=== PATIENT | female | born 1960 | race Two or more races ===

== ENCOUNTER 2020-06-27 11:54 | Outpatient (REF) | payer OTHER, SELFPAY | END 2020-06-27 11:55 | disposition home or self-care (01) | LOC: HO.MDS 11:54 | PROVIDERS: Visit Provider Internal Medicine Pulmonary Disease | DX: J45.909 Unspecified asthma, uncomplicated (principal) | CPT/HCPCS: 96372; J0517 ==

== ENCOUNTER 2020-07-11 06:42 | Outpatient (REF) | payer OTHER, SELFPAY | END 2020-07-11 06:43 | disposition home or self-care (01) | LOC: HO.LAB 06:42 | PROVIDERS: Visit Provider Internal Medicine | DX: Z20.828 Contact with and (suspected) exposure to other viral communicable diseases (principal) | CPT/HCPCS: C9803; U0003 ==

== ENCOUNTER → 2020-09-24 12:30 | Outpatient (BNVA) | payer OTHER, SELFPAY | PROVIDERS: Visit Provider Internal Medicine Pulmonary Disease | DX: J45.50 Severe persistent asthma, uncomplicated (principal); G47.33 Obstructive sleep apnea (adult) (pediatric); Z91.09 Other allergy status, other than to drugs and biological substances | CPT/HCPCS: 99212 ==

== ENCOUNTER 2020-10-03 12:32 | Outpatient (REF) | payer OTHER, SELFPAY | END 2020-10-03 12:33 | disposition home or self-care (01) | LOC: HO.MDS 12:32 | PROVIDERS: PCP Internal Medicine; Visit Provider Internal Medicine Pulmonary Disease | DX: J45.40 Moderate persistent asthma, uncomplicated (principal) | CPT/HCPCS: 96372; J0517 ==

== ENCOUNTER 2020-10-31 09:46 | Outpatient (REF) | payer OTHER, SELFPAY ==
--- NOTE | ~2020-10-31 | XR_ITS ---
EXAMINATION: XR LUMBOSACRAL SPINE CLINICAL INFORMATION: Low back pain COMPARISON: Previous lumbar spine x-ray July 2017 TECHNIQUE: Three views of the lumbosacral spine. FINDINGS: Bone alignment is normal. No fracture or dislocation is seen. There is evidence of degenerative disc disease at L1-L2, L2-L3 and L5-S1. There is lower lumbar spine facet arthritis. XR/XR lumbar spine 2-3V IMPRESSION: Degenerative changes.
== END 2020-10-31 09:47 | disposition home or self-care (01) ==
LOC: HO.XRAY 09:46
PROVIDERS: PCP Internal Medicine; Visit Provider Internal Medicine
DX: M54.5 Low back pain (principal)
CPT/HCPCS: 72100

== ENCOUNTER 2020-11-13 22:54 | Emergency (ER) | payer OTHER, SELFPAY ==
[2020-11-13 23:00] VITALS: BP 151/57; PULSE 73; RESP 16; TEMP 36.9; O2SAT 99; BMI 48.0
--- NOTE | 2020-11-13 23:10 | ED_ITS ---
HPI - Dizziness General Chief Complaint: Dizziness Stated Complaint: weakness dizzy Time Seen by Provider: 11/13/20 23:10 Source: patient Limitations: language barrier History of Present Illness HPI Narrative: Patient history of anxiety received her COVID vaccine on 11/07 on Klonopin 2 mg daily for last few years which she has not taking for last 3 days since then patient has been feeling anxious complaining of palpitation and epigastric pain unable to sleep. Patient denies any nausea/vomiting no fever no shortness of breath no cough no diaphoresis feel dizzy which is nonspecific does denies any spinning movements denies any difficulty in ambulation unable to sleep for last 3 days MD elicited complaint: dizziness Timing: gradual onset Severity: mild Related Data Home Medications Medication Instructions Recorded Confirmed acetaminophen 500 mg tablet 0 mg PO 09/24/20 albuterol sulfate 90 mcg/actuation 2 puff PO Q4-6H PRN 09/24/20 aerosol inhaler aspirin 81 mg tablet,delayed 81 mg PO QAM 09/24/20 release atorvastatin 20 mg tablet 20 mg PO DAILY 09/24/20 clonazepam 2 mg tablet 0 mg PO 09/24/20 diltiazem HCl 240 mg 240 mg PO DAILY 09/24/20 capsule,extended release 24 hr fluticasone propionate 50 2 spray INTRANASAL DAILY 09/24/20 mcg/actuation nasal spray,suspension gabapentin 300 mg capsule 0 mg PO 09/24/20 lamotrigine 150 mg tablet 150 mg PO DAILY 09/24/20 levothyroxine 75 mcg tablet 75 mcg PO DAILY 09/24/20 lisinopril 20 mg tablet 20 mg PO DAILY 09/24/20 loratadine 10 mg tablet 10 mg PO QAM PRN 09/24/20 melatonin 5 mg tablet 0 mg PO 09/24/20 montelukast 10 mg tablet 10 mg PO DAILY 09/24/20 omeprazole 40 mg capsule,delayed 40 mg PO QAM 09/24/20 release Previous Rx's Medication Instructions Recorded benralizumab 30 mg/mL subcutaneous See Rx Instructions SUBCUT Q8W 28 09/26/20 syringe Days #2 ml Allergies Allergy/AdvReac Type Severity Reaction Status Date / Time morphine [Morphine] Allergy Mild NAUSEA & Verified 09/24/20 12:52 VOMITING aspirin Allergy Unknown Unknown Verified 11/13/20 23:05 zolmitriptan Allergy Unknown Unknown Verified 09/24/20 12:52 Review of Systems Review of Systems: Constitutional : No Weight loss, No Fever, No Chills ENT/Mouth : No sore throat, No Rhinorrhea Eyes: No Eye Pain, No Swelling Cardiovascular : No Chest Pain, ++ palpitations Respiratory : No Cough, No Sputum, no shortness of breath Gastrointestinal : no Nausea, No Vomiting, No Diarrhea, No abdominal Pain, no black stools Genitourinary : No Dysuria, No Urinary Frequency Musculoskeletal : No joint pain, No Myalgias, No Joint Swelling Skin : No Skin Lesions, No rash Neuro : No Weakness, No Numbness, No Dizziness, No Headache Psych :++Anxiety/Panic, No Depression Heme/Lymph: No Bruising, No Lymphadenopathy Endocrine : No Polyuria, No Polydipsia All other systems reviewed and are negative FOR[facility]LY [facility], [facility] Past Medical History Medical History Asthma Bipolar 1 disorder Cholecystectomy planned Depressed GERD (gastroesophageal reflux disease) Hypothyroid Surgical History H/O tubal ligation Social History Social History Smoking Status: Former smoker Advance Directives: No Physical Exam Vital Signs: Vital Signs: Last Vital Signs Temp 98.5 F 11/13/20 23:00 Pulse 77 11/13/20 23:49 Resp 22 H 11/13/20 23:45 BP 142/63 H 11/13/20 23:49 Pulse Ox 98 11/13/20 23:45 Body Mass Index 48.0 Appearance: Alert. Oriented X3. No acute distress. Anxious Eyes: Pupils equal, round and reactive to light. ENT: Pharynx normal. Neck: Normal inspection. Neck supple. CVS: Normal heart rate and rhythm. Pulses normal. Respiratory: No respiratory distress. Breath sounds normal. Abdomen: Soft and nontender. Bowel sounds are present, no mass palpable, no CVA tenderness Skin: Skin warm and dry. Normal skin color. Normal skin turgor. Extremities: No lower extremity edema. Neuro: Oriented X 3. No motor deficit. No sensory deficit. MDM - Dizziness MDM Narrative Medical decision making narrative: Patient has history of anxiety on Klonopin for long-time not taking it for last 3 days since then patient been feeling very anxious dizzy multiple complaints symptoms likely from anxiety will do basic workup orthostatic Patient orthostatic is normal labs are stable discharge patient home advised to continue her Klonopin and follow with PCP Lab Data Result diagrams: 11/14/20 00:04 11/14/20 00:04 Labs: Lab Results 11/14/20 11/14/20 11/14/20 Range/Units 00:04 00:04 00:04 WBC 8.9 (4.8-10.8) X10*3/uL RBC 4.67 (4.20-5.50) X10*6/uL Hgb 13.3 (12.0-16.0) g/dl Hct 41.2 (37-47) % MCV 88.2 (80-98) fL MCH 28.5 (27.0-33.0) pg MCHC 32.3 (31.0-35.0) g/dl RDW 14.6 (11.0-16.0) % Plt Count 240 (160-400) X10*3/uL MPV 10.1 (9.4-12.3) fL Immature Gran % (Auto) 0.3 (0.0-0.4) % Neut % (Auto) 66.8 (45-73) % Lymph % (Auto) 23.8 (20-40) % Frederick % (Auto) 9.0 (2-11) % Eos % (Auto) 0.0 (0-4) % Baso % (Auto) 0.1 (0-2) % Lymph # (Auto) 2.1 (1.2-4.9) X10*3/uL Frederick # (Auto) 0.8 (0.1-1.2) X10*3/uL Eos # (Auto) 0.0 (0.0-0.4) X10*3/uL Baso # (Auto) 0.0 (0.0-0.2) X10*3/uL Abs Immat Gran (auto) 0.03 (0.00-0.03) X10*3/uL Absolute Neuts (auto) 5.9 (2.0-8.3) X10*3/uL Absolute Nucleated RBC 0.000 (0.0-0.012) X10*3/uL Nucleated RBC % (auto) 0.0 (0.0-0.2) /100WBC Sodium 139 (135-145) mmol/L Potassium 4.0 (3.3-5.1) mmol/L Chloride 106 (96-108) mmol/L Carbon Dioxide 24 (22-29) mmol/L Anion Gap 13 (12-20) BUN 18 H (9-16) mg/dL Creatinine 0.95 (0.5-1.4) mg/dL Estim Creat Clear Calc 62.2 Estimated GFR 60 Random Glucose 164 H (60-115) mg/dL Calcium 9.2 (8.4-10.2) mg/dL Total Bilirubin 0.3 (0.0-1.0) mg/dL Direct Bilirubin < 0.2 (0.0-0.5) mg/dL AST 26 (5-31) U/L ALT 25 (0-31) U/L Alkaline Phosphatase 138 H (39-117) U/L Troponin I High Sens < 3.5 (<3.5-17.0) ng/L Total Protein 7.1 (6.5-8.0) g/dL Albumin 4.1 (3.5-5.0) g/dL Lipase 54 (8-78) U/L Discharge Plan Discharge Prescriptions: No Action Fasenra 30 mg/mL syringe See Rx Instructions subcut Q8W 28 Days Qty: 2 RF: 12
--- NOTE | 2020-11-13 23:33 | ECG_ITS ---
Test Reason : DIZZINESS Blood Pressure : / mmHG Vent. Rate : 069 BPM Atrial Rate : 069 BPM P-R Int : 206 ms QRS Dur : 070 ms QT Int : 406 ms P-R-T Axes : 061 063 051 degrees QTc Int : 435 ms Normal sinus rhythm Normal ECG When compared with ECG of 28-FEB-2020 15:50, No significant change was found Referred By: Fei Ramirez Electronically Signed By:LIA MARIE MD
[2020-11-13 23:45] VITALS: BP 117/45; PULSE 72; RESP 22; O2SAT 98
[2020-11-13 23:46] VITALS: BP 117/45; PULSE 72
[2020-11-13 23:47] VITALS: BP 134/55; PULSE 76
[2020-11-13 23:49] VITALS: BP 142/63; PULSE 77
[2020-11-14 00:13] LABS: MANUAL DIFF FLAG NO
[2020-11-14 00:15] LABS: Basophils Percent Auto 0.1 % (0-2); Hematocrit 41.2 % (37-47); Hemoglobin 13.3 g/dl (12.0-16.0); Imm Gran Abs Auto 0.03 X10*3/uL (0.00-0.03); Imm Gran Pct Auto 0.3 % (0.0-0.4); Lymphocytes Absolute Auto 2.1 X10*3/uL (1.2-4.9); Lymphocytes Percent Auto 23.8 % (20-40); Mean Corpuscular HGB Conc 32.3 g/dl (31.0-35.0); Mean Corpuscular Hemoglobin 28.5 pg (27.0-33.0); Mean Corpuscular Volume 88.2 fL (80-98); Mean Platelet Volume 10.1 fL (9.4-12.3); Monocytes Absolute Auto 0.8 X10*3/uL (0.1-1.2); Neutrophils Absolute Auto 5.9 X10*3/uL (2.0-8.3); Neutrophils Percent Auto 66.8 % (45-73); Platelet Count 240 X10*3/uL (160-400); Red Blood Count 4.67 X10*6/uL (4.20-5.50); Red Cell Distribution Width 14.6 % (11.0-16.0); White Blood Count 8.9 X10*3/uL (4.8-10.8)
[2020-11-14 00:38] LABS: Alanine Aminotransferase 25 U/L (0-31); Albumin Level 4.1 g/dL (3.5-5.0); Alkaline Phosphatase 138 U/L (39-117); Anion Gap 13 (12-20); Aspartate Amino Transferase 26 U/L (5-31); Bilirubin Direct < 0.2 mg/dL (0.0-0.5); Bilirubin Total 0.3 mg/dL (0.0-1.0); Blood Urea Nitrogen 18 mg/dL (9-16); Calcium 9.2 mg/dL (8.4-10.2); Carbon Dioxide 24 mmol/L (22-29); Chloride 106 mmol/L (96-108); Creatinine Clr Calc Pharmacy 62.2; Estimated Glomerular Filt Rate 60; Glucose Random 164 mg/dL (60-115); Lipase 54 U/L (8-78); Sodium 139 mmol/L (135-145); Total Protein 7.1 g/dL (6.5-8.0)
[2020-11-14 00:41] LABS: Troponin-I High Sensitivity < 3.5 ng/L (<3.5-17.0)
[2020-11-14] MEDS: clonazePAM 1 MG TABLET 2 MG PO (00:59)
[2020-11-14 01:04] LABS: Glucose Urine UA NEG (NEG); Leukocyte Esterase Urine NEG (NEG); Nitrite Urine NEG (NEG); Urine Blood TRACE (NEG); Urine Ketones NEG (NEG); Urine Protein NEG (NEG-TRACE)
[2020-11-14 01:13] LABS: Appearance Urine CLEAR; Color Urine STRAW
[2020-11-14 01:23] LABS: RBC Urine 0-2 /HPF (0); Squamous Epithelial Cell Urine TRACE /LPF; WBC Urine 0 /HPF (0-4)
== END 2020-11-14 01:45 | disposition home or self-care (01) ==
PROVIDERS: Emergency Provider Internal Medicine; PCP Internal Medicine
DX: F41.9 Anxiety disorder, unspecified (principal); R00.2 Palpitations; T42.4X6A Underdosing of benzodiazepines, initial encounter; Z91.128 Patient's intentional underdosing of medication regimen for other reason; Y92.019 Unspecified place in single-family (private) house as the place of occurrence of the external cause
CPT/HCPCS: 36415; 80048; 80076; 81001; 81003; 83690; 84484; 85025; 93005; 99283; 99284

== ENCOUNTER 2020-11-19 15:20 | Emergency (ER) | payer OTHER, SELFPAY ==
[2020-11-19 15:27] VITALS: BP 121/64; PULSE 75; RESP 24; TEMP 37.1; O2SAT 99; BMI 48.1
[2020-11-19] MEDS: Milk of Magnesia 30 ML ORAL.SUSP PO (15:49)
[2020-11-19] MEDS: bisacodyL 5 MG TABLET.DR 10 MG PO (15:49)
--- NOTE | 2020-11-19 16:18 | PC.NURSE ---
patient on commode. had large bm. reports that pain has subsided.
--- NOTE | 2020-11-19 16:23 | ED_ITS ---
HPI - General Adult General Chief complaint: Abdominal Pain Stated complaint: SEVERE ABD PAIN,CONSTIPATION Time Seen by Provider: 11/19/20 15:36 Source: patient Mode of arrival: ambulatory Limitations: language barrier History of Present Illness HPI narrative: Patient been constipated for last 1 week having pain in the rectum feel stool stuck in the rectum. Patient did not take any medication at home feel lower abdominal pain no nausea no vomiting no fever no chills no cough Related Data Home Medications Medication Instructions Recorded Confirmed acetaminophen 500 mg tablet 0 mg PO 09/24/20 albuterol sulfate 90 mcg/actuation 2 puff PO Q4-6H PRN 09/24/20 aerosol inhaler aspirin 81 mg tablet,delayed 81 mg PO QAM 09/24/20 release atorvastatin 20 mg tablet 20 mg PO DAILY 09/24/20 clonazepam 2 mg tablet 0 mg PO 09/24/20 diltiazem HCl 240 mg 240 mg PO DAILY 09/24/20 capsule,extended release 24 hr fluticasone propionate 50 2 spray INTRANASAL DAILY 09/24/20 mcg/actuation nasal spray,suspension gabapentin 300 mg capsule 0 mg PO 09/24/20 lamotrigine 150 mg tablet 150 mg PO DAILY 09/24/20 levothyroxine 75 mcg tablet 75 mcg PO DAILY 09/24/20 lisinopril 20 mg tablet 20 mg PO DAILY 09/24/20 loratadine 10 mg tablet 10 mg PO QAM PRN 09/24/20 melatonin 5 mg tablet 0 mg PO 09/24/20 montelukast 10 mg tablet 10 mg PO DAILY 09/24/20 omeprazole 40 mg capsule,delayed 40 mg PO QAM 09/24/20 release Previous Rx's Medication Instructions Recorded benralizumab 30 mg/mL subcutaneous See Rx Instructions SUBCUT Q8W 28 09/26/20 syringe Days #2 ml polyethylene glycol 3350 [Miralax] 17 g PO DAILY #510 g 11/19/20 Allergies Allergy/AdvReac Type Severity Reaction Status Date / Time morphine [Morphine] Allergy Mild NAUSEA & Verified 09/24/20 12:52 VOMITING aspirin Allergy Unknown Unknown Verified 11/13/20 23:05 zolmitriptan Allergy Unknown Unknown Verified 09/24/20 12:52 Review of Systems Review of Systems: Constitutional : No Weight loss, No Fever, No Chills ENT/Mouth : No sore throat, No Rhinorrhea Eyes: No Eye Pain, No Swelling Cardiovascular : No Chest Pain, no palpitations Respiratory : No Cough, No Sputum, no shortness of breath Gastrointestinal : no Nausea, No Vomiting, No Diarrhea, + abdominal Pain, no black stools Genitourinary : No Dysuria, No Urinary Frequency Musculoskeletal : No joint pain, No Myalgias, No Joint Swelling Skin : No Skin Lesions, No rash Neuro : No Weakness, No Numbness, No Dizziness, No Headache Psych : No Anxiety/Panic, No Depression Heme/Lymph: No Bruising, No Lymphadenopathy Endocrine : No Polyuria, No Polydipsia All other systems reviewed and are negative COUNT INCLUDES THE [facility] Past Medical History Medical History Asthma Bipolar 1 disorder Cholecystectomy planned Depressed GERD (gastroesophageal reflux disease) Hypothyroid Surgical History H/O tubal ligation Social History Social History Smoking Status: Former smoker Advance Directives: No Advance Directives Information Provided: Yes Physical Exam Vital Signs: Vital Signs: Last Vital Signs Temp 98.8 F 11/19/20 15:27 Pulse 75 11/19/20 15:27 Resp 24 H 11/19/20 15:27 BP 121/64 11/19/20 15:27 Pulse Ox 99 11/19/20 15:27 Body Mass Index 48.1 Appearance: Alert. Oriented X3. No acute distress. Eyes: Pupils equal, round and reactive to light. ENT: Pharynx normal. Neck: Normal inspection. Neck supple. CVS: Normal heart rate and rhythm. Pulses normal. Respiratory: No respiratory distress. Breath sounds normal. Abdomen: Soft and nontender. Bowel sounds are present, no mass palpable, no CVA tenderness Recta: Semi solid stool in the rectum brown-colored Skin: Skin warm and dry. Normal skin color. Normal skin turgor. Extremities: No lower extremity edema. Neuro: Oriented X 3. No motor deficit. No sensory deficit. Medical Decision Making MDM Narrative Medical decision making narrative: Patient's constipation manual disimpaction was done in the ER and patient had a big bowel movement since feeling much better after that no significant abdominal pain patient will be discharged home on MiraLax Discharge Plan Discharge Clinical Impression: Constipation Patient Disposition: Home, Self-Care Instructions: Constipation (ED) Additional Instructions: Take medication as advised for chronic constipation. Follow with PCP Prescriptions: New polyethylene glycol 3350 [Miralax] 17 gram/dose powder 17 g PO DAILY Qty: 510 RF: 0 No Action Fasenra 30 mg/mL syringe See Rx Instructions subcut Q8W 28 Days Qty: 2 RF: 12
== END 2020-11-19 17:08 | disposition home or self-care (01) ==
PROVIDERS: Emergency Provider Internal Medicine
DX: K59.00 Constipation, unspecified (principal); Z79.899 Other long term (current) drug therapy
CPT/HCPCS: 99283

== ENCOUNTER → 2020-12-12 14:06 | Outpatient (BNVA) | payer OTHER, SELFPAY | PROVIDERS: PCP Internal Medicine; Visit Provider Internal Medicine Pulmonary Disease | DX: J45.50 Severe persistent asthma, uncomplicated (principal); Z91.09 Other allergy status, other than to drugs and biological substances | CPT/HCPCS: 99212 ==

== ENCOUNTER 2021-01-01 11:36 | Outpatient (REF) | payer OTHER, SELFPAY | END 2021-01-01 11:37 | disposition home or self-care (01) | LOC: HO.MDS 11:36 | PROVIDERS: PCP Internal Medicine; Visit Provider Internal Medicine Pulmonary Disease | DX: J45.909 Unspecified asthma, uncomplicated (principal) | CPT/HCPCS: 96372; J0517 ==

== ENCOUNTER 2021-01-14 15:04 | Outpatient (REF) | payer OTHER, SELFPAY ==
--- NOTE | ~2021-01-14 | MM_ITS ---
EXAMINATION: MM SCREENING DIGITAL BREAST TOMOSYNTHESIS, BILATERAL CLINICAL INFORMATION: Screening. Asymptomatic. The lifetime risk of breast cancer based on the Tyrer-Cuzick Model is 5%. COMPARISON: Mammography: 12/20/2018, 04/15/2017 TECHNIQUE: Digital breast tomosynthesis is performed in both the craniocaudal and mediolateral oblique views along with computer-aided detection (CAD). Synthesized 2D images are generated from the tomosynthesis. Additional left CC, left cleavage, and right MLO views are provided. FINDINGS: The breasts are almost entirely fatty (ACR BI-RADS breast composition Category a). There are no significant masses, abnormal calcifications, or other abnormalities. Background stromal densities are stable. The axilla and skin contours are unremarkable. There are no significant changes. MM/MM tomosynthesis screening BI IMPRESSION: No mammographic evidence of malignancy. ASSESSMENT: BI-RADS 1: Negative RECOMMENDATION: Routine annual mammography screening. This patient's information was entered into a reminder system with a target due date for their next mammogram.
== END 2021-01-14 15:05 | disposition home or self-care (01) ==
LOC: HO.MAMMO 15:04
PROVIDERS: PCP Internal Medicine; Visit Provider Advanced Practice Midwife
DX: Z12.31 Encounter for screening mammogram for malignant neoplasm of breast (principal)
CPT/HCPCS: 77063; 77067

== ENCOUNTER 2021-03-24 11:57 | Outpatient (REF) | payer OTHER, SELFPAY | END 2021-03-24 11:58 | disposition home or self-care (01) | LOC: HO.MDS 11:57 | PROVIDERS: PCP Internal Medicine; Visit Provider Internal Medicine Pulmonary Disease | DX: J45.909 Unspecified asthma, uncomplicated (principal) | CPT/HCPCS: 96372; J0517 ==

== ENCOUNTER → 2021-05-14 10:29 | Outpatient (BNVA) | payer OTHER, SELFPAY | PROVIDERS: PCP Internal Medicine; Visit Provider Internal Medicine Pulmonary Disease | DX: J45.50 Severe persistent asthma, uncomplicated (principal); G47.33 Obstructive sleep apnea (adult) (pediatric); Z91.09 Other allergy status, other than to drugs and biological substances | CPT/HCPCS: 99212 ==

== ENCOUNTER 2021-05-19 11:17 | Outpatient (REF) | payer OTHER, SELFPAY | END 2021-05-19 11:18 | disposition home or self-care (01) | LOC: HO.MDS 11:17 | PROVIDERS: PCP Internal Medicine; Visit Provider Internal Medicine Pulmonary Disease | DX: J45.40 Moderate persistent asthma, uncomplicated (principal) | CPT/HCPCS: 96372; J0517 ==

== ENCOUNTER → 2021-06-22 11:31 | Outpatient (BNVA) | payer OTHER, SELFPAY | PROVIDERS: PCP Internal Medicine; Visit Provider Internal Medicine Pulmonary Disease | DX: J45.50 Severe persistent asthma, uncomplicated (principal); G47.33 Obstructive sleep apnea (adult) (pediatric); R06.01 Orthopnea; Z91.09 Other allergy status, other than to drugs and biological substances | CPT/HCPCS: 99212 ==

== ENCOUNTER → 2021-07-14 15:07 | Outpatient (BNVA) | payer OTHER, SELFPAY | PROVIDERS: PCP Internal Medicine; Visit Provider Internal Medicine Pulmonary Disease | DX: J45.50 Severe persistent asthma, uncomplicated (principal); R06.01 Orthopnea; Z91.09 Other allergy status, other than to drugs and biological substances | CPT/HCPCS: 99212 ==

== ENCOUNTER 2021-07-23 10:10 | Outpatient (REF) | payer OTHER, SELFPAY | END 2021-07-23 10:11 | disposition home or self-care (01) | LOC: HO.MDS 10:10 | PROVIDERS: PCP Internal Medicine; Visit Provider Internal Medicine Pulmonary Disease | DX: J45.40 Moderate persistent asthma, uncomplicated (principal) | CPT/HCPCS: 96372; J0517 ==

== ENCOUNTER → 2021-08-19 15:23 | Outpatient (BNVA) | payer OTHER, SELFPAY | PROVIDERS: PCP Internal Medicine; Visit Provider Internal Medicine Pulmonary Disease | DX: J45.50 Severe persistent asthma, uncomplicated (principal); G47.33 Obstructive sleep apnea (adult) (pediatric); R06.01 Orthopnea; Z91.09 Other allergy status, other than to drugs and biological substances | CPT/HCPCS: 99212 ==

== ENCOUNTER 2021-09-29 13:02 | Outpatient (REF) | payer OTHER, SELFPAY | END 2021-09-29 13:03 | disposition home or self-care (01) | LOC: HO.MDS 13:02 | PROVIDERS: PCP Internal Medicine; Visit Provider Internal Medicine Pulmonary Disease | DX: J45.50 Severe persistent asthma, uncomplicated (principal); R06.01 Orthopnea; R04.2 Hemoptysis; E03.9 Hypothyroidism, unspecified; E66.9 Obesity, unspecified; G47.33 Obstructive sleep apnea (adult) (pediatric); F31.9 Bipolar disorder, unspecified; Z68.42 Body mass index [BMI] 45.0-49.9, adult; Z87.891 Personal history of nicotine dependence; Z91.09 Other allergy status, other than to drugs and biological substances; Z88.6 Allergy status to analgesic agent; Z79.899 Other long term (current) drug therapy | CPT/HCPCS: 96372; 99212; J0517 ==

== ENCOUNTER 2021-11-24 12:33 | Outpatient (REF) | payer OTHER, SELFPAY | END 2021-11-24 12:34 | disposition home or self-care (01) | LOC: HO.MDS 12:33 | PROVIDERS: PCP Internal Medicine; Visit Provider Internal Medicine Pulmonary Disease | DX: J45.50 Severe persistent asthma, uncomplicated (principal) | CPT/HCPCS: 96372; J0517 ==

== ENCOUNTER 2022-02-02 10:44 | Outpatient (REF) | payer OTHER, SELFPAY | END 2022-02-02 10:45 | disposition home or self-care (01) | LOC: HO.MDS 10:44 | PROVIDERS: PCP Internal Medicine; Visit Provider Internal Medicine Pulmonary Disease | DX: J45.50 Severe persistent asthma, uncomplicated (principal) | CPT/HCPCS: 96372; J0517 ==

== ENCOUNTER 2022-02-08 07:45 | Outpatient (REF) | payer OTHER, SELFPAY ==
--- NOTE | 2022-02-08 | PFT_ITS ---
INDICATION: Dyspnea. SPIROMETRY: FEV1 to FVC of 87% with an FEV1 of 1.7 L, which is 94% predicted, an FVC of 1.97 L, which is 82% predicted. No significant response to bronchodilators noted. Maximum voluntary ventilation is 67% predicted. LUNG VOLUMES: Total lung capacity 82% predicted with an expiratory reserve volume of 38% predicted. DIFFUSION CAPACITY: DLCO 102% predicted. COMPARISONS: None. INTERPRETATION: No obstructive nor restrictive ventilatory defects identified. No significant response to bronchodilators noted. The patient does have a mild to moderate decrease in maximum voluntary ventilation secondary to likely deconditioning, although cannot rule out neuromuscular conditions. The patient has a low normal total lung capacity, although a decrease in the expiratory reserve volume secondary to an elevated BMI. Cannot rule out occult interstitial lung conditions. Diffusion capacity is reassuring within normal limits. Clinical correlation warranted. MD FRANK Marcelino/MODMichael / [id number]
== END 2022-02-08 07:46 | disposition home or self-care (01) ==
LOC: HO.RESP 07:45
PROVIDERS: PCP Internal Medicine; Visit Provider Internal Medicine Pulmonary Disease
DX: R06.00 Dyspnea, unspecified (principal)
CPT/HCPCS: 94060; 94727; 94729

== ENCOUNTER → 2022-02-10 10:00 | Outpatient (BNVA) | payer OTHER, SELFPAY | PROVIDERS: PCP Internal Medicine; Visit Provider Internal Medicine Pulmonary Disease | DX: J45.50 Severe persistent asthma, uncomplicated (principal); R06.00 Dyspnea, unspecified; G47.33 Obstructive sleep apnea (adult) (pediatric); Z91.09 Other allergy status, other than to drugs and biological substances | CPT/HCPCS: 99212 ==

== ENCOUNTER 2022-04-15 13:37 | Outpatient (REF) | payer OTHER, SELFPAY | END 2022-04-15 13:38 | disposition home or self-care (01) | LOC: HO.MDS 13:37 | PROVIDERS: PCP Internal Medicine; Visit Provider Internal Medicine Pulmonary Disease | DX: J45.50 Severe persistent asthma, uncomplicated (principal) | CPT/HCPCS: 96372; J0517 ==

== ENCOUNTER → 2022-05-21 13:35 | Outpatient (REF) | payer OTHER, SELFPAY ==
--- NOTE | 2022-05-21 13:39 | CA_ITS ---
Transthoracic Echocardiogram Patient (Last, First, Middle): Sue Flannery, Gender: Female Date of : 1960 Age: 61 Procedure Date: 05/21/2022 Procedure Type: Transthoracic Echocardiogram Location: OP Height: 121.92 cm Weight: 100.7 kg BSA: 1.66 m2 Heart Rate: 70 bpm BP: 132 / 72 mmHg Field Service Analyst: SB Referring MD: Rayshawn Lloyd MD Server Engineer: Trevon Dahl MD Symptoms: R06.00 - Dyspnea, unspecified Study Quality: Adequate w contrast ECG Rhythm: Sinus Conclusions: - 1. Normal LV systolic function with grade I diastolic function. 2. Normal cardiac valvular dopplers 3. No pericardial effusion Findings Procedure Information Contrast agent, definity, is being given per protocol without apparent complications. Left Ventricle Normal left ventricular size, thickness, and systolic function. The visually estimated ejection fraction is between 65-70%. Spectral Doppler is indicative of an impaired relaxation filling pattern. E/E prime ratio is <8, consistent with normal filling pressures. Right Ventricle Normal right ventricular cavity size and systolic function. Atria The left atrium is normal in size. There is lipomatous hypertrophy of the interatrial septum. Interatrial shunt cannot be excluded. The right atrium is normal in size. Aortic Valve The aortic valve structure and function is likely normal. There is no aortic valve stenosis. There is no aortic valve regurgitation. Mitral Valve Normal mitral valve structure and function. There is trace mitral valve regurgitation. There is no mitral valve stenosis. Pulmonic Valve The pulmonic valve was not well visualized. Tricuspid Valve The tricuspid valve was not well visualized. Normal right atrial pressure. Great Vessels All visible segments of the aorta are normal in size. The pulmonary artery was not well visualized. Venous The inferior vena cava is normal in size and collapses greater than 50% with inspiration. Pericardium/Pleural There is no evidence of pericardial effusion. Prior Study Comparison No previous studies in last 5 years for comparision. Measurements 2D Linear Measurements IVSd: 1.29 0.6-0.9/0.6-1.0 cm LVIDd: 4.12 3.9-5.3/4.2-5.9 cm LVIDd Index: 2.48 2.4-3.2/2.2-3.1 cm/m2 LVIDs: 2.61 2.0-3.6 cm LVPWd: 0.99 0.7-1.1 cm LA Diam: 3.80 2.7-3.8/3.0-4.0 cm LAIDs Index: 2.29 1.5-2.3 cm/m2 LV Mass: 199.64 67-162/88-224 g LV Mass Index: 120.27 43-95/49-115 g/m2 LVOT Diam: 2.10 3.0+(-)1.3 cm 2D Systolic Function EF 4C: 58.70 >55% EF 2C: 71.40 >55% EF BiP: 65.90 >55% Mitral Valve MV Pk E: 0.64 MV PK A: 0.80 MV Decel Time: 260.00 E/A: 0.80 E'Lateral: 8.81 E'Medial: 5.11 E/E' Med: 12.60 E/E' Lat: 7.30 PHT: 76.00 MVA PHT: 2.89 Decel Coffey: 2.48 Aortic Valve AoV Pk Ben: 1.05 AoV Mn Ben: 0.73 AoV VTI: 0.23 AoV Pk Grad: 4.00 Aov Mn Grad: 2.00 WES Cont.VTI: 3.08 LVOT LVOT Pk Ben: 1.00 LVOT Mn Ben: 0.66 LVOT VTI: 0.21 LVOT Pk Grad: 4.00 LVOT Mn Grad: 2.00 LVOT Diam: 2.10 LVOT Area: 3.46 Diastolic Function MV Pk E: 0.64 MV Pk A: 0.80 E/A: 0.80 E'Medial: 5.11 E/E' Med: 12.60 E' Laterial: 8.81 E/E' Lat: 7.30 Right Ventricle TAPSE (mm): 19.40 TVS' Ben: 12.10 Tricuspid Valve RA Press: 3.00 Great Vessels Aorta Sinus of Valsalva: 3.40 2.0-3.5 cm Ao Asc: 3.60 2.1-3.4 cm Pulmonary Veins Pulm Vein S/D 1.20 Pulmonary Valve PV Pk Ben: 0.83 Peak PV Grad: 3.00 Updated in Other Vendor System with Status of Final Trevon Dahl MD electronically signed on 05/23/2022 1:47:57 PM with status of Final
== END ==
LOC: HO.CARD 13:35
PROVIDERS: Visit Provider Internal Medicine Pulmonary Disease
DX: R06.00 Dyspnea, unspecified (principal)
CPT/HCPCS: 93306; Q9957

== ENCOUNTER → 2022-05-24 13:37 | Outpatient (BNVA) | payer OTHER, SELFPAY | PROVIDERS: PCP Internal Medicine; Visit Provider Internal Medicine Pulmonary Disease | DX: J45.50 Severe persistent asthma, uncomplicated (principal); Z91.09 Other allergy status, other than to drugs and biological substances; Z79.899 Other long term (current) drug therapy | CPT/HCPCS: 99212 ==

== ENCOUNTER 2022-08-25 07:36 | Outpatient (REF) | payer OTHER, SELFPAY | END 2022-08-25 07:37 | disposition home or self-care (01) | LOC: HO.MDS 07:36 | PROVIDERS: Visit Provider Internal Medicine Pulmonary Disease | DX: J45.50 Severe persistent asthma, uncomplicated (principal) | CPT/HCPCS: 96372 ==

== ENCOUNTER → 2022-08-31 12:52 | Outpatient (BNVA) | payer OTHER, SELFPAY | PROVIDERS: PCP Internal Medicine; Visit Provider Internal Medicine | DX: R07.2 Precordial pain (principal) | CPT/HCPCS: 93005; 99212 ==

== ENCOUNTER → 2022-09-16 08:23 | Outpatient (REF) | payer OTHER, SELFPAY ==
--- NOTE | ~2022-09-16 | NM_ITS ---
Lexiscan Myocardial perfusion study Indication: Chest pain, assess for coronary disease and ischemia Technique: The patient was brought in for a Lexiscan perfusion study on 09/16/2022 and was injected 0.4 mg of Lexiscan intravenously. Within a minute of this injection 30 mCi of sestamibi was given intravenously. Images were obtained using the SPECT gamma camera interlaced with the gating device. Images were obtained in supine position. Resting perfusion study was performed on 09/22/2022. Patient was administered 30 mCi of sestamibi intravenously at rest. Images were then obtained in supine position. Images were processed with the software and compared side to side in short axis, horizontal long axis and vertical long axis views. Total DLP 173mGy-cm. Findings: Raw acquisition reviewed. Arms by the patient's side. The stress perfusion study showed no significant perfusion abnormality. Both uncorrected as well as CT attenuation corrected images were reviewed. The gated study shows normal LV systolic function with calculated LVEF of 36%, but visually normal. LV cavity is normal in size. The gated study shows normal wall thickening and contraction of segments. Resting study shows no significant perfusion abnormality. Gating at rest reveals normal wall motion with ejection fraction at 71%. The findings are consistent with no clear reversible or fixed perfusion defects. NM/NM cardiolite stress test Impression: 1. Myocardial perfusion imaging study shows normal myocardial perfusion. 2. Gated LVEF is normal. 3. Transient ischemic dilatation not present. EKG component of the test reported separately.
--- NOTE | 2022-09-16 08:26 | CA_ITS ---
Acquisition Time: 2022-09-16 08:43:09 Total Exercise Time: 00:02:00 Test Indications: PRECORDIAL CHEST PAIN Medications: ALBUTEROL ASA ATORVASTATIN Protocol: LEXISCAN Max HR: 108 BPM 68% of Pred: 157 BPM Max BP: 130/070 mmHG Max Work Load: 1.0 METS Pharmacological stress test with Lexiscan injection, while sitting and kicking her legs, with report of pressure in her chest post injection, without arrythmia, with normotensive response to injection, with nondiagnostic EKG for ischemia. In recovery her chest pressure resolved. Nuclear images pending. Test reviewed with Dr Johnson. Referred By: Luis Suh Overread By: RICARDO ABEL
== END ==
LOC: HO.CARD 08:23
PROVIDERS: Visit Provider Internal Medicine
DX: R07.2 Precordial pain (principal)
CPT/HCPCS: 78452; 93017; A9500; J2785

== ENCOUNTER 2022-09-23 08:55 | Outpatient (REF) | payer OTHER, SELFPAY | END 2022-09-23 08:56 | disposition home or self-care (01) | LOC: HO.MDS 08:55 | PROVIDERS: Visit Provider Internal Medicine Pulmonary Disease | DX: J45.50 Severe persistent asthma, uncomplicated (principal) | CPT/HCPCS: 96372 ==

== ENCOUNTER 2022-11-18 12:04 | Outpatient (REF) | payer OTHER, SELFPAY | END 2022-11-18 12:05 | disposition home or self-care (01) | LOC: HO.MDS 12:04 | PROVIDERS: Visit Provider Internal Medicine Pulmonary Disease | DX: J45.50 Severe persistent asthma, uncomplicated (principal) | CPT/HCPCS: 96372 ==

== ENCOUNTER 2022-12-16 11:10 | Outpatient (REF) | payer OTHER, SELFPAY | END 2022-12-16 11:11 | disposition home or self-care (01) | LOC: HO.MDS 11:10 | PROVIDERS: Visit Provider Internal Medicine Pulmonary Disease | DX: J45.50 Severe persistent asthma, uncomplicated (principal) | CPT/HCPCS: 96372; J2182 ==

== ENCOUNTER → 2023-01-11 09:38 | Outpatient (BNVA) | payer OTHER, SELFPAY | PROVIDERS: PCP Internal Medicine; Visit Provider Internal Medicine Pulmonary Disease | DX: J45.50 Severe persistent asthma, uncomplicated (principal); Z91.09 Other allergy status, other than to drugs and biological substances; Z87.891 Personal history of nicotine dependence; Z79.899 Other long term (current) drug therapy | CPT/HCPCS: 99212 ==

== ENCOUNTER 2023-01-25 12:36 | Outpatient (REF) | payer OTHER, SELFPAY | END 2023-01-25 12:37 | disposition home or self-care (01) | LOC: HO.MDS 12:36 | PROVIDERS: Visit Provider Internal Medicine Pulmonary Disease | DX: J45.50 Severe persistent asthma, uncomplicated (principal) | CPT/HCPCS: 96372 ==

== ENCOUNTER → 2023-02-24 12:33 | Outpatient (BNVA) | payer OTHER, SELFPAY | PROVIDERS: PCP Internal Medicine; Visit Provider Internal Medicine Pulmonary Disease | DX: J45.50 Severe persistent asthma, uncomplicated (principal); Z79.899 Other long term (current) drug therapy; Z87.891 Personal history of nicotine dependence; Z91.09 Other allergy status, other than to drugs and biological substances | CPT/HCPCS: 99212 ==

== ENCOUNTER 2023-02-28 10:30 | Outpatient (REF) | payer OTHER, SELFPAY | END 2023-02-28 10:31 | disposition home or self-care (01) | LOC: HO.MDS 10:30 | PROVIDERS: Visit Provider Internal Medicine Pulmonary Disease | DX: J45.50 Severe persistent asthma, uncomplicated (principal) | CPT/HCPCS: 96372 ==

== ENCOUNTER 2023-04-04 11:38 | Outpatient (REF) | payer OTHER, SELFPAY | END 2023-04-04 11:39 | disposition home or self-care (01) | LOC: HO.MDS 11:38 | PROVIDERS: Visit Provider Internal Medicine Pulmonary Disease | DX: J45.50 Severe persistent asthma, uncomplicated (principal) | CPT/HCPCS: 96372; J2182 ==

== ENCOUNTER 2023-04-25 09:09 | Outpatient (REF) | payer OTHER, SELFPAY ==
--- NOTE | ~2023-04-25 | MM_ITS ---
EXAMINATION: MM SCREENING DIGITAL BREAST TOMOSYNTHESIS, BILATERAL CLINICAL INFORMATION: Screening. Asymptomatic. COMPARISON: Mammography: This study is compared with prior exams dating back to 2017. TECHNIQUE: Digital breast tomosynthesis is performed in both the craniocaudal and mediolateral oblique views along with computer-aided detection (CAD). Synthesized 2D images are generated from the tomosynthesis. FINDINGS: The breasts are almost entirely fatty (ACR BI-RADS breast composition Category a). There are no significant masses, abnormal calcifications, or other abnormalities. MM/MM tomosynthesis screening BI IMPRESSION: No mammographic evidence of malignancy. ASSESSMENT: BI-RADS BI-RADS 1 - Negative RECOMMENDATION: Routine annual mammography screening. 1 year F/U This examination should not preclude the clinical evaluation of a suspicious palpable abnormality. This patient's information was entered into a reminder system with a target due date for their next mammogram.
== END 2023-04-25 09:10 | disposition home or self-care (01) ==
LOC: HO.MAMMO 09:09
PROVIDERS: PCP Internal Medicine; Visit Provider Internal Medicine
DX: Z12.31 Encounter for screening mammogram for malignant neoplasm of breast (principal)
CPT/HCPCS: 77063; 77067

== ENCOUNTER → 2023-04-25 09:30 | Outpatient (BNV) | payer OTHER, SELFPAY | PROVIDERS: PCP Internal Medicine; Visit Provider Radiology Diagnostic Radiology | DX: Z12.31 Encounter for screening mammogram for malignant neoplasm of breast (principal) | CPT/HCPCS: 77063; 77067 ==

== ENCOUNTER 2023-06-01 11:50 | Outpatient (AMB) | payer OTHER, SELFPAY ==
--- NOTE | 2023-06-01 11:51 | MHC.OFFVIS ---
Intake Vital Signs 06/01/23 11:55 Height 4 ft 9 in Weight 203 lb BMI 43.9 BP 112/62 Blood Pressure Location Rt brachial Position Sitting Pulse 68 Pulse Source Doppler Pulse Oximetry (%) 97 Oxygen Delivery Method Room Air Intake Visit Reasons: asthma Allergies zolmitriptan Allergy (Severe, Verified 06/01/23 11:56) Headache morphine [Morphine] Allergy (Mild, Verified 06/01/23 11:56) NAUSEA & VOMITING aspirin Allergy (Unknown, Verified 06/01/23 11:56) Unknown HPI asthma HPI Details 62-year-old lady, former under 10 pack-year smoker, quit 40 years prior with underlying history of obesity followed for severe persistent asthma, mild NOELLE, and environmental allergies.? She has been using Nucala, DuoNebs, Advair, and albuterol MDI with good control of her underlying symptoms. She denies any recent exacerbations. She does complain of a local injection side pain several days after Nucala injections. 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 Social History Household Members: None Housing: Apartment Alcohol intake: former Patient Tobacco Use Status: Former Tobacco user Quit Date: 1989 Tobacco use type: Cigarette Years Smoked: 20 +/- Current occupational status: disabled Review of Systems Const Denies daytime sleepiness, Denies excessive sweating, Denies fatigue, Denies fever(s), Denies lethargy, Denies malaise, Denies night sweats, Denies snoring and Denies weight loss Eyes Denies blurry vision and Denies itchy eyes ENT Denies nasal congestion, Denies post nasal drip, Denies sinus pain, Denies sinus pressure and Denies other ( Thrush) Card Denies chest pain, Denies pedal edema, Denies dyspnea, Denies orthopnea and Denies paroxysmal nocturnal dyspnea Resp Denies cough, Denies hemoptysis, Denies excessive phlegm production, Denies dyspnea, Denies snoring and Denies wheezing GI Denies abdominal pain and Denies heartburn Musc Denies myalgias, Denies arthralgias and Denies joint swelling Skin/Breast Denies rash Neuro Denies memory loss and Denies seizure-like activity Psych Denies abnormal sleep pattern, Denies anxiety and Denies memory loss Endo Denies excessive sweating, Denies fatigue and Denies heat intolerance Manan/Lymph Denies easy bruising Aller/Immun Denies itchy eyes, Denies seasonal rhinorrhea and Denies wheezing Physical Exam Vital Signs: Last Vital Signs Pulse 68 06/01/23 11:55 BP 112/62 06/01/23 11:55 Pulse Ox 97 06/01/23 11:55 Oxygen Delivery Method Room Air 06/01/23 11:55 BMI result Body Mass Index 43.9 Const General: no acute distress and alert Nutritional Appearance: obese Orientation/consciousness: Other orientation findings ( oriented) HEENT Head: Yes atraumatic Eyes General: appearance normal, both eyes and all related structures Sclerae: sclerae normal EOM: EOMs intact bilaterally Neck Neck: Yes supple Lymphatic: no lymphadenopathy noted Resp Effort & Inspection: normal respiratory effort and no use of accessory muscles Auscultation: clear to auscultation bilaterally Cardio Rate: regular rate Rhythm: regular rhythm Heart sounds: no gallops, no murmurs and no rubs Skin General skin exam: other ( warm) Extrem General: No clubbing, No cyanosis and No edema Assessment & Plan Assessment & Plan (1) Severe persistent allergic asthma: Code(s): J45.50 - Severe persistent asthma, uncomplicated Plan: Well controlled on Nucala, Advair, albuterol MDI, and duo nebs. Continue current regimen. At lidocaine patches for injection site pain. (2) Environmental allergies: Code(s): Z91.09 - Other allergy status, other than to drugs and biological substances Plan: Well controlled on Nucala. Continue current regimen. Coding Level of Care Code Est Pt Level 4 (53853) Diagnoses Severe persistent allergic asthma J45.50 Environmental allergies Z91.09
[2023-06-01 11:55] VITALS: BP 112/62; PULSE 68; O2SAT 97; BMI 43.9
== END 2023-06-01 12:05 | disposition home or self-care (01) ==
PROVIDERS: PCP Internal Medicine; Visit Provider Internal Medicine Pulmonary Disease
DX: J45.50 Severe persistent asthma, uncomplicated (principal); Z91.09 Other allergy status, other than to drugs and biological substances
CPT/HCPCS: 99214

== ENCOUNTER → 2023-06-01 11:50 | Outpatient (BNVA) | payer OTHER, SELFPAY | PROVIDERS: PCP Internal Medicine; Visit Provider Internal Medicine Pulmonary Disease | DX: J45.50 Severe persistent asthma, uncomplicated (principal); Z91.09 Other allergy status, other than to drugs and biological substances | CPT/HCPCS: 99212 ==

== ENCOUNTER 2023-06-21 09:29 | Outpatient (REF) | payer OTHER, SELFPAY ==
[2023-06-21 14:30] LABS: MANUAL DIFF FLAG NO
[2023-06-21 14:32] LABS: Basophils Percent Auto 0.4 % (0-2); Eosinophils Absolute Auto 0.1 X10*3/uL (0.0-0.4); Eosinophils Percent Auto 1.7 % (0-4); Hematocrit 48.4 % (37.0-47.0); Hemoglobin 16.1 g/dl (12.0-16.0); Imm Gran Abs Auto 0.02 X10*3/uL (0.00-0.03); Imm Gran Pct Auto 0.3 % (0.0-0.4); Lymphocytes Absolute Auto 2.6 X10*3/uL (1.2-4.9); Lymphocytes Percent Auto 33.8 % (20-40); Mean Corpuscular HGB Conc 33.3 g/dl (31.0-35.0); Mean Corpuscular Hemoglobin 31.3 pg (27.0-33.0); Mean Platelet Volume 10.9 fL (9.4-12.3); Monocytes Absolute Auto 0.7 X10*3/uL (0.1-1.2); Monocytes Percent Auto 9.1 % (2-11); Neutrophils Absolute Auto 4.2 x10*3/uL (2.0-8.3); Neutrophils Percent Auto 54.7 % (45-73); Platelet Count 243 X10*3/uL (160-400); Red Blood Count 5.15 X10*6/uL (4.20-5.50); Red Cell Distribution Width 13.1 % (11.0-16.0); White Blood Count 7.6 X10*3/uL (4.8-10.8)
[2023-06-21 14:45] LABS: Estimated Average Glucose 134 mg/dL; Hemoglobin A1c % 6.3 % (<6.0)
[2023-06-21 15:00] LABS: Alanine Aminotransferase 20 U/L (0-31); Albumin Level 4.3 g/dL (3.5-5.0); Alkaline Phosphatase 94 U/L (39-117); Anion Gap 16 (12-20); Aspartate Amino Transferase 26 U/L (5-31); Bilirubin Total 0.2 mg/dL (0.0-1.0); Blood Urea Nitrogen 13 mg/dL (9-16); Carbon Dioxide 30 mmol/L (22-29); Chloride 99 mmol/L (96-108); Cholesterol 142 mg/dL (<200); Estimated Glomerular Filt Rate > 60; Glucose Fasting 99 mg/dL (60-99); HDL Cholesterol 60 mg/dL (>40); Iron 91 mcg/dL (30-160); LDL Cholesterol Calculated 61 mg/dL (<100); Percent Iron Saturation 31 % (15-50); Potassium 3.2 mmol/L (3.3-5.1); Sodium 142 mmol/L (135-145); Total Iron Binding Capacity 298 mcg/dL (228-428); Total Protein 7.8 g/dL (6.5-8.0); Triglycerides 107 mg/dL (<150); Unsaturated Iron Binding 207 ug/dL
[2023-06-21 15:16] LABS: TSH reflex Free T4 1.57 uIU/mL (0.32-4.0)
[2023-06-22 08:23] LABS: ~HepC Num1 0.05 S/CO (0.00-0.79); ~Hepatitis C Antibody Nonreactive (Nonreactive)
[2023-06-24 16:47] LABS: HIV RNA PCR Qn Copies Not Detected Copies/mL; HIV RNA PCR Qn Log Copies Not Detected Log cps/mL
== END 2023-06-21 09:30 | disposition home or self-care (01) ==
LOC: HO.CHCLDS 09:29
PROVIDERS: Visit Provider Internal Medicine
DX: E11.65 Type 2 diabetes mellitus with hyperglycemia (principal)
CPT/HCPCS: 36415; 80053; 80061; 83036; 83540; 84443; 85025; 86803; 87536; 87900

== ENCOUNTER 2023-07-20 11:04 | Outpatient (REF) | payer OTHER, SELFPAY | END 2023-07-20 11:05 | disposition home or self-care (01) | LOC: HO.MDS 11:04 | PROVIDERS: Visit Provider Internal Medicine Pulmonary Disease | DX: J45.50 Severe persistent asthma, uncomplicated (principal) | CPT/HCPCS: 96372 ==

== ENCOUNTER 2023-08-09 10:16 | Outpatient (REF) | payer OTHER, SELFPAY ==
[2023-08-09 15:17] LABS: Creatinine Urine 45.36 mg/dL
[2023-08-16 12:58] LABS: Anti Nuclear Antibody Screen POSITIVE (NEGATIVE)
== END 2023-08-09 10:17 | disposition home or self-care (01) ==
LOC: HO.CHCLDS 10:16
PROVIDERS: Internal Medicine; Visit Provider Internal Medicine
DX: L81.1 Chloasma (principal); L21.9 Seborrheic dermatitis, unspecified; L71.9 Rosacea, unspecified
CPT/HCPCS: 36415; 82043; 82570; 86038; 86039

== ENCOUNTER 2023-08-25 10:29 | Outpatient (REF) | payer OTHER, SELFPAY | END 2023-08-25 10:30 | disposition home or self-care (01) | LOC: HO.MDS 10:29 | PROVIDERS: Visit Provider Internal Medicine Pulmonary Disease | DX: J45.50 Severe persistent asthma, uncomplicated (principal) | CPT/HCPCS: 96372 ==

== ENCOUNTER 2023-09-29 12:04 | Outpatient (REF) | payer OTHER, SELFPAY | END 2023-09-29 12:05 | disposition home or self-care (01) | LOC: HO.MDS 12:04 | PROVIDERS: Visit Provider Internal Medicine Pulmonary Disease | DX: J45.50 Severe persistent asthma, uncomplicated (principal) | CPT/HCPCS: 96372 ==

== ENCOUNTER 2023-10-06 08:43 | Outpatient (REF) | payer OTHER, SELFPAY | END 2023-10-06 08:44 | disposition home or self-care (01) | LOC: HO.LAB 08:43 | PROVIDERS: PCP Internal Medicine; Visit Provider Nurse Practitioner Family | DX: R21 Rash and other nonspecific skin eruption (principal); R76.8 Other specified abnormal immunological findings in serum | CPT/HCPCS: 99202 ==

== ENCOUNTER 2023-10-06 08:43 | Outpatient (AMB) | payer OTHER, SELFPAY ==
--- NOTE | 2023-10-06 08:47 | A.OFFVIS_ITS ---
Intake Vital Signs 10/06/23 08:48 Height 4 ft 9 in Weight 210 lb 1.608 oz BMI 45.5 BP 118/72 Blood Pressure Location Lt brachial Position Sitting Pulse 69 Pulse Source Pulse Oximeter Temp 97 F Temp Source Skin Pulse Oximetry (%) 95 Oxygen Delivery Method Room Air Intake Visit Reasons: Positive VICENTE Intake Note: New patient, referred by [facility], presents today for + VICENTE. 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 She has a PMH of T2DM, Hypothyroidism, Hypertension, Asthma, The patient reports she has had the rash for about two years but it has worsened. It shah when she goes out in the sun. She uses topical creams prescribed by derm. She has seen DERM for the Rash and hair shedding and light scaling to the scalp. She was prescribed Nizoral for Sobbheric Dermatitis, Cerave with Hydroscortisone for the face rash for which DERM has differential Dx of Melasma, Rosacea. For the Hairshedding, DERM had a positive pull test and so has placed the patient on Minoxidil. Patient denies Raynaud's phenomenon, other body rashes; denies photosensitivity - getting sick or developing a rash from being out in the sun; denies blood or froth in urine; patient denies hx of SOB, chest pain. Patient denies hx of Carditis or Pleuritis. 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 Sister Thyroid cancer Social History Household Members: None Housing: Apartment Alcohol intake: former Patient Tobacco Use Status: Former Tobacco user Quit Date: 1989 Tobacco use type: Cigarette Years Smoked: 20 +/- Current occupational status: disabled Review of Systems Const All systems reviewed & are unremarkable except as noted in HPI and below Physical Exam Vital Signs: Last Vital Signs Temp 97 F 10/06/23 08:48 Pulse 69 10/06/23 08:48 BP 118/72 10/06/23 08:48 Pulse Ox 95 10/06/23 08:48 Oxygen Delivery Method Room Air 10/06/23 08:48 BMI result Body Mass Index 45.5 APPEARANCE: Patient in no acute distress, obese, groomed, noursihed. EYES no redness, pupils equal and reactive to light, eyelids normal EARS:? External ear normal, canal clear and tympanic membrane normal. NOSE/SINUS:? Airflow through both nares, no nasal discharge, no bleeding THROAT:? Oral mucosa moist, no ulcerations NECK:? No thyromegaly or masses, no adenopathy, trachea midline. HEART:? Regular rhythm, S1-S2 heard, no murmurs, rubs or gallops. LUNG:? Clear to percussion and auscultation ABD:? Normal bowel sounds, no organomegaly, masses or tenderness. EXTREMITIES:? No edema, no calf tenderness, normal peripheral pulses. NEURO:? Oriented and alert x3.? No focal weakness.? Reflexes symmetric.? Gait normal. SKIN:? Scaling over eyebrows, reddened, flat areas to bilateral cheek and nose. No objective signs of Raynaud's phenomenon. JOINT EXAM: Chest Wall:.? No tenderness, swelling, increased warmth or erythema. Hands:.? Normal pain-free range of motion without tenderness, swelling, increased warmth or erythema. 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 Wrists:.? Normal pain-free range of motion without tenderness, swelling, increased warmth or erythema. Elbows:. Normal pain-free range of motion without tenderness, swelling, increased warmth or erythema. Shoulders:.?? Full range of motion without pain. No tenderness, weakness, swelling, increased warmth or erythema. Hips:.? Full range of motion without pain. Hip bursa:.? No tenderness. Knees:.?? Normal pain-free range of motion without tenderness, swelling, incr eased warmth or erythema.? There is no effusion or crepitation Ankles:.? Normal pain-free range of motion without tenderness, swelling, increased warmth or erythema. Feet:.? Normal pain-free range of motion without tenderness, swelling, increased warmth or erythema.? Results Reviewed Results Reviewed: Patient: Sue Flannery : 1960 Acct:[id number] Age/Sex: 59 / F ADM Date: 10/31/20 Loc: HO.XRAY Attending Dr: Vern Warner MD Ordering Physician: VERN BARRON MD Date of Service: 10/31/20 Procedure(s): XR lumbar spine 2-3V Accession Number(s): [id number] cc: VERN BARRON MD~ EXAMINATION: XR LUMBOSACRAL SPINE CLINICAL INFORMATION: Low back pain COMPARISON: Previous lumbar spine x-ray July 2017 TECHNIQUE: Three views of the lumbosacral spine. FINDINGS: Bone alignment is normal. No fracture or dislocation is seen. There is evidence of degenerative disc disease at L1-L2, L2-L3 and L5-S1. There is lower lumbar spine facet arthritis. XR/XR lumbar spine 2-3V IMPRESSION: Degenerative changes. Laboratory Tests 08/09/23 10:20 VICENTE Screen POSITIVE A VICENTE Titer 1:320 H VICENTE Pattern A Assessment & Plan Assessment & Plan (1) Rash of face: Code(s): R21 - Rash and other nonspecific skin eruption (2) VICENTE positive: Code(s): R76.8 - Other specified abnormal immunological findings in serum Plan #+VICENTE/Facial Rash: Ms. Rogers presented for evaluation of facial rash and +VICENTE 1:360, homogenous pattern. After thoroughly reviewing her history and conducting a PE, I do not think the patient has SLE. She has denied symptoms and signs of SLE and none observed on PE (see HPI). It is remotely possible that the rash to her cheek is Cutaneuos Lupus but I do not think it is. A biopsy would help to reaffirm. I think the rash is a part of the seborrheic dermatitis. Patient reports that it shah in the sun, but does not get worse. I also think the patient scrubs her face to clear the flakes and as a result it maintains the flat erythematous appearance. Additionally,There is flaking rash to her eyebrows that I think also relate more to the seborrheic dermatitis. Nonetheless, I will obtain labs to further evaluate for antibodies that may differentiate any underlying CTD process. I have also ordered antibodies for Thyroid as this also can cause a +VICENTE and the patient is hypothyroid. I spent 45 minutes, reviewing chart, evaluating patient and documenting. I will see patient is 4 weeks. I will also suggest that DERM obtain a biopsy if further evaluation is needed. Orders: Orders Anti DNA DS Antibody Today R21 - Rash and other nonspecific skin eruption, R76.8 - Other specified abnormal immunological findings in serum Anti Extractable Nuclear Ag Today R21 - Rash and other nonspecific skin eruption, R76.8 - Other specified abnormal immunological findings in serum Erythrocyte Sedimentation Rate Today R21 - Rash and other nonspecific skin eruption, R76.8 - Other specified abnormal immunological findings in serum C Reactive Protein Today R21 - Rash and other nonspecific skin eruption, R76.8 - Other specified abnormal immunological findings in serum Immunoglobulins,IgG IgA IgM Today R21 - Rash and other nonspecific skin eruption, R76.8 - Other specified abnormal immunological findings in serum Immunofixation Pnl, Serum Today R21 - Rash and other nonspecific skin eruption, R76.8 - Other specified abnormal immunological findings in serum Mitochondrial Antibody Today R21 - Rash and other nonspecific skin eruption, R76.8 - Other specified abnormal immunological findings in serum Thyroglobulin Antibodies Today R21 - Rash and other nonspecific skin eruption, R76.8 - Other specified abnormal immunological findings in serum Anti-Centromere B Antibodies Today R21 - Rash and other nonspecific skin eruption, R76.8 - Other specified abnormal immunological findings in serum Sjogren's Antibodies Today R21 - Rash and other nonspecific skin eruption, R76.8 - Other specified abnormal immunological findings in serum Scleroderma 70 Antibody Today R21 - Rash and other nonspecific skin eruption, R76.8 - Other specified abnormal immunological findings in serum Complement C3 Today R21 - Rash and other nonspecific skin eruption, R76.8 - Other specified abnormal immunological findings in serum Complement C4 Today R21 - Rash and other nonspecific skin eruption, R76.8 - Other specified abnormal immunological findings in serum Creatine Kinase Total Today R21 - Rash and other nonspecific skin eruption, R76.8 - Other specified abnormal immunological findings in serum Protein Electrophoresis, Serum Today R21 - Rash and other nonspecific skin eruption, R76.8 - Other specified abnormal immunological findings in serum Smooth Muscle Antibody Today R21 - Rash and other nonspecific skin eruption, R76.8 - Other specified abnormal immunological findings in serum Thyroid Peroxidase Antibodies Today R21 - Rash and other nonspecific skin eruption, R76.8 - Other specified abnormal immunological findings in serum Coding Level of Care Code New Pt Level 4 (17718) Diagnoses Rash of face R21 VICENTE positive R76.8
[2023-10-06 08:48] VITALS: BP 118/72; PULSE 69; TEMP 36.1; O2SAT 95; BMI 45.5
== END 2023-10-06 09:34 | disposition home or self-care (01) ==
PROVIDERS: PCP Internal Medicine; Visit Provider Nurse Practitioner Family
DX: R21 Rash and other nonspecific skin eruption (principal); R76.8 Other specified abnormal immunological findings in serum
CPT/HCPCS: 99204

== ENCOUNTER 2023-10-10 15:41 | Outpatient (REF) | payer OTHER, SELFPAY ==
[2023-10-10 18:15] LABS: Influenza A PCR NEGATIVE (Negative); Influenza B PCR NEGATIVE (Negative); Resp Syncy Virus RNA Qual PCR NEGATIVE (Negative); SARS COV2 PCR INHOUSE NEGATIVE (Negative)
== END 2023-10-10 15:42 | disposition home or self-care (01) ==
LOC: HO.CHCLNP 15:41
PROVIDERS: Visit Provider Internal Medicine
DX: J06.9 Acute upper respiratory infection, unspecified (principal)
CPT/HCPCS: 0241U

== ENCOUNTER 2023-10-17 11:17 | Outpatient (REF) | payer OTHER, SELFPAY ==
[2023-10-17 15:04] LABS: C Reactive Protein 0.43 mg/dL (< or = 0.50)
[2023-10-17 15:19] LABS: Erythrocyte Sedimentation Rate 29 MM/HR (0-20)
[2023-10-18 09:33] LABS: Thyroglobulin Antibodies <1 IU/mL (< or = 1); Thyroid Peroxidase Antibodies <1 IU/mL (<9)
[2023-10-18 10:58] LABS: Prot Elec - Albumin 4.2 g/dL (3.8-4.8); Prot Elec - Alpha1 0.3 g/dL (0.2-0.3); Prot Elec - Alpha2 0.8 g/dL (0.5-0.9); Prot Elec - Beta 1 0.5 g/dL (0.4-0.6); Prot Elec - Beta 2 0.5 g/dL (0.2-0.5); Prot Elec - Total Protein 7.4 g/dL (6.1-8.1)
[2023-10-18 12:48] LABS: Anti DNA DS Antibody <1 IU/mL; Antibody to SS-A Antigen <1.0 NEG AI (<1.0 NEG); Antibody to SS-B Antigen <1.0 NEG AI (<1.0 NEG); SM/Ribonucleoprotein Ab <1.0 NEG AI (<1.0 NEG); Scleroderma 70 Antibody <1.0 NEG AI (<1.0 NEG); Smith Protein <1.0 NEG AI (<1.0 NEG)
[2023-10-18 12:52] LABS: Anti-Centromere B Antibodies <1.0 NEG AI (<1.0 NEG)
[2023-10-19 11:49] LABS: Complement C3 213 mg/dL (83-193)
[2023-10-19 12:19] LABS: IgA 417 mg/dL (70-320); IgG 1151 mg/dL (600-1540); IgM 75 mg/dL (50-300)
[2023-10-21 12:34] LABS: Smooth Muscle Antibody <20 U (<20)
== END 2023-10-17 11:18 | disposition home or self-care (01) ==
LOC: HO.CHCLDS 11:17
PROVIDERS: Visit Provider Nurse Practitioner Family
DX: R76.8 Other specified abnormal immunological findings in serum (principal); R21 Rash and other nonspecific skin eruption
CPT/HCPCS: 36415; 82550; 82784; 84165; 85652; 86015; 86140; 86160; 86225; 86235; 86334; 86376; 86381; 86800

== ENCOUNTER 2023-11-17 13:17 | Outpatient (REF) | payer OTHER, SELFPAY ==
[2023-11-17 13:25] VITALS: BP 142/67; PULSE 76; RESP 18; TEMP 36.6; O2SAT 98
[2023-11-17] MEDS: Mepolizumab 100 MG/ML AUTO.INJCT SUBCUT (13:28)
== END 2023-11-17 13:18 | disposition home or self-care (01) ==
LOC: HO.MDS 13:17
PROVIDERS: Visit Provider Internal Medicine Pulmonary Disease
DX: J45.50 Severe persistent asthma, uncomplicated (principal)
CPT/HCPCS: 96372

== ENCOUNTER 2023-11-25 11:44 | Outpatient (REF) | payer OTHER, SELFPAY ==
[2023-11-25 15:48] LABS: Influenza A PCR NEGATIVE (Negative); Influenza B PCR POSITIVE (Negative); Resp Syncy Virus RNA Qual PCR NEGATIVE (Negative); SARS COV2 PCR INHOUSE NEGATIVE (Negative)
== END 2023-11-25 11:45 | disposition home or self-care (01) ==
LOC: HO.CHCLNP 11:44
PROVIDERS: Visit Provider Family Medicine
DX: J06.9 Acute upper respiratory infection, unspecified (principal)
CPT/HCPCS: 0241U

== ENCOUNTER 2024-02-28 11:37 | Outpatient (AMB) | payer OTHER, SELFPAY ==
--- NOTE | 2024-02-28 11:38 | A.OFFVIS_ITS ---
Vital Signs 02/28/24 11:39 Height 4 ft 9 in Weight 210 lb 8.663 oz BMI 45.6 BP 138/78 Blood Pressure Location Rt brachial Position Sitting Pulse 83 Pulse Source Doppler Pulse Oximetry (%) 95 Oxygen Delivery Method Room Air Intake Visit Reasons: asthma Epic [employer] Required: Yes [employer] Name: Izabella Do C.L.M Allergies zolmitriptan Allergy (Severe, Verified 02/28/24 11:44) Headache morphine [Morphine] Allergy (Mild, Verified 02/28/24 11:44) NAUSEA & VOMITING aspirin Allergy (Unknown, Verified 02/28/24 11:44) Unknown HPI HPI asthma: Details: 63-year-old lady, former under 10 pack-year smoker, quit 40 years prior with underlying history of obesity followed for severe persistent asthma, mild NOELLE, and environmental allergies.? She has been using Nucala, DuoNebs, Advair, and albuterol MDI with good control of her underlying symptoms. She denies any recent exacerbations. At this time patient wants to stop her Nucala injections. 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 Sister Thyroid cancer Social History Household Members: None Housing: Apartment Alcohol intake: former Patient Tobacco Use Status: Former Tobacco user Tobacco use type: Cigarette Years Smoked: 20 +/- Current occupational status: disabled Review of Systems Const Denies daytime sleepiness, Denies excessive sweating, Denies fatigue, Denies fever(s), Denies lethargy, Denies malaise, Denies night sweats, Denies snoring and Denies weight loss Eyes Denies blurry vision and Denies itchy eyes ENT Denies nasal congestion, Denies post nasal drip, Denies sinus pain, Denies sinus pressure and Denies other ( Thrush) Card Denies chest pain, Denies pedal edema, Denies dyspnea, Denies orthopnea and Denies paroxysmal nocturnal dyspnea Resp Denies cough, Denies hemoptysis, Denies excessive phlegm production, Denies dyspnea, Denies snoring and Denies wheezing GI Denies abdominal pain and Denies heartburn Musc Denies myalgias, Denies arthralgias and Denies joint swelling Skin/Breast Denies rash Neuro Denies memory loss and Denies seizure-like activity Psych Denies abnormal sleep pattern, Denies anxiety and Denies memory loss Endo Denies excessive sweating, Denies fatigue and Denies heat intolerance Manan/Lymph Denies easy bruising Aller/Immun Denies itchy eyes, Denies seasonal rhinorrhea and Denies wheezing Physical Exam Vital Signs: Last Vital Signs Pulse 83 02/28/24 11:39 BP 138/78 02/28/24 11:39 Pulse Ox 95 02/28/24 11:39 Oxygen Delivery Method Room Air 02/28/24 11:39 BMI result Body Mass Index 45.6 Const General: no acute distress and alert Nutritional Appearance: obese Orientation/consciousness: Other orientation findings ( oriented) HEENT Head: Yes atraumatic Eyes General: appearance normal, both eyes and all related structures Sclerae: sclerae normal EOM: EOMs intact bilaterally Neck Neck: Yes supple Lymphatic: no lymphadenopathy noted Resp Effort & Inspection: normal respiratory effort and no use of accessory muscles Auscultation: clear to auscultation bilaterally Cardio Rate: regular rate Rhythm: regular rhythm Heart sounds: no gallops, no murmurs and no rubs Skin General skin exam: other ( warm) Extrem General: No clubbing, No cyanosis and No edema Assessment & Plan Assessment & Plan (1) Severe persistent allergic asthma: Code(s): Adilson45.50 - Severe persistent asthma, uncomplicated Category: Medical Plan: Previously well controlled on Advair, duo nebs, Nucala, and albuterol MDI. At this time patient wants to stop her Nucala. Will monitor off immunologic therapy and restart if symptoms worsened. (2) Environmental allergies: Code(s): Z91.09 - Other allergy status, other than to drugs and biological substances Category: Medical Plan: Previously well controlled on Nucala. Patient wants to discontinue. Will monitor of immunologic therapy. Continue Flonase. Coding Level of Care Code Est Pt Level 4 (20904) Diagnoses Severe persistent allergic asthma J45.50 Environmental allergies Z91.09
[2024-02-28 11:39] VITALS: BP 138/78; PULSE 83; O2SAT 95; BMI 45.6
== END 2024-02-28 11:51 | disposition home or self-care (01) ==
PROVIDERS: PCP Internal Medicine; Visit Provider Internal Medicine Pulmonary Disease
DX: J45.50 Severe persistent asthma, uncomplicated (principal); Z91.09 Other allergy status, other than to drugs and biological substances
CPT/HCPCS: 99214

== ENCOUNTER → 2024-02-28 11:37 | Outpatient (BNVA) | payer OTHER, SELFPAY | PROVIDERS: PCP Internal Medicine; Visit Provider Internal Medicine Pulmonary Disease | DX: J45.50 Severe persistent asthma, uncomplicated (principal); E66.9 Obesity, unspecified; Z68.42 Body mass index [BMI] 45.0-49.9, adult; Z91.09 Other allergy status, other than to drugs and biological substances | CPT/HCPCS: 99212 ==

== ENCOUNTER 2024-03-06 08:50 | Outpatient (REF) | payer OTHER, SELFPAY ==
[2024-03-06 14:25] LABS: MANUAL DIFF FLAG NO
[2024-03-06 14:35] LABS: Basophils Absolute Auto 0.1 X10*3/uL (0.0-0.2); Basophils Percent Auto 0.7 % (0-2); Eosinophils Absolute Auto 0.2 X10*3/uL (0.0-0.4); Eosinophils Percent Auto 2.5 % (0-4); Hematocrit 48.4 % (37.0-47.0); Hemoglobin 16.2 g/dl (12.0-16.0); Imm Gran Abs Auto 0.03 X10*3/uL (0.00-0.03); Imm Gran Pct Auto 0.4 % (0.0-0.4); Lymphocytes Absolute Auto 2.3 X10*3/uL (1.2-4.9); Lymphocytes Percent Auto 29.8 % (20-40); Mean Corpuscular HGB Conc 33.5 g/dl (31.0-35.0); Mean Corpuscular Hemoglobin 31.8 pg (27.0-33.0); Mean Corpuscular Volume 95.1 fL (80.0-98.0); Mean Platelet Volume 10.8 fL (9.4-12.3); Monocytes Absolute Auto 0.6 X10*3/uL (0.1-1.2); Neutrophils Absolute Auto 4.4 x10*3/uL (2.0-8.3); Neutrophils Percent Auto 58.6 % (45-73); Platelet Count 231 X10*3/uL (160-400); Red Blood Count 5.09 X10*6/uL (4.20-5.50); Red Cell Distribution Width 13.2 % (11.0-16.0); White Blood Count 7.6 X10*3/uL (4.8-10.8)
[2024-03-06 15:02] LABS: Alanine Aminotransferase 25 U/L (0-31); Albumin Level 4.2 g/dL (3.5-5.0); Alkaline Phosphatase 91 U/L (39-117); Anion Gap 12 (12-20); Aspartate Amino Transferase 25 U/L (5-31); Bilirubin Total 0.3 mg/dL (0.0-1.0); Blood Urea Nitrogen 18 mg/dL (9-16); Calcium 9.9 mg/dL (8.4-10.2); Carbon Dioxide 33 mmol/L (22-29); Chloride 100 mmol/L (96-108); Estimated Glomerular Filt Rate > 60; Glucose Random 128 mg/dL (60-115); Iron 112 mcg/dL (30-160); Percent Iron Saturation 37 % (15-50); Potassium 3.3 mmol/L (3.3-5.1); Sodium 142 mmol/L (135-145); Total Iron Binding Capacity 306 mcg/dL (228-428); Total Protein 7.7 g/dL (6.5-8.0); Unsaturated Iron Binding 194 ug/dL
== END 2024-03-06 08:51 | disposition home or self-care (01) ==
LOC: HO.CHCLDS 08:50
PROVIDERS: Visit Provider Internal Medicine
DX: E11.65 Type 2 diabetes mellitus with hyperglycemia (principal)
CPT/HCPCS: 36415; 80053; 83540; 85025

== ENCOUNTER 2024-04-03 08:37 | Outpatient (REF) | payer OTHER, SELFPAY ==
--- NOTE | ~2024-04-03 | XR_ITS ---
EXAMINATION: XR LUMBOSACRAL SPINE CLINICAL INFORMATION: Lower back pain. COMPARISON: CT abdomen and pelvis dated 04/27/2024. TECHNIQUE: AP and lateral views of the lumbar spine were obtained. Lateral views were obtained in flexion, extension, and neutral positions. FINDINGS: There is bony demineralization. At L4-5 and L5-S1, there is moderately severe degenerative disc disease, with disc space narrowing and vacuum disc phenomenon. The remaining disc spaces are relatively well-maintained. No acute fracture or spondylolisthesis is seen. There is multi-level thoracolumbar endplate arthropathy. The posterior elements are intact. The paravertebral soft tissues are unremarkable. There are ovoid calcific densities in the left upper quadrant, which upon correlation with the CT examination dated 04/27/2024 may represent ingested tablets. XR/XR lumbar spine 2-3V IMPRESSION: 1. There is marked degenerative disc disease L4-5 and L5-S1, with vacuum disc phenomenon. 2. No acute fracture or spondylolisthesis is seen. 3. There is multi-level thoracolumbar endplate arthropathy. Electronically signed by: Papi Swenson MD 04/30/2024 07:14 PM EDT Workstation: [id number]
== END 2024-04-03 08:38 | disposition home or self-care (01) ==
LOC: HO.XRAY 08:37
PROVIDERS: PCP Internal Medicine; Visit Provider Internal Medicine
DX: M54.9 Dorsalgia, unspecified (principal)
CPT/HCPCS: 72100

== ENCOUNTER 2024-04-27 17:18 | Emergency (ER) | payer OTHER, SELFPAY ==
--- NOTE | ~2024-04-27 | CT_ITS ---
EXAMINATION: CT ABDOMEN AND PELVIS WITH CONTRAST CLINICAL INFORMATION: Abdominal pain; constipation; question bowel obstruction. COMPARISON: None available. TECHNIQUE: Multidetector volumetric images were obtained from the superior aspect of the liver through the pubic symphysis following administration 85 mL of Omnipaque 350 intravenous contrast. Sagittal and coronal reformatted images were obtained on the technologist's workstation. Oral contrast: No This CT examination was performed using dose optimization techniques as appropriate, variously including the following: *Automated exposure control *Adjustment of mA and/or kV according to patient size (this includes techniques or standardized protocols for targeted exams where dose is matched to indication/reason for exam; i.e. extremities or head) *Use of iterative reconstruction technique DLP: 881 mGy-cm FINDINGS: LUNG BASES: There is bibasilar dependent hypoaeration, right greater than left. LIVER, GALLBLADDER, AND BILIARY TREE: The liver is normal in size, shape and generally diminished in attenuation. No focal hepatic lesion or biliary ductal dilatation is present. The gallbladder is contracted or surgically absent. PANCREAS: Unremarkable. SPLEEN: Unremarkable. ADRENAL GLANDS: Unremarkable. KIDNEYS AND URETERS: The kidneys are normal in size, shape, and attenuation. There are benign, simple bilateral renal cysts, for which no imaging follow-up is recommended. No hydronephrosis, hydroureter, or calculi seen. No perinephric stranding. BLADDER: Unremarkable. GASTROINTESTINAL TRACT: There is a moderate to large stool burden, most pronounced within the rectum. No silvio bowel obstruction is seen. There is no ileus. No free intraperitoneal air or abscess is seen. No focal bowel wall thickening. No diverticulosis or diverticulitis is seen. The vermiform appendix is normal. ABDOMINAL WALL: There is a moderate fat-containing umbilical hernia, with neck measuring 2.9 x 1.7 cm (3:55 and 8:88). LYMPH NODES: Normal. VASCULAR: There is mild iliac atherosclerotic calcification. No abdominal aortic aneurysm or dissection is seen. PELVIC VISCERA: The uterus and adnexa are unremarkable. OSSEOUS STRUCTURES: There is multi-level marked thoracolumbar degenerative disc disease, with vacuum disc phenomenon. No acute or aggressive osseous finding is noted. CT/CT abdomen pelvis w IV con IMPRESSION: 1. A moderately large stool burden is seen. No silvio obstruction, ileus or free intraperitoneal air is seen. There is no diverticulitis or appendicitis. 2. A moderate fat-containing umbilical hernia is seen. 3. There is hepatic steatosis. 4. There is multi-level thoracolumbar degenerative disc disease. Fleischner guidelines were followed. Electronically signed by: Papi Swenson MD 04/27/2024 11:32 PM EDT
--- NOTE | ~2024-04-27 | XR_ITS ---
EXAMINATION: XR ABDOMEN KUB CLINICAL INDICATION: Constipation, question obstruction COMPARISON: None available. TECHNIQUE: AP view of the abdomen. FINDINGS: Nonobstructive bowel gas pattern. Moderate amount of stool in the colon. No endobronchial lesions visualized. Mild degenerative changes in the spine. XR/XR KUB IMPRESSION: Nonobstructive bowel gas pattern. Moderate stool burden. Electronically signed by: Milton Pond MD 04/27/2024 08:57 PM EDT
[2024-04-27 17:45] VITALS: BP 181/101; PULSE 108; RESP 20; TEMP 36.4; O2SAT 96; BMI 37.1
--- NOTE | 2024-04-27 17:46 | ED_ITS ---
HPI - Abdominal Pain General Chief Complaint: Abdominal Pain Stated Complaint: constipation and abd pain Time Seen by Provider: 04/27/24 20:09 Source: patient and family Mode of arrival: ambulatory Limitations: language barrier (Nigerian-speaking technical staff engineer utilized) History of Present Illness HPI narrative: Patient is a 63-year-old female who presents emergency department for evaluation. She reports that she had a normal bowel movement yesterday morning. She has felt constipated throughout today. However, she had sudden onset of severe abdominal pain at 15:00 today, felt diffusely throughout the abdomen but primarily worse in the lower abdomen radiating to the bilateral lower back. Pain is exacerbated when straining to have a bowel movement. Denies associated hematochezia, melena, chronic constipation, recent diarrhea or antibiotic usage, dysuria, hematuria, urinary frequency/urgency/hesitancy. Denies associated nausea, vomiting. Related Data Home Medications ?Medication ?Instructions ?Recorded ?Confirmed aspirin 81 mg tablet,delayed 81 mg PO QAM 09/24/20 09/02/22 release atorvastatin 20 mg tablet 20 mg PO DAILY 09/24/20 09/02/22 diltiazem HCl 240 mg 240 mg PO DAILY 09/24/20 09/02/22 capsule,extended release 24 hr fluticasone propionate 50 2 spray intranasal DAILY 09/24/20 09/02/22 mcg/actuation nasal spray,suspension levothyroxine 75 mcg tablet 75 mcg PO DAILY 09/24/20 09/02/22 lisinopril 20 mg tablet 20 mg PO DAILY 09/24/20 09/02/22 loratadine 10 mg tablet 10 mg PO QAM PRN Allergy Symptoms 09/24/20 09/02/22 melatonin 5 mg tablet 5 mg PO USEASDIRECTD 09/24/20 09/02/22 omeprazole 40 mg capsule,delayed 40 mg PO QAM 09/24/20 09/02/22 release clonazepam 2 mg tablet 2 mg PO BEDTIME 08/31/22 09/02/22 lamotrigine 200 mg tablet 1 tab PO DAILY 09/01/22 09/02/22 Previous Rx's ?Medication ?Instructions ?Recorded albuterol sulfate 90 mcg/actuation 2 puff PO Q4-6H PRN Wheezing 30 01/11/23 aerosol inhaler days #1 ea hydrochlorothiazide 25 mg tablet 25 mg PO QAM 90 days #30 tabs 02/01/23 montelukast 10 mg tablet 10 mg PO BEDTIME 30 days #30 tabs 12/16/23 ipratropium 0.5 mg-albuterol 3 mg 3 ml inhalation Q4-6H PRN wheezing 03/06/24 (2.5 mg base)/3 mL nebulization 30 days #270 mL soln fluticasone propionate 230 2 puff PO BID #12 grams 04/16/24 mcg-salmeterol 21 mcg/actuation HFA inhaler (Advair HFA) polyethylene glycol 3350 17 17 g PO DAILY #119 grams 04/28/24 gram/dose oral powder (Miralax) Allergies Allergy/AdvReac Type Severity Reaction Status Date / Time zolmitriptan Allergy Severe Headache Verified 04/27/24 17:46 morphine [Morphine] Allergy Mild NAUSEA & Verified 04/27/24 17:46 VOMITING aspirin Allergy Unknown Unknown Verified 04/27/24 17:46 Review of Systems Review of Systems Yes all other systems are reviewed and are negative PMFSH Past Medical History Attestation statement: The following information was validated with the patient. Source: old records reviewed Medical History Rash of face VICENTE positive Seasonal allergies (~05/05/18) Benzodiazepine dependence, continuous (~05/05/18) WILKINS (nonalcoholic steatohepatitis) (~05/05/18) Persistent asthma without complication (~05/05/18) Mood disorder (~05/05/18) Hypertension associated with type 2 diabetes mellitus (~05/05/18) Hyperlipidemia due to type 2 diabetes mellitus (~05/05/18) 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, with watcher [employer] current use of insulin pump (~05/05/18) Cholecystectomy planned Bipolar 1 disorder Depressed GERD (gastroesophageal reflux disease) (~05/05/18) Hypothyroid (~05/05/18) Asthma Surgical History History of cholecystectomy H/O tubal ligation Family History Family History (Updated 10/06/23 @ 08:53 by MARQUIS Scott) Mother Heart disease HTN (hypertension) Diabetes Father No problems noted. Sister Thyroid cancer Social History Social History Household Members: None Housing: Apartment Alcohol intake: former Patient Tobacco Use Status: Former Tobacco user Tobacco use type: Cigarette Years Smoked: 20 +/- Smoked in Last 30 Days: No Advance Directives: No Advance Directives Information Provided: No Do you have a plan to hurt others: No Plan Current occupational status: disabled Physical Exam ED Vital Signs: Vital Signs - 24 hr 04/27/24 17:45 04/27/24 23:28 Temperature 97.6 F 98.8 F Pulse Rate 108 H 85 Respiratory Rate 20 16 Blood Pressure 181/101 H 104/54 L Pulse Oximetry 96 95 Oxygen Delivery Method Room Air Room Air BMI result Body Mass Index 37.1 Appearance: Alert.?Oriented to person, place and time. No acute distress.?Normal affect. Eyes: Pupils equal, round and reactive to light.? ENT: Pharynx normal.?? Neck: Normal inspection.? Neck supple.?? CVS: Heart sounds normal. Normal heart rate and rhythm.? Pulses normal.?? Respiratory: No respiratory distress.? Lung sounds clear to auscultation bilaterally?? Abdomen: Abdomen rounded, with guarding, significant tenderness upon palpation diffusely though worse in the lower quadrants, notably hypoactive bowel sounds. No pulsatile mass.?? Skin: Skin warm and dry.? Normal skin color.? Extremities: No lower extremity edema.? Neuro: Moves all extremities spontaneously. Sensation intact bilaterally. CN II- XII intact. No focal neuro deficits. Ambulates with normal steady gait. Course Course Course Narrative: This is a Rapid Medical Examination (RME) performed by Bruce Black PA-C in triage. Full HPI, ROS, assessment and treatment plan per primary provider in the Main ED. 63 yo female hx of DM, asthma, NOELLE, hypothyroid, HTN, mood disorder here for eval of constipation x24 hours. reports normal BM yesterday morning. for the past 2 hours she has been attempting to pass BM at home without success. reports diffuse abd discomfort. has not trialed bowel regimen at home. hx of cholecystectomy and tubal ligation, denies other abd surgeries. +tearful in triage, pacing around the room unable to sit d/t the pain. hypoactive bs. Plan: labs, KUB 191 -- patient tearful, yelling out in pain. Asking for Tylenol. Patient's pain is out of proportion to exam findings. I did discuss this with charge preparation technician who will attempt to open a room for patient. Will add on lactic acid to r/o ischemic bowel. Reevaluation(s) Reevaluation #1: Patient appears much more comfortable after receiving morphine IV X . Bladder is notably distended on CT imaging, attempted to void but was unable to do so successfully, bladder scan of 776, straight catheterization for acute urinary retention, urinalysis reveals glucosuria ketonuria but no evidence of urinary tract infection, suspect retention secondary to fecal impaction of the rectum. Patient reports that she was able to successfully urinate large volumes earlier today without difficulty, however this was prior to the onset of her severe abdominal pain. CT of the abdomen and pelvis is without obstructive pathology, however notable constipation with significant burden to the rectum. Patient received mineral oil enema was able to have a large formed bowel movement. Will discharge patient home lung MiraLax, high-fiber diet, and outpatient follow-up with the PCP. Discussed strict return precautions. All questions answered. Medical Decision Making Medical Decision Making MDM Narrative: Patient is a 63-year-old female with past medical history of asthma, Wilkins, mood disorder, hypertension, type 2 diabetes with long-term insulin usage, disturbed cholecystectomy, GERD, hypothyroidism presents to the emergency department for evaluation of severe abdominal pain and constipation as per HPI. At the time of my evaluation she appears significantly uncomfortable, tearful, is guarding her abdomen, has hypoactive bowel sounds notable tenderness upon palpation. Reviewed KUB from waiting room that was obtained, though no clearly obstructive pattern, there is presence of at least 2 air-fluid levels, plan to obtain CT of the abdomen and pelvis for further evaluation at this time. Reports that she has had a reaction to morphine in the past with resultant nausea and vomiting, she is amenable to trialing for pain management as it was helpful for pain, will premedicate with Zofran. CBC is revealing a mild leukocytosis of 10,900, no anemia thrombocytopenia, no electrolyte derangement, no BRANDO, LFTs overall unremarkable. No lactic acidosis Differential Diagnosis Differential Diagnoses: The differential diagnosis associated with the presentation includes (Constipation, bowel obstruction, obstructive calculi, hydronephrosis, UTI, pyelonephritis) Admission/Observation Consideration of admission/observation: Escalation of care including admission/observation considered Lab Data MDM Lab Attestation statement: I reviewed the patient's lab results. (See narrative above) 04/27/24 18:03 04/27/24 18:03 Labs: Lab Results 04/27/24 04/27/24 04/28/24 Range/Units 18:03 19:37 00:52 WBC 10.9 H (4.8-10.8) X10*3/uL RBC 5.22 (4.20-5.50) X10*6/uL Hgb 16.9 H (12.0-16.0) g/dl Hct 48.2 H (37.0-47.0) % MCV 92.3 (80.0-98.0) fL MCH 32.4 (27.0-33.0) pg MCHC 35.1 H (31.0-35.0) g/dl RDW 13.2 (11.0-16.0) % Plt Count 260 (160-400) X10*3/uL MPV 10.3 (9.4-12.3) fL Immature Gran % (Auto) 0.3 (0.0-0.4) % Neut % (Auto) 63.1 (45-73) % Lymph % (Auto) 24.7 (20-40) % Hardin % (Auto) 9.2 (2-11) % Eos % (Auto) 2.1 (0-4) % Baso % (Auto) 0.6 (0-2) % Lymph # (Auto) 2.7 (1.2-4.9) X10*3/uL Hardin # (Auto) 1.0 (0.1-1.2) X10*3/uL Eos # (Auto) 0.2 (0.0-0.4) X10*3/uL Baso # (Auto) 0.1 (0.0-0.2) X10*3/uL Abs Immat Gran (auto) 0.03 (0.00-0.03) X10*3/uL Absolute Neuts (auto) 6.9 (2.0-8.3) x10*3/uL Absolute Nucleated RBC 0.000 (0.0-0.012) X10*3/uL Nucleated RBC % (auto) 0.0 (0.0-0.2) /100WBC Sodium 141 (135-145) mmol/L Potassium 3.4 (3.3-5.1) mmol/L Chloride 104 (96-108) mmol/L Carbon Dioxide 26 (22-29) mmol/L Anion Gap 14 (12-20) BUN 14 (9-16) mg/dL Creatinine 0.88 (0.5-1.4) mg/dL Estim Creat Clear Calc 62.1 Estimated GFR > 60 Random Glucose 153 H (60-115) mg/dL Lactic Acid 2.0 (0.5-2.0) mmol/L Calcium 10.3 H (8.4-10.2) mg/dL Magnesium 2.5 (1.6-2.6) mg/dL Total Bilirubin 0.3 (0.0-1.0) mg/dL AST 32 H (5-31) U/L ALT 30 (0-31) U/L Alkaline Phosphatase 113 (39-117) U/L Total Protein 8.4 H (6.5-8.0) g/dL Albumin 4.6 (3.5-5.0) g/dL Lipase 49 (8-78) U/L Urine Color Yellow Urine Appearance Clear Urine pH 7.5 (5.0-9.0) Ur Specific Horton >= 1.030 H (1.005-1.025) Urine Protein Trace (Neg-Trace) mg/dL Urine Glucose (UA) >=1000 H (Negative) mg/dL Urine Ketones 15 (Negative) mg/dL Urine Blood Negative (Negative) Urine Nitrite Negative (Negative) Ur Leukocyte Esterase Negative (Negative) Urine RBC 6-10 H (0-2) /HPF Urine WBC 0-5 (0-5) /HPF Ur Squamous Epith Cells 0-2 (0-2) /HPF Urine Bacteria None Seen (None Seen) Hyaline Casts 0-2 (0-2) /LPF Radiology Impression Discussion of test interpretation with radiology: I have reviewed the radiologist's reading. Radiologist Impression: CT/CT abdomen pelvis w IV con IMPRESSION: 1. A moderately large stool burden is seen. No silvio obstruction, ileus or free intraperitoneal air is seen. There is no diverticulitis or appendicitis. 2. A moderate fat-containing umbilical hernia is seen. 3. There is hepatic steatosis. 4. There is multi-level thoracolumbar degenerative disc disease. Fleischner guidelines were followed. Independent Historian Clinical information obtained from an independent historian. History obtained from or confirmed by: Other (Daughter) External Record Review External record reviewed: Outpatient record Medications Administered Discontinued Medications Generic Name Dose Route Start Last Admin Trade Name Krishnaq PRN Reason Stop Dose Admin Acetaminophen 975 mg 04/27/24 19:14 04/27/24 19:17 Acetaminophen 325 Mg Tablet PO 04/27/24 19:15 975 mg ONCE ONE Administration Iohexol 85 ml 04/27/24 23:02 04/27/24 23:02 Iohexol 350 Mg/Ml 100 Ml Infus..Btl IV 04/27/24 23:03 85 ml ONCE ONE Administration Mineral Oil 133 ml 04/28/24 00:17 04/28/24 01:44 Mineral Oil Enema 133 Ml Enema FL 04/28/24 00:18 133 ml ONCE ONE Administration Morphine Sulfate 4 mg 04/27/24 20:28 04/27/24 20:55 Morphine Sulfate 4 Mg/Ml Cartridge IVPUSH 04/27/24 20:29 4 mg ONCE ONE Administration Protocol Morphine Sulfate 4 mg 04/27/24 22:35 04/27/24 22:46 Morphine Sulfate 4 Mg/Ml Cartridge IVPUSH 04/27/24 22:36 4 mg ONCE ONE Administration Protocol Ondansetron HCl 4 mg 04/27/24 20:28 04/27/24 20:55 Ondansetron Hcl 4 Mg/2 Ml Vial IVPUSH 04/27/24 20:29 4 mg ONCE ONE Administration Critical Care Time Critical Care Time Critical Care Time: Yes Total Critical Care Time: 40 Attestation: I personally attest to this critical care time spent taking care of the patient exclusive of all other billable procedures was approximately 40 minutes including initial evaluation of patient, ordering tests, x-ray interpretation, IV morphine and re-evaluation, medical consultation, documentation, re- evaluation. Discharge Plan Discharge Clinical Impression: Constipation Patient Disposition: Home, Self-Care Instructions: Constipation (ED), High Fiber Diet (ED), Fleet Enema (ED) Prescriptions: New polyethylene glycol 3350 [Miralax] 17 gram/dose powder 17 g PO DAILY Qty: 119 0RF No Action hydrochlorothiazide 25 mg tablet 25 mg PO QAM 90 Days Qty: 30 0RF Rx Instructions: Must call and schedule cardiology appt for refills or have PCP prescribe going forward montelukast 10 mg tablet 10 mg PO BEDTIME 30 Days Qty: 30 10RF ipratropium-albuterol 0.5 mg-3 mg(2.5 mg base)/3 mL solution for nebulization 3 ml inhalation Q4-6H PRN (Reason: wheezing) 30 Days Qty: 270 6RF Advair HFA 230-21 mcg/actuation HFA aerosol inhaler 2 puff PO BID Qty: 12 6RF lamotrigine 200 mg tablet 1 tab PO DAILY fluticasone propionate 50 mcg/actuation spray,suspension 2 spray intranasal DAILY melatonin 5 mg tablet 5 mg PO USEASDIRECTD aspirin 81 mg tablet,delayed release (DR/EC) 81 mg PO QAM atorvastatin 20 mg tablet 20 mg PO DAILY omeprazole 40 mg capsule,delayed release(DR/EC) 40 mg PO QAM loratadine 10 mg tablet 10 mg PO QAM PRN (Reason: Allergy Symptoms) lisinopril 20 mg tablet 20 mg PO DAILY levothyroxine 75 mcg tablet 75 mcg PO DAILY diltiazem HCl 240 mg capsule,extended release 24hr 240 mg PO DAILY clonazepam 2 mg tablet 2 mg PO BEDTIME albuterol sulfate 90 mcg/actuation HFA aerosol inhaler 2 puff PO Q4-6H PRN (Reason: Wheezing) 30 Days Qty: 1 6RF Print Language: Nigerian
--- NOTE | 2024-04-27 17:55 | MHC.EDTECH ---
Patient refused blood drawn ,rn liaison and Provider aware .
[2024-04-27 18:09] LABS: MANUAL DIFF FLAG NO
[2024-04-27 18:27] LABS: Alanine Aminotransferase 30 U/L (0-31); Albumin Level 4.6 g/dL (3.5-5.0); Alkaline Phosphatase 113 U/L (39-117); Anion Gap 14 (12-20); Aspartate Amino Transferase 32 U/L (5-31); Bilirubin Total 0.3 mg/dL (0.0-1.0); Blood Urea Nitrogen 14 mg/dL (9-16); Calcium 10.3 mg/dL (8.4-10.2); Carbon Dioxide 26 mmol/L (22-29); Chloride 104 mmol/L (96-108); Creatinine Clr Calc Pharmacy 62.1; Estimated Glomerular Filt Rate > 60; Glucose Random 153 mg/dL (60-115); Lipase 49 U/L (8-78); Magnesium 2.5 mg/dL (1.6-2.6); Potassium 3.4 mmol/L (3.3-5.1); Sodium 141 mmol/L (135-145); Total Protein 8.4 g/dL (6.5-8.0)
[2024-04-27 18:40] LABS: Basophils Absolute Auto 0.1 X10*3/uL (0.0-0.2); Basophils Percent Auto 0.6 % (0-2); Eosinophils Absolute Auto 0.2 X10*3/uL (0.0-0.4); Eosinophils Percent Auto 2.1 % (0-4); Hematocrit 48.2 % (37.0-47.0); Hemoglobin 16.9 g/dl (12.0-16.0); Imm Gran Abs Auto 0.03 X10*3/uL (0.00-0.03); Imm Gran Pct Auto 0.3 % (0.0-0.4); Lymphocytes Absolute Auto 2.7 X10*3/uL (1.2-4.9); Lymphocytes Percent Auto 24.7 % (20-40); Mean Corpuscular HGB Conc 35.1 g/dl (31.0-35.0); Mean Corpuscular Hemoglobin 32.4 pg (27.0-33.0); Mean Corpuscular Volume 92.3 fL (80.0-98.0); Mean Platelet Volume 10.3 fL (9.4-12.3); Monocytes Percent Auto 9.2 % (2-11); Neutrophils Absolute Auto 6.9 x10*3/uL (2.0-8.3); Neutrophils Percent Auto 63.1 % (45-73); Platelet Count 260 X10*3/uL (160-400); Red Blood Count 5.22 X10*6/uL (4.20-5.50); Red Cell Distribution Width 13.2 % (11.0-16.0); White Blood Count 10.9 X10*3/uL (4.8-10.8)
[2024-04-27] MEDS: Acetaminophen 325 MG TABLET 975 MG PO (19:17)
--- NOTE | 2024-04-27 20:35 | ECG_ITS ---
Test Reason : ABD PAIN Blood Pressure : / mmHG Vent. Rate : 075 BPM Atrial Rate : 075 BPM P-R Int : 192 ms QRS Dur : 076 ms QT Int : 408 ms P-R-T Axes : 052 067 049 degrees QTc Int : 455 ms Normal sinus rhythm Normal ECG When compared with ECG of 13-NOV-2020 23:55, No significant change was found Referred By: Gabriel Patino Electronically Signed By:NEDA COLLINS
[2024-04-27] MEDS: Morphine Sulfate 4 MG/ML CARTRIDGE IVPUSH ×2 (20:55→22:46)
[2024-04-27] MEDS: ondansetron HCL 4 MG/2 ML VIAL IVPUSH (20:55)
[2024-04-27] MEDS: iohexoL 350 MG/ML 100 ML INFUS..BTL 85 ML IV (23:02)
[2024-04-27 23:28] VITALS: BP 104/54; PULSE 85; RESP 16; TEMP 37.1; O2SAT 95
--- NOTE | 2024-04-27 23:33 | MHC.EDTECH ---
This pct just assumed care of pt ,vitals taken ,pt went to bathroom to give urine sample ,pt family at bedside .
[2024-04-28 00:58] LABS: Appearance Urine Clear; Color Urine Yellow; Glucose Urine UA >=1000 mg/dL (Negative); Leukocyte Esterase Urine Negative (Negative); Nitrite Urine Negative (Negative); PH 7.5 (5.0-9.0); Specific Gravity - Urine >= 1.030 (1.005-1.025); UMIC TRIGGER UACC YES; Urine Blood Negative (Negative); Urine Ketones 15 mg/dL (Negative); Urine Protein Trace mg/dL (Neg-Trace)
[2024-04-28 01:12] LABS: Bacteria Urine None Seen (None Seen); Hyaline Casts Urine 0-2 /LPF (0-2); Squamous Epithelial Cell Urine 0-2 /HPF (0-2); WBC Urine 0-5 /HPF (0-5)
[2024-04-28] MEDS: Mineral OiL enema 133 ML ENEMA PR (01:44)
[2024-04-28 02:17] VITALS: BP 150/71; PULSE 72; RESP 16; TEMP 36.8; O2SAT 96
[2024-04-28 04:09] VITALS: BP 150/71; PULSE 72; RESP 16; TEMP 36.8; O2SAT 96
--- OUTSIDE RECORDS SUMMARY | 2024-04-29 00:28 | XMS_ITS | Continuity of Care Document ---
Author Organization [facility] Address [address] [place] [address]- Care Team Providers Care Intelligence Group Supervisor Name Role Phone Francisca Jacome MD Primary Care Physician [phone] Encounter [facility] R [id number] Date(s): 11/20/22 - 03/20/23 [facility] [address] [place] [address]- Attending Physician: Chloe Daniels MD Admitting Physician: Chloe Daniels MD Referring Physician: Francisca Jacome MD Allergies, Adverse Reactions, Alerts Substance Reaction Severity Status morphine Active ZOLMitriptan Active Medications acetaminophen 325 mg oral tablet 325 mg, 1, tablet, By Mouth, Every 4 hours, PRN, # 12 tablet, Refills 0, Maintenance, as needed forfever, 08/06/22 17:56:00 EST, Partial fill upon patient request if the prescription is for a schedule II opioid drug. Start Date: 08/06/22 Status: Ordered Advair HFA 230 mcg / 21 mcg INHALE TWO PUFFS TWICE DAILY, RINSE MOUTH AFTER USE Start Date: 08/06/22 Status: Ordered albuterol-ipratropium 3 mg-0.5 mg/3 ml inhalation solution INHALE ONE AMPULE USING A NEBULIZER EVERY 4 TO 6 HOURS NEEDED FOR WHEEZING Start Date: 08/06/22 Status: Ordered Allergy Relief (loratadine) 10 mg tablet TAKE ONE TABLET BY MOUTH EVERY MORNING NEEDED FOR ALLERGY Start Date: 08/06/22 Status: Ordered Aspirin Low Dose 81 mg oral delayed release tablet TAKE ONE TABLET EVERY MORNING Start Date: 08/06/22 Status: Ordered Clonazepam = 2 mg, By Mouth, 2 times a day, 0 Refills, Maintenance, 11/29/12 10:12:40 EDT Start Date: 11/29/12 Status: Ordered clonazePAM 2 mg oral tablet TAKE ONE TABLET BY MOUTH AT BEDTIME NEEDED Start Date: 08/06/22 Status: Ordered DilTIAZem (Eqv-Cardizem CD) 240 mg/24 hours oral capsule, extended release TAKE ONE CAPSULE EVERY MORNING Start Date: 08/06/22 Status: Ordered DilTIAZem Hydrochloride ER 240 mg/24 hours oral capsule, extended release 1 capsule = 240 mg, By Mouth, Daily, # 30 capsule, 0 Refills, Maintenance, 10/12/19 11:16:00 EST, ER Capsule Start Date: 10/12/19 Status: Ordered escitalopram 5 mg oral tablet 1 tablet = 5 mg, By Mouth, Daily, # 30 tablet, 0 Refills, Maintenance, 08/06/22 17:58:00 EST, Tablet, Partial fill upon patient request if the prescription is for a schedule II opioid drug. Start Date: 08/06/22 Status: Ordered FeroSul 325 mg oral tablet TAKE ONE TABLET EVERY MORNING Start Date: 08/06/22 Status: Ordered Flovent HFA 220 mcg/inh inhalation aerosol 2 puffs, Inhalation, 2 times a day, # 12 Gm, 0 Refills, Maintenance, 10/12/19 11:23:00 EST, Aerosol Start Date: 10/12/19 Status: Ordered fluticasone 50 mcg/inh nasal spray 2 sprays, Nares, Both, Daily in AM, 0 Refills, Maintenance, 08/06/22 17:56:00 EST, [place], Partial fill upon patient request if the prescription is for a schedule II opioid drug. Start Date: 08/06/22 Status: Ordered fluticasone propionate = 50 mcg, Inhalation, Daily, PRN Nasal Congestion, 0 Refills, Maintenance, 10/12/19 11:22:00 EST Start Date: 10/12/19 Status: Ordered Freestyle Lite Monitor See Instructions, # 1 each, Refills 0, Tot. Refills 0, Maintenance, e11.65, use to test blood glucose, 09/30/22 11:48:00 EST, Supply, 154, cm, 09/13/22 8:36:00 EST, Height, 98, kg, 08/07/22 21:37:00 EST, Dry Weight Start Date: 09/30/22 Status: Ordered furosemide 40 mg oral tablet 40 mg, 1, tablet, By Mouth, Daily, # 30 tablet, Refills 0, Maintenance, 08/06/22 17:57:00 EST, Partial fill upon patient request if the prescription is for a schedule II opioid drug. Start Date: 08/06/22 Status: Ordered gabapentin 300 mg oral capsule 300 mg, 1, capsule, By Mouth, Daily at bedtime, Refills 0, Maintenance, 10/12/19 11:19:00 EST Start Date: 10/12/19 Status: Ordered hydrochlorothiazide 25 mg oral tablet TAKE ONE TABLET BY MOUTH EVERY MORNING Start Date: 08/06/22 Status: Ordered Jardiance 25 mg oral tablet See Instructions, 1 tablet By Mouth Daily in AM. E11.9, # 30 tablet, 5 Refills, Maintenance, 09/13/22 11:31:00 EST, Tablet, [facility]/pharmacy #[id number], Partial fill upon patient request if the prescription is for a schedule II opioid drug., 154, cm, 09/13/22... Start Date: 09/13/22 Status: Ordered Jardiance 25 mg oral tablet TAKE ONE TABLET EVERY MORNING Start Date: 08/06/22 Status: Ordered lamotrigine 150 mg oral tablet 1 tablet = 150 mg, By Mouth, 2 times a day, # 60 tablet, 0 Refills, Maintenance, 10/12/19 11:28:00 EST, Tablet Start Date: 10/12/19 Status: Ordered lamotrigine 200 mg oral tablet TAKE ONE TABLET BY MOUTH AT BEDTIME Start Date: 08/06/22 Status: Ordered levothyroxine 75 mcg (0.075 mg) oral tablet TAKE ONE TABLET EVERY MORNING Start Date: 08/06/22 Status: Ordered Lipitor 40 mg oral tablet 1 tablet = 40 mg, By Mouth, Daily at bedtime, # 30 tablet, 0 Refills, Maintenance, 10/12/19 14:15:00 EST, Tablet Start Date: 10/12/19 Status: Ordered lisinopril 20 mg oral tablet 20 mg, 1, tablet, By Mouth, Daily, # 30 tablet, Refills 0, Maintenance, 10/12/19 11:17:00 EST Start Date: 10/12/19 Status: Ordered loratadine 10 mg oral tablet 10 mg, 1, tablet, By Mouth, Daily, # 30 tablet, Refills 0, Maintenance, 10/12/19 11:20:00 EST Start Date: 10/12/19 Status: Ordered losartan 25 mg oral tablet TAKE ONE TABLET EVERY MORNING Start Date: 08/06/22 Status: Ordered melatonin 10 mg oral capsule 1 capsule = 10 mg, By Mouth, Daily at bedtime, 0 Refills, Maintenance, 10/12/19 11:14:00 EST Start Date: 10/12/19 Status: Ordered Melatonin 5 mg oral tablet TAKE TWO TABLETS EVERY DAY AT BEDTIME Start Date: 08/06/22 Status: Ordered metFORMIN 1000 mg oral tablet 1 tablet = 1,000 mg, By Mouth, 2 times a day, # 60 tablet, 0 Refills, Maintenance, 10/12/19 14:16:00 EST, Tablet Start Date: 10/12/19 Status: Ordered montelukast 10 mg oral tablet TAKE ONE TABLET AT BEDTIME Start Date: 08/06/22 Status: Ordered Nucala Prefilled Syringe 100 mg/mL subcutaneous solution 0 Refills, Maintenance, 08/06/22 17:54:00 EST, Partial fill upon patient request if the prescription is for a schedule II opioid drug. Start Date: 08/06/22 Status: Ordered omeprazole 40 mg oral enteric coated capsule 1 capsule = 40 mg, By Mouth, Daily, # 30 capsule, 0 Refills, Maintenance, 10/12/19 11:21:00 EST, ECCapsule Start Date: 10/12/19 Status: Ordered omeprazole 40 mg oral enteric coated capsule TAKE ONE CAPSULE EVERY MORNING BEFORE BREAKFAST Start Date: 08/06/22 Status: Ordered rOPINIRole 0.25 mg oral tablet TAKE ONE TABLET BY MOUTH AT BEDTIME FOR RLS Start Date: 08/06/22 Status: Ordered rosuvastatin 20 mg oral tablet TAKE ONE TABLET BY MOUTH AT BEDTIME Start Date: 08/06/22 Status: Ordered sertraline 50 mg oral tablet TAKE ONE TABLET EVERY MORNING Start Date: 08/06/22 Status: Ordered Ventolin 90 mcg Inhaler 2, puffs, Inhalation, Every 4 hours, PRN, Refills 0, Maintenance, 10/12/19 11:24:00 EST, Inhaler Start Date: 10/12/19 Status: Ordered Problem List Condition Confirmation Course Effective Dates Status H ealth Status Informant Persistent asthma without complication Confirmed Active Benzodiazepine dependence, continuous Confirmed Active Hyperlipidemia Confirmed Active Hypertension Confirmed Active Hypothyroidism Confirmed Active Mood disorder Confirmed Active CHAVES (nonalcoholic steatohepatitis) Confirmed Active Severe obesity Confirmed Active 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, with custodial current use of insulin pump Confirmed Active Social History Social History Type Response Smoking Status Never (less than 100 in lifetime) entered on: 10/10/19 Sex Female Patient Care team information Care Team Personnel Name: Stanislav Aiken Position: [facility] Outreach Member Role: Lifetime Consulting Physician Name: Francisca Jacome MD Position: [facility] Physician - Primary Care Member Role: PCP Address: Address: [address] [place] [address]- Care Team Related Persons Name: GINA ARMSTRONG Address: [place] [address] Name: IJEOMA SPEAR Address: home [address] [place] [address] Name: DORIAN SPEAR Name: SUSANNA YODER Address: [address] [address]
--- OUTSIDE RECORDS SUMMARY | 2024-04-29 00:28 | XMS_ITS | Continuity of Care Document ---
Author Organization [facility] Address [address] [place] [address]- Care Team Providers Care Research Assistant Professor Name Role Phone Francisca Jacome MD Primary Care Physician [phone] Encounter [facility] Date(s): 04/05/23 - 05/08/23 [facility] [address] [place] [address]- Attending Physician: Chloe Ledezma MD Admitting Physician: Chloe Ledezma MD Referring Physician: Francisca Jacome MD Allergies, [...] AM, 0 Refills, Maintenance, 08/06/22 17:56:00 EST, [place], Partial fill upon patient request if the [...] 5 Refills, Maintenance, 09/13/22 11:31:00 EST, Tablet, [facility]/pharmacy #[id number], Partial fill upon patient request [...] 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, 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 Confirmed Active Social History Social History Type Response Smoking Status Never (less than 100 in lifetime) entered on: 10/10/19 Sex Female Patient Care team information Care Team Personnel Name: Stanislav Aiken Position: [facility] Outreach Member Role: Lifetime Consulting Physician Name: Francisca Jacome MD Position: [facility] Physician - Primary Care Member Role: PCP Address: Address: [address] [place] [address]- Care Team Related Persons Name: GINA ARMSTRONG Address: [place] [address] Name: IJEOMA SPEAR Address: home [address] [place] [address] Name: DORIAN SPEAR Name: SUSANNA YODER Address: [address] [address]
--- OUTSIDE RECORDS SUMMARY | 2024-04-29 00:28 | XMS_ITS | Continuity of Care Document ---
Author Organization [facility] Address [address] [place] [address]- Care Team Providers Care Silver Brazer Name Role Phone Francisca Jacome MD Primary Care Physician En[place] [facility] Date(s): 02/18/23 - 03/20/23 [facility] [address] [place] [address] Attending Physician: Mango Hernandez Admitting Physician: AdmtrMango Referring Physician: AdmtrMango Allergies, Adverse Reactions, Alerts Substance Reaction Severity [...] AM, 0 Refills, Maintenance, 08/06/22 17:56:00 EST, [place], Partial fill upon patient request if the [...] 5 Refills, Maintenance, 09/13/22 11:31:00 EST, Tablet, [facility]/pharmacy #[id number], Partial fill upon patient request if [...] 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, 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 Confirmed Active Social History Social History Type Response Smoking Status Never (less than 100 in lifetime) entered on: 10/10/19 Sex Female Patient Care team information Care Team Personnel Name: Stanislav Aiken Position: [facility] Outreach Member Role: Lifetime Consulting Physician Name: Francisca Jacome MD Position: [facility] Physician - Primary Care Member Role: PCP Address: Address: [address] [place] [address]- Care Team Related Persons Name: GINA ARMSTRONG Address: [place] [address] Name: IJEOMA SPEAR Address: home [address] [place] [address] Name: DORIAN SPEAR Name: SUSANNA YODER Address: [address] [address]
--- OUTSIDE RECORDS SUMMARY | 2024-04-29 00:28 | XMS_ITS | Continuity of Care Document ---
Author Organization [facility] Address [address] [place] [address]- Care Team Providers Care Television Schedule Coordinator Name Role Phone Francisca Jacome MD Primary Care Physician [place] [facility] [place]s): 04/08[place]23 - 05/08/23 [facility] [address] [place] [address] Attending Physician: Mango Hernandez Admitting Physician: AdmtrManog Referring Physician: AdmtrMango Allergies, Adverse Reactions, Alerts [...] AM, 0 Refills, Maintenance, 08/06/22 17:56:00 EST, [place], Partial fill upon patient request if the [...] 5 Refills, Maintenance, 09/13/22 11:31:00 EST, Tablet, [facility]/pharmacy #[id number], Partial fill upon patient request if [...] diabetes mellitus without complication, with termite control technician current use of insulin pump Confirmed Active Social History Social History Type Response Smoking Status Never (less than 100 in lifetime) entered on: 10/10/19 Sex Female Patient Care team information Care Team Personnel Name: Stanislav Aiken Position: [facility] Outreach Member Role: Lifetime Consulting Physician Name: Francisca Jacome MD Position: [facility] Physician - Primary Care Member Role: PCP Address: Address: [address] [place] [address]- Care Team Related Persons Name: GINA ARMSTRONG Address: [place] [address] Name: IJEOMA SPEAR Address: home [address] [place] [address] Name: DORIAN SPEAR Name: SUSANNA YODER Address: [address], [place] [address]
--- OUTSIDE RECORDS SUMMARY | 2024-04-29 00:28 | XMS_ITS | Continuity of Care Document ---
Author Organization [facility] Address [address] [place] [address]- Care Team Providers Care Channel Opener Name Role Phone Francisca Jacome MD Primary Care Physician [phone] Encounter [facility] Date(s): 02/18/23 - 03/20/23 [facility] [address] [place] [address]- Allergies, Adverse Reactions, Alerts Substance Reaction Severity [...] AM, 0 Refills, Maintenance, 08/06/22 17:56:00 EST, [place], Partial fill upon patient request if the [...] 5 Refills, Maintenance, 09/13/22 11:31:00 EST, Tablet, [facility]/pharmacy #[id number], Partial fill upon patient request [...] Condition Confirmation Course Effective Dates Status H ealt Status Informant Persistent asthma without complication Confirmed Active Benzodiazepine dependence, continuous Confirmed Active Hyperlipidemia Confirmed Active Hypertension Confirmed Active Hypothyroidism Confirmed Active Mood disorder Confirmed Active CHAVES (nonalcoholic steatohepatitis) Confirmed Active Severe obesity Confirmed Active 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, with prison current use of insulin pump Confirmed Active Social History Social History Type Response Smoking Status Never (less than 100 in lifetime) entered on: 10/10/19 Sex Female Patient Care team information Care Team Personnel Name: Stanislav Aiken Position: [facility] Outreach Member Role: Lifetime Consulting Physician Name: Francisca Jacome MD Position: [facility] Physician - Primary Care Member Role: PCP Address: Address: [address] [place] [address]- Care Team Related Persons Name: GINA ARMSTRONG Address: [place] [address] Name: IJEOMA SPEAR Address: [address] [place] [address] Name: DORIAN SPEAR Name: SUSANNA YODER Address: [address], [place] [address]
== END 2024-04-28 03:05 | disposition home or self-care (01) ==
PROVIDERS: Physician Assistant Medical; Emergency Provider Emergency Medicine Emergency Medical Services; PCP Internal Medicine
DX: K59.00 Constipation, unspecified (principal); R33.9 Retention of urine, unspecified; E11.9 Type 2 diabetes mellitus without complications; I10 Essential (primary) hypertension; E78.5 Hyperlipidemia, unspecified; Z79.82 Long term (current) use of aspirin; Z79.02 Long term (current) use of antithrombotics/antiplatelets; Z79.899 Other long term (current) drug therapy; J45.909 Unspecified asthma, uncomplicated; Z79.4 Long term (current) use of insulin
CPT/HCPCS: 36415; 51701; 74018; 74177; 80053; 81001; 81003; 83605; 83690; 83735; 85025; 93005; 96374; 96375; 96376; 99284; 99285; J2270; J2405; Q9967

== ENCOUNTER 2024-10-15 20:57 | Emergency (ER) | payer OTHER, SELFPAY ==
--- NOTE | 2024-10-15 | ECG_ITS ---
Test Reason : CHEST PAIN Blood Pressure : */* mmHG Vent. Rate : 60 BPM Atrial Rate : 60 BPM P-R Int : 218 ms QRS Dur : 82 ms QT Int : 460 ms P-R-T Axes : 55 64 56 degrees QTcB Int : 460 ms Sinus rhythm with 1st degree A-V block Otherwise normal ECG When compared with ECG of 27-Apr-2024 20:35, No significant change was found Referred By: Generic ED Physician Electronically Signed By: LIA MARIE MD
--- NOTE | ~2024-10-15 | XR_ITS ---
CLINICAL HISTORY: pain 1 view chest x-ray Comparison: CR/WV/SR - CHEST 1 VIEW - 02/28/20 16:21 EDT Findings: The lungs are clear. Normal size heart. No acute fracture. IMPRESSION: 1. No acute findings. This document has been electronically signed by: Mingo Baker MD on 10/15/2024 23:45:20
[2024-10-15 21:23] VITALS: BP 170/79; PULSE 67; O2SAT 99
[2024-10-15 21:28] VITALS: BP 146/67; PULSE 63; RESP 16; TEMP 36.6; O2SAT 98; BMI 36.7
[2024-10-15 21:36] VITALS: BP 146/67; PULSE 63; RESP 16; TEMP 36.6; O2SAT 98
--- NOTE | 2024-10-15 21:43 | ECG_ITS ---
Test Reason : REPEAT Blood Pressure : */* mmHG Vent. Rate : 59 BPM Atrial Rate : 59 BPM P-R Int : 208 ms QRS Dur : 76 ms QT Int : 460 ms P-R-T Axes : 59 73 66 degrees QTcB Int : 455 ms Sinus bradycardia Otherwise normal ECG When compared with ECG of 15-Oct-2024 21:25, No significant change was found Referred By: Generic ED Physician Electronically Signed By: LIA MARIE MD
[2024-10-15 22:02] LABS: MANUAL DIFF FLAG NO
[2024-10-15 22:07] LABS: Basophils Percent Auto 0.4 % (0-2); Eosinophils Absolute Auto 0.2 X10*3/uL (0.0-0.4); Eosinophils Percent Auto 1.6 % (0-4); Hematocrit 46.5 % (37.0-47.0); Hemoglobin 16.2 g/dl (12.0-16.0); Imm Gran Abs Auto 0.04 X10*3/uL (0.00-0.03); Imm Gran Pct Auto 0.4 % (0.0-0.4); Mean Corpuscular HGB Conc 34.8 g/dl (31.0-35.0); Mean Corpuscular Hemoglobin 32.2 pg (27.0-33.0); Mean Corpuscular Volume 92.4 fL (80.0-98.0); Mean Platelet Volume 9.9 fL (9.4-12.3); Monocytes Percent Auto 9.4 % (2-11); Neutrophils Absolute Auto 6.1 x10*3/uL (2.0-8.3); Neutrophils Percent Auto 59.2 % (45-73); Platelet Count 218 X10*3/uL (160-400); Red Blood Count 5.03 X10*6/uL (4.20-5.50); White Blood Count 10.2 X10*3/uL (4.8-10.8)
--- OUTSIDE RECORDS SUMMARY | 2024-10-15 22:23 | XMS_ITS | Encounter Summary ---
Author Organization [facility] Address [address] [facility] [address] [place] [address] Care Team Providers Care Supervisor Laboratory Name Role Phone Vern Juarez MD Primary Care Prov ider Reason for Visit * Reason Onset Date Comments Appointment Request 11/08/2023 Encounter Details Date Type Department Care Team ([facility] st Contact Info) Description 11/08/2023 Telephone [facility] [address] [place] [address] Vern Juarez MD [address] [place] [address] Appointment Request Social History Tobacco Use Types Packs/Day Years Used Date Smoking Tobacco: Never Passive Smoke Exposure: Never Smokeless Tobacco: Never Alcohol Use Standard Drinks/Week Comments Never 0 (1 standard drink = 0.6 oz pur e alcohol) Depression Answer Date Recorded Patient Health Questionnaire-9 Score 19 10/17/2023 Patient Health Questionnaire-9 Score 19 10/17/2023 Last PHQ-9: Questionnaire Data Not on file 0 10/17/2023 Housing Stability Answer Date Recorded What is your housing situation today? I have adrián langley 06/21/[address] you li ve. Do you have problems with any of the following? None of the above 06/21/2023 Food Insecurity Answer Date Recorded Within the past 12 months, y ou worried that your food would run out before you got money to buy more: Never True 06/21/2023 Within the past 12 months,th e food you bought just didn't last and you didn't have enough money to get more: Never True Transportation Answer Date Recorded In the past 12 months, has l ack of transportation kept you from medical appts, meetings, work or from getting things needed for daily living? No 06/21/2023 Utilities Answer Date Recorded In the past 12 months, has t he electric, gas, oil or water company threatened to shut off services in your home? No 06/21/2023 Depression Answer Date Recorded Patient Health Questionnaire-2 Score 5 10/17/2023 Comments Unknown Sex and Gender Information Value Date Recorded Sex Assigned at Female 07/05/2022 10:14 AM EDT Legal Sex Female 10:14 AM EDT Gender Identity Female 07/05/2022 10:14 AM EDT Sexual Orientation Straight 07/05/2022 10 :14 AM EDT documented as of this encounter Miscellaneous Notes * Telephone Encounter - Marlo Macias - 11/08/2023 10:13 AM EST Tc from patient calling to request a derm appt states still haves the alopecia and would like to berevaluated documented in this encounter Plan of Treatment Not on file documented as of this encounter Visit Diagnoses Not on filedocumented in this encounter Additional Health Concerns Assessment Noted Time PHQ-9 Depression Total Score: 19 024 10:43 AM EST documented as of this encounter Care Teams Supervisor Laboratory Relationship Specialty Start Date End Date Vern Juarez MD [address] [place] [address] PCP - General Internal Medicine 08/09/22 documented as of this encounter
--- OUTSIDE RECORDS SUMMARY | 2024-10-15 22:23 | XMS_ITS | Encounter Summary ---
Author Organization [employer] [facility] Address [address] [facility] 7 [place] [address] Care Team Providers Care Steep Tender Name Role Phone Vern Juarez MD Primary Care Prov ider Encounter Details Date Type Department Care Team ([facility] Contact Info) Description 10/19/2023 Orders Only [facility] MED [facility] PEDS [address] [place], [place] [phone] Vern Juarez MD [address] [place] [address] Social History Tobacco Use Types Packs/Day Years [...] AM EDT documented as of this encounter Plan of Treatment Not on file documented as of this encounter Visit Diagnoses Not on filedocumented in this encounter Additional Health Concerns Assessment Noted Time PHQ-9 Depression Total Score: 19 024 10:43 AM EST documented as of this encounter Care Teams Steep Tender Relationship Specialty Start Date End Date Vern Juarez MD [address] [place] [address] PCP - General Internal Medicine 08/09/22 documented as of this encounter
--- OUTSIDE RECORDS SUMMARY | 2024-10-15 22:23 | XMS_ITS | Encounter Summary ---
Author Organization [facility] [facility] Address [address] [facility] [address] 7[address] [place] [address] Care Team Providers Care Flap Maker Name Role Phone Vern Juarez MD Primary Care Prov ider Encounter Details Date Type Department Care Team ([facility] st Contact Info) Description 12/23/2023 Orders Only [facility] MED[facility] [address] [place] [address] ProviderRegis MD Social History Tobacco Use Types Packs/Day Years [...] on file documented as of this encounter Procedures Procedure Name Priority Date/Time Associated Diagnosis Comments HM COLONOSCOPY Routine 06/05/2015 1:00 PM EDT documented in this encounter Results * Hm Colonoscopy (06/05/2015 1:00 PM EDT) Historical Provider HEALTH MAINTENANCE Final Result documented in this encounter Visit Diagnoses Not on filedocumented in this encounter Additional Health Concerns Assessment Noted Time PHQ-9 Depression Total Score: 19 024 10:43 AM EST documented as of this encounter Care Teams Flap Maker Relationship Specialty Start Date End Date Vern Juarez MD [address] [place] [address] PCP - General Internal Medicine 08/09/22 documented as of this encounter
--- OUTSIDE RECORDS SUMMARY | 2024-10-15 22:23 | XMS_ITS | Encounter Summary ---
Author Organization [employer] Address [address] [facility] 7t [place] [address] Care Team Providers Care Linotype Worker Name Role Phone Vern Juarez MD Primary Care Prov ider Encounter Details Date Type Department Care Team ([facility] Contact Info) Description 06/22/2023 Orders Only [facility] MED & PEDS [address] [place], [place] [phone] Vern Juarez MD [address] [place] [address] Social History Tobacco Use Types Packs/Day Years Used Date Smoking Tobacco: Never Passive Smoke Exposure: Never Smokeless Tobacco: Never Alcohol Use Standard Drinks/Week Comments Never 0 (1 standard drink = 0.6 oz pur e alcohol) Depression Answer Date Recorded Patient Health Questionnaire-9 Score 0 08/19/2022 Housing Stability Answer Date Recorded What is [...] Answer Date Recorded Patient Health Questionnaire-2 Score 0 08/19/2022 Comments Unknown Sex and Gender Information Value [...] Assessment Noted Time PHQ-9 Depression Total Score: 0 08/19/20 22 3:22 PM EST documented as of this encounter Care Teams Linotype Worker Relationship Specialty Start Date End Date Vern Juarez MD [address] [place] [address] PCP - General Internal Medicine 08/09/22 documented as of this encounter
--- OUTSIDE RECORDS SUMMARY | 2024-10-15 22:23 | XMS_ITS | Encounter Summary ---
Author Organization [employer] Address 75 [facility] 7 [place] [address] Care Team Providers Care Leasing Property Manager Name Role Phone Vern Juarez MD Primary Care Prov ider Reason for Visit * Reason Onset Date Comments Nurse Triage 12/22/2023 Encounter Details Date Type Department Care Team ([facility] st Contact Info) Description 12/22/2023 Telephone [facility] CHC MED & PEDS [address] [place] [address] Vern Juarez MD [address] [place] [address] Nurse Triage Social History Tobacco Use Types Packs/Day Years [...] is your housing situation today? I have adriángrace langley 06/21/[address] you [...] encounter Miscellaneous Notes * Telephone Encounter - Malika Hartman RN - 12/22/2023 9:56 AM EDT Call to Sue Flannery, reports having back pain and MCNULTY x 4 days. Per pt having lower back pain that does cause abdominal pain. Pt having darker colored urine No pain with passing urine or odor. Pt denies any fever, nausea or vomiting. Per pt has used OTC Tylenol with mild relief. Pt offered [facility] WIC or to submit instED. Pt states will set up instED herself once her daughter arrives to serve as 3rd grade teacher. Pt advised to call back after instED visit for follow up. Sent to team for instED status check PRN. Protocol Used: Urinary Symptoms (Adult) Protocol-Based Disposition: See in Office or Video Visit Today Video visit offer not recorded Positive Triage Question: * Side (flank) or lower back pain present * All higher-acuity triage questions were negative Care Advice Discussed: * Reasons To Call Back - Fever occurs - Pain or burning with urination - You become worse * Telephone Encounter - Maria Eugenia Jason - 12/22/2023 9:37 AM EDT Symptoms: Headache, Back Pain - Not From Injury Outcome: Talk to a nurse or provider within 15 minutes Reason: Trouble walking The caller accepted this outcome Please contact pt at [phone] (Thai) documented in this encounter Plan of Treatment Not on file documented as of this encounter Visit Diagnoses Not on filedocumented in this encounter Additional Health Concerns Assessment Noted Time PHQ-9 Depression Total Score: 19 024 10:43 AM EST documented as of this encounter Care Teams Leasing Property Manager Relationship Specialty Start Date End Date Vern Juarez MD [address] [place] [id number] PCP - General Internal Medicine 08/09/22 documented as of this encounter
--- OUTSIDE RECORDS SUMMARY | 2024-10-15 22:23 | XMS_ITS | Encounter Summary ---
Author Organization [employer] Address [address] [facility] [address] [address] Care Team Providers Care Data Security Administrator Name Role Phone Vern Juarez MD Primary Care Prov ider Reason for Visit * Reason Onset Date Comments Med Refill 03/01/2023 Encounter Details Date Type Department Care Team ([facility] Contact Info) Description 03/01/2023 Telephone [facility] CHC MED & PEDS [address] [place] [address] Vern Juarez MD [address] [place] [address] Med Refill Social History Tobacco Use Types Packs/Day Years Used Date Smoking Tobacco: Never Passive Smoke Exposure: Never Smokeless Tobacco: Never Alcohol Use Standard Drinks/Week Comments Never 0 (1 standard drink = 0.6 oz pur e alcohol) Depression Answer Date Recorded Patient Health Questionnaire-9 Score 0 08/19/2022 Depression Answer Date Recorded Patient Health Questionnaire-2 Score 0 08/19/2022 Comments Unknown Sex and Gender Information Value Date Recorded Sex Assigned at Female 07/05/2022 10:14 AM EDT Legal Sex Female 10:14 AM EDT Gender Identity Female 07/05/2022 10:14 AM EDT Sexual Orientation Straight 07/05/2022 10 :14 AM EDT documented as of this encounter Miscellaneous Notes * Telephone Encounter - Claribel Becerra RN - 03/04/2023 11:07 AM EDT T?C to [phone] for below message, pt. Had question for medication delivery. Pt. Advised to call to pharmacy for delivery status. Pt. Verbally agreed and understood. * Telephone Encounter - Vandana Vick - 03/01/2023 3:11 PM EDT Tc from pt requesting to speak with someone regarding her medications . [facility] pharmacy has all hermeds on hold . Informs she needs her diabetes medication . Please call to clarify . documented in this encounter Plan of Treatment Not on file documented as of this encounter Visit Diagnoses Not on filedocumented in this encounter Additional Health Concerns Assessment Noted Time PHQ-9 Depression Total Score: 0 08/19/20 22 3:22 PM EST documented as of this encounter Care Teams Data Security Administrator Relationship Specialty Start Date End Date Vern Juarez MD [address] [place] [id number] PCP - General Internal Medicine 08/09/22 documented as of this encounter
--- OUTSIDE RECORDS SUMMARY | 2024-10-15 22:23 | XMS_ITS | Clinical Summary ---
Author Organization [facility] it Address [address] [place] [address] Care Team Providers Care Bioprocessing Manufacturing Technician Name Role Phone Sangeetha Cruz MD Primary Care Provider [phone] Surgical History Surgery Date Site/Laterality Comments TUBAL LIGATION PROCEDURE: HISTORICAL TUBAL LIGATION CHOLECYSTECTOMY PROCEDURE: HISTORICAL CHOLECYSTECTOMY WISDOM TOOTH EXTRACTION PROCEDURE: HISTORICAL WISDOM TEETH EXTRACTION Medical History Medical History Date Comments Hypothyroid DX:Hypothyroid GERD (gastroesophageal reflux disease) DX:GERD (gastroesophageal reflux disease) Essential hypertension, benign D X:Essential hypertension, benign Asthma DX:Asthma Depression DX:Depression Hemorrhoid 12/27/2013 DX:Hemorrhoid Family History Medical History Relation Name Comments Diabetes Mother Diabetes Sister 1 Breast cancer Neg Hx Colon cancer Neg Hx Ovarian cancer Neg Hx Relation Name Status Comments Mother Sister 1 Sister 2 Social History Tobacco Use Types Packs/Day Years Used Date Smoking Tobacco: Never Alcohol Use Standard Drinks/Week Comments No 0 (1 standard drink = 0.6 oz pur e alcohol) Comments Unknown Sex and Gender Information Value Date Recorded Sex Assigned at Not on file Legal Sex Female 5:02 AM EST Gender Identity Not on file Sexual Orientation Not on file Obstetrics History Plan of Treatment Health Maintenance Due Date Last Done Comments Breast Cancer Screening 1960 Pneumococcal Vaccine: 50+ Ye ars (1 of 2 - PCV) 1964 Pneumococcal Vaccine: Pediat rics (0 to 5 Years) and At-Risk Patients (6 to 64 Years) (1 of 2 - PCV) 1964 Cervical Cancer Screening: P ap Smear 11/29/1979 Zoster Vaccines (1 of 2) 2008 RSV Immunization Patients 60 + Years Old (1 - Risk 60-74 years 1-dose series) 2018 Cholesterol Screening (Lipid Panel) 08/08/2022 Colorectal Cancer Screening: Colonoscopy 08/08/2022 Depression Screening 08/08/2022 Hepatitis C Screening 08/08/2022 Osteoporosis Screening (Bone Density Screening) 08/08/2022 Social Influencers of Health Screening 08/08/2022 Hypertension/CHF/CAD Annual BMP Blood Test 08/19/2022 DTaP,Tdap,and Td Vaccines (2 - Td or Tdap) 06/12/2023 06/12/2013 Falls Risk Assessment 11/29/2023 COVID-19 Vaccine (1 - 2023-2 5 season) 2024 Influenza Vaccine (#1) 2024 HIB Vaccines Aged Out No longer eligi ble based on patient's age to complete this topic HPV Vaccines Aged Out No longer eligi ble based on patient's age to complete this topic Hepatitis A Vaccines Aged Out No long er eligible based on patient's age to complete this topic Hepatitis B Vaccines Aged Out No long er eligible based on patient's age to complete this topic IPV Vaccines Aged Out No longer eligi ble based on patient's age to complete this topic MMR Vaccines Aged Out No longer eligi ble based on patient's age to complete this topic Meningococcal ACWY Vaccine Aged Out N o longer eligible based on patient's age to complete this topic RSV Immunization Patients Un víctor 20 months Aged Out No longer eligible b ased on patient's age to complete this topic Varicella Vaccines Aged Out No longer eligible based on patient's age to complete this topic Advance Directives Documents on File Type Date Recorded Patient Associate Professor Of Chemistry Expl anation Health Care Decision (hx) 02/05/2022 AD BLOCK DIRECTIVE Health Care Decision (hx) 02/05/2022 AD BLOCK DIRECTIVE Health Care Decision (hx) 02/05/2022 AD BLOCK DIRECTIVE Health Care Decision (hx) 02/05/2022 AD BLOCK DIRECTIVE Care Teams Bioprocessing Manufacturing Technician Relationship Specialty Start Date End Date Sangeetha Cruz MD [address] [place] [address] PCP - General Internal Medicine 12/23/14
--- OUTSIDE RECORDS SUMMARY | 2024-10-15 22:24 | XMS_ITS | Encounter Summary ---
Author Organization [employer] Address 75 [facility] 7 [place] [address] Care Team Providers Care Wholesale Account Manager Name Role Phone Vern Juarez MD Primary Care Prov ider Reason for Visit * Reason Onset Date Comments Durable Medical Equipment 08/06/2024 Encounter Details Date Type Department Care Team (Late st Contact Info) Description 08/06/2024 Telephone [facility] MEDICINE [address] [place] [address] Vern Juarez MD [address] [place] [address] Durable Medical Equipment Social History Tobacco Use Types Packs/Day Years Used Date Smoking Tobacco: Never Passive Smoke Exposure: Never Smokeless Tobacco: Never Alcohol Use Standard Drinks/Week Comments Never 0 (1 standard drink = 0.6 oz pur e alcohol) Depression Answer Date Recorded Patient Health Questionnaire-9 Score 8 06/29/2024 Patient Health Questionnaire-9 Score 8 06/29/2024 Last PHQ-9: Questionnaire Data Not on file 1 Housing Stability Answer Date Recorded What is your housing situation today? I have adriángrace langley 02/01/[address] you li ve. Do you have problems with any of the following? None of the above 02/01/2024 Food Insecurity Answer Date Recorded Within the past 12 months, y ou worried that your food would run out before you got money to buy more: Never True 02/01/2024 Within the past 12 months,th e food you bought just didn't last and you didn't have enough money to get more: Never True Transportation Answer Date Recorded In the past 12 months, has l ack of transportation kept you from medical appts, meetings, work or from getting things needed for daily living? No 02/01/2024 Utilities Answer Date Recorded In the past 12 months, has t he electric, gas, oil or water company threatened to shut off services in your home? No 02/01/2024 Depression Answer Date Recorded Patient Health Questionnaire-2 Score 6 06/29/2024 Comments Unknown Sex and Gender Information Value Date Recorded Sex Assigned at Female 07/05/2022 10:14 AM EDT Legal Sex Female 10:14 AM EDT Gender Identity Female 07/05/2022 10:14 AM EDT Sexual Orientation Straight 07/05/2022 10 :14 AM EDT documented as of this encounter Miscellaneous Notes * Telephone Encounter - Jacqui Cagle LPN - 08/07/2024 10:24 AM EST Please review pt request below , Rx was not generated for the DME please add addendum to support this DME thank you TC from pt [facility] in June pcp was to prescribe a nebulizer machine . Pt verified with [facility] and they have not received it . * Telephone Encounter - Arvind Ulrich - 08/06/2024 11:16 AM EST TC from pt [facility] in June pcp was to prescribe a nebulizer machine . Pt verified with [facility] and they have not received it . documented in this encounter Plan of Treatment Not on file documented as of this encounter Visit Diagnoses Not on filedocumented in this encounter Additional Health Concerns Assessment Noted Time PHQ-9 Depression Total Score: 8 06/29/20 24 10:23 AM EDT documented as of this encounter Care Teams Wholesale Account Manager Relationship Specialty Start Date End Date Vern Juarez MD [address] [place] [id number] PCP - General Internal Medicine 12/5/22 documented as of this encounter
--- OUTSIDE RECORDS SUMMARY | 2024-10-15 22:24 | XMS_ITS | Encounter Summary ---
Author Organization [employer] Address 75 [facility] 7 [place] [address] Care Team Providers Care Party Plan Sales Unit Advisor Name Role Phone Vern Juarez MD Primary Care Prov ider Reason for Visit * Reason Onset Date Comments Durable Medical Equipment 09/24/2022 Encounter Details Date Type Department Care Team ([facility] st Contact Info) Description 09/24/2022 Telephone [facility] CHC MED & PEDS [address] [place] [address] Vern Juarez MD [address] [place] [address] Durable Medical Equipment Social History Tobacco Use [...] Orientation Straight 07/05/2022 10 :14 AM EDT COVID-19 Exposure Response Date Recorded In the last 10 days, have yo u been in contact with someone who was confirmed or suspected to have Coronavirus/COVID-19? No / Unsure 09/15/2022 12:34 PM EST documented as of this encounter Miscellaneous Notes * Telephone Encounter - Jacqui Cagle LPN - 09/24/2022 1:24 PM EST Please read message below and advise , may need documentation on it benefits pt needs and please provide DX * Telephone Encounter - Vandana Vick - 09/24/2022 1:08 PM EST Tc from pt requesting a bed railing . documented in this encounter Plan of Treatment Not on file documented as of this encounter Visit Diagnoses Not on filedocumented in this encounter Additional Health Concerns Assessment Noted Time PHQ-9 Depression Total Score: 0 08/19/20 3:22 PM EST documented as of this encounter Care Teams Party Plan Sales Unit Advisor Relationship Specialty Start Date End Date Vern Juarez MD [address] [place] [phone] PCP - General Internal Medicine 08/09/22 documented as of this encounter
--- OUTSIDE RECORDS SUMMARY | 2024-10-15 22:24 | XMS_ITS | Encounter Summary ---
Author Organization [employer] Address [address] [facility] [address] [address] Care Team Providers Care Market Garden Worker Name Role Phone Vern Juarez MD Primary Care Prov ider Reason for Visit * Reason Onset Date Comments Appointment Request 03/12/2024 Encounter Details Date Type Department Care Team ([facility] st Contact Info) Description 03/12/2024 Telephone [facility] MEDICINE [address] [place] [address] Vern Juarez MD [address] [facility] [address] Appointment Request Social History Tobacco Use Types [...] housing situation today? I have adrián langley 02/01/[address] you [...] * Telephone Encounter - Marlo Macias - 03/12/2024 1:43 PM EDT Tc from patient calling to cancel Derm appt for 03/13 and would like a call back to reschedule documented in this encounter Plan of Treatment Not on file documented as of this encounter Visit Diagnoses Not on filedocumented in this encounter Additional Health Concerns Assessment Noted Time PHQ-9 Depression Total Score: 19 024 10:43 AM EST documented as of this encounter Care Teams Market Garden Worker Relationship Specialty Start Date End Date Vern Juarez MD [address] [place] [id number] PCP - General Internal Medicine 08/09/22 documented as of this encounter
--- OUTSIDE RECORDS SUMMARY | 2024-10-15 22:24 | XMS_ITS | Encounter Summary ---
Author Organization [employer] Address 75 [facility] 7 [place] [address] Care Team Providers Care Corporate Associate Attorney Name Role Phone Vern Juarez MD Primary Care Prov ider Reason for Visit * Reason Onset Date Comments Durable Medical Equipment 03/30/2024 Encounter Details Date Type Department Care Team (Late st Contact Info) Description 03/30/2024 Telephone [facility] MEDICINE [address] [place] [address] Vern Juarez MD [address] [place] [address] Durable Medical Equipment Social History Tobacco Use [...] your housing situation today? I have adrián korin 02/01/[address] you li [...] Telephone Encounter - Jacqui Cagle LPN - 04/02/2024 2:22 PM EDT Please review pt request below. Will need Documentation , sending to PCP to respond upon return * Telephone Encounter - Ruthie Cisneros - 03/30/2024 9:39 AM EDT Tc from pt requesting DME, pt is requesting a nebulizer machine, she was using daughter machine however daughter move from home. documented in this encounter Plan of Treatment Not on file documented as of this encounter Visit Diagnoses Not on filedocumented in this encounter Additional Health Concerns Assessment Noted Time PHQ-9 Depression Total Score: 19 024 10:43 AM EST documented as of this encounter Care Teams Corporate Associate Attorney Relationship Specialty Start Date End Date Vern Juarez MD [address] [place] [phone] PCP - General Internal Medicine 08/09/22 documented as of this encounter
--- OUTSIDE RECORDS SUMMARY | 2024-10-15 22:24 | XMS_ITS | Encounter Summary ---
Author Organization [employer] Address 75 [facility] 7t [place] [address] Care Team Providers Care Playground Equipment Erector Name Role Phone Vern Juarez MD Primary Care Prov ider Reason for Visit * Reason Comments Med Refill Encounter Details Date Type Department Care Team ([facility] st Contact Info) Description 07/02/2024 Refill [facility] MEDICINE [address] [place] [address] Grisel Powell MD [address] [place] [address] Seasonal allergies Social History Tobacco Use Types Packs/Day Years [...] documented as of this encounter Visit Diagnoses Diagnosis Seasonal allergies Allergic rhinitis, cause unspecified documented in this encounter Additional Health Concerns Assessment Noted Time PHQ-9 Depression Total Score: 8 06/29/20 24 10:23 AM EDT documented as of this encounter Care Teams Playground Equipment Erector Relationship Specialty Start Date End Date Vern Juarez MD [address] [place] [id number] PCP - General Internal Medicine 08/09/22 documented as of this encounter
--- OUTSIDE RECORDS SUMMARY | 2024-10-15 22:24 | XMS_ITS | Encounter Summary ---
Author Organization [employer] Address [address] [facility] [address] [address] Care Team Providers Care Sludge Mill Operator Name Role Phone Vern Juarez MD Primary Care Prov ider Reason for Visit * Reason Comments Med Refill Encounter Details Date Type Department Care Team ([facility] st Contact Info) Description 02/28/2023 Refill [facility] MED & PEDS [address] [facility] [place] [address] Vern Juarez MD [address] [place] [address] Social History Tobacco Use Types Packs/Day Years [...] documented as of this encounter Care Teams Sludge Mill Operator Relationship Specialty Start Date End Date Vern Juarez MD [address] [place] [phone] PCP - General Internal Medicine 08/09/22 documented as of this encounter
--- OUTSIDE RECORDS SUMMARY | 2024-10-15 22:24 | XMS_ITS | Clinical Summary ---
Author Organization [employer] Address [address] [facility] [address] [place] [address] Care Team Providers Care Rescue Instructor Name Role Phone Vern Juarez MD Primary Care Prov ider Allergies Active Allergy Reactions Criticality Noted Date Comments Aspirin Unknown 08/26/2023 Oxycodone Itching 11/25/2023 Zolmitriptan Itching,Unknown Low 08/19/2010 Other reaction(s): made headache worse Medications clonazePAM (KlonoPIN) 2 MG tablet Take 1 tablet by mouth at bed time. Active dilTIAZem ER (Tiazac) 240 MG 24 hr capsule Take 1 capsule by mouth 1 (one) time each day. 12/29/19 22 Active levalbuterol (Xopenex HFA) 45 MCG/ACT inhaler Inhale 2 puffs every 6 (six) hours. 06/23/20 21 Active lamoTRIgine (LaMICtal) 200 MG tablet Take 1 tablet by mouth 1 (one) time each day. Active ipratropium-alb uterol (Duo-Neb) 0.5-2.5 mg/3 mL nebulizer solution Take 3 mL by nebulization. Every 4 to 6 hours as needed for wheezing Active escitalopram (Lexapro) 5 MG tablet Take 1 tablet by mouth in the morning. Active pramipexole (Mirapex) 0.125 MG tablet Take 1 tablet by mouth every 8 (eight) hours. Active Fasenra 30 MG/ML injection 03/22/20 22 Active Advair HFA 230-21 MCG/ACT inhaler INHALE TWO PUFFS TWICE DAILY, RINSE MOUTH AFTER USE 08/26/20 Active Nucala 100 MG/ML solution prefilled syringe 06/04/20 Active montelukast (Singulair) 10 MG tablet Take 10 mg by mouth at bedtime. 08/26/20 Active rOPINIRole (Requip) 0.25 MG tablet TAKE ONE TABLET AT BEDTIME FOR rls 08/26/20 Active azelastine (Astelin) 0.1 % nasal spray Administer 1 spray into each nostril 2 times daily. Use in each nostril as directed 30 mL 12 05/19/20 23 Active hydrocortisone 2.5 % cream Apply topically every 12 (twelve) hours. 60 g 08/09/20 23 Active Minoxidil (Rogaine Womens) 5 % foamIndications :Telogen effluvium To use daily 60 g 11 08/09/20 23 Active ketoconazole (Nizoral) 2 % shampooIndicati ons:Seborrheic dermatitis Apply topically 2 (two) times a week. 120 mL 2 08/11/20 23 Active omeprazole (PriLOSEC) [address] capsule TAKE ONE CAPSULE EVERY MORNING BEFORE BREAKFAST 90 capsule 09/23/19 24 Active loratadine (Claritin) 10 MG tablet TAKE ONE TABLET EVERY MORNING NEEDED FOR ALLERGY 90 tablet 09/23/19 24 Active dilTIAZem CD (Cardizem CD) 240 MG 24 hr capsule TAKE ONE CAPSULE EVERY MORNING 90 capsule 09/23/19 24 Active Diclofenac Sodium 1 % gelIndications: Acute bilateral back pain, unspecified back location Apply thin layer to affected area 3 times daily as needed for pain. 100 g 3 10/17/19 24 Active FREESTYLE LITE test stripIndication s:Type 2 diabetes mellitus with hyperglycemia, without long-term current use of insulin ([facility]) TEST BLOOD SUGAR THREE TIMES DAILY 100 strip 10/25/19 24 Active Easy Touch Lancets 33G/Twist miscIndications :Type 2 diabetes mellitus with hyperglycemia, without long-term current use of insulin ([facility]) TEST BLOOD SUGAR THREE TIMES DAILY 100 each 10/25/19 24 Active Simethicone Ultra Strength 180 MG capsuleIndicati ons:Type 2 diabetes mellitus with hyperglycemia, without long-term current use of insulin ([facility]) TAKE ONE CAPSULE THREE TIMES DAILY WITH MEALS NEEDED 90 capsule 11 10/25/19 24 Active econazole nitrate 1 % creamIndication s:Seborrheic dermatitis Apply topically Once per day. 30 g 12/27/19 24 Active hydrocortisone 0.5 % creamIndication s:Seborrheic dermatitis Apply topically 2 times daily. 15 g 12/27/19 24 Active Jardiance 25 MGIndications:T ype 2 diabetes mellitus with hyperglycemia, without long-term current use of insulin ([facility]) TAKE ONE TABLET EVERY MORNING 90 tablet 1 04/17/20 24 Active potassium chloride CR (Klor-Con) 8 MEQ ER tablet TAKE ONE TABLET EVERY MORNING 30 tablet 11 06/14/20 Active hydroquinone 4 % creamIndication s:Melasma Apply topically 2 times daily. 28 g 3 06/12/20 24 Active Sunscreens (Shade Sunblock SPF45) lotionIndicatio ns:Rosacea To use daily when going in the sun. 120 mL 06/12/20 24 Active semaglutide (Ozempic) 2 MG/1.5ML solution pen-injector Inject 1 mg under the skin 1 (one) time per week. 2 each 12 06/29/20 Active gabapentin (Neurontin) 800 MG tablet Take 1 tablet (800 mg) by mouth 2 times daily. 60 tablet 11 06/29/20 24 Active Blood Glucose Monitoring Suppl (FreeStyle Lite) w/Device kitIndications: Type 2 diabetes mellitus with hyperglycemia, without long-term current use of insulin ([facility]) 1 Device 3 times daily. 1 kit 06/29/20 Active rosuvastatin (Crestor) 20 MG tabletIndicatio ns:Hyperlipidem ia due to type 2 diabetes mellitus ([facility]) ([facility]) TAKE ONE TABLET EVERY NIGHT AT BEDTIME 90 tablet 3 08/13/20 24 Active hydroCHLOROthia zide (HYDRODiuril) 25 MG tablet TAKE ONE TABLET EVERY MORNING 90 tablet 08/15/20 24 Active baclofen (Lioresal) 10 MG tablet TAKE ONE TABLET THREE TIMES DAILY 90 tablet 1 08/17/20 24 Active levothyroxine (Synthroid, Levoxyl) 75 MCG tablet TAKE ONE TABLET EVERY MORNING 90 tablet 08/21/20 24 Active melatonin 5 MG tabletIndicatio ns:Primary insomnia TAKE TWO TABLETS EVERY DAY AT BEDTIME 60 tablet 5 09/18/19 25 Active Aspirin Adult Low Strength 81 MG EC tabletIndicatio ns:Primary hypertension,Ty pe 2 diabetes mellitus with hyperglycemia, without long-term current use of insulin (CMS/HCC) TAKE ONE TABLET EVERY MORNING 30 tablet 09/18/19 25 Active Aspirin Adult Low Strength 81 MG EC tabletIndicatio ns:Primary hypertension,Ty pe 2 diabetes mellitus with hyperglycemia, without long-term current use of insulin (CMS/HCC) TAKE ONE TABLET EVERY MORNING 30 tablet 09/21/19 24 025 Discontinued melatonin 5 MG tabletIndicatio ns:Primary insomnia TAKE TWO TABLETS EVERY DAY AT BEDTIME 60 tablet 5 03/14/20 24 025 Discontinued Active Problems Problem Noted Date Diagnosed Date Acute bilateral back pain 02/08/2024 Intractable chronic migraine without aura and without status migrainosus 02/08/2024 Bronchitis 11/25/2023 Bilateral carpal tunnel syndrome 10/18/2023 Assessment & Plan (10/18/2023 12:34 PM EST): Will order EMG, she has a emg from 2016 with mild/mod disease, refers wrist splint not helping Tension type headache 07/11/2023 Assessment & Plan (07/11/2023 12:50 PM EST): Patient under a lot of stress, her headache is band like, told she would benefit from NSAIDS, but she refused prefers to continue tylenol, followed by psych and therapist, encouraged ways to decrease anxiety/stress Screening for colon cancer 05/19/2023 Assessment & Plan (05/19/2023 5:55 PM EDT): Will send cologuard, risk vs benefits discussed Vaginal prolapse 05/19/2023 Assessment & Plan (05/19/2023 5:59 PM EDT): Hx of corrected cystocele, patient refer feeling a pressure, will refer to ob- tree faller for evaluation Non compliance w medication regimen 12/14/2022 Assessment & Plan (12/14/2022 1:10 PM EDT): Not taking losartan, she is taking it out of med boxes discussed with pt about checking with provider about potential medication side effects counseled against taking medications out of med boxes FU with PCP next week. Iron deficiency anemia 10/20/2022 Assessment & Plan (05/19/2023 5:53 PM EDT): Will order new cbc with iron levels for evaluation Assessment & Plan (12/22/2022 1:10 PM EDT): Will discontinue ferrous sulfate, continue diet rich in iron Assessment & Plan (10/20/2022 2:23 PM EST): Will order new cbc with iron levels to determine of patient needs to continue oral iron supplement At risk for falls 10/20/2022 Assessment & Plan (06/29/2024 12:33 PM EDT): Patient will benefit from a shower chair to decrease risk of fall, will taks Assessment & Plan (10/20/2022 2:27 PM EST): Will place order for bed rails, she take medication at night that can make her feel drowsy and therefore increase the risk of falling Hair loss 10/20/2022 Assessment & Plan (07/11/2023 12:45 PM EST): Will place derm clinic referal Assessment & Plan (10/20/2022 2:30 PM EST): Will refer to dermatology for evaluation, this has been chronic and patient refer has been worsening Chronic idiopathic constipation 08/19/2022 Assessment & Plan (08/19/2022 5:26 PM EST): Will provide docusate to be taken daily, increase fiber and water intake in diet Costochondral chest pain 08/19/2022 Assessment & Plan (08/19/2022 5:30 PM EST): Pain started after coughing spells, on examination is reproducible to touch, continue with tylenol, may apply ice/heat pads Morbid obesity 08/11/2022 Assessment & Plan (08/11/2022 5:00 PM EST): Morbidly obese female, likely contributing to her multiple co-morbid conditions, at this point open to nutrition referral. Given her BMI she will benefit of multiple modality approach, unfortunately insurance will not cover a GLP-1 for wt loss but may approve for DM. She will benefit of semaglutide. Given her anxiety, HTN poor candidate for phen/topamax &/or naltrexone/wellbutrin. She may also benefit of bariatric surgery. Will schedule f/u with PCP. Hyperlipidemia 08/05/2022 Assessment & Plan (05/19/2023 5:53 PM EDT): On statin therapy, new labs ordered for guidance Cough in adult patient 08/05/2022 Overview (08/05/2022): Supportive care; Fluids, rest tylenol as directed. Assessment & Plan (12/06/2022 11:22 AM EDT): Supportive care, normal lung exam. Will send anti-tussive medication. Testing negative. Reports she was exposed to someone who was RSV POS. Of note, normal lung exam, but feeling an asthma exacerbation is starting will send short trial. If worsening symptoms then return to care. Upper respiratory infection 08/05/2022 Overview (08/05/2022): as noted above Assessment & Plan (11/26/2023 3:28 AM EDT): I will prescribe patient wth Prednisone 20 mg to alleviate inflammation and two antibiotics to manage any bacterial infection. The patient was advised to monitor symptoms and return if they worsen or do not improve with treatment. Acquired hypothyroidism 05/05/2018 Assessment & Plan (06/29/2024 12:31 PM EDT): On levothyroxine last tsh was stable, she Is clinically euthyroid Asthma 05/05/2018 Assessment & Plan (08/11/2022 4:57 PM EST): Patient still w/ symptoms. At this point will send short taper and refilled her albuterol. Encouraged compliance with controller inhaler and f/up with PCP Assessment & Plan (08/05/2022 9:37 PM EST): Supportive care: fluids, Rest, Tylenol OTC Benzodiazepine dependence, continuous 05/05/2018 Gastroesophageal reflux disease without esophagi tis 05/05/2018 Hyperlipidemia due to type 2 diabetes mellitus ( [facility]) 05/05/2018 Hypertension 05/05/2018 Assessment & Plan (06/29/2024 12:30 PM EDT): Controlled, continue low sodium diet and exercise as tolerated, keep bp log, follow up in 3 months Assessment & Plan (02/08/2024 3:19 PM EDT): Controlled, continue current medical therapy, reinforced low sodium diet, exercise as tolerated Assessment & Plan (10/18/2023 12:31 PM EST): Controlled, no changes will be made, continue current therapy, reinforced diet and exercise as tolerated Assessment & Plan (07/11/2023 12:45 PM EST): Controlled at home, reinforced low sodium diet, continue same treatment Assessment & Plan (05/19/2023 5:52 PM EDT): Controlled, on hydrochlorothiazide and diltiazem, reinforced weight loss, low sodium diet Assessment & Plan (01/11/2023 2:52 PM EDT): Controlled, reviewed home bp log, continue diltiazem and hydrochlorothiazide, reinforced low sodium diet and exercise as tolerated Assessment & Plan (12/22/2022 1:07 PM EDT): Will discontinue losartan, she has not been taking it, she has been only on diltiazem and hydrochlorothiazide, she refers also taking furosemide as needed, will also discontinue, her bp log at home was stable with bp <130/80, will follow up in 1 month to decide if further meds adjustment needed. Assessment & Plan (12/14/2022 1:11 PM EDT): Counseled to check BP at home daily and FU with PCP next week. She will continue diltiazem ER 240 per day + dieretics, unclear as to why she needs two different dieretics. Pt will fu with PCP and will continue off losartan Counseled re low salt diet/increase moderate physical activity. Check home BP BIW and prn CP/MCNULTY/CISNEROS Non smoking patient. Last GFR 2 years ago wnl. encouraged to have good communication with PCP regarding medication and side effects and to bring all of her meds to provider appointments Assessment & Plan (10/20/2022 2:24 PM EST): Controlled, continue current treatment, reinforced low sodium diet and exercise as tolerated, follow up in 3 months Assessment & Plan (08/19/2022 5:25 PM EST): Controlled, no changes will be made, reinforced low sodium diet and exercise as tolerated Assessment & Plan (08/11/2022 4:56 PM EST): Uncontrolled in the setting of non compliance. - If SBP < 130/DBP <80 mmHg in more than 75% of home self-monitoring, continue current medication regimen and make f/u with PCP in 3 month - If SBP >130-165/DBP >80-115 mmHg , incr losartan to 50 mg and f/u with PCP in 1 month - If SBP > 165/ DBP> 115 mmHg, consult with covering provider - If SBP <90/DBP <50 mmHg, consult with covering provider. Mood disorder 05/05/2018 Seasonal allergies 05/05/2018 Assessment & Plan (05/19/2023 5:54 PM EDT): Will stop flonase and will send azelastine Nonalcoholic steatohepatitis (CHAVES) 05/05/2018 Type 2 diabetes mellitus wit h hyperglycemia, without long-term current use of insulin 05/05/2018 Assessment & Plan (06/29/2024 12:32 PM EDT): Will increase ozempic to 1mg, no reported episode of hypoglycemia Assessment & Plan (02/08/2024 3:20 PM EDT): Stable A1c today was 7.0, continue same treatment Pending eye exam New labs ordered Assessment & Plan (10/18/2023 12:33 PM EST): Slightly increased from last results, today was 7.0%, she is not following diet reccomendations, will follow up in 3 months, discussed importance of lowering her A1c Pending eye exam, she will call for a appointment Assessment & Plan (05/19/2023 5:52 PM EDT): Last a1c <7.0%, on ozempic and jardiance, will leave current therapy and follow up in 3 months with new labs ordered Assessment & Plan (01/11/2023 2:57 PM EDT): Controlled, continue ozempic and SGLT2, no side effects reported Assessment & Plan (10/20/2022 2:25 PM EST): Improving, encouraged to continue diet, follow up with endocrinology Assessment & Plan (10/08/2022 6:39 PM EST): Patient tolerating ozempic, no side effects reported, reinforced low carb/no sugar diet and exercise as tolerated, follow up with endocrinology, will follow up in 1 month Assessment & Plan (09/08/2022 11:25 AM EST): Patient did not tolerated trulicity, caused upset stomach/diarrhea, will switch to ozempic, told to follow up with endocrinology Assessment & Plan (08/19/2022 5:23 PM EST): Not controlled, provided with information for follow up with patient access registrar, her a1c today was 9.0% she is taking jardiance, agree to start trulicity Encounters Date Type Department Care Team Description 10/14/2024 Refill [facility] MED & PEDS [address] [place] [address] Vern Juarez MD 09/21/2024 9:45 AM EST Office Visit [facility] OPTOMETRY [address] [place] [address] Latia Iman, OD Type 2 diabetes mellitus without ophthalmic manifestations ([facility]) (Primary Dx); Combined forms of age-related cataract of both eyes; Presbyopia 09/21/2024 Travel 09/14/2024 Refill [facility] PEDS [address] [place] [address] Vern Juarez MD Primary insomnia; Primary hypertension; Type 2 diabetes mellitus with hyperglycemia, without long-term current use of insulin ([facility]) 08/23/2024 Telephone [facility] MED & PEDS [address] [place] [address] Vern Juarez MD 08/20/2024 Refill [facility] MED & PEDS [address] [place] [address] Vern Juarez MD 08/17/2024 Refill [facility] MED & PEDS [address] [place] [address] Vern Juarez MD 08/14/2024 Refill [facility] MED & PEDS [address] [place] [address] Vern Juarez MD 08/11/2024 Refill [facility] MED & PEDS [address] [place] [address] Vern Juarez MD Hyperlipidemia due to type 2 diabetes mellitus ([facility]/HCC) ([facility]) 08/06/2024 Telephone [facility] MEDICINE [address] [place] [address] Vern Juarez MD Durable Medical Equipment from Last 3 Months Immunizations Name Administration Dates Next Due Influenza injectable quadriv alent IIV4 with preservative 05/31/2017,06/23/2016 Influenza injectable quadriv alent preservative free 09/15/2013 Influenza, IIV3, injectable 08/03/2010, 6 Influenza, Split (incl. coby fied surface antigen) 06/22/2012 MMR 10/02/1993 Moderna Covid-19 Vaccine 12+ 12/05/2020,11/08/19 21 Pneumococcal Conjugate PCV 20 10/17/2023 TD (adult), 2 Lf tetanus tox oid, preservative free, adsorbed 01/20/2004 Tdap 10/17/2023,06/12/2013,11/13/2012 Social History Tobacco Use Types Packs/Day Years Used Date Smoking Tobacco: Never Passive Smoke Exposure: Never Smokeless Tobacco: Never Tobacco Cessation:Counseling Given: Not Answered Alcohol Use Standard Drinks/Week Comments Never 0 [...] Orientation Straight 07/05/2022 10 :14 AM EDT Last Filed Vital Signs Vital Sign Reading Time Taken Comments Blood Pressure 137/72 06/29/2024 10:21 AM EDT Pulse 78 06/29/2024 10:21 AM EDT Temperature 36.8 ??C (98.2 ??F) 06/29/2024 10:21 AM E DT Respiratory Rate 18 06/29/2024 10:21 AM EDT Oxygen Saturation 97% 06/12/2024 11:09 AM EDT Inhaled Oxygen Concentration - - Weight 95.7 kg (211 lb) 06/29/2024 10:21 AM EDT Height 148 cm (4' 10.27 ) 06/29/2024 10:21 AM ED T Body Mass Index 43.69 06/29/2024 10:21 AM EDT Plan of Treatment Health Maintenance Due Date Last Done Comments CT Colonography 1958 Dental Prophylaxis 1958 Dental X-Ray: Bitewings 1958 FIT DNA/Cologuard 1958 FIT 1958 FOBT 1960 Sigmoidoscopy 1958 Hepatitis A Vaccines (1 of 2 - Risk 2-dose series) 1977 Zoster Vaccines (1 of 2) 2008 Hepatitis B Vaccines (1 of 3 - Risk 3-dose series) 2018 RSV Patients and Patients Aged 60 years or older (1 - Risk 60-74 years 1-dose series) 2018 Dental X-Ray: Full Mouth 11/30/2020 11/29/2017 COVID-19 Vaccine ( season) 2024 12/05/2020, 11/07/2020 Influenza Vaccine (#1) 2024 7, 06/23/2016, 09/15/2013, Additional history exists Lipid Panel 06/21/2024 06/21/2023, 0409/2022, 07/26/2022, Additional history exists Dental Oral Exam 08/09/2024 02/07/2024, 11/29/2017 Diabetes: Urine Protein Screening 08/09/2024 08/09/2023, 11/19/2021, 08/15/2020 Diabetes: Hemoglobin A1C 09/29/2024 024, 02/08/2024, 10/17/2023, Additional history exists SDOH Screening 01/31/2025 02/01/2024 Mammogram 04/25/2025 04/25/2023, 12/21/2018 Colonoscopy 06/05/2025 06/05/2015 Colorectal Cancer Screening 06/05/2025 Alcohol/Substance Use Screening 06/29/2025 06/29/2024 Depression Screening 06/29/2025 06/29/2024, 06/29/20 Diabetes: Foot Exam 06/29/2025 06/29/2024, 06/29/2024, 06/29/2024, Additional history exists Tobacco Screening 09/21/2025 09/21/2024 Cervical Cancer Screening 12/02/2025 HPV/Cotest 12/02/2025 12/02/2020, 08/23/2017 Pap Smear 12/02/2025 12/02/2020 Eye Exam 09/21/2026 09/21/2024, 09/05, 09/21/2024, Additional history exists DTaP/Tdap/Td Vaccines (4 - Td or Tdap) 10/17/2033 10/17/2023, 06/12/2013, 11/13/2012, Additional history exists Hepatitis C Screening Completed 06/21/2023 Pneumococcal Vaccine: 50+ Years Completed 10/17/2023 HIB Vaccines Aged Out No longer eligi ble based on patient's age to complete this topic HPV Vaccines Aged Out No longer eligi ble based on patient's age to complete this topic IPV Vaccines Aged Out No longer eligi ble based on patient's age to complete this topic Meningococcal Vaccine Aged Out No roeg abi eligible based on patient's age to complete this topic RSV under 20 months Aged Out No longe r eligible based on patient's age to complete this topic Rotavirus Vaccines Aged Out No longer eligible based on patient's age to complete this topic Procedures Procedure Name Priority Date/Time Associated Diagnosis Comments POCT GLYCATED HEMOGLOBIN, TOTAL Routine 06/29/2024 10:28 AM EDT Type 2 diabetes mellitus with hyperglycemia, without long-term current use of insulin ([facility]) PERIODIC ORAL EVALUATION - ESTABLISHED PATIENT Routine 02/07/2024 10:00 AM EDT ALBUMIN, RANDOM URINE W/CREATININE Routine 08/09/2023 10:25 AM EST HEPATITIS C AB W/REFL TO HCV RNA, QN, PCR Routine 06/21/2023 9:36 AM EDT Type 2 diabetes mellitus with hyperglycemia, without long-term current use of insulin (CMS/HCC) LIPID PANEL, STANDARD Routine 06/21/2023 9:36 AM EDT Type 2 diabetes mellitus with hyperglycemia, without long-term current use of insulin (CMS/HCC) BI MAMMOGRAM SCREENING TOMOSYNTHESIS BILATERAL Routine 04/25/2023 9:31 AM EDT HPV MRNA E6/E7 Routine 12/02/2020 10:54 AM EDT THINPREP PAP Routine 12/02/2020 10:54 AM EDT PANORAMIC RADIOGRAPHIC IMAGE Routine 11/29/2017 12:00 AM EDT HM COLONOSCOPY Routine 06/05/2015 1:00 PM EDT from Last 3 Months or Most Recently Relevant to Health Maintenance Results * (ABNORMAL) POCT HGB A1C (06/29/2024 10:28 AM EDT) Pathologist [facility] Hemoglobin A1C 7.2(A) 4.0 - 6.0 % QC Media Lot # [id number] Lot# Expiration Date Blood 06/29/2024 10:2 8 AM EDT us Vern Warner MD POINT OF CARE TEST ENTER/EDIT ORDERABLES Final Result * Albumin, Random Urine W/Creatinine (08/09/2023 10:25 AM EST) Creatinine, Urine 45.36 mg/dL [facility] Microalbumin Urine 10.0 mg/L [facility] Microalbum Creatinine Ratio Ur 22.0 <30 ug/mg cr [facility] Comment:Albumin/Creatinine R atio Reference Ranges: Normal: < 30 ug/mg creatinine Microalbuminuria: 30 - 300 ug/mg creatinineClinical Albuminuria: > 300 ug/mg creatinine 08/09/2023 10:2 5 AM EST 08/09/2023 2:29 PM EST Vern Warner MD LAB URINE ORDERABL ES Final Result Performing Organization Address City/[facility]/ZIP Co de Phone Number [facility] [address] [place] [phone] * Hepatitis C Antibody with Reflex to HCV, RNA, Quantitative, Real-Time PCR (06/21/2023 9:36 AM EDT) Hepatitis C Antibody Nonreactive Nonreactive [facility] Comment:Antibodies to HCV no t detected; does not exclude early acuteHCV infection. Blood Venous blood specimen / Unknown 06/21/2023 9:36 AM EDT 06/21/2023 2:25 PM EDT us Vern Warner MD LAB BLOOD ORDERABL ES Final Result Performing Organization Address City/[facility] Co de Phone Number [facility] [address] [place] [phone] * Lipid Panel, Standard (06/21/2023 9:36 AM EDT) Triglycerides 107 <150 mg/dL [facility] Comment:Desirable Triglyceri de: less than 150 mg/dLBorderline High Triglyceride 150-199 mg/dLHigh Triglyceride: 200-499 mg/dLVery High Triglyceride: greater than or equal to 5OO mg/dL Cholesterol 142 <200 mg/dL [facility] Comment:Desirable Cholestero l: less than 200 mg/dLBorderline High Cholesterol: 200-239 mg/dLHigh Cholesterol: greater than 239 mg/dL LDL Cholesterol Calculated 61 <100 mg/dL [facility] Comment:Desirable LDL: less than 100 mg/dLNear Optimal/Above Optimal LDL: 110- 129 mg/dLBorderline High LDL: 130-159 mg/dLHigh LDL: 160-189 mg/dLVery High LDL: greater than or equal to 190 mg/dL HDL Cholesterol 60 >40 mg/dL [facility] Comment:Desirable HDL: great er than 40 mg/dL Note: This HDL assay may give artificially low results in patients with liver disease. Blood Venous blood specimen / Unknown 06/21/2023 9:36 AM EDT 06/21/2023 2:25 PM EDT us Vern Warner MD LAB BLOOD ORDERABL ES Final Result [facility] [address] [place] [address] [phone] * BI Mammogram Screening Tomosynthesis Bilateral (04/25/2023 9:31 AM EDT) Anatomical Region Laterality Modality Breast Bilateral Mammography 04/25/2023 9:31 AM EDT Narrative 05/13/2023 6:28 AM EDT ? [facility] [place] ? [address] ?[place] [address] ? Mammography Report ? Signed ? Patient: Sue Flannery ?MR#: [id number] ? : 1960 ?Acct:[id number] ? Age/Sex: 62 / F ?ADM Date: //23 ? Loc: HO.MAMMO ? Attending Dr: Vern Warner MD ? Ordering Physician: Vern Juarez MD ?Res ?? ults: 1Negative ? Date of Service: 04/25/23 ?Follow Up: 1 Year From Orig ?? inal Mammogram ? Procedure(s): MM tomosynthesis screening BI ?? Accession Number(s): [id number] ? cc: Vern Juarez MD ? EXAMINATION: ?? MM SCREENING DIGITAL BREAST TOMOSYNTHESIS, BILATERAL ? CLINICAL INFORMATION: ? Screening. Asymptomatic. ? COMPARISON: ?? Mammography: This study is compared with prior exams dating back to ?? 2017. ? TECHNIQUE: ?? Digital breast tomosynthesis is performed in both the craniocaudal and ?? mediolateral oblique views along with computer-aided detection (CAD). ?? Synthesized 2D images are generated from the tomosynthesis. ? FINDINGS: ?? The breasts are almost entirely fatty (ACR BI-RADS breast composition ?? Category a). ? There are no significant masses, abnormal calcifications, or other ?? abnormalities. ? MM/MM tomosynthesis screening BI ?? IMPRESSION: ?? No mammographic evidence of malignancy. ? ASSESSMENT: ? BI-RADS BI-RADS 1 - Negative ? RECOMMENDATION: ?? Routine annual mammography screening. ? 1 year F/U ? This examination should not preclude the clinical evaluation of a ?? suspicious palpable abnormality. ? This patient's information was entered into a reminder system with a ?? target due date for their next mammogram. ? Dictated By: ?Era Weiss MD ? Signed By: ?<Electronically signed by Era Weiss MD in OV> ? 05/13/23 0624 ? DD/ 0931 ? TD/TT: ? Hog Confinement System Manager: ? Procedure Note Alberto Menjivar - 05/13/2023 [facility] [address] [place], [place] [address] Mammography Report Signed Patient: Sue Flannery#: [id number] : 9Acct:[id number] Age/Sex: 62 / FADM Date: 04/25/23 Loc: HO.MAMMO Attending Dr: Vern Warner MD Ordering Physician: Vern Juarez ults: 1Negative Date of Service: 04/25/23Follow Up: 1 Year From Orig inal Mammogram Procedure(s): MM tomosynthesis screening BI Accession Number(s): [id number] cc: Vern Juarez MD EXAMINATION: MM SCREENING DIGITAL BREAST TOMOSYNTHESIS, BILATERAL CLINICAL INFORMATION: Screening. Asymptomatic. COMPARISON: Mammography: This study is compared with prior exams dating back to 2017. TECHNIQUE: Digital breast tomosynthesis is performed in both the craniocaudal and mediolateral oblique views along with computer-aided detection (CAD). Synthesized 2D images are generated from the tomosynthesis. FINDINGS: The breasts are almost entirely fatty (ACR BI-RADS breast composition Category a). There are no significant masses, abnormal calcifications, or other abnormalities. MM/MM tomosynthesis screening BI IMPRESSION: No mammographic evidence of malignancy. ASSESSMENT: BI-RADS BI-RADS 1 - Negative RECOMMENDATION: Routine annual mammography screening. 1 year F/U This examination should not preclude the clinical evaluation of a suspicious palpable abnormality. This patient's information was entered into a reminder system with a target due date for their next mammogram. Dictated By: Era Weiss MD Signed By: <Electronically signed by Era Weiss MD in OV> 05/13/23623 DD/ 0 TD/TT: Hog Confinement System Manager: Vern Warner MD IMG BI PROCEDURES Edited Result - Final * THINPREP PAP (12/02/2020 10:54 AM EDT) Clinical Information: None given [facility] COMMENT [facility] Comment: EXPLANATORY NOTE: ? The Pap is a screening test for cervical cancer. It is ?? not a diagnostic test and is subject to false negative ?? and false positive results. It is most reliable when a ?? satisfactory sample, regularly obtained, is submitted ?? with relevant clinical findings and history, and when ?? the Pap result is evaluated along with historic and ?? current clinical information. ?? Black Off Worker : [facility] Comment: BIANCHI, CT(ASCP) CT screening location: [address] ??[address] Interpretation/R esult: Negative for intraepithelial lesion or malignancy. [facility] LMP: NONE [facility]IV[facility] Prev. BX: NONE [facility]IV[facility] Prev. PAP: NONE [facility]IVEN [facility] SOURCE: None given [facility] Statement Of Adequacy: [facility] Comment: Satisfactory for evaluation. Endocervical/transformation zone component absent. 12/02/2020 10:5 4 AM EDT Roz HERNANDEZ LAB PATHOLOGY ORDERABLES Final Result Performing Organization Address [facility] de Phone Number [facility] [address] * HPV mRNA E6/E7 (12/02/2020 10:54 AM EDT) HPV nRNA E6/E7 Not Detected Not Detected [facility] Comment: Methodology: Gluing Machine Offbearer-Mediated Amplification This assay detects E6/E7 viral messenger RNA (mRNA) from 14 high-risk HPV types (16,18,31,33,35,39,45,51,52,56,58,59,66,68). ? The analytical performance characteristics of this assay have been determined by [employer]. The modifications have not been cleared or approved by the FDA. This assay has been validated pursuant to the CLIA regulations and is used for clinical purposes. ?? For additional information, please refer to http://education.[employer] Planet/faq/HAD463p1 (This link if provided for information/ educational purposes only.) 12/02/2020 10:5 4 AM EDT Roz HERNANDEZ LAB BLOOD ORDERABLES Sena l Result Performing Organization Address [facility] Co de Phone Number [facility] [address] [place] [phone], * Hm Colonoscopy (06/05/2015 1:00 PM EDT) us Historical Provider MD HEALTH MAINTENANCE Final Result from Last 3 Months or Most Recently Relevant to Health Maintenance Insurance [facility] - [facility] Care Teams Rescue Instructor Relationship Specialty Start Date End Date CruzVern Sandhu MD [address] [place] [address] [place] [address] PCP - General Internal Medicine 08/09/22
--- OUTSIDE RECORDS SUMMARY | 2024-10-15 22:24 | XMS_ITS | Encounter Summary ---
Author Organization [employer] Address [address] [place] [address] Care Team Providers Care Jig Hand Name Role Phone Vern Juarez MD Primary Care Prov ider Encounter Details Date Type Department Care Team (Latest Contact Info) Description 09/21/2024 Travel Social History Tobacco Use Types Packs/Day Years [...] documented as of this encounter Care Teams Jig Hand Relationship Specialty Start Date End Date Vern Juarez MD [address] [place] [address] PCP - General Internal Medicine 08/09/22 documented as of this encounter
--- OUTSIDE RECORDS SUMMARY | 2024-10-15 22:24 | XMS_ITS | Encounter Summary ---
Author Organization [employer] Address [address] [facility] 7 [place] [address] Care Team Providers Care Account Classification Clerk Name Role Phone Vern Juarez MD Primary Care Prov ider Reason for Visit * Reason Comments Med Refill Encounter Details Date Type Department Care Team ([facility] st Contact Info) Description 10/14/2024 Refill [facility] [address] [place] [address] Vern Juarez MD [address] [place] [address] Social History Tobacco Use Types Packs/Day Years [...] documented as of this encounter Care Teams Account Classification Clerk Relationship Specialty Start Date End Date Vern Juarez MD [address] [place] [id number] PCP - General Internal Medicine 08/09/22 documented as of this encounter
--- OUTSIDE RECORDS SUMMARY | 2024-10-15 22:24 | XMS_ITS | Encounter Summary ---
Author Organization [employer] Address [address] [facility] 7 [place] [address] Care Team Providers Care Interpreter And Translator Name Role Phone Vern Juarez MD Primary Care Prov ider Reason for Visit * Reason Comments Med Refill Encounter Details Date Type Department Care Team ([facility] st Contact Info) Description 09/14/2024 Refill [facility]S [address] [facility] [place] [place] [address] Vern Juarez MD [address] [place] [address] Primary insomnia; Primary hypertension; Type 2 diabetes mellitus with hyperglycemia, without long-term current use of insulin ([facility]) Social History Tobacco Use Types Packs/Day Years [...] as of this encounter Visit Diagnoses Diagnosis Primary insomnia Persistent disorder of initiating or maintaining sleep Primary hypertension Unspecified essential hypertension Type 2 diabetes mellitus with hyperglycemia, without long-term current use of insulin ([facility]) documented in this encounter Additional Health Concerns Assessment Noted Time PHQ-9 Depression Total Score: 8 06/29/20 24 10:23 AM EDT documented as of this encounter Care Teams Interpreter And Translator Relationship Specialty Start Date End Date Vern Juarez MD [address] [place] [address] PCP - General Internal Medicine 08/09/22 documented as of this encounter
--- OUTSIDE RECORDS SUMMARY | 2024-10-15 22:24 | XMS_ITS | Encounter Summary ---
Author Organization [employer] Address [address] [facility] 7t [place] [address] Care Team Providers Care Upper Doubler Name Role Phone Vern Juarez MD Primary Care Prov ider Encounter Details Date Type Department Care Team (Latest Contact Info) Description 09/21/2024 9:45 AM EST Office Visit [facility] [address] [place] [address] Iman Jeffery, OD [address] [place] [address] Type 2 diabetes mellitus without ophthalmic manifestations (CMS/HCC) (Primary Dx); Combined forms of age-related cataract of both eyes; Presbyopia Social History Tobacco Use Types Packs/Day Years [...] AM EDT documented as of this encounter Progress Notes * Iman Jeffery, OD - 09/21/2024 9:45 AM EST Eye Care Progress Note Patient ID: Sue Flannery is a 63 y.o. female. HPI T2DM exam. Last A1c 7.2% on 06/29/24. Last BSL 91 mg/dl this AM. Patient wears OTC readers. SILVESTRE: 1 years ago Last edited by Iman Jeffery, OD on 09/25/2024 9:39 AM. Current Outpatient Medications Medication Sig Dispense Refill Advair HFA 230-21 MCG/ACT inhaler INHALE TWO PUFFS TWICE DAILY, RINSE MOUTH AFTER USE Aspirin Adult Low Strength 81 MG EC tablet TAKE ONE TABLET EVERY MORNING 30 tablet 11 azelastine (Astelin) 0.1 % nasal spray Administer 1 spray into each nostril 2 times daily. Use in each nostril as directed 30 mL 12 baclofen (Lioresal) 10 MG tablet TAKE ONE TABLET THREE TIMES DAILY 90 tablet 1 Blood Glucose Monitoring Suppl (FreeStyle Lite) w/Device kit 1 Device 3 times daily. 1 kit 0 clonazePAM (KlonoPIN) 2 MG tablet Take 1 tablet by mouth at bed time. Diclofenac Sodium 1 % gel Apply thin layer to affected area 3 times daily as needed for pain. 100 g3 dilTIAZem CD (Cardizem CD) 240 MG 24 hr capsule TAKE ONE CAPSULE EVERY MORNING 90 capsule 5 dilTIAZem ER (Tiazac) 240 MG 24 hr capsule Take 1 capsule by mouth 1 (one) time each day. Easy Touch Lancets 33G/Twist misc TEST BLOOD SUGAR THREE TIMES DAILY 100 each 11 econazole nitrate 1 % cream Apply topically Once per day. 30 g 0 escitalopram (Lexapro) 5 MG tablet Take 1 tablet by mouth in the morning. Fasenra 30 MG/ML injection FREESTYLE LITE test strip TEST BLOOD SUGAR THREE TIMES DAILY 100 strip 11 gabapentin (Neurontin) 800 MG tablet Take 1 tablet (800 mg) by mouth 2 times daily. 60 tablet 11 hydroCHLOROthiazide (HYDRODiuril) 25 MG tablet TAKE ONE TABLET EVERY MORNING 90 tablet 0 hydrocortisone 0.5 % cream Apply topically 2 times daily. 15 g 0 hydrocortisone 2.5 % cream Apply topically every 12 (twelve) hours. 60 g 0 hydroquinone 4 % cream Apply topically 2 times daily. 28 g 3 ipratropium-albuterol (Duo-Neb) 0.5-2.5 mg/3 mL nebulizer solution Take 3 mL by nebulization. Every4 to 6 hours as needed for wheezing Jardiance 25 MG TAKE ONE TABLET EVERY MORNING 90 tablet 1 ketoconazole (Nizoral) 2 % shampoo Apply topically 2 (two) times a week. 120 mL 2 lamoTRIgine (LaMICtal) 200 MG tablet Take 1 tablet by mouth 1 (one) time each day. levalbuterol (Xopenex HFA) 45 MCG/ACT inhaler Inhale 2 puffs every 6 (six) hours. levothyroxine (Synthroid, Levoxyl) 75 MCG tablet TAKE ONE TABLET EVERY MORNING 90 tablet 0 loratadine (Claritin) 10 MG tablet TAKE ONE TABLET EVERY MORNING NEEDED FOR ALLERGY 90 tablet 5 melatonin 5 MG tablet TAKE TWO TABLETS EVERY DAY AT BEDTIME 60 tablet 5 Minoxidil (Rogaine Womens) 5 % foam To use daily 60 g 11 montelukast (Singulair) 10 MG tablet Take 10 mg by mouth at bedtime. Nucala 100 MG/ML solution prefilled syringe omeprazole (PriLOSEC) [address] capsule TAKE ONE CAPSULE EVERY MORNING BEFORE BREAKFAST 90 capsule 5 potassium chloride CR (Klor-Con) 8 MEQ ER tablet TAKE ONE TABLET EVERY MORNING 30 tablet 11 pramipexole (Mirapex) 0.125 MG tablet Take 1 tablet by mouth every 8 (eight) hours. rOPINIRole (Requip) 0.25 MG tablet TAKE ONE TABLET AT BEDTIME FOR rls rosuvastatin (Crestor) 20 MG tablet TAKE ONE TABLET EVERY NIGHT AT BEDTIME 90 tablet 3 semaglutide (Ozempic) 2 MG/1.5ML solution pen-injector Inject 1 mg under the skin 1 (one) time per week. 2 each 12 Simethicone Ultra Strength 180 MG capsule TAKE ONE CAPSULE THREE TIMES DAILY WITH MEALS NEEDED 90 capsule 11 Sunscreens (Shade Sunblock SPF45) lotion To use daily when going in the sun. 120 mL 0 No current facility-administered medications for this visit. Past Medical History: Diagnosis Date Asthma Diabetes (CMS/[facility]) Disease of thyroid gland Hypertension History reviewed. No pertinent surgical history. No family history on file. Tobacco Use: Low Risk (09/21/2024) Tobacco Smoking Tobacco Use: Never Smokeless Tobacco Use: Never Passive Exposure: Never Allergies Allergen Reactions Aspirin Unknown Oxycodone Itching Zolmitriptan Itching and Unknown Other reaction(s): made headache worse ROS Positive for: Endocrine, Eyes Negative for: Constitutional, Gastrointestinal, Neurological, Skin, Genitourinary, Musculoskeletal,HENT, Cardiovascular, Respiratory, Psychiatric, Allergic/Imm, Heme/Lymph Last edited by Iman Jeffery, DANNY on 09/25/2024 9:39 AM. Base Eye Exam Visual Acuity (Snellen - Linear) Right Left Dist sc 20/25 +1 20/30 +2 Tonometry (Applanation, 10:10 AM) Right Left Pressure 15 15 Pupils Pupils APD Right PERRL None Left PERRL None Visual Quinn (Counting fingers) Left Right Full Full Extraocular Movement Right Left Full Full Neuro/Psych Oriented x3: Yes Mood/Affect: Normal Dilation Both eyes: 1.0% Mydriacyl @ 10:16 AM Slit Lamp and Fundus Exam External Exam Right Left External Normal Normal Slit Lamp Exam Right Left Lids/Lashes 2+ blepharitis UL 2+ blepharitis UL Conjunctiva/Sclera White and quiet White and quiet Cornea Clear Clear Anterior Chamber Deep and quiet, angles open gr 3 Deep and quiet, angles open gr 3 Iris Round and reactive, (-) NVI Round and reactive, (-) NVI Lens 2+ NS, tr ACC 2+ NS, 2+ ACC Fundus Exam Right Left Vitreous Clear Clear Disc [place] and healthy, follows ISNT. (-) NVD [place] and healthy, follows ISNT, (-) NVD C/D Ratio Vertical 0.60 0.60 C/D Ratio Horizontal 0.60 0.60 Macula Flat with even pigmentation, (-) CME Flat with even pigmentation, (-) CME Vessels Normal course and caliber, (-) NVE Normal course and caliber, (-) NVE Periphery No holes/tears/detachments 360 No holes/tears/detachments 360 Refraction Manifest Refraction Sphere Cylinder [place] Dist VA Right +1.50 -0.50 040 20/20 Left +1.00 -0.50 100 20/20-3 Final Rx Sphere Cylinder [place] Add Right +1.00 -0.50 035 +2.25 Left +0.50 -0.50 162 +2.25 Expiration Date: 09/21/2025 Assessment and Plan Diagnoses and all orders for this visit: Type 2 diabetes mellitus without ophthalmic manifestations (CMS/HCC) - No diabetic retinopathy or diabetic macular edema both eyes (OU) - Discussed importance of tight blood glucose control, medication compliance and regular follow up with PCP Combined forms of age-related cataract of both eyes - Visually insignificant both eyes (OU) - Monitor annually Presbyopia - Dispensed updated spec Rx RTC in 1 year for comprehensive eye exam or soon as needed Iman Jeffery, OD 09/25/2024, 9:39 AM Interventional Pain Physician Source: __ None _x_ Bilingual Staff __ Qualified Staff Agency Trainer __ Telephone Interventional Pain Physician; ID# __ Interventional Pain Physician brought by patient (family member, friend, RUG CLEANER HELPER, etc) __ In person marketing development representative __ Ipad Interventional Pain Physician; ID#: Language Spoken During Exam: Belizean documented in this encounter Plan of Treatment Not on file documented as of this encounter Visit Diagnoses Diagnosis Type 2 diabetes mellitus without ophthalmic manifestations (CMS/HCC)- Primary Combined forms of age-related cataract of both eyes Presbyopia documented in this encounter Additional Health Concerns Assessment Noted Time PHQ-9 Depression Total Score: 8 06/29/20 10:23 AM EDT documented as of this encounter Care Teams Upper Doubler Relationship Specialty Start Date End Date Vern Juarez MD [address] [place] [id number] PCP - General Internal Medicine 08/09/22 documented as of this encounter
--- OUTSIDE RECORDS SUMMARY | 2024-10-15 22:24 | XMS_ITS | Encounter Summary ---
Author Organization [employer] Address [address] [facility] 7t [place] [address] Care Team Providers Care Rn Lpn Cna Name Role Phone Vern Juarez MD Primary Care Prov ider Encounter Details Date Type Department Care Team ([facility] Contact Info) Description 09/24/2022 Telephone C [facility] [address] [place], [place] [phone] Vern Juarez MD [address] [place] [address] Social History Tobacco Use Types Packs/Day Years [...] encounter Miscellaneous Notes * Telephone Encounter - Vandana Vick - 09/24/2022 1:14 PM EST Tc from pt requesting a new glucose meter . documented in this encounter Plan of Treatment Not on file documented as of this encounter Visit Diagnoses Not on filedocumented in this encounter Additional Health Concerns Assessment Noted Time PHQ-9 Depression Total Score: 0 08/19/20 3:22 PM EST documented as of this encounter Care Teams Rn Lpn Cna Relationship Specialty Start Date End Date Vern Juarez MD [address] [place] [id number] PCP - General Internal Medicine 08/09/22 documented as of this encounter
[2024-10-15 22:26] LABS: Troponin-I High Sensitivity < 2.7 ng/L (<3.5-17.0)
[2024-10-15 22:52] LABS: Anion Gap 14 (12-20); Blood Urea Nitrogen 14 mg/dL (9-16); Calcium 9.3 mg/dL (8.4-10.2); Carbon Dioxide 24 mmol/L (22-29); Chloride 105 mmol/L (96-108); Creatinine Clr Calc Pharmacy 88.8; Estimated Glomerular Filt Rate > 60; Glucose Random 115 mg/dL (60-115); Potassium 3.1 mmol/L (3.3-5.1); Sodium 140 mmol/L (135-145)
[2024-10-15] MEDS: Potassium Chloride Packet 20 MEQ PACKET 40 MEQ PO (23:39)
--- NOTE | 2024-10-15 23:41 | ED_ITS ---
HPI - Chest Pain General Chief Complaint: Chest Pain Stated Complaint: chest pain x 4 hours Time Seen by Provider: 10/15/24 22:01 Source: patient and family Limitations: language barrier History of Present Illness ED Provider: Brit Gibson PA-C HPI narrative: The patient is a 63-year-old female with a history of morbid obesity, GERD, asthma, hyperlipidemia, hypertension, hypothyroidism, who presents with chest pain that began this afternoon. While patient was eating a pastrami sandwich, she developed central chest discomfort described as a burning sensation. Her symptoms have since resolved. Denies shortness of breath, diaphoresis, nausea. Denies abdominal discomfort, active vomiting or fever. Related Data Home Medications ?Medication ?Instructions ?Recorded ?Confirmed aspirin 81 mg tablet,delayed 81 mg PO QAM 09/24/20 09/02/22 release atorvastatin 20 mg tablet 20 mg PO DAILY 09/24/20 09/02/22 diltiazem HCl 240 mg 240 mg PO DAILY 09/24/20 09/02/22 capsule,extended release 24 hr fluticasone propionate 50 2 spray intranasal DAILY 09/24/20 09/02/22 mcg/actuation nasal spray,suspension levothyroxine 75 mcg tablet 75 mcg PO DAILY 09/24/20 09/02/22 lisinopril 20 mg tablet 20 mg PO DAILY 09/24/20 09/02/22 loratadine 10 mg tablet 10 mg PO QAM PRN Allergy Symptoms 09/24/20 09/02/22 melatonin 5 mg tablet 5 mg PO USEASDIRECTD 09/24/20 09/02/22 omeprazole 40 mg capsule,delayed 40 mg PO QAM 09/24/20 09/02/22 release clonazepam 2 mg tablet 2 mg PO BEDTIME 08/31/22 09/02/22 lamotrigine 200 mg tablet 1 tab PO DAILY 09/01/22 09/02/22 Previous Rx's ?Medication ?Instructions ?Recorded hydrochlorothiazide 25 mg tablet 25 mg PO QAM 90 days #30 tabs 02/01/23 montelukast 10 mg tablet 10 mg PO BEDTIME 30 days #30 tabs 12/16/23 ipratropium 0.5 mg-albuterol 3 mg 3 ml inhalation Q4-6H PRN wheezing 03/06/24 (2.5 mg base)/3 mL nebulization 30 days #270 mL soln fluticasone propionate 230 2 puff PO BID #12 grams 04/16/24 mcg-salmeterol 21 mcg/actuation HFA inhaler (Advair HFA) polyethylene glycol 3350 17 17 g PO DAILY #119 grams 04/28/24 gram/dose oral powder (Miralax) albuterol sulfate 90 mcg/actuation 2 puff PO Q4-6H PRN Wheezing 30 07/02/24 aerosol inhaler days #1 ea sucralfate 100 mg/mL oral 10 ml PO QID PRN reflux #400 mL 10/15/24 suspension (Carafate) Allergies Allergy/AdvReac Type Severity Reaction Status Date / Time zolmitriptan Allergy Severe Headache Verified 10/15/24 21:31 morphine [Morphine] Allergy Mild NAUSEA & Verified 10/15/24 21:31 VOMITING aspirin Allergy Unknown Unknown Verified 10/15/24 21:31 Review of Systems 2 Review of Systems: Yes all other systems are reviewed and are negative Constitutional: Constitutional: Denies fatigue and Denies fever(s) Cardiovascular: Cardiovascular: Reports chest pain and Denies dyspnea Respiratory: Respiratory: Denies cough and Denies dyspnea Gastrointestinal: Gastrointestinal: Denies abdominal pain, Reports dyspepsia, Reports heartburn, Denies nausea and Denies vomiting Endocrine: Endocrine: Denies fatigue PMFSH Past Medical History Attestation statement: The following information was validated with the patient. 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 Sister Thyroid cancer Social History Social History Household Members: None Housing: Apartment Alcohol intake: former Patient Tobacco Use Status: Former Tobacco user Tobacco use type: Cigarette Years Smoked: 20 +/- Smoked in Last 30 Days: No Use of substances other than those prescribed or required for medical reasons: No Advance Directives: No Advance Directives Information Provided: No Current occupational status: disabled Physical Exam 2 Vital Signs: Vital Signs: Last Vital Signs Temp 97.9 F 10/15/24 21:36 Pulse 63 10/15/24 21:36 Resp 16 10/15/24 21:36 BP 146/67 H 10/15/24 21:36 Pulse Ox 98 10/15/24 21:36 O2 Del Method Room Air 10/15/24 21:36 BMI result Body Mass Index 36.7 Const: Other: Alert well-appearing Orientation/consciousness: patient oriented x3 Resp: Effort & Inspection: normal respiratory effort Cardio: Other: Normal peripheral perfusion Skin: Other: Warm dry no rash Neuro: General: patient oriented x3, gait normal and no focal motor deficits Psych: Other: Cooperative Medications Administered Discontinued Medications Generic Name Dose Route Start Last Admin Trade Name Freq PRN Reason Stop Dose Admin Potassium Chloride 40 meq 10/15/24 23:34 10/15/24 23:39 Potassium Chloride Packet 20 Meq Packet PO 10/15/24 23:35 40 meq ONCE ONE Administration Medical Decision Making Medical Decision Making [facility] Narrative: The patient is a 63-year-old female with a history of morbid obesity, GERD, asthma, hyperlipidemia, hypertension, hypothyroidism, who presents with chest pain that began this afternoon. While patient was eating a pastrami sandwich, she developed central chest discomfort described as a burning sensation. Her symptoms have since resolved. Denies shortness of breath, diaphoresis, nausea. Denies abdominal discomfort, active vomiting or fever. Problem: Morbid obesity, GERD, hyperlipidemia, hypertension History: Per patient I have considered the following differential diagnoses: Biliary colic, cholecystitis, gastritis, poorly controlled GERD, ACS Plan: Patient's symptoms are consistent with a indigestion, she has a diagnosis of GERD. We will send with home care instructions and give Carafate. Thought about biliary colic, however there was no abdominal pain associated with her symptoms. ACS was considered, the patient does have numerous risk factors for coronary artery disease, screening labs including a cardiac enzymes EKG and chest x-ray were obtained. I have independently reviewed the following tests: Labs: No leukocytosis, not anemic, potassium subtly low at 3.1, we will give oral potassium, no additional electrolyte abnormality, troponin negative EKG: Sinus rhythm rate of 60, no ischemic changes no ectopy QTC 460 Chest x-ray: No pleural effusion no pulmonary edema no pneumonia Lab Data 10/15/24 21:53 10/15/24 22:35 Labs: Lab Results 10/15/24 10/15/24 Range/Units 21:53 22:35 WBC 10.2 (4.8-10.8) X10*3/uL RBC 5.03 (4.20-5.50) X10*6/uL Hgb 16.2 H (12.0-16.0) g/dl Hct 46.5 (37.0-47.0) % MCV 92.4 (80.0-98.0) fL MCH 32.2 (27.0-33.0) pg MCHC 34.8 (31.0-35.0) g/dl RDW 13.0 (11.0-16.0) % Plt Count 218 (160-400) X10*3/uL MPV 9.9 (9.4-12.3) fL Immature Gran % (Auto) 0.4 (0.0-0.4) % Neut % (Auto) 59.2 (45-73) % Lymph % (Auto) 29.0 (20-40) % [place] % (Auto) 9.4 (2-11) % Eos % (Auto) 1.6 (0-4) % Baso % (Auto) 0.4 (0-2) % Lymph # (Auto) 3.0 (1.2-4.9) X10*3/uL [place] # (Auto) 1.0 (0.1-1.2) X10*3/uL Eos # (Auto) 0.2 (0.0-0.4) X10*3/uL Baso # (Auto) 0.0 (0.0-0.2) X10*3/uL Abs Immat Gran (auto) 0.04 H (0.00-0.03) X10*3/uL Absolute Neuts (auto) 6.1 (2.0-8.3) x10*3/uL Absolute Nucleated RBC 0.000 (0.0-0.012) X10*3/uL Nucleated RBC % (auto) 0.0 (0.0-0.2) /100WBC Sodium 140 (135-145) mmol/L Potassium 3.1 L (3.3-5.1) mmol/L Chloride 105 (96-108) mmol/L Carbon Dioxide 24 (22-29) mmol/L Anion Gap 14 (12-20) BUN 14 (9-16) mg/dL Creatinine 0.74 (0.5-1.4) mg/dL Estim Creat Clear Calc 88.8 Estimated GFR > 60 Random Glucose 115 (60-115) mg/dL Calcium 9.3 D (8.4-10.2) mg/dL Troponin I High Sens < 2.7 (<3.5-17.0) ng/L Discharge Plan Discharge Clinical Impression: GERD (gastroesophageal reflux disease), Indigestion, Chest pain due to GERD Patient Disposition: Home, Self-Care Instructions: Potassium Content of Foods List (ED), Hypokalemia (ED), Gastroesophageal Reflux Disease (ED), Indigestion (ED), Noncardiac Chest Pain (ED) Additional Instructions: Your discomfort today is most consistent with indigestion or GERD. See home care instructions. There are many dietary triggers such as anything carbonated, alcohol, caffeine, mint, greasy, spicy or acidic food. Eating smaller meals throughout the day can help prevent symptoms. Also do not eat 3 hours before bed. Use the Carafate as needed for the burning sensation you experienced today. Your potassium was subtly low, this is likely secondary to 1 your blood pressure medications. I have provided you with a list of dietary sources of potassium. Today all of your screening labs including a cardiac enzymes were normal. There were no concerning changes on your EKG in the chest x-ray was clear. Follow up with your primary care provider as needed. Prescriptions: New sucralfate [Carafate] 100 mg/mL suspension 10 ml PO QID PRN (Reason: reflux) Qty: 400 0RF Rx Instructions: swish in mouth and swallow; use after food/drink No Action hydrochlorothiazide 25 mg tablet 25 mg PO QAM 90 Days Qty: 30 0RF Rx Instructions: Must call and schedule cardiology appt for refills or have PCP prescribe going forward montelukast 10 mg tablet 10 mg PO BEDTIME 30 Days Qty: 30 10RF ipratropium-albuterol 0.5 mg-3 mg(2.5 mg base)/3 mL solution for nebulization 3 ml inhalation Q4-6H PRN (Reason: wheezing) 30 Days Qty: 270 6RF Advair HFA 230-21 mcg/actuation HFA aerosol inhaler 2 puff PO BID Qty: 12 6RF albuterol sulfate 90 mcg/actuation HFA aerosol inhaler 2 puff PO Q4-6H PRN (Reason: Wheezing) 30 Days Qty: 1 6RF lamotrigine 200 mg tablet 1 tab PO DAILY polyethylene glycol 3350 [Miralax] 17 gram/dose powder 17 g PO DAILY Qty: 119 0RF fluticasone propionate 50 mcg/actuation spray,suspension 2 spray intranasal DAILY melatonin 5 mg tablet 5 mg PO USEASDIRECTD aspirin 81 mg tablet,delayed release (DR/EC) 81 mg PO QAM atorvastatin 20 mg tablet 20 mg PO DAILY omeprazole 40 mg capsule,delayed release(DR/EC) 40 mg PO QAM loratadine 10 mg tablet 10 mg PO QAM PRN (Reason: Allergy Symptoms) lisinopril 20 mg tablet 20 mg PO DAILY levothyroxine 75 mcg tablet 75 mcg PO DAILY diltiazem HCl 240 mg capsule,extended release 24hr 240 mg PO DAILY clonazepam 2 mg tablet 2 mg PO BEDTIME Print Language: Ecuadorean
[2024-10-15 23:52] VITALS: BP 139/60; PULSE 70; RESP 17; TEMP 36.7; O2SAT 96
[2024-10-15] MEDS: Sucralfate Oral Suspension 1 GM/10 ML ORAL.SUSP PO (23:52)
[2024-10-16] VITALS: BP 139/60; PULSE 70; RESP 17; TEMP 36.7; O2SAT 96
== END 2024-10-16 00:02 | disposition home or self-care (01) ==
PROVIDERS: Emergency Provider Emergency Medicine
DX: R07.9 Chest pain, unspecified (principal); K21.9 Gastro-esophageal reflux disease without esophagitis; K30 Functional dyspepsia
CPT/HCPCS: 36415; 71045; 80048; 84484; 85025; 93005; 99283; 99284

== ENCOUNTER → 2024-10-15 21:25 | Outpatient (BNV) | payer OTHER, SELFPAY | PROVIDERS: Emergency Provider Emergency Medicine; Visit Provider Internal Medicine Cardiovascular Disease | DX: R07.9 Chest pain, unspecified (principal); R00.1 Bradycardia, unspecified | CPT/HCPCS: 93010 ==

== ENCOUNTER → 2024-10-15 22:49 | Outpatient (BNV) | payer OTHER, SELFPAY | PROVIDERS: Emergency Provider Emergency Medicine; Visit Provider Radiology Diagnostic Radiology | DX: R07.9 Chest pain, unspecified (principal) | CPT/HCPCS: 71045 ==

== ENCOUNTER 2024-11-07 14:12 | Outpatient (AMB) | payer OTHER, SELFPAY ==
[2024-11-07 14:13] VITALS: BP 118/66; PULSE 79; O2SAT 96; BMI 34.4
--- NOTE | 2024-11-07 14:13 | MHC.OFFVIS ---
Vital Signs 11/07/24 14:13 Height 5 ft 5 in Weight 207 lb BMI 34.4 BP 118/66 Blood Pressure Location Lt brachial Position Sitting Pulse 79 Pulse Source Doppler Pulse Oximetry (%) 96 Oxygen Delivery Method Room Air Intake Visit Reasons: Asthma Sap Abap Programmer Required: Yes Sap Abap Programmer Name: Izabella WhaleyMaxxLux Allergies zolmitriptan Allergy (Severe, Verified 11/07/24 14:20) Headache aspirin Allergy (Unknown, Verified 11/07/24 14:20) Unknown HPI HPI Asthma: Details: 63-year-old lady, former under 10 pack-year smoker, quit 40 years prior with underlying history of obesity followed for severe persistent asthma, mild NOELLE, and environmental allergies.? She has been using Nucala, DuoNebs, Advair, and albuterol MDI with good control of her underlying symptoms. She denies any recent exacerbations. After the last office visit patient has stopped Nucala with worsening control of his symptoms. She is not interested in trying another injectable. [facility] Medical History Rash of face VICENTE positive Seasonal allergies (~05/05/18) Benzodiazepine dependence, continuous (~05/05/18) CHAVES (nonalcoholic steatohepatitis) (~05/05/18) Persistent asthma without complication (~05/05/18) Mood disorder (~05/05/18) Hypertension associated with type 2 diabetes mellitus (~05/05/18) Hyperlipidemia due to type 2 diabetes mellitus (~05/05/18) 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, with senior living current use of insulin pump (~05/05/18) Cholecystectomy planned Bipolar 1 disorder Depressed GERD (gastroesophageal reflux disease) (~05/05/18) Hypothyroid (~05/05/18) Asthma Surgical History History of cholecystectomy H/O tubal ligation Family History (Updated 10/06/23 @ 08:53 by MARQUIS Scott) Mother Heart disease HTN (hypertension) Diabetes Father No problems noted. Sister Thyroid cancer Social History Household Members: None Housing: Apartment Alcohol intake: former Patient Tobacco Use Status: Former Tobacco user Tobacco use type: Cigarette Years Smoked: 20 +/- Current occupational status: disabled Review of Systems Const Denies daytime sleepiness, Denies excessive sweating, Denies fatigue, Denies fever(s), Denies lethargy, Denies malaise, Denies night sweats, Denies snoring and Denies weight loss Eyes Denies blurry vision and Denies itchy eyes ENT Denies nasal congestion, Denies post nasal drip, Denies sinus pain, Denies sinus pressure and Denies other ( Thrush) Card Denies chest pain, Denies pedal edema, Denies dyspnea, Denies orthopnea and Denies paroxysmal nocturnal dyspnea Resp Denies cough, Denies hemoptysis, Denies excessive phlegm production, Denies dyspnea, Denies snoring and Denies wheezing GI Denies abdominal pain and Denies heartburn Musc Denies myalgias, Denies arthralgias and Denies joint swelling Skin/Breast Denies rash Neuro Denies memory loss and Denies seizure-like activity Psych Denies abnormal sleep pattern, Denies anxiety and Denies memory loss Endo Denies excessive sweating, Denies fatigue and Denies heat intolerance Manan/Lymph Denies easy bruising Aller/Immun Denies itchy eyes, Denies seasonal rhinorrhea and Denies wheezing Physical Exam Vital Signs: Last Vital Signs Pulse 79 11/07/24 14:13 BP 118/66 11/07/24 14:13 Pulse Ox 96 11/07/24 14:13 Oxygen Delivery Method Room Air 11/07/24 14:13 BMI result Body Mass Index 34.4 Const General: no acute distress and alert Nutritional Appearance: obese Orientation/consciousness: Other orientation findings ( oriented) HEENT Head: Yes atraumatic Eyes General: appearance normal, both eyes and all related structures Sclerae: sclerae normal EOM: EOMs intact bilaterally Neck Neck: Yes supple Lymphatic: no lymphadenopathy noted Resp Effort & Inspection: normal respiratory effort and no use of accessory muscles Auscultation: clear to auscultation bilaterally Cardio Rate: regular rate Rhythm: regular rhythm Heart sounds: no gallops, no murmurs and no rubs Skin General skin exam: other ( warm) Extrem General: No clubbing, No cyanosis and No edema Assessment & Plan Assessment & Plan (1) Severe persistent allergic asthma: Code(s): J45.50 - Severe persistent asthma, uncomplicated Category: Medical Plan: Worsening control of Nucala. Patient is not interested in trying another injectable. Will continue on Advair, duo nebs, and albuterol MDI and add Incruse. (2) Environmental allergies: Code(s): Z91.09 - Other allergy status, other than to drugs and biological substances Category: Medical Plan: Suboptimal control off Nucala. Continue Flonase. Medications: New umeclidinium 62.5 mcg/actuation (Incruse Ellipta) 1 inh inhalation DAILY 1 ea 6RF Coding Level of Care Code Est Pt Level 4 (08423) Diagnoses Severe persistent allergic asthma J45.50 Environmental allergies Z91.09
--- OUTSIDE RECORDS SUMMARY | 2024-11-07 17:07 | XMS_ITS | Encounter Summary ---
Author Organization [employer] Address [address] [facility] [address] [place] [address] Care Team Providers Care Associate Professor Of Surgery Name Role Phone Vern Juarez MD Primary Care Prov ider Encounter Details Date Type Department Care Team ([facility] Contact Info) Description 09/24/2022 Telephone [facility] [address] [place], [place] [id number] Vern Juarez MD [address] [place] [address] Social History Tobacco Use Types Packs/Day Years [...] documented in this encounter Plan of Treatment Upcoming Encounters Date Type Department Care Team (Late st Contact Info) Description 11/20/2024 8:30 AM EDT Office Visit [facility] MED & PEDS [address] [place] [address] Vern Juarez MD [address] [place] [address] documented as of this encounter Visit Diagnoses Not on filedocumented in this encounter Additional Health Concerns Assessment Noted Time PHQ-9 Depression Total Score: 0 08/19/20 3:22 PM EST documented as of this encounter Care Teams Associate Professor Of Surgery Relationship Specialty Start Date End Date Vern Juarez MD [address] [place] [address] PCP - General Internal Medicine 08/09/22 documented as of this encounter
--- OUTSIDE RECORDS SUMMARY | 2024-11-07 17:07 | XMS_ITS | Encounter Summary ---
Author Organization [employer] Address [address] [facility] [address], [place] [address] Care Team Providers Care Ordnance Mechanic Name Role Phone Vern Juarez MD Primary Care Prov ider Reason for Visit * Reason Onset Date Comments Med Refill 03/01/2023 Encounter Details Date Type Department Care Team ([facility] st Contact Info) Description 03/01/2023 Telephone [facility] [address] [place] [address] Vern Juarez MD [address] [place] [address] Med Refill Social History Tobacco Use Types [...] - 03/04/2023 11:07 AM EDT T?C to [phone] for below message, pt. Had question for medication delivery. Pt. Advised to call to pharmacy for delivery status. Pt. Verbally agreed and understood. * Telephone Encounter - Vandana Vick - 03/01/2023 3:11 PM EDT Tc from pt requesting to speak with someone regarding her medications . [facility] pharmacy has all hermeds on hold . Informs she needs her diabetes medication . Please call to clarify . documented in this encounter Plan of Treatment Upcoming Encounters Date Type Department Care Team (Late st Contact Info) Description 11/20/2024 8:30 AM EDT Office Visit [facility] MED & PEDS [address] [place] [address] Vern Juarez MD [address] [place] [address] documented as of this encounter Visit Diagnoses Not on filedocumented in this encounter Additional Health Concerns Assessment Noted Time PHQ-9 Depression Total Score: 0 08/19/20 22 3:22 PM EST documented as of this encounter Care Teams Ordnance Mechanic Relationship Specialty Start Date End Date Vern Juarez MD [address] [place] [address] PCP - General Internal Medicine 08/09/22 documented as of this encounter
--- OUTSIDE RECORDS SUMMARY | 2024-11-07 17:07 | XMS_ITS | Clinical Summary ---
Author Organization [facility] it Address [address] [place] [address] Care Team Providers Care Global Implementation Manager Name Role Phone Sangeetha Cruz MD Primary Care Provider [phone] Surgical History Surgery Date Site/Laterality Comments TUBAL [...] Ye ars (1 of 2 - PCV) 1977 Pneumococcal Vaccine: Pediat rics (0 to 5 Years) and At-Risk Patients (6 to 64 Years) (1 of 2 - PCV) 1977 Cervical Cancer Screening: P ap Smear 11/29/1979 [...] patient's age to complete this topic Meningococcal B Vacine Aged Out No lo nger eligible based on patient's age to complete this topic RSV Immunization Patients Un víctor 20 months Aged Out No longer eligible b ased on patient's age to complete this topic Varicella Vaccines Aged Out No longer eligible based on patient's age to complete this topic Advance Directives Documents on File Type Date Recorded Patient Special Certificate Dictator Expl anation Health Care Decision (hx) 02/05/2022 AD BLOCK DIRECTIVE Health Care Decision (hx) 02/05/2022 AD BLOCK DIRECTIVE Health Care Decision (hx) 02/05/2022 AD BLOCK DIRECTIVE Health Care Decision (hx) 02/05/2022 AD BLOCK DIRECTIVE Care Teams Global Implementation Manager Relationship Specialty Start Date End Date Sangeetha Cruz MD [address] [facility] [address] [place], [place] PCP - General Internal Medicine 12/23/14
--- OUTSIDE RECORDS SUMMARY | 2024-11-07 17:07 | XMS_ITS | Encounter Summary ---
Author Organization [employer] Address [address] [facility] [address] [place] [address] Care Team Providers Care Iron Melter Name Role Phone Vern Juarez MD Primary Care Prov ider Reason for Visit * Reason Onset Date Comments Durable Medical Equipment 09/24/2022 Encounter Details Date Type Department Care Team ([facility] st Contact Info) Description 09/24/2022 Telephone [facility] MED & PEDS [address] [place] [address] Vern Juarez MD [address] [place] [address] Durable Medical Equipment Social History Tobacco Use [...] Upcoming Encounters Date Type Department Care Team ([facility] st Contact Info) Description 11/20/2024 8:30 AM EDT Office Visit [facility] MED & PEDS [address] [place] [address] Vern Juarez MD [address] [place] [address] documented as of this encounter Visit Diagnoses Not on filedocumented in this encounter Additional Health Concerns Assessment Noted Time PHQ-9 Depression Total Score: 0 08/19/20 3:22 PM EST documented as of this encounter Care Teams Iron Melter Relationship Specialty Start Date End Date Vern Juarez MD [address] [place] [address] PCP - General Internal Medicine 08/09/22 documented as of this encounter
--- OUTSIDE RECORDS SUMMARY | 2024-11-07 17:07 | XMS_ITS | Encounter Summary ---
Author Organization [employer] Address [address] [facility] [address] [place] [address] Care Team Providers Care Purchasing Analyst Name Role Phone Vern Juarez MD Primary Care Prov ider Encounter Details Date Type Department Care Team ([facility] st Contact Info) Description 12/23/2023 Orders Only [facility] [address] [place] [address] ProviderRegis MD Social History Tobacco Use Types [...] as of this encounter Plan of Treatment Upcoming Encounters Date Type Department Care Team (Late st Contact Info) Description 11/20/2024 8:30 AM EDT Office Visit [facility] MED & PEDS [address] [place] [address] Vern Juarez MD [address] [place] [address] documented as of this encounter Procedures Procedure Name Priority Date/Time Associated Diagnosis Comments HM COLONOSCOPY Routine 06/05/2015 1:00 PM EDT documented in this encounter Results * Hm Colonoscopy (06/05/2015 1:00 PM EDT) us Historical Provider HEALTH MAINTENANCE Final Result documented in this encounter Visit Diagnoses Not on filedocumented in this encounter Additional Health Concerns Assessment Noted Time PHQ-9 Depression Total Score: 19 024 10:43 AM EST documented as of this encounter Care Teams Purchasing Analyst Relationship Specialty Start Date End Date Vern Juarez MD [address] [place] [address] PCP - General Internal Medicine 08/09/22 documented as of this encounter
--- OUTSIDE RECORDS SUMMARY | 2024-11-07 17:07 | XMS_ITS | Encounter Summary ---
Author Organization [employer] Address [address] [facility] 7 [place] [address] Care Team Providers Care Import Export Manager Name Role Phone Vern Juarez MD Primary Care Prov ider Reason for Visit * Reason Onset Date Comments Nurse Triage 12/22/2023 Encounter Details Date Type Department Care Team ([facility] st Contact Info) Description 12/22/2023 Telephone [facility] CHC MED & PEDS [address] [place] [address] Vern Juarez MD [address] [place] [address] Nurse Triage Social History Tobacco Use Types [...] OTC Tylenol with mild relief. Pt offered [facility] WIC or to submit instED. Pt states will set up instED herself once her daughter arrives to serve as process specialist. Pt advised to call back after instED [...] accepted this outcome Please contact pt at [phone] (Norwegian) documented in this encounter Plan of Treatment Upcoming Encounters Date Type Department Care Team ([facility] st Contact Info) Description 11/20/2024 8:30 AM EDT Office Visit [facility] MED & PEDS [address] [place] [address] Vern Juarez MD [address] [place] [address] documented as of this encounter Visit Diagnoses Not on filedocumented in this encounter Additional Health Concerns Assessment Noted Time PHQ-9 Depression Total Score: 19 024 10:43 AM EST documented as of this encounter Care Teams Import Export Manager Relationship Specialty Start Date End Date Vern Juarez MD [address] [place] [address] PCP - General Internal Medicine 08/09/22 documented as of this encounter
--- OUTSIDE RECORDS SUMMARY | 2024-11-07 17:07 | XMS_ITS | Clinical Summary ---
Author Organization [employer] Address [address] [facility] 7t [place] [address] Care Team Providers Care Crane Man Name Role Phone Vern Juarez MD Primary [...] hyperglycemia, without long-term current use of insulin ([facility]) TEST BLOOD SUGAR THREE TIMES DAILY 100 strip 10/25/19 24 Active Easy Touch Lancets 33G/Twist miscIndications :Type 2 diabetes mellitus with hyperglycemia, without long-term current use of insulin ([facility]) TEST BLOOD SUGAR THREE TIMES DAILY 100 each 10/25/19 24 Active Simethicone Ultra Strength 180 MG capsuleIndicati ons:Type 2 diabetes mellitus with hyperglycemia, without long-term current use of insulin ([facility]) TAKE ONE CAPSULE THREE TIMES DAILY WITH MEALS NEEDED 90 capsule 11 10/25/19 24 Active econazole nitrate 1 % creamIndication s:Seborrheic dermatitis Apply topically Once per day. 30 g 12/27/19 24 025 Active hydrocortisone 0.5 % creamIndication s:Seborrheic dermatitis Apply topically 2 times daily. 15 g 12/27/19 24 Active potassium chloride CR (Klor-Con) 8 MEQ ER tablet TAKE ONE TABLET EVERY MORNING 30 tablet 11 06/14/20 24 Active hydroquinone 4 % creamIndication s:Melasma Apply topically 2 times daily. 28 g 3 06/12/20 24 025 Active Sunscreens (Shade Sunblock SPF45) lotionIndicatio ns:Rosacea To use daily when going in the sun. 120 mL 06/12/20 24 Active semaglutide (Ozempic) 2 MG/1.5ML solution pen-injector Inject 1 mg under the skin 1 (one) time per week. 2 each 12 06/29/20 Active gabapentin (Neurontin) 800 MG tablet Take 1 tablet (800 mg) by mouth 2 times daily. 60 tablet 11 06/29/20 24 025 Active Blood Glucose Monitoring Suppl (StitchStyle Lite) w/Device kitIndications: Type 2 diabetes mellitus with hyperglycemia, without long-term current use of insulin ([facility]) 1 Device 3 times daily. 1 kit 06/29/20 24 Active rosuvastatin (Crestor) 20 MG tabletIndicatio ns:Hyperlipidem ia due to type 2 diabetes mellitus ([facility]) ([facility]) TAKE ONE TABLET EVERY NIGHT AT BEDTIME 90 tablet 3 08/13/20 24 Active hydroCHLOROthia zide (HYDRODiuril) 25 MG tablet TAKE ONE TABLET EVERY MORNING 90 tablet 08/15/20 24 Active levothyroxine (Synthroid, Levoxyl) 75 MCG tablet TAKE ONE TABLET EVERY MORNING 90 tablet 08/21/20 24 Active melatonin 5 MG tabletIndicatio ns:Primary insomnia TAKE TWO TABLETS EVERY DAY AT BEDTIME 60 tablet 5 09/18/19 25 Active Aspirin Adult Low Strength 81 MG EC tabletIndicatio ns:Primary hypertension,Ty pe 2 diabetes mellitus with hyperglycemia, without long-term current use of insulin ([facility]) TAKE ONE TABLET EVERY MORNING 30 tablet 09/18/19 25 Active baclofen (Lioresal) 10 MG tablet TAKE ONE TABLET THREE TIMES DAILY 90 tablet 10/16/19 25 Active Jardiance 25 MGIndications:T ype 2 diabetes mellitus with hyperglycemia, without long-term current use of insulin ([facility]) TAKE 1 TABLET BY MOUTH EVERY MORNING 90 tablet 10/16/19 25 Active Jardiance 25 MGIndications:T ype 2 diabetes mellitus with hyperglycemia, without long-term current use of insulin ([facility]) TAKE ONE TABLET EVERY MORNING 90 tablet 1 04/17/20 24 025 Discontinued baclofen (Lioresal) 10 MG tablet TAKE ONE TABLET THREE TIMES DAILY 90 tablet 08/17/20 025 Discontinued Active Problems Problem Noted Date [...] feeling a pressure, will refer to ob- dental equipment technician for evaluation Non compliance w medication regimen [...] due to type 2 diabetes mellitus ( [facility]) 05/05/2018 Hypertension 05/05/2018 Assessment & Plan (06/29/2024 [...] provided with information for follow up with geotechnical field technician, her a1c today was 9.0% she is taking jardiance, agree to start trulicity Encounters Date Type Department Care Team Description 10/16/2024 Refill [facility] CHC MED & PEDS [address] [place] [address] Vern Juarez MD Type 2 diabetes mellitus with hyperglycemia, without long-term current use of insulin ([facility]) 10/14/2024 Refill [facility] CHC MED & PEDS [address] [place] [address] Vern Juarez MD 09/21/2024 9:45 AM EST Office Visit [facility] [address] [place] [address] Iman Jeffery, OD Type 2 diabetes mellitus without ophthalmic manifestations ([facility]) (Primary Dx); Combined forms of age-related cataract of both eyes; Presbyopia 09/21/2024 Travel 09/14/2024 Refill [facility] CH[facility] MED & PEDS [address] [place] [address] Vern Juarez MD Primary insomnia; Primary hypertension; Type 2 diabetes mellitus with hyperglycemia, without long-term current use of insulin ([facility]) 08/23/2024 Telephone [facility] CH[facility] MED & PEDS [address] [place] [address] Vern Juarez MD 08/20/2024 Refill [facility] CH[facility] MED & PEDS [address] [place] [address] Vern Juarez MD 08/17/2024 Refill [facility] CH[facility] MED & PEDS [address] [place] [address] Vern Juarez MD 08/14/2024 Refill [facility] CH[facility] MED & PEDS [address] [place] [address] Vern Juarez MD 08/11/2024 Refill [facility] CH[facility] MED & PEDS [address] [place] [address] Vern Juarez MD Hyperlipidemia due to type 2 diabetes mellitus ([facility]) ([facility]) from Last 3 Months Immunizations Name Administration [...] 06/29/2024 10:21 AM EDT Plan of Treatment Upcoming Encounters Date Type Department Care Team (Late st Contact Info) Description 11/20/2024 8:30 AM EDT Office Visit [facility] CHC MED & PEDS [address] [place], [place] [phone] Vern Juarez MD [address] [place] [address] Health Maintenance Due Date Last Done Comments [...] Full Mouth 11/30/2020 11/29/2017 COVID-19 Vaccine ( - season) 2024 12/05/2020, 11/07/2020 Influenza Vaccine (#1) 2024 7, 06/23/2016, 09/15/2013, Additional history exists Lipid Panel 06/21/2024 06/21/2023, 042 09/2022, 07/26/2022, Additional history exists Dental Oral Exam [...] this topic Meningococcal Vaccine Aged Out No roge abi eligible based on patient's age to [...] without long-term current use of insulin (CMS/HCC) PERIODIC ORAL EVALUATION - ESTABLISHED PATIENT Routine [...] POCT HGB A1C (06/29/2024 10:28 AM EDT) Hemoglobin A1C 7.2(A) 4.0 - 6.0 % QC Media Lot # [id number] Lot# Expiration Date Blood 06/29/2024 10:2 8 AM EDT Vern Warner MD POINT OF CARE TEST ENTER/EDIT ORDERABLES Final Result * Albumin, Random Urine W/Creatinine (08/09/2023 10:25 AM EST) Creatinine, Urine 45.36 mg/dL [facility] Microalbumin Urine 10.0 mg/L [facility] Microalbum Creatinine Ratio Ur 22.0 <30 ug/mg cr [facility] Comment:Albumin/Creatinine R atio Reference Ranges: Normal: < 30 ug/mg creatinine Microalbuminuria: 30 - 300 ug/mg creatinineClinical Albuminuria: > 300 ug/mg creatinine 08/09/2023 10:2 5 AM EST 08/09/2023 2:29 PM EST Vern Warner MD LAB URINE ORDERABL ES Final Result Performing Organization Address [facility] Co de Phone Number [facility] [address] [place] [phone] * Hepatitis C Antibody with Reflex to HCV, RNA, Quantitative, Real-Time PCR (06/21/2023 9:36 AM EDT) Hepatitis C Antibody Nonreactive Nonreactive [facility] Comment:Antibodies to HCV no t detected; does not exclude early acuteHCV infection. Blood Venous blood specimen / Unknown 06/21/2023 9:36 AM EDT 06/21/2023 2:25 PM EDT Vern Warner MD LAB BLOOD ORDERABL ES Final Result Performing Organization Address City/[facility]/ZIP Co de Phone Number [facility] [address] [place] [phone] * Lipid Panel, Standard (06/21/2023 9:36 AM EDT) Triglycerides 107 <150 mg/dL [facility] Comment:Desirable Triglyceri de: less than 150 mg/dLBorderline High Triglyceride 150-199 mg/dLHigh Triglyceride: 200-499 mg/dLVery High Triglyceride: greater than or equal to 5OO mg/dL Cholesterol 142 <200 mg/dL [facility] Comment:Desirable Cholestero l: less than 200 mg/dLBorderline High Cholesterol: 200-239 mg/dLHigh Cholesterol: greater than 239 mg/dL LDL Cholesterol Calculated 61 <100 mg/dL [facility] Comment:Desirable LDL: less than 100 mg/dLNear Optimal/Above Optimal LDL: 110- 129 mg/dLBorderline High LDL: 130-159 mg/dLHigh LDL: 160-189 mg/dLVery High LDL: greater than or equal to 190 mg/dL HDL Cholesterol 60 >40 mg/dL [facility] Comment:Desirable HDL: great er than 40 mg/dL Note: This HDL assay may give artificially low results in patients with liver disease. Blood Venous blood specimen / Unknown 06/21/2023 9:36 AM EDT 06/21/2023 2:25 PM EDT Vern Warner MD LAB BLOOD ORDERABL ES Final Result [facility] [address] [place] [address] [phone] * BI Mammogram Screening Tomosynthesis Bilateral (04/25/2023 9:31 AM EDT) Anatomical Region Laterality Modality Breast Bilateral Mammography 04/25/2023 9:31 AM EDT Narrative 05/13/2023 6:28 AM EDT ? [facility] ? [address] ?[place] [address] ? Mammography Report ? Signed ? Patient: Prudencio,Sue ?MR#: [id number] ? : 1960 ?Acct:[id number] ? Age/Sex: 62 / F ?ADM Date: 08/21/23 ? Loc: HO.MAMMO ? Attending Dr: Vern Warner MD ? Ordering Physician: Vern Juarez MD ?Res ?? ults: 1Negative ? Date of Service: 04/25/23 ?Follow Up: 1 Year From Orig ?? inal Mammogram ? Procedure(s): MM tomosynthesis screening BI ?? Accession Number(s): [id number] ? cc: Vern Juarez MD ? EXAMINATION: [...] by Era Weiss MD in OV> ? 05/13/23623 ? DD/ 0 ? TD/TT: ? Paramedic Supervisor: ? Procedure Note Donotblessinginterpreter, Image - 05/13/2023 [place] [facility] [address] [place] [address] Mammography Report Signed Patient: Sophie Flannery#: [id number] : 9Acct:[id number] Age/Sex: 62 / FADM Date: 04/25/23 Loc: HO.MAMMO Attending Dr: Vern Warner MD Ordering Physician: Vern Juarez ults: 1Negative Date of Service: 04/25/23Follow Up: 1 Year From Orig inal Mammogram Procedure(s): MM tomosynthesis screening BI Accession Number(s): [id number] cc: Vern Juaerz MD EXAMINATION: MM SCREENING DIGITAL BREAST TOMOSYNTHESIS, [...] MD in OV> 05/13/23623 DD/ 0 TD/TT: Paramedic Supervisor: us Vern Warner MD IMG BI PROCEDURES Edited Result - Final * THINPREP PAP (12/02/2020 10:54 AM EDT) Clinical Information: None given [facility] COMMENT SEE COMMENT [facility]OUND[facility] ON [...] historic and ?? current clinical information. ?? Hosted Services Analyst : SEE COMMENT [facility] Comment: BIANCHI, CT(ASCP) CT screening location: [address] ??[id number] Interpretation/R esult: Negative for intraepithelial lesion or [...] Roz HERNANDEZ LAB PATHOLOGY ORDERABLES Final Result [facility] [address] * HPV mRNA E6/E7 (12/02/2020 10:54 AM EDT) HPV nRNA E6/E7 Not Detected Not Detected [facility] Comment: Methodology: Remedial Reading Teacher-Mediated Amplification This assay detects E6/E7 viral messenger RNA (mRNA) from 14 high-risk HPV types (16,18,31,33,35,39,45,51,52,56,58,59,66,68). ? The analytical performance characteristics of this assay have been determined by [employer]. The modifications have not been cleared or approved by the FDA. This assay has been validated pursuant to the CLIA regulations and is used for clinical purposes. ?? For additional information, please refer to http://education.[employer].Stitch Fix/faq/SCI029z3 (This link if provided for information/ educational purposes only.) 12/02/2020 10:5 4 AM EDT Roz Shen CNM LAB BLOOD ORDERABLES Sena l Result [facility] [address] * Hm Colonoscopy (06/05/2015 1:00 PM EDT) us Historical Provider MD HEALTH MAINTENANCE Final Result from Last 3 Months or Most Recently Relevant to Health Maintenance Insurance [facility] * Guarantor: Sue Flannery Account Type Relation to Patient Date of Phone Billing Address Personal/[place] [address] * Guarantor: Sue Flannery Account Type Relation to Patient Date of Phone Billing Address Personal/[place] [address] Care Teams Crane Man Relationship Specialty Start Date End Date Vern Juarez MD [address] [place] [address] [place] [address] PCP - General Internal Medicine 08/09/22
--- OUTSIDE RECORDS SUMMARY | 2024-11-07 17:07 | XMS_ITS | Encounter Summary ---
Author Organization [employer] Address [address] [facility] [address], [place] [address] Care Team Providers Care Fork Repairer Name Role Phone Vern Juarez MD Primary Care Prov ider Reason for Visit * Reason Comments Med Refill Encounter Details Date Type Department Care Team ([facility] Contact Info) Description 02/28/2023 Refill [facility] MED & PEDS [address] [place] [address] Vern Juarez MD [address] [place] [address] Social History Tobacco Use Types Packs/Day Years [...] Upcoming Encounters Date Type Department Care Team ([facility] Contact Info) Description 11/20/2024 8:30 AM EDT Office Visit [facility] MED & PEDS [address] [place] [address] Vern Juarez MD [address] [place] [address] documented as of this encounter Visit Diagnoses Not on filedocumented in this encounter Additional Health Concerns Assessment Noted Time PHQ-9 Depression Total Score: 0 08/19/20 22 3:22 PM EST documented as of this encounter Care Teams Fork Repairer Relationship Specialty Start Date End Date Vern Juarez MD [address] [place] [address] PCP - General Internal Medicine 08/09/22 documented as of this encounter
--- OUTSIDE RECORDS SUMMARY | 2024-11-07 17:07 | XMS_ITS | Encounter Summary ---
Author Organization [employer] Address [address] [facility] 7t [place] [address] Care Team Providers Care Registered Respiratory Technician Name Role Phone Vern Juarez MD Primary Care Prov ider Encounter Details Date Type Department Care Team ([facility] Contact Info) Description 06/22/2023 Orders Only [facility] CHC MED & PEDS [address] [place], [place] [phone] Vern Juarez MD [address] [place] [address] Social History Tobacco Use Types Packs/Day Years [...] Description 11/20/2024 8:30 AM EDT Office Visit [facility] MED & PEDS [address] [place] [address] Vern Juarez MD [address] [place] [address] documented as of this encounter Visit Diagnoses Not on filedocumented in this encounter Additional Health Concerns Assessment Noted Time PHQ-9 Depression Total Score: 0 08/19/20 22 3:22 PM EST documented as of this encounter Care Teams Registered Respiratory Technician Relationship Specialty Start Date End Date Vern Juarez MD [address] [place] [address] PCP - General Internal Medicine 08/09/22 documented as of this encounter
--- OUTSIDE RECORDS SUMMARY | 2024-11-07 17:07 | XMS_ITS | Encounter Summary ---
Author Organization [employer] Address [address] [facility] 7 [place] [address] Care Team Providers Care Veneer Drier Feeder Name Role Phone Vern Juarez MD Primary Care Prov ider Reason for Visit * Reason Comments Med Refill Encounter Details Date Type Department Care Team ([facility] st Contact Info) Description 10/14/2024 Refill [facility] CHC MED & PEDS [address] [facility] [place] [address] Vern Juarez MD [address] [place] [address] Social History Tobacco Use Types Packs/Day Years [...] Upcoming Encounters Date Type Department Care Team ([facility] st Contact Info) Description 11/20/2024 8:30 AM EDT Office [facility] MED [facility] PEDS [address] [place] [address] Vern Juarez MD [address] [place] [address] documented as of this encounter Visit Diagnoses Not on filedocumented in this encounter Additional Health Concerns Assessment Noted Time PHQ-9 Depression Total Score: 8 06/29/20 24 10:23 AM EDT documented as of this encounter Care Teams Veneer Drier Feeder Relationship Specialty Start Date End Date Vern Juarez MD [address] [place] [address] PCP - General Internal Medicine 08/09/22 documented as of this encounter
--- OUTSIDE RECORDS SUMMARY | 2024-11-07 17:07 | XMS_ITS | Encounter Summary ---
Author Organization [employer] Address [address] [facility] [address] [place] [address] Care Team Providers Care Aluminum Siding Mechanic Name Role Phone Vern Juarez MD Primary Care Prov ider Reason for Visit * Reason Onset Date Comments Appointment Request 11/08/2023 Encounter Details Date Type Department Care Team ([facility] st Contact Info) Description 11/08/2023 Telephone [facility] MEDICINE [address] [place] [address] Vern Juarez MD [address] [facility] [place] [address] Appointment Request Social History Tobacco Use Types [...] Description 11/20/2024 8:30 AM EDT Office Visit [facility] MED & PEDS [address] [place] [address] Vern Juarez MD [address] [place] [address] documented as of this encounter Visit Diagnoses Not on filedocumented in this encounter Additional Health Concerns Assessment Noted Time PHQ-9 Depression Total Score: 19 024 10:43 AM EST documented as of this encounter Care Teams Aluminum Siding Mechanic Relationship Specialty Start Date End Date Vern Juarez MD [address] [place] [address] PCP - General Internal Medicine 08/09/22 documented as of this encounter
--- OUTSIDE RECORDS SUMMARY | 2024-11-07 17:07 | XMS_ITS | Encounter Summary ---
Author Organization [employer] Address [address] [facility] 7 [place] [address] Care Team Providers Care Cleaner And Trimmer Name Role Phone Vern Juarez MD Primary Care Prov ider Encounter Details Date Type Department Care Team ([facility] Contact Info) Description 10/19/2023 Orders Only [facility] CHC MED & PEDS [address] [place], [place] [phone] Vern Juarez MD [address] [place] [address] Social History Tobacco Use Types Packs/Day Years [...] Description 11/20/2024 8:30 AM EDT Office Visit [facility] MED & PEDS [address] [place] [address] Vern Juarez MD [address] [place] [address] documented as of this encounter Visit Diagnoses Not on filedocumented in this encounter Additional Health Concerns Assessment Noted Time PHQ-9 Depression Total Score: 19 024 10:43 AM EST documented as of this encounter Care Teams Cleaner And Trimmer Relationship Specialty Start Date End Date Vern Juarez MD [address] [place] [address] PCP - General Internal Medicine 08/09/22 documented as of this encounter
--- OUTSIDE RECORDS SUMMARY | 2024-11-07 17:07 | XMS_ITS | Continuity of Care Document ---
Author Organization [email or web address] Address [address] [place] [phone] Care Team Providers Care Senior Product Manager Name Role Phone BUSTILLOSLAURA Primary Care Provider HIM CCA OTHER Assessment Encounter Date Assessment Date Assessment LastModified by Organization Details LastModified Time 10/15/2024 10/15/2024 I have reviewed and agree with the assessment and plan as documented by the trial management associate. I provided real-time medical direction for this encounter and was immediately available to provide additional phone-based assistance as needed. HPI: 63F presenting with episode of shortness of breath, dizziness, chest wall pain since 4pm, now resolved. Pt was eating when it happened, noted that it was salty food. States symptoms have resolved now. Concern that BP was different in arms during that time. Now pt denies any headache, no CP, no SOB or dizziness. BP 170/90 in both arms. Exam otherwise unremarkable per the trial management associate. Impression: HTN in the context of chest pain earlier today. Pt does have a hx of ACS in the past. Recommend ED for further evaluation, pt agreeable. Plan: For ED transfer We discussed the diagnostic uncertainty of home visits and the risk associated with this. In this case, the patient and I felt this to be an acceptable and reasonable amount of risk given the benefit of avoiding an ED visit. We discussed the need to seek care urgently/emerge ntly in the setting of any new or worsening serious symptoms, particularly weakness, dizziness, fever, chills, CP, SOB, worsening diarrhea, nausea, vomiting or any other concerns. paysola Not available 10/15/2024 20:09:12 Plan of Treatment Reminders Order Date Submit Date Provider Last Modified By Organization Details Last Modified Time Details Appointments None record ed. Lab None record ed. Referral None record ed. Procedures None record ed. Surgeries None record ed. Imaging None record ed. Medication Orders None record ed. Patient TargetsNo targets recorded. Patient InstructionsNo instructions recorded. Reason for Referral None Reported. Medical Equipment None Reported. Allergies Allergen ID Allergen Name Allergen Category Reaction Reaction Severity Criticality Documentation Date Start Date Code Code System Note Provider Name and Address Organization Details Recorded Time 4077 aspirin medicatio n Not available Not available Not available 08/19/2023 1191 RxNorm Not Available [facility] - production 4 03:34:03 4078 morphine medicatio n Not available Not available Not available 08/19/2023 7052 RxNorm Not Available [facility] - production 5 18:19:47 4079 Zomig medicatio n Not available Not available Not available 08/19/2023 20452 4 RxNorm Georgina Canela MD [address] [place] [address],[address], [place], [address] , [facility] 3 13:49:27 Medications Name Sig Start Date Stop Date Status Note LastModified by Organization Details LastModified Time medbox status USE DIRECTED active Not Available Not Available No t Available amoxicillin 500 mg capsule TAKE ONE CAPSULE TWICE DAILY UNTIL FINISHED active Not Available Not Available No t Available furosemide 40 mg tablet TAKE ONE TABLET EVERY MORNING active Not Available Not Available No t Available acetaminophe n 325 mg tablet PLEASE SEE ATTACHED FOR DETAILED DIRECTIONS active Not Available Not Available N ot Available doxycycline hyclate 100 mg capsule TAKE 1 CAPSULE TWICE DAILY WITH WATER UNTIL FINISHED, DO NOT LIE DOWN FOR 30 MINUTES AFTER active Not Available Not Available No t Available lamotrigine 200 mg tablet TAKE ONE TABLET EVERY NIGHT AT BEDTIME active Not Available Not Available N ot Available ipratropium 0.5 mg-albuterol 3 mg (2.5 mg base)/3 mL nebulization soln USE ONE AMPULE USING A NEBULIZER EVERY 4 TO 6 HOURS NEEDED FOR WHEEZING active Not Available Not Available No t Available ketoconazole 2 % shampoo APPLY DIRECTED TWICE A WEEK active Not Available Not Available No t Available azithromycin 250 mg tablet TAKE 1 TABLET BY MOUTH DAILY active Not Available Not Available Not Available simethicone 180 mg capsule TAKE ONE CAPSULE BY MOUTH THREE TIMES DAILY WITH MEALS NEEDED active Not Available Not Available No t Available diltiazem CD 240 mg capsule,exte nded release 24 hr TAKE ONE CAPSULE EVERY MORNING active Not Available Not Available No t Available meloxicam 15 mg tablet TAKE ONE TABLET BY MOUTH EVERY DAY active Not Available Not Available No t Available prednisone 20 mg tablet TAKE 2 TABLETS BY MOUTH EVERY DAY active Not Available Not Available No t Available omeprazole 40 mg capsule,donta yed release TAKE ONE CAPSULE EVERY MORNING BEFORE BREAKFAST active Not Available Not Available No t Available aspirin 81 mg tablet,delay ed release TAKE ONE TABLET EVERY MORNING active Not Available Not Available No t Available amoxicillin 500 mg tablet TAKE 2 TABLETS BY MOUTH THREE TIMES A DAY active Not Available Not Available Not Available lidocaine-pr ilocaine 2.5 %-2.5 % topical cream APPLY TO THE AFFECTED AREA(S) EVERY DAY NEEDED active Not Available Not Available No t Available lamotrigine 25 mg tablet TAKE TWO TABLETS EVERY MORNING active Not Available Not Available No t Available levothyroxin e 75 mcg tablet TAKE ONE TABLET EVERY MORNING active Not Available Not Available No t Available potassium chloride ER 8 mEq tablet,exten ded release TAKE ONE TABLET EVERY MORNING active Not Available Not Available No t Available ropinirole 0.25 mg tablet TAKE ONE TABLET EVERY NIGHT AT BEDTIME NEEDED PARA RLS active Not Available Not Available No t Available econazole nitrate 1 % topical cream APPLY TO THE AFFECTED AREA(S) ONCE DAILY active Not Available Not Available N ot Available clonazepam 2 mg tablet TAKE ONE TABLET EVERY NIGHT AT BEDTIME NEEDED active Not Available Not Available No t Available losartan 25 mg tablet TAKE ONE TABLET EVERY MORNING active Not Available Not Available No t Available pramipexole 0.125 mg tablet TAKE 1 TABLET BY MOUTH EVERYDAY AT BEDTIME active Not Available Not Available No t Available lisinopril 30 mg tablet TAKE ONE TABLET EVERY MORNING active Not Available Not Available No t Available hydrocortiso ne 2.5 % topical cream APPLY TO THE AFFECTED AREA(S) EVERY TWELVE HOURS active Not Available Not Available No t Available montelukast 10 mg tablet TAKE ONE TABLET EVERY NIGHT AT BEDTIME active Not Available Not Available N ot Available hydrochlorot hiazide 25 mg tablet TAKE ONE TABLET EVERY MORNING active Not Available Not Available No t Available azelastine 137 mcg (0.1 %) nasal spray INHALE ONE SPRAY IN EACH NOSTRIL TWICE DAILY DIRECTED active Not Available Not Available Not Available polyethylene glycol 3350 17 gram/dose oral powder DISSOLVE 17 GRAMS IN BEVERAGE AND TAKE BY MOUTH DAILY active Not Available Not Available Not Available levofloxacin 750 mg tablet TAKE ONE TABLET BY MOUTH DAILY FOR SEVEN DAYS active Not Available Not Available No t Available fluticasone propionate 50 mcg/actuatio n nasal spray,suspen junior INHALE 1 SPRAY IN EACH NOSTRIL ONCE DAILY IN THE MORNING active Not Available Not Available No t Available sertraline 50 mg tablet TAKE ONE TABLET EVERY MORNING active Not Available Not Available No t Available loratadine 10 mg tablet TAKE 1 TABLET EVERY MORNING NEEDED FOR ALLERGY active Not Available Not Available No t Available glipizide 5 mg tablet TAKE ONE TABLET BY MOUTH TWICE DAILY BEFORE MEALS active Not Available Not Available No t Available Ventolin HFA 90 mcg/actuatio n aerosol inhaler INHALE 2 PUFFS BY MOUTH EVERY 4-6 HOURS NEEDED FOR WHEEZING active Not Available Not Available No t Available oxycodone 5 mg tablet TAKE 1 TABLET BY MOUTH EVERY 6 HOURS NEEDED FOR PAIN active Not Available Not Available No t Available cyclobenzapr ine 5 mg tablet TAKE ONE TABLET AT BEDTIME NEEDED FOR MUSCLE SPASMS active Not Available Not Available No t Available rosuvastatin 20 mg tablet TAKE ONE TABLET EVERY NIGHT AT BEDTIME active Not Available Not Available N ot Available escitalopram 5 mg tablet TAKE ONE TABLET EVERY MORNING active Not Available Not Available No t Available Advair HFA 230 mcg-21 mcg/actuatio n aerosol inhaler INHALE TWO PUFFS TWICE DAILY, RINSE MOUTH AFTER USE active Not Available Not Available No t Available FreeStyle Lite Strips USE TO TEST BLOOD SUGAR THREE TIMES DAILY active Not Available Not Available No t Available FeroSul 325 mg (65 mg iron) tablet TAKE ONE TABLET EVERY MORNING active Not Available Not Available No t Available diclofenac 1 % topical gel APPLY 2 GRAM'S TO AFFECTED AREA(s) THREE TIMES DAILY NEEDED FOR PAIN active Not Available Not Available No t Available melatonin 5 mg tablet TAKE TWO TABLETS EVERY DAY AT BEDTIME active Not Available Not Available N ot Available Easy Touch Twist Lancets 33 gauge USE TO TEST BLOOD SUGAR THREE TIMES DAILY active Not Available Not Available No t Available Jardiance 10 mg tablet TAKE ONE TABLET EVERY MORNING active Not Available Not Available No t Available Jardiance 25 mg tablet TAKE ONE TABLET EVERY MORNING active Not Available Not Available No t Available Fasenra 30 mg/mL subcutaneous syringe active Not Available Not Available Not Available Ozempic 0.25 mg or 0.5 mg (2 mg/1.5 mL) subcutaneous pen injector INJECT 0.5 MG SUBCUTANEOU SLY ONCE A WEEK active Not Available Not Available No t Available Nucala 100 mg/mL subcutaneous syringe active Not Available Not Available Not Available Ozempic 0.25 mg or 0.5 mg (2 mg/3 mL) subcutaneous pen injector INJECT 0.5mg's SUBCUTANEOU SLY ONCE PER WEEK active Not Available Not Available No t Available Vitals Date Recorded Body temperature Oxygen saturation Oxygen saturation in Arterial blood by Pulse oximetry Heart rate Respiratory rate Systolic blood pressure Diastolic blood pressure Provider Name and Address Organization Details Last Updated DateTime 97.9 [degF] 99 % 99 % 84 /min 16 /min 170 mm[Hg] 90 mm[Hg] Not Available [facility] - production 19:50:59 Social History None recorded. Functional Status None recorded. Mental Status None recorded. Family History Nothing Reported. Medical History No medical history recorded. Gynecological HistoryNo gynecological history recorded. Obstetrics History GPAL:G 0 P 0 0 0 0 Past Encounters Encounter ID Performer Location Encounter Start Date Encounter Closed Date Diagnosis/Indication Diagnosis SNOMED-CT Code Diagnosis ICD10 Code Diagnosis Note [id number] Emma Mcgovern MD Main - [facility] [phone] 10/15/2024 19:50:56 10/15/2024 22:26:22 Chest pain 30431642 R07.9 Health Concerns Section Related Observation LastModified by Organization Detai ls LastModified Time None Recorded Concern Status LastModified by Organization Details LastModified Time None Recorded Payers Encounter Date Sequence Insurance Name Policy Number Policy Mitchell Covered Member ID Mitchell Member ID Guarantor Name 10/15/2024 1 [facility] - DOS ON OR AFTER 2022 - DUAL ELIGIBLE - [employer] OPTIONS AND ONE C[employer] (MEDICARE REPLACEMENT/ADV ANTAGE - HMO) Sue Flannery [id number] Sue Flannery Notes Date Note Type Note Provider Name and Address Organization Details Recorded Time 10/15/2024 text/html [facility] Nurse Triage Notes (Samantha Moraes - RN): Reason For Request: Patient has low blood pressure with 1 arm but different with the other arm, and feels dizzy. Chief Complaints: Hypertension PMH: COPD/Asthma, Hypertension PMH Reviewed at 10/15/2024 - 18:20 Allergies Reviewed at 10/15/2024 - 18:20 Comments: Referral taken via Neonatal Social Worker. Patient calling in to request a visit. Patient who has felt shortness of breath, dizzy with pain in her mid chest area since about 4p. She denies any left jaw, neck, shoulder or arm pain, she denies any weakness, numbness or tingling any where, no diaphoresis, but feels hot, no nausea or vomiting, no headache. Someone who knows patient, speaks upper sorbian and familiar with the cuff took patients blood pressure in her left arm and was 166/88, HR 76. RED flags discussed with patient via staff interpreter, and the woman who was present with the patient will also encourage 911/ED if symptoms worsen. Per patient around 4p her right arm BP was 94/45, HR 67, and left arm was 148/75, HR 73. Patient declining ED at this time. Digital Imager Organization Information for [employer] Name: [email or web address]? Address: [address] [place] [address], Heater Operator Helper: Charles Choudhury MD [facility] No.: [id number] Digital Imager POC Test Results from [employer] EKG (20:25:15) EKG test performed. Attachments uploaded as part of this test result can be found under Documents section. .................. .................. .................. .................. .................. .................. .................. ............... Digital Imager Note From [employer]: Dispatch to the call address for the female with high blood pressure. Patient states she ate deli sandwich that had a lot of salt in it and realized she was not supposed to have that much salt. She stayed shortly after eating it she became flushed, dizzy, headache, chest pain. She advises that she drank some water, took a shower and rested and she feels a bit better now however she still has a bit of a headache as well as some chest pain. She had different blood pressures on each arm one and the 140 systolic, the other side was 90 systolic. Patient was found opening door in no obvious distress. CAOx4, airway open and patent skin PWD with good turgor, ABD soft nontender/distende d. Mucous membranes pink and moist. Negative edema/swelling, lung sounds CTA, pupils PERRL, + CMSx4. [facility] consulted, 12 lead EKG. Patient advised she should be evaluated in the ED patient initially hesitant but eventually agreed to go. 911 called on behalf of the patient. This trial management associate waited with the patient until EMS arrived. Patient transfer of care report given to paramedics. Patient transported to a [facility]. All times are approximate. .................. .................. .................. .................. .................. .................. .................. ............... [facility] Consulted: Emma Mcgovern .................. .................. .................. .................. .................. .................. .................. ............... Disposition: Blanco Mcgovern MD [address] [facility], [place], [phone], [place] [facility] - [facility] 10/15/2024 21:47:50 OBGyn Episode No OBEpisode recorded.
--- OUTSIDE RECORDS SUMMARY | 2024-11-07 17:08 | XMS_ITS | Encounter Summary ---
Author Organization [email or web address] Address [address] [facility] [address], [place] [address] Care Team Providers Care Heel Reducer Name Role Phone Vern Juarez MD Primary Care Prov ider Reason for Visit * Reason Onset Date Comments Appointment Request 03/12/2024 Encounter Details Date Type Department Care Team ([facility] st Contact Info) Description 03/12/2024 Telephone [facility] [address] [place] [address] Vern Juarez MD [address] [facility] [place] [address] Appointment Request Social History Tobacco Use Types [...] Description 11/20/2024 8:30 AM EDT Office Visit [facility] [address] [place] [address] Vern Juarez MD [address] [place] [address] documented as of this encounter Visit Diagnoses Not on filedocumented in this encounter Additional Health Concerns Assessment Noted Time PHQ-9 Depression Total Score: 19 024 10:43 AM EST documented as of this encounter Care Teams Heel Reducer Relationship Specialty Start Date End Date Vern Juarez MD [address] [place] [address] PCP - General Internal Medicine 08/09/22 documented as of this encounter
--- OUTSIDE RECORDS SUMMARY | 2024-11-07 17:08 | XMS_ITS | Data Portability ---
Author Organization [place] [facility] [employer] Address [address] [place] [address] Care Team Providers Care Target Aircraft Technician Name Role Phone LAURA BUSTILLOS Primary Care Provider [phone] [facility] OTHER Assessment Encounter Date Assessment Date Assessment LastModified by Organization Details LastModified Time 08/19/2023 08/19/2023 I provided real -time medical direction via phone for this encounter, and was available for additional phone based assistance as needed. I have reviewed and agree with the Assessment and Plan as documented by the Janitorial Account Manager. Patient given the opportunity to ask questions. Advised dru Not available 08/19/2023 11:59:50 04/30/2024 04/30/2024 I provided real -time medical direction via phone for this encounter and was available for additional phone-based assistance as needed. I have reviewed and agree with the Assessment and Plan as documented by the Janitorial Account Manager. Patient given the opportunity to ask questions. Our service contacted for an assessment of: chronic constipation As per above, patient seen recently with constipation. Started on Miralax and now c/o some burning when she moves her bowels. Denies any blood in stool currently. Per glass frame fitter on the scene, VSTRINH Hernández Impression: Likely internal hemorroides Plan: OTC Tucks, continue stool softener Allergies: Reviewed PCP f/u: We discussed the diagnostic uncertainty of home visits and the risk associated with this. In this case, the patient and I felt this to be an acceptable and reasonable amount of risk given the benefit of avoiding an ED visit. We discussed the need to seek care urgently/emerge ntly in the setting of any new or worsening serious symptoms, particularly fever chills [email or web address] Not available 04/30/2024 14:28:44 10/15/2024 10/15/2024 I have reviewed and agree with the assessment and plan as documented by the glass frame fitter. I provided real-time medical direction for this [...] both arms. Exam otherwise unremarkable per the glass frame fitter. Impression: HTN in the context of chest [...] Details Last Modified Time Details Appointments None recorded . Lab rapid SARS CoV 2 Ag, QL IA, respirat ory specimen [address], [phone], 4 19:58:10 rapid flu (A+B) [address], [address], 4 19:58:35 Referral None recorded . Procedures None recorded . Surgeries None recorded . Imaging None recorded . Medication Orders predniso ne 20 mg tablet 2023 024 kaye [facility]/Pharmacy #[id number], [address] [place] [address], [address], 4 13:27:09 predniso ne 20 mg tablet 2023 024 [facility]/Pharmacy #[id number], [address] [place], [address], 4 13:27:12 azithrom ycin 250 mg tablet 2023 024 [email or web address] [facility]/Pharmacy #[id number], [address] [place], [address], 4 13:27:10 azithrom ycin 250 mg tablet 2023 024 [facility]/Pharmacy #[id number], [address] [place], [address], 4 13:27:12 Patient TargetsNo targets recorded. Patient InstructionsNo instructions recorded. Reason for Referral None Reported. Results Created Date Observation Date Name Description Value Unit Range Abnormal Flag Note LastModifiedBy Organization Detail LastModifiedTime Result Notes None recorded. Medical Equipment None Reported. Allergies Allergen ID [...] Not available Not available Not available 08/19/2023 [id number] RxNorm Georgina Canela MD [address] [facility],[address], [place], [phone], [employer] 3 13:49:27 Medications Name Sig Start Date [...] Available No t Available Vitals Date Recorded Respiratory rate Oxygen saturation Oxygen saturation in Arterial blood by Pulse oximetry Heart rate Body weight Body temperature Systolic blood pressure Diastolic blood pressure Provider Name and Address Organization Details Last Updated DateTime 3 18 /min 98 % 98 % 70 /min 36860.4 g 98.2 [degF] 142 mm[Hg] 80 mm[Hg] Not Available [facility] 3 11:58:53 Date Recorded Body temperature Oxygen saturation Oxygen saturation in Arterial blood by Pulse oximetry Body weight Body height Respiratory rate Heart rate Systolic blood pressure Diastolic blood pressure Provider Name and Address Organization Details Last Updated DateTime 4 98 [degF] 97 % 97 % 14548.2 4 g 152.4 cm 16 /min 64 /min 170 mm[Hg] 90 mm[Hg] Not Available [facility] [employer] 4 14:10:39 Date Recorded Respiratory rate Body temperature Oxygen saturation Oxygen saturation in Arterial blood by Pulse oximetry Heart rate Systolic blood pressure Diastolic blood pressure Provider Name and Address Organization Details Last Updated DateTime 4 20 /min 97.3 [degF] 98 % 98 % 76 /min 116 mm[Hg] 60 mm[Hg] Not Available [facility] [employer] 4 13:21:50 Date Recorded Body temperature Oxygen saturation Oxygen saturation in Arterial blood by Pulse oximetry Heart rate Respiratory rate Systolic blood pressure Diastolic blood pressure Provider Name and Address Organization Details Last Updated DateTime 5 97.9 [degF] 99 % 99 % 84 /min 16 /min 170 mm[Hg] 90 mm[Hg] Not Available [facility] 5 19:50:59 Date Recorded Body temperature Heart rate Oxygen saturation Oxygen saturation in Arterial blood by Pulse oximetry Respiratory rate Systolic blood pressure Diastolic blood pressure Provider Name and Address Organization Details Last Updated DateTime 2 98 [degF] 83 /min 97 % 97 % 18 /min 148 mm[Hg] 78 mm[Hg] Not Available [facility] [employer] 2 13:05:39 Social History None recorded. Functional Status None recorded. Mental Status None recorded. Family History Nothing Reported. Medical History No medical history recorded. Gynecological HistoryNo gynecological history recorded. Obstetrics History GPAL:G 0 P 0 0 0 0 Past Encounters Encounter ID Performer Location Encounter Start Date Encounter Closed Date Diagnosis/Indication Diagnosis SNOMED-CT Code Diagnosis ICD10 Code Diagnosis Note [id number] Ken Boswell MD Main - [address] [phone] 08/20/2022 13:05:35 08/24/2022 10:42:11 Near syncope 939621543 R55 Reports three weeks of seconds-lo ng lightheade dness on standing and walking, self resolves. No symptoms at rest or at present. Referring clinician asks for POC blood work but patient declines to provide blood sample at this time. Symptoms seem most consistent with postural presyncope , advised continued oral hydration and PCP follow-up. [id number] Georgina Canela MD Main - [address] [phone] 08/19/2023 11:58:50 08/20/2023 14:36:41 Acute low back pain 480926829 M54.50 pat c/o severe 06/14pain- I doubt Tylenol will do anything for her discomfort . I am not comfortabl e giving ketorolac to somebody who has a severe aspirin allergy and has some kind of reaction to oral NSAIDs/pos sibly allergic. I explained this to the patient and her daughter who is an employee at [employer]. This may be muscular but I feel she needs imaging to rule out more serious etiologies of back and flank( diff dx includes aneurysm, renal colic, retroperit patino hematoma , pyelonephr itis) And urinalysis at the very least and she cannot void at this time. I also explained I do not have the ability to this program to prescribe a controlled substance like gabapentin thus it is in her best interest to go to the emergency room where she can get evaluation and treatment that is best for her directed at the true cause of the pain. The patient and her daughter agree and the daughter is insisting on driving her - declined EMS- report called by me to ED nursing [id number] Galilea Schultz MD Main - [facility] [address] [place] [phone] 04/30/2024 14:10:35 04/30/2024 15:19:36 Chronic constipation 542071936 K59.09 [id number] Sharita Guerrero MD Main - [facility] [address] [place] [phone] 06/04/2024 13:21:47 06/05/2024 13:09:17 Exacerbation of intermittent asthma 080521531 J45.21 I provided real -time medical direction via phone for this encounter, and was available for additional phone based assistance as needed. I have reviewed and agree with the Assessment and Plan as documented by the Janitorial Account Manager. Patient given the opportunit y to ask questions. 63 yo w/ mild intermitte nt asthma, reports 3d (since Tuesday) of chest tightness and cough. No uri sx. No sick contacts. Flu and covid negative . Not expectorat ing sputum. Sx improved w/ nebulizer. not on controller inhalers. Takes loratadine 10mg QD. Reviewed warning signs/sx. may want to consider controller inhaler moving forward.- pred 40x5d (give first dose now)- zpack (first dose, 500mg now) [id number] Emma Mcgovern MD Main - [facility] [address] [place] [phone] 10/15/2024 19:50:56 10/15/2024 22:26:22 Chest pain 47707581 R07.9 Health Concerns Section Related Observation LastModified by Organization Detai ls LastModified Time None Recorded Concern Status LastModified by Organization Details LastModified Time None Recorded Advance Directives Directive None Recorded Payers Encounter Date Sequence Insurance Name Policy Number Policy Mitchell Covered Member ID Mitchell Member ID Guarantor Name 08/20/2022 1 [employer] - DOS PRIOR TO 2022 - DUAL ELIGIBLE (MEDICARE REPLACEMENT/ADV ANTAGE - HMO) Sue Prudencio [id number] Sue Prudencio 08/19/2023 1 [employer] - DOS ON OR AFTER 2022 - DUAL ELIGIBLE - RETIREMENT OPTIONS AND ONE CARE (MEDICARE REPLACEMENT/ADV ANTAGE - HMO) Sue Flannery [id number] Sue Prudencio 04/30/2024 1 [employer] - DOS ON OR AFTER 2022 - DUAL ELIGIBLE - RETIREMENT OPTIONS AND ONE CARE (MEDICARE REPLACEMENT/ADV ANTAGE - HMO) Sue Flannery [id number] Sue Prudencio 06/04/2024 1 [employer] - DOS ON OR AFTER 2022 - DUAL ELIGIBLE - RETIREMENT OPTIONS AND ONE CARE (MEDICARE REPLACEMENT/ADV ANTAGE - HMO) Sue Flannery [id number] Sue Prudencio 10/15/2024 1 [employer] - DOS ON OR AFTER 2022 - DUAL ELIGIBLE - RETIREMENT OPTIONS AND ONE CARE (MEDICARE REPLACEMENT/ADV ANTAGE - HMO) Sue Flannery [id number] Sue Flannery Notes Date Note Type Note Provider Name and Address Organization Details Recorded Time 08/20/2022 text/html HPI: 61 F with diabetes and COPD, recent diagnosis of pneumonia, presenting to the [facility] ED with lightheadedness while walking. Workup unremarkable, except potassium was low at 2.7. ..................... ..................... ..................... ..................... ..................... ..................... ............... CRC Nursing Assessment: Comments: Visit was an unfulfilled , wanted visit for 08/20 ..................... ..................... ..................... ..................... ..................... ..................... ............... Janitorial Account Manager Note: Patient is a 61 year old , female, history of cardiology, diabetes, CHF. Patient is experiencing weakness and dizziness from time to time patient A1c is 9+ per endocrinology. Patient has denied blood work assessment shows blood glucose 285, Patient assessment and physician consult completed. Patient urged family to outsource with endocrinology and PCP for follow up. ..................... ..................... ..................... ..................... ..................... ..................... ............... Disposition: Fulfilled Ken Boswell MD [address] [facility],[address], [place], [address], [employer] 08/20/2022 15:41:59 08/19/2023 text/html HPI: Call to Sue Flannery, reports having mid upper back pain x 1 day. Per pt pain radiates to right leg and having numbness. Pt denies any abdominal pain or Urinary sx. Pt using Tylenol with mild relief. Pt denies any fall or twisting injury. Pt advised of disposition, agrees to instED referral as not able to come into [facility]. ..................... ..................... ..................... ..................... ..................... ..................... ............... CRC Nursing Assessment: Comments: CRC RN did not require any additional information to process this visit. ..................... ..................... ..................... ..................... ..................... ..................... ............... Janitorial Account Manager Note From Ronnie Diaz: Pt co right sided mid to lower back pain 10/. Pt denies falls or injury. Laying on her left side relieve pain somewhat. Area tender and painful to touch. PT sts ibuprofen makes her anxious. Baseline vitals stable. [facility] contacted and recommended going to ER. Pt daughter is taking her to [facility]. Janitorial Account Manager Allergies: Morphine ..................... ..................... ..................... ..................... ..................... ..................... ............... Disposition: FulfilledSEGMD: As above- Except: patient said motrin and other similar drugs make jumpy and shaky in Senegalese/ she is very allergic to asa- details not provided. pain is exacerbated by movement. She has had similar pain in the past and was told it was muscular and was relieved by gabapentin. She denies fever, chills, sweats, chest pain, cough, shortness of breath, abdominal pain, nausea vomiting diarrhea or incontinence of bladder or bowel. She denies UTI symptoms. Georgina Canela MD [address] [place] [address],[address], [place], [address], [facility] 08/19/2023 13:58:36 04/30/2024 text/html HPI: hui's Behavioral health clinician, Simba from [facility], reporting lower abdominal pain and irritation in the same area>recently diagnosed this past tuesday night into tuesday morning for constipation>no relief since then ..................... ..................... ..................... ..................... ..................... ..................... ............... CRC Nurse Triage Notes (Иван Penaloza): Chief Complaints: Constipation, Abdominal Pain PMH: COPD/Asthma, Diabetes, Hypertension Allergies: Morphine Comments: Copying Machine Mechanic verified the member's name//address and phone number. Tun[facility]'s behavioral health clinician, Simba, calling in reporting mbr with intense abdominal cramping as well as constipation. Mbr reportedly seen in the ER a couple days ago for the same started on a powder for the constipation but mbr continues with same problem. Mbr also c/o itching. Behavioral health clinician asking that mbr be prioritized for a visit if possible. Education provided on the response time and the member was advised to monitor reported s/s and seek emergency treatment if needed -Margaret Penaloza RN ..................... ..................... ..................... ..................... ..................... ..................... ............... Janitorial Account Manager Note From Max Delaney: [employer] visit for female pt. Pt is Senegalese speaking so office helper services were utilized. Pt complaining of some burning in her anus when she is pooping. Pt has chronic constipation, worse recently with patient going to ED 3 days ago for constipation. Pt discharged same day with prescription for miralax which she has been taking since. Pt reports that it has been easier to go to the bathroom but now experiencing the burning sensation in her anus when she goes to the bathroom. V/S taken with pt hypertensive with history of the same. Pt afebrile. Consulted with [facility] Dr. Schultz who advised pt try OTC witch tunde wipes for burning and sitz bath. Reviewed red flags for ED. Pt education provided. ..................... ..................... ..................... ..................... ..................... ..................... ............... Disposition: Fulfilled Galilea Schultz MD [address] [facility],[address], [place], [address], [facility] - [employer] [place] 04/30/2024 14:28:59 06/04/2024 text/html HPI: Call returned to Sue Flannery to triage below. Reports having cough and intermittent wheezing x 3 days. Per pt cough is dry. Pt also endorses ST, MCNULTY. No nasal congestion. NO home kit for COVID-19. Denies any fever. Pt having chest pain with wheezing. Pt denies any SOB. Pt advised of disposition, agrees to [facility] robert as unable to come into our walk in center. Confirmed address and phone number. ..................... ..................... ..................... ..................... ..................... ..................... ............... CRC Nurse Triage Notes (Иван Penaloza): Chief Complaints: Asthma PMH: Hypertension, COPD/Asthma, Diabetes, Hypertension Allergies: Aspirin, Morphine Other Allergies: oxycodone, zolmitriptan Comments: HPI reviewed by this RN, no further information needed to process visit -Margaret Penaloza RN Janitorial Account Manager Organization Information for [employer] Legal Name: [employer]? Address: [address] [place] [address], Superintendent Distribution: Charles Choudhury MD CLIA No.: [id number] Janitorial Account Manager POC Test Results from [employer] Rapid COVID antigen (13:07:35) COVID: - Rapid influenza antigen (13:07:37) Flu: - ..................... ..................... ..................... ..................... ..................... ..................... ............... Janitorial Account Manager Note From [employer]: Dispatched to the call address for the female with SoB/cough. Pt states she has been feeling ill since Tuesday with a cough (dry, non productive) and mild SoB. She states she has a Hx of asthma and has used her nebulizer a couple of times a day. She states she has been on Prednisone before but it has been awhile. She does not have an inhaled steroid. Pt was found sitting on porch outside, CAOx4, airway open and patent, breathing non labored, able to speak in full sentences, -JVD, -HEENT, skin PWD with good turgor, abd soft non tender/distended, pupils PERRL, mucous membranes pink and moist, afebrile, lung sounds with wheezing in the bases and rhonchi in the upper left. John. [facility] consulted. Pt given 500mg Azithromycin and 40mg Prednisone. Scripts called into preferred pharmacy. Red flags discussed. ALL times are approx. ..................... ..................... ..................... ..................... ..................... ..................... ............... Disposition: Blanco Guerrero MD [address] [facility],[address], [place], [address] 06/04/2024 21:39:42 10/15/2024 text/html CRC Nurse Triage Notes (Samantha Moraes - RN): Reason For Request: Patient has low blood pressure with 1 arm but different with the other arm, and feels dizzy. Chief Complaints: Hypertension PMH: COPD/Asthma, Hypertension PMH Reviewed at 10/15/2024 18:20 Allergies Reviewed at 10/15/2024 18:20 Comments: Referral taken via Miscellaneous Machine Operator. Patient calling in to request a visit. Patient who has felt shortness of breath, dizzy with pain in her mid chest area since about 4p. She denies any left jaw, neck, shoulder or arm pain, she denies any weakness, numbness or tingling any where, no diaphoresis, but feels hot, no nausea or vomiting, no headache. Someone who knows patient, speaks french and familiar with the cuff took patients blood pressure in her left arm and was 166/88, HR 76. RED flags discussed with patient via office helper, and the woman who was present with the patient will also encourage 911/ED if symptoms worsen. Per patient around 4p her right arm BP was 94/45, HR 67, and left arm was 148/75, HR 73. Patient declining ED at this time. Janitorial Account Manager Organization Information for [employer] Legal Name: [employer]? Address: [address] [place] [address], Superintendent Distribution: Charles JALLOH No.: [id number] Janitorial Account Manager POC Test Results from [facility] EKG (20:25:15) EKG test performed. Attachments uploaded as part of this test result can be found under Documents section. ..................... ..................... ..................... ..................... ..................... ..................... ............... Janitorial Account Manager Note From [employer]: Dispatch to the [...] skin PWD with good turgor, ABD soft nontender/distended. Mucous membranes pink and moist. Negative edema/swelling, lung sounds CTA, pupils PERRL, + CMSx4. [facility] consulted, 12 lead EKG. Patient advised she should be evaluated in the ED patient initially hesitant but eventually agreed to go. 911 called on behalf of the patient. This glass frame fitter waited with the patient until EMS arrived. Patient transfer of care report given to paramedics. Patient transported to a [facility]. All times are approximate. ..................... ..................... ..................... ..................... ..................... ..................... ............... [facility] Consulted: Emma Mcgovern ..................... ..................... ..................... ..................... ..................... ..................... ............... Disposition: Blanco Mcgovern MD [address] [place] [address],[address] [facility], [place], [address], [facility] 10/15/2024 21:47:50 OBGyn Episode No OBEpisode recorded.
--- OUTSIDE RECORDS SUMMARY | 2024-11-07 17:08 | XMS_ITS | Encounter Summary ---
Author Organization [employer] Address [address] [facility] [address] [place] [address] Care Team Providers Care Rack Puller Name Role Phone Vern Juarez MD Primary Care Prov ider Reason for Visit * Reason Onset Date Comments Durable Medical Equipment 03/30/2024 Encounter Details Date Type Department Care Team (Late st Contact Info) Description 03/30/2024 Telephone [facility] MEDICINE [address] [place] [address] Vern Juarez MD [address] [facility] [place] [address] Durable Medical Equipment Social History Tobacco Use [...] Description 11/20/2024 8:30 AM EDT Office Visit [facility] MED & PEDS [address] [place] [address] Vern Juarez MD [address] [place] [address] documented as of this encounter Visit Diagnoses Not on filedocumented in this encounter Additional Health Concerns Assessment Noted Time PHQ-9 Depression Total Score: 19 024 10:43 AM EST documented as of this encounter Care Teams Rack Puller Relationship Specialty Start Date End Date CruzVern Sandhu MD [address] [place] [id number] PCP - General Internal Medicine 08/09/22 documented as of this encounter
--- OUTSIDE RECORDS SUMMARY | 2024-11-07 17:08 | XMS_ITS | Encounter Summary ---
Author Organization [employer] Address [address] [facility] [address] [place] [address] Care Team Providers Care Highway Technician Name Role Phone Vern Juarez MD Primary Care Prov ider Reason for Visit * Reason Comments Med Refill Encounter Details Date Type Department Care Team ([facility] st Contact Info) Description 07/02/2024 Refill [facility] MEDICINE [address] [place] [address] Grisel Powell MD [address] [place] [address] Seasonal allergies Social History Tobacco Use Types [...] 11/20/2024 8:30 AM EDT Office Visit [facility] MED & PEDS [address] [place] [address] Vern Juarez MD [address] [place] [address] documented as of this encounter Visit Diagnoses Diagnosis Seasonal allergies Allergic rhinitis, cause unspecified documented in this encounter Additional Health Concerns Assessment Noted Time PHQ-9 Depression Total Score: 8 06/29/20 24 10:23 AM EDT documented as of this encounter Care Teams Highway Technician Relationship Specialty Start Date End Date Vern Juarez MD [address] [place] [address] PCP - General Internal Medicine 08/09/22 documented as of this encounter
--- OUTSIDE RECORDS SUMMARY | 2024-11-07 17:08 | XMS_ITS | Encounter Summary ---
Author Organization [employer] Address [address] [facility] 7 [place] [address] Care Team Providers Care Firing Pin Gauger Name Role Phone Vern Juarez MD Primary Care Prov ider Reason for Visit * Reason Comments Med Refill Encounter Details Date Type Department Care Team ([facility] Contact Info) Description 10/16/2024 Refill [facility] CH[facility] MED & PEDS [address] [facility] [place] [address] Vern Juarez MD [address] [place] [address] Type 2 diabetes mellitus with hyperglycemia, without long-term current use of insulin ([facility]) Social History Tobacco Use Types Packs/Day Years [...] Description 11/20/2024 8:30 AM EDT Office Visit [facility] CHC MED & PEDS [address] [place] [address] Vern Juarez MD [address] [place] [address] documented as of this encounter Visit Diagnoses Diagnosis Type 2 diabetes mellitus with hyperglycemia, without long-term current use of insulin ([facility]) documented in this encounter Additional Health Concerns Assessment Noted Time PHQ-9 Depression Total Score: 8 06/29/20 24 10:23 AM EDT documented as of this encounter Care Teams Firing Pin Gauger Relationship Specialty Start Date End Date Vern Juarez MD [address] [place] [address] PCP - General Internal Medicine 08/09/22 documented as of this encounter
--- OUTSIDE RECORDS SUMMARY | 2024-11-07 17:08 | XMS_ITS | Encounter Summary ---
Author Organization [employer] Address [address] [facility] 7 [place] [address] Care Team Providers Care Packing Tractor Machine Operator Name Role Phone Vern Juarez MD Primary Care Prov ider Reason for Visit * Reason Onset Date Comments Durable Medical Equipment 08/06/2024 Encounter Details Date Type Department Care Team (Late st Contact Info) Description 08/06/2024 Telephone [facility] MEDICINE [address] [place] [address] Vern Juarez MD [address] [facility] [place] [address] Durable Medical Equipment Social History Tobacco Use [...] this DME thank you TC from pt [facility] in June pcp was to prescribe a nebulizer machine . Pt verified with [facility] and they have not received it . * Telephone Encounter - Arvind Ulrich - 08/06/2024 11:16 AM EST TC from pt [facility] in June pcp was to prescribe a nebulizer machine . Pt verified with [facility] and they have not received it . documented in this encounter Plan of Treatment Upcoming Encounters Date Type Department Care Team (Late st Contact Info) Description 11/20/2024 8:30 AM EDT Office Visit [facility] MED & PEDS [address] [place] [address] Vern Juarez MD [address] [place] [address] documented as of this encounter Visit Diagnoses Not on filedocumented in this encounter Additional Health Concerns Assessment Noted Time PHQ-9 Depression Total Score: 8 06/29/20 24 10:23 AM EDT documented as of this encounter Care Teams Packing Tractor Machine Operator Relationship Specialty Start Date End Date Vern Juarez MD [address] [place] [phone] PCP - General Internal Medicine 08/09/22 documented as of this encounter
== END 2024-11-07 14:51 | disposition home or self-care (01) ==
PROVIDERS: PCP Internal Medicine; Visit Provider Internal Medicine Pulmonary Disease
DX: J45.50 Severe persistent asthma, uncomplicated (principal); Z91.09 Other allergy status, other than to drugs and biological substances
CPT/HCPCS: 99214

== ENCOUNTER → 2024-11-07 14:12 | Outpatient (BNVA) | payer OTHER, SELFPAY | PROVIDERS: PCP Internal Medicine; Visit Provider Internal Medicine Pulmonary Disease | DX: J45.50 Severe persistent asthma, uncomplicated (principal); E66.9 Obesity, unspecified; G47.33 Obstructive sleep apnea (adult) (pediatric); Z87.891 Personal history of nicotine dependence; Z91.09 Other allergy status, other than to drugs and biological substances; Z68.34 Body mass index [BMI] 34.0-34.9, adult | CPT/HCPCS: 99212 ==

== ENCOUNTER 2025-01-20 18:48 | Emergency (ER) | payer OTHER, SELFPAY ==
[2025-01-20 18:54] VITALS: BP 160/100; PULSE 76; O2SAT 99
[2025-01-20 18:59] VITALS: BP 151/81; PULSE 71; RESP 22; TEMP 36.6; O2SAT 98; BMI 42.8
[2025-01-20 19:20] LABS: MANUAL DIFF FLAG NO
[2025-01-20 19:22] LABS: Basophils Percent Auto 0.4 % (0-2); Eosinophils Absolute Auto 0.3 X10*3/uL (0.0-0.4); Eosinophils Percent Auto 2.4 % (0-4); Hemoglobin 17.1 g/dl (12.0-16.0); Imm Gran Abs Auto 0.02 X10*3/uL (0.00-0.03); Imm Gran Pct Auto 0.2 % (0.0-0.4); Lymphocytes Absolute Auto 2.7 X10*3/uL (1.2-4.9); Lymphocytes Percent Auto 25.7 % (20-40); Mean Corpuscular HGB Conc 34.9 g/dl (31.0-35.0); Mean Corpuscular Hemoglobin 31.7 pg (27.0-33.0); Mean Corpuscular Volume 90.9 fL (80.0-98.0); Mean Platelet Volume 9.8 fL (9.4-12.3); Monocytes Absolute Auto 0.7 X10*3/uL (0.1-1.2); Monocytes Percent Auto 6.8 % (2-11); Neutrophils Absolute Auto 6.7 x10*3/uL (2.0-8.3); Neutrophils Percent Auto 64.5 % (45-73); Platelet Count 236 X10*3/uL (160-400); Red Blood Count 5.39 X10*6/uL (4.20-5.50); Red Cell Distribution Width 12.8 % (11.0-16.0); White Blood Count 10.4 X10*3/uL (4.8-10.8)
--- OUTSIDE RECORDS SUMMARY | 2025-01-20 19:34 | XMS_ITS | Encounter Summary ---
Author Organization [employer] Address [address] [facility] 7t [place] [address] Care Team Providers Care Hide Stretcher Hand Name Role Phone Vern Juarez MD Primary Care Prov ider Encounter Details Date Type Department Care Team ([facility] st Contact Info) Description 09/24/2022 Telephone C [facility] MED & PEDS [address] [place], [place] [phone] Vern Juarez MD 505 [place] [address] Social History Tobacco Use Types Packs/Day Years [...] documented as of this encounter Care Teams Hide Stretcher Hand Relationship Specialty Start Date End Date Vern Juarez MD [address] [place] [phone] PCP - General Internal Medicine 08/09/22 documented as of this encounter
--- OUTSIDE RECORDS SUMMARY | 2025-01-20 19:34 | XMS_ITS | Clinical Summary ---
Author Organization [employer] Address [address] [facility] 7t [place] [address] Care Team Providers Care Douper Name Role Phone Vern Juarez MD Primary [...] by mouth 1 (one) time each day. 2 Active levalbuterol (Xopenex HFA) 45 MCG/ACT inhaler Inhale 2 puffs every 6 (six) hours. 1 Active lamoTRIgine (LaMICtal) 200 MG tablet Take 1 tablet by mouth 1 (one) time each day. Active ipratropium-albu terol (Duo-Neb) 0.5-2.5 mg/3 mL nebulizer solution Take 3 mL by nebulization. Every 4 to 6 hours as needed for wheezing Active escitalopram (Lexapro) 5 MG tablet Take 1 tablet by mouth in the morning. Active pramipexole (Mirapex) 0.125 MG tablet Take 1 tablet by mouth every 8 (eight) hours. Active Fasenra 30 MG/ML injection 2 Active Advair HFA 230-21 MCG/ACT inhaler INHALE TWO PUFFS TWICE DAILY, RINSE MOUTH AFTER USE 2 Active Nucala 100 MG/ML solution prefilled syringe 2 Active montelukast (Singulair) 10 MG tablet Take 10 mg by mouth at bedtime. 2 Active rOPINIRole (Requip) 0.25 MG tablet TAKE ONE TABLET AT BEDTIME FOR rls 2 Active azelastine (Astelin) 0.1 % nasal spray Administer 1 spray into each nostril 2 times daily. Use in each nostril as directed 30 mL 12 3 Active hydrocortisone 2.5 % cream Apply topically every 12 (twelve) hours. 60 g 3 Active Minoxidil (Rogaine Womens) 5 % foamIndications: Telogen effluvium To use daily 60 g 11 3 Active ketoconazole (Nizoral) 2 % shampooIndicatio ns:Seborrheic dermatitis Apply topically 2 (two) times a week. 120 mL 2 3 Active Diclofenac Sodium 1 % gelIndications:A cute bilateral back pain, unspecified back location Apply thin layer to affected area 3 times daily as needed for pain. 100 g 3 4 Active Simethicone Ultra Strength 180 MG capsuleIndicatio ns:Type 2 diabetes mellitus with hyperglycemia, without long-term current use of insulin ([facility]) TAKE ONE CAPSULE THREE TIMES DAILY WITH MEALS NEEDED 90 capsule 11 4 Active hydrocortisone 0.5 % creamIndications :Seborrheic dermatitis Apply topically 2 times daily. 15 g 4 Active potassium chloride CR (Klor-Con) 8 MEQ ER tablet TAKE ONE TABLET EVERY MORNING 30 tablet 11 4 Active hydroquinone 4 % creamIndications :Melasma Apply topically 2 times daily. 28 g 3 4 06/12/20 25 Active Sunscreens (Shade Sunblock SPF45) lotionIndication s:Rosacea To use daily when going in the sun. 120 mL 4 Active semaglutide (Ozempic) 2 MG/1.5ML solution pen-injector Inject 1 mg under the skin 1 (one) time per week. 2 each 12 4 Active Blood Glucose Monitoring Suppl (FreeStyle Lite) w/Device kitIndications:T ype 2 diabetes mellitus with hyperglycemia, without long-term current use of insulin ([facility]) 1 Device 3 times daily. 1 kit 4 Active rosuvastatin (Crestor) 20 MG tabletIndication s:Hyperlipidemia due to type 2 diabetes mellitus ([facility]) ([facility]) TAKE ONE TABLET EVERY NIGHT AT BEDTIME 90 tablet 3 4 Active melatonin 5 MG tabletIndication s:Primary insomnia TAKE TWO TABLETS EVERY DAY AT BEDTIME 60 tablet 5 5 Active Aspirin Adult Low Strength 81 MG EC tabletIndication s:Primary hypertension,Typ e 2 diabetes mellitus with hyperglycemia, without long-term current use of insulin ([facility]) TAKE ONE TABLET EVERY MORNING 30 tablet 11 5 Active baclofen (Lioresal) 10 MG tablet TAKE ONE TABLET THREE TIMES DAILY 90 tablet 1 5 Active Jardiance 25 MGIndications:Ty pe 2 diabetes mellitus with hyperglycemia, without long-term current use of insulin ([facility]) TAKE 1 TABLET BY MOUTH EVERY MORNING 90 tablet 1 5 Active fluticasone (Flonase) 50 MCG/ACT nasal spray Administer 1-2 sprays into each nostril Once per day. Shake gently. Before first use, prime pump. After use, clean tip and replace cap. 16 g 2 5 11/21/19 26 Active Diclofenac Sodium (Voltaren) 1 % gel Apply 2 g topically 2 times daily. 300 g 3 5 Active gabapentin (NEURONTIN) 400 MG tablet Take 1 tablet (400 mg) by mouth 2 times daily. 180 tablet 3 5 11/21/19 26 Active hydroCHLOROthiaz ricardo (HYDRODiuril) 25 MG tablet TAKE ONE TABLET EVERY MORNING 90 tablet 5 Active levothyroxine (Synthroid, Levoxyl) 75 MCG tablet TAKE ONE TABLET EVERY MORNING 90 tablet 5 Active Nebulizers [facility] Use nebulizer as instructed 1 each 5 Active Respiratory Therapy Supplies (Nebulizer/Tubin g/Mouthpiece) kit To be used with Nebulizer 1 kit 5 Active dilTIAZem CD (Cardizem CD) 240 MG 24 hr capsule TAKE ONE CAPSULE EVERY MORNING 90 capsule 5 Active loratadine (Claritin) 10 MG tablet TAKE 1 TABLET EVERY MORNING NEEDED FOR ALLERGY 90 tablet 5 Active omeprazole (PriLOSEC) [address] capsule TAKE ONE CAPSULE EVERY MORNING BEFORE BREAKFAST 90 capsule 5 Active sucralfate (Carafate) 1 g tablet TAKE ONE TABLET THREE TIME DAILY IN THE MORNING, AT NOON, AND IN THE EVENING BEFORE MEALS 90 tablet 5 Active FREESTYLE LITE test stripIndications :Type 2 diabetes mellitus with hyperglycemia, without long-term current use of insulin ([facility]) USE TO TEST BLOOD SUGAR THREE TIMES DAILY 100 strip 3 5 Active Easy Touch Lancets 33G/Twist miscIndications: Type 2 diabetes mellitus with hyperglycemia, without long-term current use of insulin ([facility]) USE TO TEST BLOOD SUGAR THREE TIMES DAILY 100 each 3 5 Active econazole nitrate 1 % creamIndications :Seborrheic dermatitis Apply topically Once per day. 30 g 4 12/27/19 25 Active Problems Problem Noted Date Diagnosed Date Mixed stress and urge urinary incontinence 11/20 Assessment & Plan (11/20/2024 6:25 PM EDT): Will send DME request of bed pads Mixed conductive and sensori neural hearing loss of both ears 11/20/2024 Assessment & Plan (11/20/2024 6:27 PM EDT): Will refer for audiology test Acute bilateral back pain 02/08/2024 Intractable chronic [...] feeling a pressure, will refer to ob- auto body detailer for evaluation Non compliance w medication regimen [...] chair to decrease risk of fall, will ministerio Assessment & Plan (10/20/2022 2:27 PM EST): [...] clinically euthyroid Asthma 05/05/2018 Assessment & Plan (11/20/2024 6:25 PM EDT): Will send new nebulizer machine and supplies Assessment & Plan (08/11/2022 4:57 PM EST): Patient still w/ symptoms. At this point will send short taper and refilled her albuterol. Encouraged compliance with controller inhaler and f/up with PCP Assessment & Plan (08/05/2022 9:37 PM EST): Supportive care: fluids, Rest, Tylenol OTC Benzodiazepine dependence, continuous 05/05/2018 Gastroesophageal reflux disease without esophagi tis 05/05/2018 Hyperlipidemia due to type 2 diabetes mellitus ( [facility]) 05/05/2018 Hypertension 05/05/2018 Assessment & Plan (06/29/2024 [...] use of insulin 05/05/2018 Assessment & Plan (11/20/2024 6:26 PM EDT): Controlled, A1c 6.5%, no changes will be made, reinforced low carb/no sugar diet Assessment & Plan (06/29/2024 12:32 PM EDT): [...] provided with information for follow up with marble cutter operator, her a1c today was 9.0% she is taking jardiance, agree to start trulicity Encounters Date Type Department Care Team Description 12/20/2024 Refill [facility] MED & PEDS [address] [place] [address] Vern Juarez MD Type 2 diabetes mellitus with hyperglycemia, without long-term current use of insulin (CMS/HCC) 11/26/2024 Telephone [facility] MED & PEDS [address] [place] [address] Vern Juarez MD Durable Medical Equipment 11/20/2024 8:30 AM EDT Office Visit [facility] MED & PEDS [address] [place] [address] Vern Juarez MD Type 2 diabetes mellitus with hyperglycemia, without long-term current use of insulin (CMS/HCC) (Primary Dx); Mixed conductive and sensorineural hearing loss of both ears; Mild intermittent asthma without complication; Mixed stress and urge urinary incontinence 11/20/2024 Refill [facility] MED & PEDS [address] [place] [address] Vern Juarez MD 11/20/2024 Travel 11/13/2024 Patient Outreach [facility] CHC MED & PEDS [address] [place] [address] Vern Juarez MD Pre-visit Planning (SDOH negative. Tobacco screening negative. ) from Last 3 Months Immunizations Immunization Administration Dates Next Due Influenza injectable quadriv [...] Recorded Patient Health Questionnaire-2 Score 6 06/29/2024 Internet Access Answer Date Recorded Internet Access Q1 Yes 11/13/2024 Internet Access Q2 Not on file 11/13/2024 Comments Unknown Sex and Gender Information Value Date Recorded Sex Assigned at Female 07/05/2022 10:14 AM EDT Legal Sex Female 10:14 AM EDT Gender Identity Female 07/05/2022 10:14 AM EDT Sexual Orientation Straight 07/05/2022 10 :14 AM EDT Last Filed Vital Signs Vital Sign Reading Time Taken Comments Blood Pressure 144/78 11/20/2024 8:46 AM EDT Pulse 78 11/20/2024 8:46 AM EDT Temperature 36.4 ??C (97.5 ??F) 11/20/2024 8:46 AM ED T Respiratory Rate 20 11/20/2024 8:46 AM EDT Oxygen Saturation 98% 11/20/2024 8:46 AM EDT Inhaled Oxygen Concentration - - Weight 96.3 kg (212 lb 6.4 oz) 11/20/2024 8:46 A M EDT Height 148 cm (4' 10.27 ) 11/20/2024 8:46 AM EDT Body Mass Index 43.98 11/20/2024 8:46 AM EDT Plan of Treatment Health Maintenance [...] X-Ray: Full Mouth 11/30/2020 11/29/2017 COVID-19 Vaccine (3 - 2024-25 season) 2024 12/05/2020, 11/07/2020 Influenza Vaccine (#1) 2024 7, 06/23/2016, 09/15/2013, Additional history exists Lipid Panel 06/21/2024 06/21/2023, 04/2 09/2022, 07/26/2022, Additional history exists Dental Oral Exam 08/09/2024 02/07/2024, 11/29/2017 Diabetes: Urine Protein Screening 08/09/2024 08/09/2023, 11/19/2021, 08/15/2020 Mammogram 04/25/2025 04/25/2023, 12/21/2018 Diabetes: Hemoglobin A1C 05/23/2025 025, 06/29/2024, 02/08/2024, Additional history exists Colonoscopy 06/05/2025 06/05/2015 Colorectal Cancer Screening 06/05/2025 Alcohol/Substance Use Screening 06/29/2025 06/29/2024 Depression Screening 06/29/2025 06/29/2024, 06/29/20 24 Diabetes: Foot Exam 06/29/2025 06/29/2024, 06/29/2024, 06/29/2024, Additional history exists Tobacco Screening 09/21/2025 09/21/2024 SDOH Screening 11/13/2025 11/13/2024 HPV/Cotest 12/02/2025 12/02/2020, 08/23/2017 Pap Smear 12/02/2025 [...] age to complete this topic Meningococcal B Vaccine Aged Out No l onger eligible based on patient's age to complete [...] Diagnosis Comments POCT GLYCATED HEMOGLOBIN, TOTAL Routine 11/20/2024 9:51 AM EDT Type 2 diabetes mellitus with hyperglycemia, without long-term current use of insulin (CMS/HCC) POCT GLUCOSE Routine 11/20/2024 9:49 AM EDT Type 2 diabetes mellitus with [...] Maintenance Results * (ABNORMAL) POCT HGB A1C (11/20/2024 9:51 AM EDT) Hemoglobin A1C 6.5(A) 4.0 - 6.0 % QC Media Lot # [id number] Lot# Expiration Date Blood 11/20/2024 9:51 AM EDT Vern Warner MD POINT OF CARE TEST ENTER/EDIT ORDERABLES Final Result * POCT Glucose (11/20/2024 9:49 AM EDT) Glucose Blood, POC 191 60 - 200 mg/dL QC Media Lot # [id number] Lot# Expiration Date Blood Capillary blood specimen / Unknown 11/20/2024 9:49 AM EDT Vern Warner MD POINT OF CARE TEST ENTER/EDIT ORDERABLES Final Result * Albumin, Random Urine W/Creatinine (08/09/2023 10:25 AM EST) Creatinine, Urine 45.36 mg/dL [facility] Microalbumin Urine 10.0 mg/L [facility] Microalbum Creatinine Ratio Ur 22.0 <30 ug/mg cr [facility] Comment:Albumin/Creatinine R atio Reference Ranges: Normal: < 30 ug/mg creatinine Microalbuminuria: 30 - 300 ug/mg creatinineClinical Albuminuria: > 300 ug/mg creatinine 08/09/2023 10:2 5 AM EST 08/09/2023 2:29 PM EST Vern Warner MD LAB URINE ORDERABL ES Final Result [facility] [address] [place] [phone] * Hepatitis C Antibody with Reflex to HCV, RNA, Quantitative, Real-Time PCR (06/21/2023 9:36 AM EDT) Hepatitis C Antibody Nonreactive Nonreactive [facility] Comment:Antibodies to HCV no t detected; does not exclude early acuteHCV infection. Blood Venous blood specimen / Unknown 06/21/2023 9:36 AM EDT 06/21/2023 2:25 PM EDT Vern Warner MD LAB BLOOD ORDERABL ES Final Result Performing Organization Address [facility] de Phone Number [facility] [address] [place] [phone] * Lipid Panel, Standard (06/21/2023 9:36 AM EDT) Triglycerides 107 <150 mg/dL [facility] Comment:Desirable Triglyceri de: less than 150 mg/dLBorderline High Triglyceride 150-199 mg/dLHigh Triglyceride: 200-499 mg/dLVery High Triglyceride: greater than or equal to 5OO mg/dL Cholesterol 142 <200 mg/dL [facility] Comment:Desirable Cholestero l: less than 200 mg/dLBorderline High Cholesterol: 200-239 mg/dLHigh Cholesterol: greater than 239 mg/dL LDL Cholesterol Calculated 61 <100 mg/dL [facility] Comment:Desirable LDL: less than 100 mg/dLNear Optimal/Above Optimal LDL: 110- 129 mg/dLBorderline High LDL: 130-159 mg/dLHigh LDL: 160-189 mg/dLVery High LDL: greater than or equal to 190 mg/dL HDL Cholesterol 60 >40 mg/dL [facility] Comment:Desirable HDL: great er than 40 mg/dL Note: This HDL assay may give artificially low results in patients with liver disease. Blood Venous blood specimen / Unknown 06/21/2023 9:36 AM EDT 06/21/2023 2:25 PM EDT Vern Warner MD LAB BLOOD ORDERABL ES Final Result Performing Organization Address City/[facility]/ZIP Co de Phone Number [facility] [address] [facility] [place] [phone] * BI Mammogram Screening Tomosynthesis Bilateral (04/25/2023 9:31 AM EDT) Anatomical Region Laterality Modality Breast Bilateral Mammography 04/25/2023 9:31 AM EDT Narrative 05/13/2023 6:28 AM EDT ? [employer] [employer] [facility] [place] ? [address] ?[place] [address] ? Mammography Report ? Signed ? Patient: Rpudencio,Sue ?MR#: [id number] ? : 1960 ?Acct:[id number] ? Age/Sex: 62 / F ?ADM Date: 04/25/23 ? Loc: HO.MAMMO ? Attending Dr: Vern Warner MD ? Ordering Physician: Vern Juarez MD ?Res ?? ults: 1Negative ? Date of Service: 04/25/23 ?Follow Up: 1 Year From Orig ?? inal Mammogram ? Procedure(s): MM tomosynthesis screening BI ?? Accession Number(s): [id number] ? cc: Vern Juarez MD ? EXAMINATION: [...] MD in OV> ? 05/13/23623 ? DD/ 0931 ? TD/TT: ? Professor Of English: ? Procedure Note Tiara, Alberto - 05/13/2023 [facility] [address] [place] [address] Mammography Report Signed Patient: Sophie Flannery#: [id number] : 9Acct:[id number] Age/Sex: 62 / FADM Date: 04/25/23 Loc: HO.MAMMO Attending Dr: Vern Warner MD Ordering Physician: Vern Juarez ults: 1Negative Date of Service: 04/25/23Follow Up: 1 Year From Orig inal Mammogram Procedure(s): MM tomosynthesis screening BI Accession Number(s): [id number] cc: Vern Juarez MD EXAMINATION: MM SCREENING [...] MD in OV> 05/13/23623 DD/ 0 TD/TT: Professor Of English: [facility] Anthony Warner MD IM BI PROCEDURES Edited Result - Final * THINPREP PAP (12/02/2020 10:54 AM EDT) Clinical Information: None given [facility] COMMENT SEE COMMENT [facility]OUND[facility] ON [...] historic and ?? current clinical information. ?? Delineator : SEE COMMENT [facility] [facility] Comment: BIANCHI, CT(ASCP) CT screening location: [address] ??[address] Interpretation/R esult: Negative for intraepithelial lesion or malignancy. [facility] LMP: NONE GIVEN [facility] Prev. BX: NONE GIVEN [facility] Prev. PAP: NONE GIVEN [facility] SOURCE: None given [facility] Statement Of Adequacy: SEE COMMENT [employer] [facility] Comment: Satisfactory for evaluation. Endocervical/transformation zone component absent. 12/02/2020 10:5 4 AM EDT Roz Ac [facility] LAB PATHOLOGY ORDERABLES Final Result Performing Organization Address [facility] de Phone Number [facility] [address] * HPV mRNA E6/E7 (12/02/2020 10:54 AM EDT) HPV nRNA E6/E7 Not Detected Not Detected [facility] Comment: Methodology: Kitchen Bath Designer-Mediated Amplification This assay detects E6/E7 viral messenger RNA (mRNA) from 14 high-risk HPV types (16,18,31,33,35,39,45,51,52,56,58,59,66,68). ? The analytical performance characteristics of this assay have been determined by [employer]. The modifications have not been cleared or approved by the FDA. This assay has been validated pursuant to the CLIA regulations and is used for clinical purposes. ?? For additional information, please refer to http://education.[employer]/faq/JFP297u0 (This link if provided for information/ educational purposes only.) 12/02/2020 10:5 4 AM EDT Roz Shen [facility] LAB BLOOD ORDERABLES Sena l Result Performing Organization Address [facility] de Phone Number [facility] [address] * Hm Colonoscopy (06/05/2015 1:00 PM EDT) Historical Provider MD HEALTH MAINTENANCE Final Result from Last 3 Months or Most Recently Relevant to Health Maintenance Insurance [facility] DETENTION OPTIONS (HMO D-SNP) * Guarantor: Sue Flannery Account Type Relation to Patient Date of Phone Billing Address Personal/Family Self [address] Care Teams Douper Relationship Specialty Start Date End Date Vern Juarez MD [address] [place] [address] [place] PCP - General Internal Medicine 08/09/22
--- OUTSIDE RECORDS SUMMARY | 2025-01-20 19:34 | XMS_ITS | Encounter Summary ---
Author Organization [employer] Address [address] [facility] 7 [place] [address] Care Team Providers Care Neuropsychiatrist Name Role Phone Vern Juarez MD Primary Care Prov ider Reason for Visit * Reason Onset Date Comments Nurse Triage 12/22/2023 Encounter Details Date Type Department Care Team ([facility] st Contact Info) Description 12/22/2023 Telephone [facility] [address] [facility] [place] [address] Vern Juarez MD [address] [place] [address] Nurse Triage Social History Tobacco Use Types [...] OTC Tylenol with mild relief. Pt offered [facility] or to submit instED. Pt states will set up instED herself once her daughter arrives to serve as medical interpreter. Pt advised to call back after instED [...] accepted this outcome Please contact pt at [phone] (Afghan) documented in this encounter Plan of Treatment Not on file documented as of this encounter Visit Diagnoses Not on filedocumented in this encounter Additional Health Concerns Assessment Noted Time PHQ-9 Depression Total Score: 19 024 10:43 AM EST documented as of this encounter Care Teams Neuropsychiatrist Relationship Specialty Start Date End Date Vern Juarez MD [address] [place] [phone] PCP - General Internal Medicine 08/09/22 documented as of this encounter
--- OUTSIDE RECORDS SUMMARY | 2025-01-20 19:34 | XMS_ITS | Encounter Summary ---
Author Organization [employer] Address [address] [facility] 7 [place] [address] Care Team Providers Care Carpenter And Joiner Name Role Phone Vern Juarez MD Primary Care Prov ider Encounter Details Date Type Department Care Team ([facility] st Contact Info) Description 10/19/2023 Orders Only [facility] MED & PEDS [address] [place] [address] Vern Juarez MD [address] [place] [address] Social History Tobacco Use Types Packs/Day Years [...] documented as of this encounter Care Teams Carpenter And Joiner Relationship Specialty Start Date End Date Vern Juarez MD [address] [place] [address] PCP - General Internal Medicine 08/09/22 documented as of this encounter
--- OUTSIDE RECORDS SUMMARY | 2025-01-20 19:34 | XMS_ITS | Encounter Summary ---
Author Organization [employer] Address [address] [facility] 7 [place] [address] Care Team Providers Care Brownfield Redevelopment Specialist Name Role Phone Vern Juarez MD Primary Care Prov ider Reason for Visit * Reason Onset Date Comments Durable Medical Equipment 09/24/2022 Encounter Details Date Type Department Care Team ([facility] Contact Info) Description 09/24/2022 Telephone [facility] CH[facility] MED & PEDS [address] [place] [address] Vern Juarez MD [address] [place] [address] Durable Medical Equipment Social History Tobacco Use [...] documented as of this encounter Care Teams Brownfield Redevelopment Specialist Relationship Specialty Start Date End Date Vern Juarez MD [address] [place] [id number] PCP - General Internal Medicine 08/09/22 documented as of this encounter
--- OUTSIDE RECORDS SUMMARY | 2025-01-20 19:34 | XMS_ITS | Encounter Summary ---
Author Organization [employer] Address [address] 7[address] [place] [address] Care Team Providers Care Ophthalmology Technician Name Role Phone Vern Juarez MD Primary Care Prov ider Encounter Details Date Type Department Care Team (Late st Contact Info) Description 12/23/2023 Orders Only [facility] [address] [place] [address] ProviderRegis MD Social History Tobacco Use Types Packs/Day Years Used Date Smoking Tobacco: Never Passive Smoke Exposure: Never Smokeless Tobacco: Never Alcohol Use Standard Drinks/Week Comments Never 0 (1 standard drink = 0.6 oz pur e alcohol) Depression Answer Date Recorded Patient Health Questionnaire-9 Score 10/17/2023 Patient Health Questionnaire-9 Score 10/17/2023 Last PHQ-9: Questionnaire Data Not on [...] Procedure Name Priority Date/Time Associated Diagnosis Comments COLONOSCOPY Routine 06/05/2015 1:00 PM EDT documented in this encounter Results * Hm Colonoscopy (06/05/2015 1:00 PM EDT) us Historical Provider HEALTH MAINTENANCE Final Result documented in this encounter Visit Diagnoses Not on filedocumented in this encounter Additional Health Concerns Assessment Noted Time PHQ-9 Depression Total Score: 19 024 10:43 AM EST documented as of this encounter Care Teams Ophthalmology Technician Relationship Specialty Start Date End Date Vern Juarez MD [address] [place] [phone] PCP - General Internal Medicine 08/09/22 documented as of this encounter
--- OUTSIDE RECORDS SUMMARY | 2025-01-20 19:34 | XMS_ITS | Encounter Summary ---
Author Organization [employer] Address [address] [place] [address] 7 [place] [address] Care Team Providers Care Senior Program Planner Name Role Phone Vern Juarez MD Primary Care Prov ider Reason for Visit * Reason Onset Date Comments Med Refill 03/01/2023 Encounter Details Date Type Department Care Team ([facility] Contact Info) Description 03/01/2023 Telephone [facility] CHC MED & PEDS [address] [place] [address] Vern Juarez MD [address] [place] [address] Med Refill Social History Tobacco Use Types [...] - 03/04/2023 11:07 AM EDT T?C to [phone] for below message, pt. Had question for medication delivery. Pt. Advised to call to pharmacy for delivery status. Pt. Verbally agreed and understood. * Telephone Encounter - Vandana Vick - 03/01/2023 3:11 PM EDT Tc from pt requesting to speak with someone regarding her medications . [facility] pharmacy has all hermeds on hold [...] documented as of this encounter Care Teams Senior Program Planner Relationship Specialty Start Date End Date Vern Juarez MD [address] [place] [phone] PCP - General Internal Medicine 08/09/22 documented as of this encounter
--- OUTSIDE RECORDS SUMMARY | 2025-01-20 19:34 | XMS_ITS | Clinical Summary ---
Author Organization [facility] it Address [address] [place] [address] Care Team Providers Care Senior Sql Dba Name Role Phone Sangeetha Cruz MD Primary Care Provider [phone] Surgical History Surgery Date Site/Laterality Comments TUBAL [...] ars (1 of 2 - PCV) 1977 Zoster Vaccines (1 of 2) 2008 RSV Immunization Adult Patie nts (1 - Risk 60-74 years 1-dose series) [...] - 2023-2 5 season) 2024 Influenza Vaccine (Season Ended) 2025 HIB Vaccines Aged Out No longer eligi [...] on File Type Date Recorded Patient Special Shopper Expl anation Health Care Decision (hx) 02/05/2022 AD BLOCK DIRECTIVE Health Care Decision (hx) 02/05/2022 AD BLOCK DIRECTIVE Health Care Decision (hx) 02/05/2022 AD BLOCK DIRECTIVE Health Care Decision (hx) 02/05/2022 AD BLOCK DIRECTIVE Care Teams Senior Sql Dba Relationship Specialty Start Date End Date Sangeetha Cruz MD [facility] [address] PCP - General Internal Medicine 12/23/14
--- OUTSIDE RECORDS SUMMARY | 2025-01-20 19:34 | XMS_ITS | Encounter Summary ---
Author Organization [employer] Address [address] [facility] 7 [place] [address] Care Team Providers Care Relay Shop Supervisor Name Role Phone Vern Juarez MD Primary Care Prov ider Reason for Visit * Reason Comments Med Refill Encounter Details Date Type Department Care Team ([facility] Contact Info) Description 02/28/2023 Refill [facility] CHC MED & PEDS [address] [place] [address] Vern Juarez MD [address] [place] [address] Social History Tobacco Use Types Packs/Day Years [...] documented as of this encounter Care Teams Relay Shop Supervisor Relationship Specialty Start Date End Date CruzVern Sandhu MD [address] [place] [phone] PCP - General Internal Medicine 08/09/22 documented as of this encounter
--- OUTSIDE RECORDS SUMMARY | 2025-01-20 19:34 | XMS_ITS | Encounter Summary ---
Author Organization [employer] Address [address] [facility] 7t [place] [address] Care Team Providers Care Manager Continuous Improvement Name Role Phone Vern Juarez MD Primary Care Prov ider Encounter Details Date Type Department Care Team ([facility] st Contact Info) Description 06/22/2023 Orders Only [facility] CHC MED & PEDS [address] [place], [place] [phone] Vern Juarez MD [address] [place] [address] Social History Tobacco Use Types Packs/Day Years [...] documented as of this encounter Care Teams Manager Continuous Improvement Relationship Specialty Start Date End Date Vern Juarez MD [address] [place] [phone] PCP - General Internal Medicine 08/09/22 documented as of this encounter
--- OUTSIDE RECORDS SUMMARY | 2025-01-20 19:34 | XMS_ITS | Encounter Summary ---
Author Organization [employer] Address [address] [facility] 7 [place] [address] Care Team Providers Care Bulb Filler Name Role Phone Vern Juarez MD Primary Care Prov ider Reason for Visit * Reason Onset Date Comments Appointment Request 11/08/2023 Encounter Details Date Type Department Care Team ([facility] st Contact Info) Description 11/08/2023 Telephone [facility] MEDIC[facility] [address] [place] [address] Vern uJarez MD [address] [facility] [place] [address] Appointment Request Social History Tobacco Use Types [...] documented as of this encounter Care Teams Bulb Filler Relationship Specialty Start Date End Date Vern Juarez MD [address] [place] [phone] PCP - General Internal Medicine 08/09/22 documented as of this encounter
--- OUTSIDE RECORDS SUMMARY | 2025-01-20 19:35 | XMS_ITS | Data Portability ---
Author Organization [employer], [place] Address [address] [place] [address] Care Team Providers Care Level Vial Curvature Gauger Name Role Phone LAURA BUSTILLOS Primary Care Provider [facility] OTHER Assessment Encounter Date Assessment Date Assessment LastModified by Organization Details LastModified Time 08/19/2023 08/19/2023 I provided real -time medical direction via phone for this encounter, and was available for additional phone based assistance as needed. I have reviewed and agree with the Assessment and Plan as documented by the Underwriting Consultant. Patient given the opportunity to ask questions. Advised dru Not available 08/19/2023 11:59:50 04/30/2024 04/30/2024 I provided real -time medical direction via phone for this encounter and was available for additional phone-based assistance as needed. I have reviewed and agree with the Assessment and Plan as documented by the Underwriting Consultant. Patient given the opportunity to ask questions. Our service contacted for an assessment of: chronic constipation As per above, patient seen recently with constipation. Started on Miralax and now c/o some burning when she moves her bowels. Denies any blood in stool currently. Per cloth colors examiner on the scene, VSTRINH Hernández Impression: Likely [...] assessment and plan as documented by the cloth colors examiner. I provided real-time medical direction for this [...] both arms. Exam otherwise unremarkable per the cloth colors examiner. Impression: HTN in the context of chest [...] other concerns. paysola Not available 10/15/2024 20:09:12 01/20/2025 01/20/2025 As noted, we were called to see this patient regarding concerns of abdominal pain epigastric. Evaluation in the field was performed by my cloth colors examiner colleague, as noted above, I provided real-time direction and supervision for this visit. The evaluation revealed the patient is a 64 year old female who presents with epigastric abdominal pain. This has been going on for greater than 24 hours. She's had some nausea but no vomiting. No diarrhea. She's had normal bowel movements. The pain radiates into the chest. Patient has had a Cholecystectomy . Has a history of kidney stones. She describes the pain as an 8 out of 10 pain. Evaluation by the cloth colors examiner shows She's quite tender in the epigastric area. She has Right flank tenderness. An EKG was done which does not show any ischemic changes. Given the fact that the patient has significant abdominal pain, she will need CT scanning and further evaluation of her pain. Arrangements were made to send the patient via EMS to [facility]. I called a quick report. Impression: acute epigastric abdominal pain Plan: 1) EKG shows nsr HR 67 first degree av block, normal qrs, nonspecific st-twave changes no stemi 2) Urinalysis shows potential infection 3) Given 04/14 abdominal pain pt sent via ems to [place] ED report given by me Primary care, consider f/u Er visit Disposition: To Er [facility] We discussed the situation and I recommended referral to the emergency department. This was based on abd pain [email or web address] Not available 01/20/2025 18:34:47 Plan of Treatment Reminders Order Date Submit Date Provider Last Modified By Organization Details Last Modified Time Details Appointments Urgent Care 2024 05:09P Lux HDZ MD Not available Not available Not available Lab urinaly sis, dipstic k 2024 [email or web address], [address] 01/20/2025 18:24:18 rapid SARS CoV 2 Ag, QL [place], respira tory specime n [address], [address] 06/04/2024 19:58:10 rapid flu (A+B) [address], [address] 06/04/2024 19:58:35 Referral None recorde d. Procedures None recorde d. Surgeries None recorde d. Imaging electro cardiog jeff [address], [address] 01/20/2025 18:25:48 Medication Orders prednis one 20 mg tablet 2023 024 [email or web address]/Pharmacy #[id number], [address] [place], [address], 06/04/2024 13:27:09 prednis one 20 mg tablet 2023 024 [facility]/Pharmacy #[id number], [address] [place], [address], 06/04/2024 13:27:12 azithro mycin 250 mg tablet 2023 024 [id number], [address] [place], [address], 06/04/2024 13:27:10 azithro mycin 250 mg tablet 2023 024 [id number], [address] [place], [address], 06/04/2024 13:27:12 Patient TargetsNo targets recorded. Patient InstructionsNo instructions recorded. Reason for Referral None Reported. Results Created Date Observation Date Name Description Value Unit Range Abnormal Flag Note LastModifiedBy Organization Detail LastModifiedTime 01/21/20 25 elect dagmar grimesgr am No observ ation record ed. [address], [phone] 01/20/2025 18:24:02 Result Notes None recorded. Procedures Surgical History None recorded. Imaging Results Imaging Date Name Status LastModified by Organiz ation Details LastModified Time 01/20/2025 electrocardiogram active [address], [address] 01/20/2025 18:24:02 Procedure Notes None recorded. Medical Equipment None Reported. Allergies Allergen ID Allergen Name Allergen Category Reaction Reaction Severity Criticality Documentation Date Start Date Code Code System Note Provider Name and Address Organization Details Recorded Time 16588 oxycodone medicatio n Not available Not available Not available 01/20/2025 7804 RxNorm Not Available [facility] - [facility] 5 17:03:11 4077 aspirin medicatio n Not available Not available Not available 08/19/2023 1191 RxNorm Not Available [facility] - production 4 03:34:03 4078 morphine medicatio n Not available Not available Not available 08/19/2023 7052 RxNorm Not Available [facility] - production 5 17:03:11 4079 Zomig medicatio n Not available Not available Not available 08/19/2023 93915 4 RxNorm Georgina Canela MD [address] [place] [address],[address], [place], [address] [place] [address] [employer] 3 13:49:27 Medications Name Sig Start Date [...] /min 98 % 98 % 70 /min 28200.4 g 98.2 [degF] 142 mm[Hg] 80 mm[Hg] Not Available [facility] - production 3 11:58:53 Date Recorded Body temperature Oxygen saturation Oxygen saturation in Arterial blood by Pulse oximetry Body weight Body height Respiratory rate Heart rate Systolic blood pressure Diastolic blood pressure Provider Name and Address Organization Details Last Updated DateTime 4 98 [degF] 97 % 97 % 56514.2 4 g 152.4 cm 16 /min 64 /min 170 mm[Hg] 90 mm[Hg] Not Available [facility] - production 4 14:10:39 Date Recorded Respiratory rate Body temperature Oxygen saturation Oxygen saturation in Arterial blood by Pulse oximetry Heart rate Systolic blood pressure Diastolic blood pressure Provider Name and Address Organization Details Last Updated DateTime 4 20 /min 97.3 [degF] 98 % 98 % 76 /min 116 mm[Hg] 60 mm[Hg] Not Available [facility] - production 4 13:21:50 Date Recorded Body temperature Oxygen saturation Oxygen saturation in Arterial blood by Pulse oximetry Heart rate Respiratory rate Systolic blood pressure Diastolic blood pressure Provider Name and Address Organization Details Last Updated DateTime 5 97.9 [degF] 99 % 99 % 84 /min 16 /min 170 mm[Hg] 90 mm[Hg] Not Available [employer] 5 19:50:59 Date Recorded Oxygen saturation Oxygen saturation in Arterial blood by Pulse oximetry Heart rate Respiratory rate Body temperature Systolic blood pressure Diastolic blood pressure Provider Name and Address Organization Details Last Updated DateTime 5 99 % 99 % 73 /min 20 /min 97.7 [degF] 151 mm[Hg] 74 mm[Hg] Not Available [employer] 5 18:10:05 Social History None recorded. Functional Status None recorded. Mental Status None recorded. Family History Nothing Reported. Medical History No medical history recorded. Gynecological HistoryNo gynecological history recorded. Obstetrics History GPAL:G 0 P 0 0 0 0 Past Encounters Encounter ID Performer Location Encounter Start Date Encounter Closed Date Diagnosis/Indication Diagnosis SNOMED-CT Code Diagnosis ICD10 Code Diagnosis Note [id number] Ken Boswell MD [facility] [address] [place] [address] 08/20/2022 13:05:35 08/24/2022 10:42:11 Near syncope 118748039 R55 Reports three weeks of seconds-lo ng lightheade dness on standing and walking, self resolves. No symptoms at rest or at present. Referring clinician asks for POC blood work but patient declines to provide blood sample at this time. Symptoms seem most consistent with postural presyncope , advised continued oral hydration and PCP follow-up. [id number] Georgina Canela MD [facility] [address] [place] [address] 08/19/2023 11:58:50 08/20/2023 14:36:41 Acute low back pain 541587232 M54.50 pat c/o severe 06/14pain- I doubt Tylenol will do anything for her discomfort . I am not comfortabl e giving ketorolac to somebody who has a severe aspirin allergy and has some kind of reaction to oral NSAIDs/pos sibly allergic. I explained this to the patient and her daughter who is an employee at [employer]. This may be muscular but I [...] report called by me to ED nursing [id number] Galilea Schultz MD [facility] [address] [place] [address] 04/30/2024 14:10:35 04/30/2024 15:19:36 Chronic constipation 715648572 K59.09 [id number] Sharita Guerrero MD [facility] [address] [place] [address] 06/04/2024 13:21:47 06/05/2024 13:09:17 Exacerbation of intermittent asthma 842093869 J45.21 I provided real -time medical direction via phone for this encounter, and was available for additional phone based assistance as needed. I have reviewed and agree with the Assessment and Plan as documented by the Underwriting Consultant. Patient given the opportunit y to ask [...] dose now)- zpack (first dose, 500mg now) [id number] Emma Mcgovern MD [facility] [address] [place] [phone] 10/15/2024 19:50:56 10/15/2024 22:26:22 Chest pain 54961049 R07.9 [id number] NEDA HDZ MD [facility] [address] [place] [address] 01/20/2025 18:09:56 01/20/2025 19:12:14 Epigastric pain 52302329 R10.13 Health Concerns Section Related Observation LastModified by Organization Detai ls LastModified Time None Recorded Concern Status LastModified by Organization Details LastModified Time None Recorded Advance Directives Directive None Recorded Payers Insurance Date Sequence Insurance Name Policy Number Policy Mitchell Covered Member ID Mitchell Member ID Guarantor Name 08/19/2023 1 [facility] - DOS PRIOR TO 2022 - DUAL ELIGIBLE (MEDICARE REPLACEMENT/ADV ANTAGE - HMO) Sue Flannery [id number] Sue Flannery 01/20/2025 1 [facility] - DOS ON OR AFTER 2022 - DUAL ELIGIBLE - [employer] OPTIONS AND ONE CARE (MEDICARE REPLACEMENT/ADV ANTAGE - HMO) Sue Flannery [id number] Sue Flannery Notes Date Note Type Note Provider Name and Address Organization Details Recorded Time 08/19/2023 text/html HPI: Call to Sue Flannery, reports having mid upper back pain x 1 day. Per pt pain radiates to right leg and having numbness. Pt denies any abdominal pain or Urinary sx. Pt using Tylenol with mild relief. Pt denies any fall or twisting injury. Pt advised of disposition, agrees to instED referral as not able to come into [facility]. ................... ................... ................... ................... ................... ................... ................... ........ CRC Nursing Assessment: Comments: CRC RN did not require any additional information to process this visit. ................... ................... ................... ................... ................... ................... ................... ........ Underwriting Consultant Note From Ronnie Diaz: Pt co right sided mid to lower back pain 10/. Pt denies falls or injury. Laying on her left side relieve pain somewhat. Area tender and painful to touch. PT sts ibuprofen makes her anxious. Baseline vitals stable. [facility] contacted and recommended going to ER. Pt daughter is taking her to [facility]. Underwriting Consultant Allergies: Morphine ................... ................... ................... ................... ................... ................... ................... ........ Disposition: FulfilledSEGMD: As above- Except: patient said motrin and other similar drugs make jumpy and shaky in Estonian/ she is very allergic to asa- details not provided. pain is exacerbated by movement. She has had similar pain in the past and was told it was muscular and was relieved by gabapentin. She denies fever, chills, sweats, chest pain, cough, shortness of breath, abdominal pain, nausea vomiting diarrhea or incontinence of bladder or bowel. She denies UTI symptoms. Georgina Canela MD [address] [place] [address],[address], [place], [address], [employer] 08/19/2023 13:58:36 04/30/2024 text/html HPI: [facility]'s Behavioral health clinician, Simba from [facility], reporting lower abdominal pain and irritation in the same area>recently diagnosed this past tuesday night into tuesday morning for constipation>no relief since then ................... ................... ................... ................... ................... ................... ................... ........ CRC Nurse Triage Notes (Иван Penaloza): Chief Complaints: Constipation, Abdominal Pain PMH: COPD/Asthma, Diabetes, Hypertension Allergies: Morphine Comments: Program Director [employer] verified the member's name//address and phone number. [facility]'s behavioral health clinician, Simba, calling in reporting [...] emergency treatment if needed -Margaret Penaloza RN ................... ................... ................... ................... ................... ................... ................... ........ Underwriting Consultant Note From Max Delaney: [facility] visit for female pt. Pt is Estonian speaking so staff genetic counselor services were utilized. Pt complaining of some [...] of the same. Pt afebrile. Consulted with [facility] Dr. Schultz who advised pt try OTC witch tunde wipes for burning and sitz bath. Reviewed red flags for ED. Pt education provided. ................... ................... ................... ................... ................... ................... ................... ........ Disposition: Fulfilled Galilea Schultz MD [address] [facility],[address], [place], [address], [employer] 04/30/2024 14:28:59 06/04/2024 text/html HPI: Call returned to Sue Flannery to triage below. Reports having cough and intermittent wheezing x 3 days. Per pt cough is dry. Pt also endorses ST, MCNULTY. No nasal congestion. NO home kit for COVID-19. Denies any fever. Pt having chest pain with wheezing. Pt denies any SOB. Pt advised of disposition, agrees to instED eval as unable to come into our walk in center. Confirmed address and phone number. ................... ................... ................... ................... ................... ................... ................... ........ CRC Nurse Triage Notes (Иван Penaloza): Chief Complaints: Asthma PMH: Hypertension, COPD/Asthma, Diabetes, Hypertension Allergies: Aspirin, Morphine Other Allergies: oxycodone, zolmitriptan Comments: HPI reviewed by this RN, no further information needed to process visit -Margaret Penaloza RN Underwriting Consultant Organization Information for [employer] [facility] [employer] Name: [employer]? Address: [address] [place] [address], Boom Master: Charles JALLOH No.: [id number] Underwriting Consultant POC Test Results from [employer] Rapid COVID antigen (13:07:35) COVID: - Rapid influenza antigen (13:07:37) Flu: - ................... ................... ................... ................... ................... ................... ................... ........ Underwriting Consultant Note From [employer]: Dispatched to the [...] bases and rhonchi in the upper left. [facility] consulted. Pt given 500mg Azithromycin and 40mg Prednisone. Scripts called into preferred pharmacy. Red flags discussed. ALL times are approx. ................... ................... ................... ................... ................... ................... ................... ........ Disposition: Fulfilled Sharita Guerrero MD [address] [place] [address],[address], [place], [address], [employer] 06/04/2024 21:39:42 10/15/2024 text/html CRC Nurse Triage Notes (Samantha Moraes - RN): Reason For Request: Patient has low blood pressure with 1 arm but different with the other arm, and feels dizzy. Chief Complaints: Hypertension PMH: COPD/Asthma, Hypertension PMH Reviewed at 10/15/2024 - 18:20 Allergies Reviewed at 10/15/2024 - 18:20 Comments: Referral taken via [employer]. Patient calling in to request a visit. Patient who has felt shortness of breath, dizzy with pain in her mid chest area since about 4p. She denies any left jaw, neck, shoulder or arm pain, she denies any weakness, numbness or tingling any where, no diaphoresis, but feels hot, no nausea or vomiting, no headache. Someone who knows patient, speaks argentine and familiar with the cuff took patients blood pressure in her left arm and was 166/88, HR 76. RED flags discussed with patient via staff genetic counselor, and the woman who was present with the patient will also encourage 911/ED if symptoms worsen. Per patient around 4p her right arm BP was 94/45, HR 67, and left arm was 148/75, HR 73. Patient declining ED at this time. Underwriting Consultant Organization Information for [employer] [facility] [employer] Name: [employer]? Address: [address] [place] [address], Boom Master: Charles Choudhury MD CLIA No.: [id number] Underwriting Consultant POC Test Results from [employer] EKG (20:25:15) EKG test performed. Attachments uploaded as part of this test result can be found under Documents section. ................... ................... ................... ................... ................... ................... ................... ........ Underwriting Consultant Note From [employer]: Dispatch to the [...] skin PWD with good turgor, ABD soft nontender/distended . Mucous membranes pink and moist. Negative edema/swelling, lung sounds CTA, pupils PERRL, + CMSx4. [facility] consulted, 12 lead EKG. Patient advised she should be evaluated in the ED patient initially hesitant but eventually agreed to go. 911 called on behalf of the patient. This cloth colors examiner waited with the patient until EMS arrived. Patient transfer of care report given to paramedics. Patient transported to a [facility]. All times are approximate. ................... ................... ................... ................... ................... ................... ................... ........ [facility] Consulted: Emma Mcgovern ................... ................... ................... ................... ................... ................... ................... ........ Disposition: Fulfilled Emma Mcgovern MD [address] [facility],[address], [place], [address], [employer] 10/15/2024 21:47:50 01/20/2025 text/html CRC Nurse Triage Notes (Samantha Moraes): Reason For Request: General illness, patient just has not felt well ,for the last day or so. Patient feels Dizzy, and has stomach pain. Patient feels tired. Patient Reports: Vague abdominal pain greater than 24 hours; Nausea with or without vomitingDenies: Sharp focal or diffuse abdominal pain Vomiting blood/coffee ground material Bloating, jaundice new onset with pain Nausea and vomiting greater than 2 hours with abdominal pain Tearing pain that radiates to back Food Impaction Chief Complaints: Abdominal Pain, Dizziness, Nausea / VomitingPMH: COPD/Asthma, Hypertension, Diabetes Mellitus Type 2PMH Reviewed at 01/20/2025 - :03Allergies Reviewed at 01/20/2025 - :03Comments: 64 y.o female complains of Abdominal Pain, Dizziness, Nausea / Vomiting Referral taken via [employer].Patient reports abdominal pain since yesterday, and dizziness that started about 5 minutes before calling in to place a referral.Patient reports starting ozempic 6 months ago, but just starting to take it correctly.Patient generally feels unwell and fatigued.She also reports nausea, denies vomiting or diarrhea, last BM was this morning.She states feeling very bloated, tender and semi-firm, denies distention, no back pain.Blood sugar 137She would like to be evaluated. I provided information on the mobile health provider response time and advised the patient and/or caregiver to monitor reported signs and symptoms. I discussed the warning signs of when to seek emergency care. Underwriting Consultant Organization Information for Chase [employer] Legal Name: [employer]Address: [address] [place] [id number], Medical Director: Charles BAER No.: [id number] Underwriting Consultant POC Test Results from [facility] [employer] [facility] EKG (17:57:18)EKG test performed.Attachmen ts uploaded as part of this test result can be found under Documents section. Urine Dipstick (18:06:27)Urine leukocytes: 15 LEUUrine nitrites: - NITUrine urobilinogen: 0.2 UROUrine protein: 15 PROUrine pH: 6.0 pHUrine blood: + BLOUrine specific gravity: 1.015 SGUrine ketones: 15 KETUrine bilirubin: - BILUrine glucose: 500++ GLU ................... ................... ................... ................... ................... ................... ................... ........ Underwriting Consultant Note From Chase Kiran: [facility] makes pt contact. She answers the door wearing a painful grimace on her face. Her face is flushed and she walks very slowly to sit on the sofa. Her gait is normal, no facial droop or one-sided weakness are observed, she is not in respiratory distress, and she is not bleeding anywhere. Pt is Estonian-speaking only and staff genetic counselor services are utilized for hx and translation. Pt endorses abdominal pain x3 weeks. She describes it as colicky and gassy and runs her hands across her upper abdominal region. The pain has started to move in to her lower back and R flank. In previous days, she has had some LLQ pain, but not today. She c/o nausea today and today the pain is 8/10, as determined from Torrez-Maciel Faces scale. Pt also says she began to experience some dizziness about 15 min prior to her call for [facility] visit today. She called today because, although she has had increased abdominal pain for 3 weeks, today is as bad has it has been. Her doctor increased her Ozempic dose and to the pt, it seems the abdominal pain has coincided w/ that increase as well as an increase in flatulency. She denies diarrhea, black/bloody stools, or urinary symptoms. No cp today, no sob, no fever, but she had some mild chest discomfort yesterday and has chills today. Pt maintains her appendix and reproductive organs, but has had a cholecystectomy. Hx of kidney stone x10 years ago, which pt passed on her own. [facility] obtains vital signs and pt is assessed. Head is atraumatic and normocephalic. Sclera are clear, pupils are PERRL, and extraocular movements are intact. Lung sounds are clear to auscultation bilaterally. R side CVA tenderness and R flank pain w/ palpation. Abdomen is visibly distended, but soft. Tender to palpation through the upper quadrants and epigastric region. A 12-lead EKG is obtained and found to be sinus w/ 1st degree AV block. No acute ST or T wave abnormalities are present. Pt is able to provide a urine sample for UA. UA results suggest possible infection. [facility] contacts [facility] and discusses the above. Due to pt c/o 8/10 abd pain and hx of kidney stone, [facility] recommends transport to the ED for CT scan of her abdomen. Pt is initially reluctant to go, however, [facility] is able to convince her and she agrees. [facility] contacts 911 and pt is transported to [facility] by [facility] Department. [facility] is clear. Report completed by BETTINA Kiran [id number]. [facility] Lab Orders: urinalysis, dipstick: Performed ................... ................... ................... ................... ................... ................... ................... ........ [facility] Consulted: Neda Hdz ................... ................... ................... ................... ................... ................... ................... ........ Disposition: Fulfilled NEDA HDZ MD [address] [facility],[address], [place], [address], FEMI HOUSTON OSPINA 01/20/2025 19:12:12 OBGyn Episode No OBEpisode recorded.
--- OUTSIDE RECORDS SUMMARY | 2025-01-20 19:35 | XMS_ITS | Continuity of Care Document ---
Author Organization [employer] Address [address] [place] [id number] Care Team Providers Care Retirement Actuary Name Role Phone LAURA BUSTILLOS Primary Care Provider [facility] OTHER Assessment Encounter Date Assessment Date Assessment LastModified by Organization Details LastModified Time 01/20/2025 01/20/2025 As noted, we were called to see this patient regarding concerns of abdominal pain epigastric. Evaluation in the field was performed by my sales service executive colleague, as noted above, I provided real-time [...] out of 10 pain. Evaluation by the sales service executive shows She's quite tender in the epigastric area. She has Right flank tenderness. An EKG was done which does not show any ischemic changes. Given the fact that the patient has significant abdominal pain, she will need CT scanning and further evaluation of her pain. Arrangements were made to send the patient via EMS to [facility]. I called a quick report. Impression: acute epigastric abdominal pain Plan: 1) EKG shows nsr HR 67 first degree av block, normal qrs, nonspecific st-twave changes no stemi 2) Urinalysis shows potential infection 3) Given 8/10 abdominal pain pt sent via ems to [facility] ED report given by me Primary care, consider f/u Er visit Disposition: To Er [facility] We discussed the situation and I recommended referral to the emergency department. This was based on abd pain [email or web address] Not available 01/20/2025 18:34:47 Plan of Treatment Reminders Order Date Submit Date Provider Last Modified By Organization Details Last Modified Time Details Appointments Urgent Care 2024 05:09P Lux REID MD Not available Not available Not available Lab urinalysi s, dipstick 2024 025 [place] [id number] 01/20/2025 18:24:18 Referral None recorded. Procedures None recorded. Surgeries None recorded. Imaging electroca rdiogram 2024 025 [place] [id number] 01/20/2025 18:25:48 Medication Orders None recorded. Patient TargetsNo targets recorded. Patient InstructionsNo instructions recorded. Reason for Referral None Reported. Results Created Date Observation Date Name Description Value Unit Range Abnormal Flag Note LastModifiedBy Organization Detail LastModifiedTime 01/21/20 25 elect rocar diogr am No observ ation record ed. [place] [id number] 01/20/2025 18:24:02 Result Notes None recorded. Procedures Surgical History None recorded. Imaging Results Imaging Date Name Status LastModified by Organiz ation Details LastModified Time 01/20/2025 electrocardiogram active [place] [id number] 01/20/2025 18:24:02 Procedure Notes None recorded. Medical Equipment None Reported. Allergies Allergen ID Allergen Name Allergen Category Reaction Reaction Severity Criticality Documentation Date Start Date Code Code System Note Provider Name and Address Organization Details Recorded Time 56662 oxycodone medicatio n Not available Not available [...] Not available Not available Not available 08/19/2023 30429 4 RxNorm Georgina Canela MD [address] [facility],[address], [place], [phone], [facility] HangtimeHOUSTON CARLTON 3 13:49:27 Medications Name Sig Start Date [...] Available No t Available Vitals Date Recorded Oxygen saturation Oxygen saturation in Arterial blood by Pulse oximetry Heart rate Respiratory rate Body temperature Systolic blood pressure Diastolic blood pressure Provider Name and Address Organization Details Last Updated DateTime 5 99 % 99 % 73 /min 20 /min 97.7 [degF] 151 mm[Hg] 74 mm[Hg] Not Available [employer] [facility] [employer] 5 18:10:05 Social History None recorded. Functional Status None recorded. Mental Status None recorded. Family History Nothing Reported. Medical History No medical history recorded. Gynecological HistoryNo gynecological history recorded. Obstetrics History GPAL:G 0 P 0 0 0 0 Past Encounters Encounter ID Performer Location Encounter Start Date Encounter Closed Date Diagnosis/Indication Diagnosis SNOMED-CT Code Diagnosis ICD10 Code Diagnosis Note [id number] NEDA REID MD Main - [address] [phone] 01/20/2025 18:09:56 01/20/2025 19:12:14 Epigastric pain 70207091 R10.13 Health Concerns Section Related Observation LastModified by Organization Detai ls LastModified Time None Recorded Concern Status LastModified by Organization Details LastModified Time None Recorded Payers Encounter Date Sequence Insurance Name Policy Number Policy Mitchell Covered Member ID Mitchell Member ID Guarantor Name 01/20/2025 1 [facility] - DOS ON OR AFTER 2022 - DUAL ELIGIBLE - [facility] OPTIONS AND ONE CARE (MEDICARE REPLACEMENT/ADV ANTAGE - HMO) Sue Flannery [id number] Sue Flannery Notes Date Note Type Note Provider Name and Address Organization Details Recorded Time 01/20/2025 text/html CRC Nurse Triage Notes (Samantha [...] Mellitus Type 2PMH Reviewed at 01/20/2025 - 17:03Allergies Reviewed at 01/20/2025 - 17:03Comments: 64 y.o female complains of Abdominal Pain, Dizziness, Nausea / Vomiting Referral taken via Projection Technician.Patient reports abdominal pain since yesterday, and dizziness [...] signs of when to seek emergency care. Auditing Control Clerk Organization Information for Chase Kiran HOMEROAmyanitha Legal Name: [employer]Address: [address] [place] [id number], [facility] Charles Choudhury [facility] No.: [id number] Auditing Control Clerk POC Test Results from Chase Kiran HOMERO [...] ................... ................... ................... ................... ................... ................... ........ Auditing Control Clerk Note From Ajith Kirangiana: [facility] makes pt contact. She answers the door wearing a painful grimace on her face. Her face is flushed and she walks very slowly to sit on the sofa. Her gait is normal, no facial droop or one-sided weakness are observed, she is not in respiratory distress, and she is not bleeding anywhere. Pt is Tajik-speaking only and automotive parts interpreter services are utilized for hx and translation. [...] 15 min prior to her call for [facility] visit today. She called today because, [...] ago, which pt passed on her own. [facility] obtains vital signs and pt is [...] for UA. UA results suggest possible infection. [facility] contacts [facility] and discusses the above. Due to pt c/o 8/10 abd pain and hx of kidney stone, [facility] recommends transport to the ED for CT scan of her abdomen. Pt is initially reluctant to go, however, [facility] is able to convince her and she agrees. [facility] contacts 911 and pt is transported to [facility] by [facility] Department. [facility] is clear. Report completed by BETTINA Kiran [id number]. [facility] Lab Orders: urinalysis, dipstick: Performed ................... ................... ................... ................... ................... ................... ................... ........ [facility] Consulted: Neda Reid ................... ................... ................... ................... ................... ................... ................... ........ Disposition: Fulfilled NEDA REID MD [address] [facility],[address] [facility], [place], [address], [employer]ST[employer] CARLTON 01/20/2025 19:12:12 OBGyn Episode No OBEpisode recorded.
--- OUTSIDE RECORDS SUMMARY | 2025-01-20 19:35 | XMS_ITS | Encounter Summary ---
Author Organization [employer] Address [address] [facility] 7 [place] [address] Care Team Providers Care Linker Up Name Role Phone Vern Juarez MD Primary Care Prov ider Reason for Visit * Reason Onset Date Comments Durable Medical Equipment 08/06/2024 Encounter Details Date Type Department Care Team ([facility] st Contact Info) Description 08/06/2024 Telephone [facility] MEDICINE [address] [place] [address] Vern Juarez MD [address] [place] [address] Durable Medical Equipment Social History Tobacco Use [...] documented as of this encounter Care Teams Linker Up Relationship Specialty Start Date End Date Vern Juarez MD [address] [place] [id number] PCP - General Internal Medicine 08/09/22 documented as of this encounter
--- OUTSIDE RECORDS SUMMARY | 2025-01-20 19:35 | XMS_ITS | Encounter Summary ---
Author Organization [employer] Address [address] [facility] 7 [place] [address] Care Team Providers Care Vacuum Cooker Operator Name Role Phone Vern Juarez MD Primary Care Prov ider Reason for Visit * Reason Onset Date Comments Appointment Request 03/12/2024 Encounter Details Date Type Department Care Team ([facility] st Contact Info) Description 03/12/2024 Telephone [facility] MEDICINE [address] [place] [address] Vern Juarez MD [address] [facility] [place] [address] Appointment Request Social History Tobacco Use Types [...] documented as of this encounter Care Teams Vacuum Cooker Operator Relationship Specialty Start Date End Date Vern Juarez MD [address] [place] [id number] PCP - General Internal Medicine 08/09/22 documented as of this encounter
--- OUTSIDE RECORDS SUMMARY | 2025-01-20 19:35 | XMS_ITS | Encounter Summary ---
Author Organization [employer] Address [address] [facility] 7 [place] [address] Care Team Providers Care Studio Data Analyst Name Role Phone Vern Juarez MD Primary Care Prov ider Reason for Visit * Reason Onset Date Comments Durable Medical Equipment 03/30/2024 Encounter Details Date Type Department Care Team ([facility] st Contact Info) Description 03/30/2024 Telephone [facility] MEDICINE [address] [place] [address] Vern Juarez MD [address] [facility] [address] [place] [address] Durable Medical Equipment Social History Tobacco Use [...] documented as of this encounter Care Teams Studio Data Analyst Relationship Specialty Start Date End Date Vern Juarez MD [address] [place] [id number] PCP - General Internal Medicine 08/09/22 documented as of this encounter
--- OUTSIDE RECORDS SUMMARY | 2025-01-20 19:35 | XMS_ITS | Encounter Summary ---
Author Organization [employer] Address [address] [facility] 7t [place] [address] Care Team Providers Care Lead Pourer Name Role Phone Vern Juarez MD Primary Care Prov ider Reason for Visit * Reason Comments Med Refill Encounter Details Date Type Department Care Team ([facility] st Contact Info) Description 07/02/2024 Refill [facility] MEDICINE [address] [place], [place] [phone] Grisel Powell MD [address] [place] [address] Seasonal allergies Social History Tobacco Use Types [...] documented as of this encounter Care Teams Lead Pourer Relationship Specialty Start Date End Date Vern Juarez MD [address] [place] [id number] PCP - General Internal Medicine 08/09/22 documented as of this encounter
[2025-01-20 19:41] LABS: Alanine Aminotransferase 40 U/L (0-31); Albumin Level 4.2 g/dL (3.5-5.0); Alkaline Phosphatase 97 U/L (39-117); Anion Gap 16 (12-20); Aspartate Amino Transferase 60 U/L (5-31); Bilirubin Total 0.3 mg/dL (0.0-1.0); Blood Urea Nitrogen 14 mg/dL (9-16); Calcium 9.9 mg/dL (8.4-10.2); Carbon Dioxide 27 mmol/L (22-29); Chloride 101 mmol/L (96-108); Estimated Glomerular Filt Rate > 60; Glucose Random 137 mg/dL (60-115); Lipase 36 U/L (8-78); Magnesium 2.2 mg/dL (1.6-2.6); Potassium 3.8 mmol/L (3.3-5.1); Sodium 140 mmol/L (135-145); Total Protein 8.4 g/dL (6.5-8.0)
[2025-01-20 22:28] VITALS: BP 145/67; PULSE 63; RESP 16; TEMP 36.6; O2SAT 97
--- NOTE | 2025-01-21 00:01 | ED_ITS ---
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 Patient reports that she started Ozempic yesterday for weight loss. Today she developed abdominal pain and some dizziness. She indicates the area of her epigastrium where her pain was. Currently she has no pain or dizziness. Status post Cholecystectomy. The patient has been in the ER for several hours prior to my evaluation, she reports that her symptoms resolved after taking a nap Denies any burning with urination, blood in the urine, nausea, vomiting Related Data Home Medications ?Medication ?Instructions ?Recorded ?Confirmed aspirin 81 mg tablet,delayed 81 mg PO QAM 09/24/20 09/02/22 release atorvastatin 20 mg tablet 20 mg PO DAILY 09/24/20 09/02/22 diltiazem HCl 240 mg 240 mg PO DAILY 09/24/20 09/02/22 capsule,extended release 24 hr fluticasone propionate 50 2 spray intranasal DAILY 09/24/20 09/02/22 mcg/actuation nasal spray,suspension levothyroxine 75 mcg tablet 75 mcg PO DAILY 09/24/20 09/02/22 lisinopril 20 mg tablet 20 mg PO DAILY 09/24/20 09/02/22 loratadine 10 mg tablet 10 mg PO QAM PRN Allergy Symptoms 09/24/20 09/02/22 melatonin 5 mg tablet 5 mg PO USEASDIRECTD 09/24/20 09/02/22 omeprazole 40 mg capsule,delayed 40 mg PO QAM 09/24/20 09/02/22 release clonazepam 2 mg tablet 2 mg PO BEDTIME 08/31/22 09/02/22 lamotrigine 200 mg tablet 1 tab PO DAILY 09/01/22 09/02/22 Previous Rx's ?Medication ?Instructions ?Recorded hydrochlorothiazide 25 mg tablet 25 mg PO QAM 90 days #30 tabs 02/01/23 ipratropium 0.5 mg-albuterol 3 mg 3 ml inhalation Q4-6H PRN wheezing 03/06/24 (2.5 mg base)/3 mL nebulization 30 days #270 mL soln polyethylene glycol 3350 17 17 g PO DAILY #119 grams 04/28/24 gram/dose oral powder (Miralax) albuterol sulfate 90 mcg/actuation 2 puff PO Q4-6H PRN Wheezing 30 07/02/24 aerosol inhaler days #1 ea sucralfate 100 mg/mL oral 10 ml PO QID PRN reflux #400 mL 10/15/24 suspension (Carafate) umeclidinium 62.5 mcg/actuation 1 inh inhalation DAILY #1 ea 11/07/24 blister powder for inhalation (Incruse Ellipta) montelukast 10 mg tablet 10 mg PO DAILY #30 tabs 11/13/24 fluticasone propionate 230 2 puff PO BID #12 grams 12/17/24 mcg-salmeterol 21 mcg/actuation HFA inhaler (Advair HFA) Allergies Allergy/AdvReac Type Severity Reaction Status Date / Time zolmitriptan Allergy Severe Headache Verified 01/20/25 19:05 aspirin Allergy Unknown Unknown Verified 01/20/25 19:05 Review of Systems 2 Constitutional: Constitutional: Denies body ache(s), Denies chills, Denies headache(s) and Denies snoring ENT: Reports dizziness and Denies headache(s) Cardiovascular: Cardiovascular: Denies chest pain, Denies chest pain at rest and Denies dyspnea Respiratory: Respiratory: Denies cough, Denies dyspnea and Denies snoring Gastrointestinal: Gastrointestinal: Reports abdominal pain, Denies hematochezia, Denies nausea and Denies vomiting Musculoskeletal: Musculoskeletal: Reports back pain Integumentary/Breasts: Skin/Breast: Denies rash Neurologic: Reports dizziness and Denies headache(s) [facility] Past Medical History Medical History Rash of face VICENTE positive Seasonal allergies (~05/05/18) Benzodiazepine dependence, continuous (~05/05/18) CHAVES (nonalcoholic steatohepatitis) (~05/05/18) Persistent asthma without complication (~05/05/18) Mood disorder (~05/05/18) Hypertension associated with type 2 diabetes mellitus (~05/05/18) Hyperlipidemia due to type 2 diabetes mellitus (~05/05/18) 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, 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 Sister Thyroid cancer Social History Social History Household Members: None Housing: Apartment Alcohol intake: former Patient Tobacco Use Status: Former Tobacco user Tobacco use type: Cigarette Years Smoked: 20 +/- Smoked in Last 30 Days: No Use of substances other than those prescribed or required for medical reasons: No Advance Directives: No Advance Directives Information Provided: Yes Current occupational status: disabled Physical Exam ED Vital Signs: Vital Signs - 24 hr 01/20/25 18:59 01/20/25 22:28 01/21/25 00:26 Temperature 97.8 F 97.9 F 98.1 F Pulse Rate 71 63 67 Respiratory Rate 22 H 16 18 Blood Pressure 151/81 H 145/67 H 138/72 Pulse Oximetry 98 97 95 Oxygen Delivery Method Room Air Room Air Room Air BMI result Body Mass Index 42.8 Const General: healthy appearing, comfortable, no acute distress, alert and awake Nutritional Appearance: well nourished Orientation/consciousness: patient oriented x3 HENMT Head: Yes normocephalic and Yes atraumatic Eyes Eyelids: Yes eyelids normal Conjunctivae: conjunctivae normal Sclerae: sclerae normal Corneas: corneas normal Pupils: Equal, round and reactive pupils present EOM: EOMs intact bilaterally Neck Neck: Yes full ROM Resp Effort & Inspection: normal respiratory effort, able to speak in complete sentences, no audible wheezes and not labored Auscultation: clear to auscultation bilaterally Cardio Rate: regular rate Rhythm: regular rhythm GI Inspection: No distended Palpation (GI): Soft to palpation, not firm, nontender, no guarding and not rigid Skin General skin exam: elasticity normal Neuro General: patient oriented x3 Cranial nerves: Yes Equal, round and reactive pupils present and Yes Bilaterally intact EOM present Cognition (Neuro): normal cognition Extrem Other: Moving all extremities well without any obvious deformities Medical Decision Making Medical Decision Making [facility] Narrative: 64-year-old female with a past medical history as above presents for evaluation of intermittent evaluation she is currently asymptomatic, vitals labs are reassuring, no leukocytosis. And be related to some degree of dehydration. However she is not hypotensive, tachycardic and there was no BRANDO. No significant electrolyte abnormalities. I did offer IV fluids to which the patient declined. Given that she is asymptomatic I do not see any indication for imaging at this time. She is also nontender on exam. She has a slight elevation of AST and ALT which may be due to viral origin or related to her Ozempic. She will follow up with her PCP Differential Diagnosis Differential Diagnoses: The differential diagnosis associated with the presentation includes Abdominal pain Gastroenteritis Constipation Obstructive uropathy orthostasis Dehydration Lab Data [facility] Lab Attestation statement: I reviewed the patient's lab results. As above 01/20/25 19:16 01/20/25 19:16 Labs: Lab Results 01/20/25 Range/Units 19:16 WBC 10.4 (4.8-10.8) X10*3/uL RBC 5.39 (4.20-5.50) X10*6/uL Hgb 17.1 H (12.0-16.0) g/dl Hct 49.0 H (37.0-47.0) % MCV 90.9 (80.0-98.0) fL MCH 31.7 (27.0-33.0) pg MCHC 34.9 (31.0-35.0) g/dl RDW 12.8 (11.0-16.0) % Plt Count 236 (160-400) X10*3/uL MPV 9.8 (9.4-12.3) fL Immature Gran % (Auto) 0.2 (0.0-0.4) % Neut % (Auto) 64.5 (45-73) % Lymph % (Auto) 25.7 (20-40) % [place] % (Auto) 6.8 (2-11) % Eos % (Auto) 2.4 (0-4) % Baso % (Auto) 0.4 (0-2) % Lymph # (Auto) 2.7 (1.2-4.9) X10*3/uL [place] # (Auto) 0.7 (0.1-1.2) X10*3/uL Eos # (Auto) 0.3 (0.0-0.4) X10*3/uL Baso # (Auto) 0.0 (0.0-0.2) X10*3/uL Abs Immat Gran (auto) 0.02 (0.00-0.03) X10*3/uL Absolute Neuts (auto) 6.7 (2.0-8.3) x10*3/uL Absolute Nucleated RBC 0.000 (0.0-0.012) X10*3/uL Nucleated RBC % (auto) 0.0 (0.0-0.2) /100WBC Sodium 140 (135-145) mmol/L Potassium 3.8 D (3.3-5.1) mmol/L Chloride 101 (96-108) mmol/L Carbon Dioxide 27 (22-29) mmol/L Anion Gap 16 (12-20) BUN 14 (9-16) mg/dL Creatinine 0.73 (0.5-1.4) mg/dL Estim Creat Clear Calc 77.0 Estimated GFR > 60 Random Glucose 137 H (60-115) mg/dL Calcium 9.9 D (8.4-10.2) mg/dL Magnesium 2.2 (1.6-2.6) mg/dL Total Bilirubin 0.3 (0.0-1.0) mg/dL AST 60 H (5-31) U/L ALT 40 H (0-31) U/L Alkaline Phosphatase 97 (39-117) U/L Total Protein 8.4 H (6.5-8.0) g/dL Albumin 4.2 (3.5-5.0) g/dL Lipase 36 (8-78) U/L Tests considered The following testing was considered but not selected: Consider CT scan of the abdomen pelvis but ultimately deferred Prescription Management I considered prescription management with: Pain Medication Chronic Conditions Patient?s care impacted by: Diabetes Discharge Plan Discharge Clinical Impression: Abdominal pain Patient Disposition: Home, Self-Care Instructions: Abdominal Pain (ED) Additional Instructions: Your workup in the ER today was reassuring. We did not run a urinalysis as you are unable to provide 1. If you have any new symptoms of burning when you urinate or urinary frequency, you may follow-up with your primary doctor Your symptoms may be related to the Ozempic injection as this is known to cause abdominal pain A follow up with your primary doctor, return for new or worsening symptom Prescriptions: No Action hydrochlorothiazide 25 mg tablet 25 mg PO QAM 90 Days Qty: 30 0RF Rx Instructions: Must call and schedule cardiology appt for refills or have PCP prescribe going forward ipratropium-albuterol 0.5 mg-3 mg(2.5 mg base)/3 mL solution for nebulization 3 ml inhalation Q4-6H PRN (Reason: wheezing) 30 Days Qty: 270 6RF albuterol sulfate 90 mcg/actuation HFA aerosol inhaler 2 puff PO Q4-6H PRN (Reason: Wheezing) 30 Days Qty: 1 6RF montelukast 10 mg tablet 10 mg PO DAILY Qty: 30 6RF Advair HFA 230-21 mcg/actuation HFA aerosol inhaler 2 puff PO BID Qty: 12 6RF lamotrigine 200 mg tablet 1 tab PO DAILY sucralfate [Carafate] 100 mg/mL suspension 10 ml PO QID PRN (Reason: reflux) Qty: 400 0RF Rx Instructions: swish in mouth and swallow; use after food/drink polyethylene glycol 3350 [Miralax] 17 gram/dose powder 17 g PO DAILY Qty: 119 0RF fluticasone propionate 50 mcg/actuation spray,suspension 2 spray intranasal DAILY melatonin 5 mg tablet 5 mg PO USEASDIRECTD aspirin 81 mg tablet,delayed release (DR/EC) 81 mg PO QAM atorvastatin 20 mg tablet 20 mg PO DAILY omeprazole 40 mg capsule,delayed release(DR/EC) 40 mg PO QAM loratadine 10 mg tablet 10 mg PO QAM PRN (Reason: Allergy Symptoms) lisinopril 20 mg tablet 20 mg PO DAILY levothyroxine 75 mcg tablet 75 mcg PO DAILY diltiazem HCl 240 mg capsule,extended release 24hr 240 mg PO DAILY clonazepam 2 mg tablet 2 mg PO BEDTIME Incruse Ellipta 62.5 mcg/actuation blister with device 1 inh inhalation DAILY Qty: 1 6RF Interventions: ED Discharge Assessment Last Done: 01/21/25 00:26 Print Language: Citizen Of [place]
[2025-01-21 00:26] VITALS: BP 138/72; PULSE 67; RESP 18; TEMP 36.7; O2SAT 95
== END 2025-01-21 01:40 | disposition home or self-care (01) ==
PROVIDERS: Physician Assistant Medical; Emergency Provider Emergency Medicine; PCP Internal Medicine
DX: R10.13 Epigastric pain (principal)
CPT/HCPCS: 36415; 80053; 83690; 83735; 85025; 99283; 99284

== ENCOUNTER 2025-02-23 16:20 | Emergency (ER) | payer OTHER, SELFPAY ==
--- NOTE | ~2025-02-23 | XR_ITS ---
CLINICAL HISTORY: cp 1 view chest x-ray Comparison: CR - XR CHEST 1V - 10/15/24 22:51 EST Findings: No consolidation or effusion. Normal size heart. No acute fracture. IMPRESSION: 1. No acute findings. This document has been electronically signed by: Mingo Baker MD on 02/23/2025 19:18:40
[2025-02-23 16:48] VITALS: BP 132/52; BP 140/92; PULSE 71; PULSE 84; RESP 20; TEMP 36.9; O2SAT 96; BMI 40.8
[2025-02-23 16:54] VITALS: BP 127/53; PULSE 79; RESP 18; O2SAT 93
--- NOTE | 2025-02-23 16:54 | ECG_ITS ---
Test Reason : CHEST PAIN Blood Pressure : */* mmHG Vent. Rate : 69 BPM Atrial Rate : 69 BPM P-R Int : 206 ms QRS Dur : 86 ms QT Int : 418 ms P-R-T Axes : 55 64 66 degrees QTcB Int : 447 ms Normal sinus rhythm Normal ECG When compared with ECG of 15-Oct-2024 21:58, No significant change was found Referred By: Galina Skelton Electronically Signed By: Sudhakar Johnson
--- NOTE | 2025-02-23 17:01 | PC.NURSE ---
Addendum entered by Morena Harris RN 02/23/25 17:03: Patient is a 64-year-old female, primarily citizen of [place] speaking who presents for evaluation of chest pressure and dizziness. Per daughter, this is a chronic complaint. firewall engineer applied and NSR noted. Respirations even and non-labored. Abdomen large soft, non-tender, with positive bowel sounds. Positive pedal pulses with no edema. Original Note: Medical History Rash of face VICENTE positive Seasonal allergies (~05/05/18) Benzodiazepine dependence, continuous (~05/05/18) CHAVES (nonalcoholic steatohepatitis) (~05/05/18) Persistent asthma without complication (~05/05/18) Mood disorder (~05/05/18) Hypertension associated with type 2 diabetes mellitus (~05/05/18) Hyperlipidemia due to type 2 diabetes mellitus (~05/05/18) 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, with [facility] current use of insulin pump (~05/05/18) Cholecystectomy planned Bipolar 1 disorder Depressed GERD (gastroesophageal reflux disease) (~05/05/18) Hypothyroid (~05/05/18) Asthma
--- OUTSIDE RECORDS SUMMARY | 2025-02-23 17:27 | XMS_ITS | Encounter Summary ---
Author Organization [employer] Address [address] [place] [address] Care Team Providers Care Clinical Trials Specialist Name Role Phone Vern Juarez MD Primary Care Prov ider Reason for Visit * Reason Onset Date Comments Appointment Request 11/08/2023 Encounter Details Date Type Department Care Team ([facility] st Contact Info) Description 11/08/2023 Telephone [facility] MEDICINE [address] [place] [address] Vern Juarez MD [address] [place] [address] Appointment Request Social History Tobacco Use Types [...] Care Team (Late st Contact Info) Description 02/26/2025 11:30 AM EDT Telemedicine [facility] MED & PEDS [address] [place] [address] Vern Juarez MD [address] [place] [address] documented as of this encounter Visit Diagnoses Not on filedocumented in this encounter Additional Health Concerns Assessment Noted Time PHQ-9 Depression Total Score: 19 024 10:43 AM EST documented as of this encounter Care Teams Clinical Trials Specialist Relationship Specialty Start Date End Date Vern Juarez MD [address] [place] [address] PCP - General Internal Medicine 08/09/22 documented as of this encounter
--- NOTE | 2025-02-23 17:49 | ED.CHESTPAIN ---
HPI - Chest Pain General Chief Complaint: Chest Pain Stated Complaint: chest pain Time Seen by Provider: 02/23/25 16:59 History of Present Illness HPI narrative: Patient is a 64-year-old female presents today with having chest pain mid chest associated with some dizziness. Has a history of the same. Positive history of diabetes positive history of hypertension positive history of ND question 30 years ago. No history of smoking. No history of high cholesterol. Patient took some Tylenol the pain was better. The symptoms lasted from 09:00 to 15:00. Then the pain was gone came back approximately 2 hours later now still has the pain when EKG was done. Patient denies any shortness of breath associated with the symptoms no diaphoresis. Patient is from home. No coughing or congestion or upper respiratory symptoms. No leg swelling. No history of blood clots. Not on blood thinners. Related Data Home Medications ?Medication ?Instructions ?Recorded ?Confirmed aspirin 81 mg tablet,delayed 81 mg PO QAM 09/24/20 09/02/22 release atorvastatin 20 mg tablet 20 mg PO DAILY 09/24/20 09/02/22 diltiazem HCl 240 mg 240 mg PO DAILY 09/24/20 09/02/22 capsule,extended release 24 hr fluticasone propionate 50 2 spray intranasal DAILY 09/24/20 09/02/22 mcg/actuation nasal spray,suspension levothyroxine 75 mcg tablet 75 mcg PO DAILY 09/24/20 09/02/22 lisinopril 20 mg tablet 20 mg PO DAILY 09/24/20 09/02/22 loratadine 10 mg tablet 10 mg PO QAM PRN Allergy Symptoms 09/24/20 09/02/22 melatonin 5 mg tablet 5 mg PO USEASDIRECTD 09/24/20 09/02/22 omeprazole 40 mg capsule,delayed 40 mg PO QAM 09/24/20 09/02/22 release clonazepam 2 mg tablet 2 mg PO BEDTIME 08/31/22 09/02/22 lamotrigine 200 mg tablet 1 tab PO DAILY 09/01/22 09/02/22 Previous Rx's ?Medication ?Instructions ?Recorded hydrochlorothiazide 25 mg tablet 25 mg PO QAM 90 days #30 tabs 02/01/23 ipratropium 0.5 mg-albuterol 3 mg 3 ml inhalation Q4-6H PRN wheezing 03/06/24 (2.5 mg base)/3 mL nebulization 30 days #270 mL soln polyethylene glycol 3350 17 17 g PO DAILY #119 grams 04/28/24 gram/dose oral powder (Miralax) albuterol sulfate 90 mcg/actuation 2 puff PO Q4-6H PRN Wheezing 30 07/02/24 aerosol inhaler days #1 ea sucralfate 100 mg/mL oral 10 ml PO QID PRN reflux #400 mL 10/15/24 suspension (Carafate) umeclidinium 62.5 mcg/actuation 1 inh inhalation DAILY #1 ea 11/07/24 blister powder for inhalation (Incruse Ellipta) montelukast 10 mg tablet 10 mg PO DAILY #30 tabs 11/13/24 fluticasone propionate 230 2 puff PO BID #12 grams 12/17/24 mcg-salmeterol 21 mcg/actuation HFA inhaler (Advair HFA) Allergies Allergy/AdvReac Type Severity Reaction Status Date / Time zolmitriptan Allergy Severe Headache Verified 02/23/25 16:51 aspirin Allergy Unknown Unknown Verified 02/23/25 16:51 Review of Systems Review of Systems: Positive chest pain PMFSH Past Medical History Attestation statement: The following information was validated with the patient. Medical History Rash of face VICENTE positive Seasonal allergies (~05/05/18) Benzodiazepine dependence, continuous (~05/05/18) CHAVES (nonalcoholic steatohepatitis) (~05/05/18) Persistent asthma without complication (~05/05/18) Mood disorder (~05/05/18) Hypertension associated with type 2 diabetes mellitus (~05/05/18) Hyperlipidemia due to type 2 diabetes mellitus (~05/05/18) 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, with residential current use of insulin pump (~05/05/18) Cholecystectomy planned Bipolar 1 disorder Depressed GERD (gastroesophageal reflux disease) (~05/05/18) Hypothyroid (~05/05/18) Asthma Surgical History History of cholecystectomy H/O tubal ligation Family History Family History Mother Heart disease HTN (hypertension) Diabetes Father No problems noted. Sister Thyroid cancer Social History Social History Household Members: None Housing: Apartment Alcohol intake: former Patient Tobacco Use Status: Former Tobacco user Tobacco use type: Cigarette Years Smoked: 20 +/- Advance Directives: No Advance Directives Information Provided: No Current occupational status: disabled Physical Exam Vital Signs: Vital Signs: Last Vital Signs Temp 98.5 F 02/23/25 19:54 Pulse 88 02/23/25 19:54 Resp 18 02/23/25 19:54 BP 147/70 H 02/23/25 19:54 Pulse Ox 97 02/23/25 19:54 O2 Del Method Room Air 02/23/25 19:54 BMI result Body Mass Index 40.8 Appearance: Alert. Oriented X3. No acute distress. Eyes: Pupils equal, round and reactive to light. ENT: Pharynx normal. Neck: Normal inspection. Neck supple. No lymph nodes noted. No crepitus CVS: Normal heart rate and rhythm. Pulses normal. Normal S1 and S2 Respiratory: No respiratory distress. Breath sounds normal. No Wheezing. No rales Abdomen: Soft and nontender. No rigidity. No distention. good BS x4 Skin: Skin warm and dry. Normal skin color. Normal skin turgor. Extremities: No lower extremity edema. Neurovascular intact to all extremities. No Lacerations. No Rash Neuro: Oriented X 3. No motor deficit. No sensory deficit. Moving all extermities. No slurred speech Medical Decision Making Medical Decision Making MDM Narrative: Two sets of enzymes are negative. Patient's chest pain atypical for ACS. She does have a history of high cholesterol history of hypertension and history of diabetes. My interpretation of her EKG showed a sinus rhythm heart rate is 70 AR QRS QTC normal no acute ST segment elevation. Her pain is atypical. She is otherwise well-appearing. Will discharge patient home. Hemoglobin is 15 is no evidence for anemia. Will have patient closely follow-up on an outpatient basis. My interpretation of patient's chest x-ray was negative Differential Diagnosis Differential Diagnoses: The differential diagnosis associated with the presentation includes ACS, pneumonia, pneumothorax, atypical chest pain Admission/Observation Consideration of admission/observation: Escalation of care including admission/observation considered Lab Data [facility] Lab Attestation statement: I reviewed the patient's lab results. 02/23/25 17:56 02/23/25 17:56 Labs: Lab Results 02/23/25 02/23/25 Range/Units 17:56 19:14 WBC 7.2 (4.8-10.8) X10*3/uL RBC 4.88 (4.20-5.50) X10*6/uL Hgb 15.5 (12.0-16.0) g/dl Hct 44.2 (37.0-47.0) % MCV 90.6 (80.0-98.0) fL MCH 31.8 (27.0-33.0) pg MCHC 35.1 H (31.0-35.0) g/dl RDW 13.2 (11.0-16.0) % Plt Count 219 (160-400) X10*3/uL MPV 9.7 (9.4-12.3) fL Immature Gran % (Auto) 0.1 (0.0-0.4) % Neut % (Auto) 60.6 (45-73) % Lymph % (Auto) 27.8 (20-40) % Sullivan % (Auto) 8.7 (2-11) % Eos % (Auto) 2.2 (0-4) % Baso % (Auto) 0.6 (0-2) % Lymph # (Auto) 2.0 (1.2-4.9) X10*3/uL Sullivan # (Auto) 0.6 (0.1-1.2) X10*3/uL Eos # (Auto) 0.2 (0.0-0.4) X10*3/uL Baso # (Auto) 0.0 (0.0-0.2) X10*3/uL Abs Immat Gran (auto) 0.01 (0.00-0.03) X10*3/uL Absolute Neuts (auto) 4.4 (2.0-8.3) x10*3/uL Absolute Nucleated RBC 0.000 (0.0-0.012) X10*3/uL Nucleated RBC % (auto) 0.0 (0.0-0.2) /100WBC Sodium 145 (135-145) mmol/L Potassium 3.1 L (3.3-5.1) mmol/L Chloride 106 (96-108) mmol/L Carbon Dioxide 28 (22-29) mmol/L Anion Gap 14 (12-20) BUN 13 (9-16) mg/dL Creatinine 0.78 (0.5-1.4) mg/dL Estim Creat Clear Calc 75.9 Estimated GFR > 60 Random Glucose 117 H (60-115) mg/dL Calcium 9.6 (8.4-10.2) mg/dL Total Bilirubin 0.2 (0.0-1.0) mg/dL Direct Bilirubin < 0.2 (0.0-0.5) mg/dL AST 33 H (5-31) U/L ALT 26 (0-31) U/L Alkaline Phosphatase 92 (39-117) U/L Troponin I High Sens < 2.7 < 2.7 (<3.5-17.0) ng/L Total Protein 7.2 (6.5-8.0) g/dL Albumin 4.2 (3.5-5.0) g/dL Lipase 43 (8-78) U/L Independent Interpretation I performed an independent interpretation of an: EKG (My interpretation patient's EKG showed a sinus rhythm heart rate is 70 AR QRS QTC normal no acute ST segment elevation.) and Plain X-Ray (Chest x-ray negative no pneumonia no pneumothorax) Radiology Impression Discussion of test interpretation with radiology: I have reviewed the radiologist's reading. External Record Review External record reviewed: Inpatient record Chronic Conditions Patient?s care impacted by: Diabetes and Hypertension Social Determinants Patient?s care significantly limited by Social Determinants of Health including: Problems related to primary support group Discharge Plan Discharge Clinical Impression: Chest pain Patient Disposition: Home, Self-Care Instructions: Chest Pain (DC) Prescriptions: No Action hydrochlorothiazide 25 mg tablet 25 mg PO QAM 90 Days Qty: 30 0RF Rx Instructions: Must call and schedule cardiology appt for refills or have PCP prescribe going forward ipratropium-albuterol 0.5 mg-3 mg(2.5 mg base)/3 mL solution for nebulization 3 ml inhalation Q4-6H PRN (Reason: wheezing) 30 Days Qty: 270 6RF albuterol sulfate 90 mcg/actuation HFA aerosol inhaler 2 puff PO Q4-6H PRN (Reason: Wheezing) 30 Days Qty: 1 6RF montelukast 10 mg tablet 10 mg PO DAILY Qty: 30 6RF Advair HFA 230-21 mcg/actuation HFA aerosol inhaler 2 puff PO BID Qty: 12 6RF lamotrigine 200 mg tablet 1 tab PO DAILY sucralfate [Carafate] 100 mg/mL suspension 10 ml PO QID PRN (Reason: reflux) Qty: 400 0RF Rx Instructions: swish in mouth and swallow; use after food/drink polyethylene glycol 3350 [Miralax] 17 gram/dose powder 17 g PO DAILY Qty: 119 0RF fluticasone propionate 50 mcg/actuation spray,suspension 2 spray intranasal DAILY melatonin 5 mg tablet 5 mg PO USEASDIRECTD aspirin 81 mg tablet,delayed release (DR/EC) 81 mg PO QAM atorvastatin 20 mg tablet 20 mg PO DAILY omeprazole 40 mg capsule,delayed release(DR/EC) 40 mg PO QAM loratadine 10 mg tablet 10 mg PO QAM PRN (Reason: Allergy Symptoms) lisinopril 20 mg tablet 20 mg PO DAILY levothyroxine 75 mcg tablet 75 mcg PO DAILY diltiazem HCl 240 mg capsule,extended release 24hr 240 mg PO DAILY clonazepam 2 mg tablet 2 mg PO BEDTIME Incruse Ellipta 62.5 mcg/actuation blister with device 1 inh inhalation DAILY Qty: 1 6RF Referrals: Luis Suh MD [Physician, Cardiology] - 02/26/25 Print Language: Malian
[2025-02-23 17:57] VITALS: BP 140/61; PULSE 72; RESP 16; O2SAT 96
[2025-02-23 18:03] LABS: MANUAL DIFF FLAG NO
[2025-02-23 18:04] LABS: Basophils Percent Auto 0.6 % (0-2); Eosinophils Absolute Auto 0.2 X10*3/uL (0.0-0.4); Eosinophils Percent Auto 2.2 % (0-4); Hematocrit 44.2 % (37.0-47.0); Hemoglobin 15.5 g/dl (12.0-16.0); Imm Gran Abs Auto 0.01 X10*3/uL (0.00-0.03); Imm Gran Pct Auto 0.1 % (0.0-0.4); Lymphocytes Percent Auto 27.8 % (20-40); Mean Corpuscular HGB Conc 35.1 g/dl (31.0-35.0); Mean Corpuscular Hemoglobin 31.8 pg (27.0-33.0); Mean Corpuscular Volume 90.6 fL (80.0-98.0); Mean Platelet Volume 9.7 fL (9.4-12.3); Monocytes Absolute Auto 0.6 X10*3/uL (0.1-1.2); Monocytes Percent Auto 8.7 % (2-11); Neutrophils Absolute Auto 4.4 x10*3/uL (2.0-8.3); Neutrophils Percent Auto 60.6 % (45-73); Platelet Count 219 X10*3/uL (160-400); Red Blood Count 4.88 X10*6/uL (4.20-5.50); Red Cell Distribution Width 13.2 % (11.0-16.0); White Blood Count 7.2 X10*3/uL (4.8-10.8)
[2025-02-23 18:17] LABS: Alanine Aminotransferase 26 U/L (0-31); Albumin Level 4.2 g/dL (3.5-5.0); Alkaline Phosphatase 92 U/L (39-117); Anion Gap 14 (12-20); Aspartate Amino Transferase 33 U/L (5-31); Bilirubin Direct < 0.2 mg/dL (0.0-0.5); Bilirubin Total 0.2 mg/dL (0.0-1.0); Blood Urea Nitrogen 13 mg/dL (9-16); Calcium 9.6 mg/dL (8.4-10.2); Carbon Dioxide 28 mmol/L (22-29); Chloride 106 mmol/L (96-108); Creatinine Clr Calc Pharmacy 75.9; Estimated Glomerular Filt Rate > 60; Glucose Random 117 mg/dL (60-115); Lipase 43 U/L (8-78); Potassium 3.1 mmol/L (3.3-5.1); Sodium 145 mmol/L (135-145); Total Protein 7.2 g/dL (6.5-8.0)
[2025-02-23 18:25] LABS: Troponin-I High Sensitivity < 2.7 ng/L (<3.5-17.0)
[2025-02-23 19:10] VITALS: BP 146/63; PULSE 71; RESP 16; TEMP 36.8; O2SAT 96
[2025-02-23 19:49] LABS: Troponin-I High Sensitivity < 2.7 ng/L (<3.5-17.0)
[2025-02-23 19:54] VITALS: BP 147/70; PULSE 88; RESP 18; TEMP 36.9; O2SAT 97
[2025-02-23 20:40] VITALS: BP 147/70; PULSE 88; RESP 18; TEMP 36.9; O2SAT 97
== END 2025-02-23 20:40 | disposition home or self-care (01) ==
PROVIDERS: Emergency Provider Emergency Medicine Emergency Medical Services
DX: R07.89 Other chest pain (principal); E11.9 Type 2 diabetes mellitus without complications; Z96.41 Presence of insulin pump (external) (internal); I10 Essential (primary) hypertension; E78.5 Hyperlipidemia, unspecified; E61.1 Iron deficiency; Z79.82 Long term (current) use of aspirin; Z79.899 Other long term (current) drug therapy; Z79.4 Long term (current) use of insulin; Z87.891 Personal history of nicotine dependence
CPT/HCPCS: 36415; 71045; 80048; 80076; 83690; 84484; 85025; 93005; 99283; 99285

== ENCOUNTER → 2025-02-23 16:54 | Outpatient (BNV) | payer OTHER, SELFPAY | PROVIDERS: Emergency Provider Emergency Medicine Emergency Medical Services; Visit Provider Internal Medicine Cardiovascular Disease | DX: R07.89 Other chest pain (principal) | CPT/HCPCS: 93010 ==

== ENCOUNTER → 2025-02-23 17:46 | Outpatient (BNV) | payer OTHER, SELFPAY | PROVIDERS: Emergency Provider Emergency Medicine Emergency Medical Services; Visit Provider Radiology Diagnostic Radiology | DX: R07.9 Chest pain, unspecified (principal) | CPT/HCPCS: 71045 ==

== ENCOUNTER 2025-05-02 13:35 | Outpatient (REF) | payer OTHER, SELFPAY ==
--- OUTSIDE RECORDS SUMMARY | 2025-05-02 13:00 | XMS_ITS | Encounter Summary ---
Author Organization [employer] Address [address] [facility] 7 [place] [address] Care Team Providers Care Die Casting Machine Maintainer Name Role Phone Vern Juarez MD Primary Care Prov ider Encounter Details Date Type Department Care Team ([facility] Contact Info) Description 05/02/2025 1:00 PM EDT Office Visit [facility] MED & PEDS [address] [place] [address] Lyly Petersen MD [address] [place] [address] Inability to urinate (Primary Dx); Dysuria; Perineal laceration involving labia, initial encounter Social History Tobacco Use Types Packs/Day Years [...] AM EDT documented as of this encounter Last Filed Vital Signs Vital Sign Reading Time Taken Comments Blood Pressure 140/75 05/02/2025 12:34 PM EDT Pulse 72 05/02/2025 12:34 PM EDT Temperature 36.4 C (97.6 F) 05/02/2025 12:34 PM EDT Respiratory Rate 20 05/02/2025 12:34 PM EDT Oxygen Saturation 99% 05/02/2025 12:34 PM EDT Inhaled Oxygen Concentration - - Weight 92 kg (202 lb 12.8 oz) 05/02/2025 12:34 P M EDT Height 148 cm (4' 10.27 ) 05/02/2025 12:34 PM ED T Body Mass Index 42 05/02/2025 12:34 PM EDT documented in this encounter Progress Notes * Lyly Petersen MD - 05/02/2025 1:00 PM EDT Images from the original note were not included. Subjective Patient ID: Sue Flannery is a 64 y.o. female who presents for No chief complaint on file.. Chief Complaint Vaginal pain and discomfort since Tuesday, painful urination with blood noticed when wiping, concernabout possible recurrence of bladder prolapse History of Present Illness Sue Flannery presents with vaginal pain and urinary discomfort. The patient reports that on , she experienced a sensation of something biting inside her vagina. On Tuesday, she felt thesame sensation while sitting. That night, she woke up with pain and experienced severe pain during urination, accompanied by the presence of blood when wiping. The patient localizes the pain to the left side of her vagina. She describes the pain as a stingingor biting sensation. The symptoms have been ongoing since Tuesday, with urinary pain and blood noted on Tuesday night. Mrs. Flannery mentions a history of vaginal repair surgery one year ago and expresses concern that her bladder might be coming down again. Associated symptoms include pain during urination and the presence of blood when wiping after urination. The patient denies urinary retention or incontinence. She does not report any fever or other systemic symptoms. Mrs. Flannery has a history of diabetes, which may be relevant to her current symptoms. She also mentions having high blood pressure readings during medical visits, attributing this to anxiety related to seeing medication. Medical History - Diabetes - Hypertension Surgical History - Vaginal repair approximately 1 year ago Review of Systems Genitourinary: Positive for dysuria, hematuria, and vaginal pain. Patient reports feeling like something was biting inside the vagina, pain during urination, and noticing blood when wiping. Review of Systems Objective Visit Vitals BP (!) 140/75 Pulse 72 Temp 97.6 ??F (36.4 ??C) (Oral) Resp 20 Ht 4' 10.27 (1.48 m) Wt 202 lb 12.8 oz (92 kg) SpO2 99% BMI 42.00 kg/m?? Smoking Status Never BSA 1.94 m?? Physical Exam Exam conducted with a outdoor adventure instructor present. Constitutional: Appearance: She is obese. HENT: Head: Normocephalic and atraumatic. Pulmonary: Effort: Pulmonary effort is normal. Genitourinary: Comments: Erosions left sided urethra and vesibular area Assessment/Plan Problem List Items Addressed This Visit None Visit Diagnoses Inability to urinate - Primary Relevant Orders POCT Urinalysis (Completed) Dysuria Relevant Orders Bacterial Vaginosis Perineal laceration involving labia, initial encounter Relevant Orders Urinalysis, Complete, with Reflex to Culture Bacterial Vaginosis Vaginal and urethral abrasions Assessment: Patient reports vaginal discomfort, dysuria, and hematuria since Tuesday. Physical examination revealed a scratch at the vaginal introitus and on the left side, as well as a cut in the vestibule and around the urethra. These findings are consistent with mechanical abrasions rather than infection. Urinalysis showed no signs of infection, but a culture has been ordered for confirmation. The patient's history of vaginal repair one year ago was noted, with the patient expressing concern about possible recurrence of bladder prolapse. Plan: - Apply Desitin cream to the vaginal introitus and around the urethra - Prescribe low-dose topical steroids for application at the vaginal entrance and urethral area - Order urine culture and urinalysis with reflex culture - Follow up with patient to discuss urine culture results Elevated blood pressure Assessment: Patient was noted to have slightly elevated blood pressure during the visit. Patient attributes this to anxiety related to seeing pills. Plan: - Monitor blood pressure at future visits documented in this encounter Plan of Treatment Scheduled Orders Name Type Priority Associated Diagnoses Orde r Schedule Urinalysis, Complete, with Reflex to Culture Lab Routine Perineal laceration involving labia, initial encounter Expected: 05/02/2025 (Approximate), Expires: 05/02/2026 Bacterial Vaginosis Microbiology Routine Dysuria Perineal laceration involving labia, initial encounter Ordered: 05/02/2025 documented as of this encounter Procedures Procedure Name Priority Date/Time Associated Diagnosis Comments POCT URINALYSIS DIPSTICK Routine 05/02/2025 1:01 PM EDT Inability to urinate documented in this encounter Results * (ABNORMAL) POCT Urinalysis (05/02/2025 1:01 PM EDT) Color, UA Yellow Clarity, UA Clear Glucose, UA 4+ >500 Comment:1000mg/dl Bilirubin, UA Negative Ketones, UA Negative Spec Grav, UA 1.020 Blood, UA Positive(A) Negative, None Detected Comment:small pH, UA 7.0 Protein, UA Trace Urobilinogen, UA 0.2 Leukocytes, UA Negative Negative, Rare, Trace Nitrite, UA Negative Negative, None Detected Appearance, UA clear QC Media Lot # [id number] Lot# Expiration Date 3109, Urine 05/02/2025 1:01 PM EDT us Lyly Petersen MD POINT OF CARE TEST ENTER/EDIT ORDERABLES Final Result documented in this encounter Visit Diagnoses Diagnosis Inability to urinate- Primary Other symptoms involving urinary system Dysuria Perineal laceration involving labia, initial encounter documented in this encounter Additional Health Concerns Assessment Noted Time PHQ-9 Depression Total Score: 8 06/29/20 24 10:23 AM EDT documented as of this encounter Care Teams Die Casting Machine Maintainer Relationship Specialty Start Date End Date Vern Juarez MD [address] [place] [id number] PCP - General Internal Medicine 08/09/22 documented as of this encounter
--- OUTSIDE RECORDS SUMMARY | 2025-05-02 14:19 | XMS_ITS | Encounter Summary ---
Author Organization [employer] Address [address] [place] [address] 7 [place] [address] Care Team Providers Care Human Resources Representative Name Role Phone Vern Juarez MD Primary Care Prov ider Reason for Visit * Reason Onset Date Comments Durable Medical Equipment 09/24/2022 Encounter Details Date Type Department Care Team ([facility] st Contact Info) Description 09/24/2022 Telephone [facility] MED [facility] PEDS [address] [place] [address] Vern Juarez MD [address] [place] [address] Durable Medical Equipment Social History Tobacco Use [...] documented as of this encounter Care Teams Human Resources Representative Relationship Specialty Start Date End Date Vern Juarez MD [address] [place] [id number] PCP - General Internal Medicine 08/09/22 documented as of this encounter
--- OUTSIDE RECORDS SUMMARY | 2025-05-02 14:19 | XMS_ITS | Encounter Summary ---
Author Organization [employer] Address [address] [place] [address] Care Team Providers Care Financial Services Director Name Role Phone Vern Juarez MD Primary Care Prov ider Reason for Visit * Reason Onset Date Comments Appointment Request 03/12/2024 Encounter Details Date Type Department Care Team ([facility] st Contact Info) Description 03/12/[address] [facility] MEDICINE [address] [place] [address] Vern Juarez MD [address] [place] [address] Appointment Request Social History Tobacco Use Types [...] documented as of this encounter Care Teams Financial Services Director Relationship Specialty Start Date End Date Vern Juarez MD [address] [place] [id number] PCP - General Internal Medicine 08/09/22 documented as of this encounter
--- OUTSIDE RECORDS SUMMARY | 2025-05-02 14:19 | XMS_ITS | Clinical Summary ---
Author Organization [facility] Address [address] [place] [address] Care Team Providers Care Senior Solutions Consultant Name Role Phone Sangeetha Cruz MD Primary Care Provider [phone] Surgical History Surgery Date Site/Laterality Comments TUBAL [...] Panel) 08/08/2022 Colorectal Cancer Screening: Colonoscopy 08/08/2022 Hepatitis C Screening 08/08/2022 Osteoporosis Screening (Bone Density Screening) 08/08/2022 Social Influencers of Health Screening 08/08/2022 Hypertension/CHF/CAD Annual BMP Blood Test 08/19/2022 DTaP,Tdap,and Td Vaccines (2 - Td or Tdap) 06/12/2023 06/12/2013 Falls Risk Assessment 11/29/2023 COVID-19 Vaccine (1 - 2023-2 5 season) 2024 Depression Screening 09/05/2024 Influenza Vaccine (#1) 2025 HIB Vaccines Aged Out No longer [...] Documents on File Type Date Recorded Patient Sales Service Representative Expl anation Health Care Decision (hx) 02/05/2022 AD BLOCK DIRECTIVE Health Care Decision (hx) 02/05/2022 AD BLOCK DIRECTIVE Health Care Decision (hx) 02/05/2022 AD BLOCK DIRECTIVE Health Care Decision (hx) 02/05/2022 AD BLOCK DIRECTIVE Care Teams Senior Solutions Consultant Relationship Specialty Start Date End Date Sangeetha Cruz MD [facility] PCP - General Internal Medicine 12/23/14
--- OUTSIDE RECORDS SUMMARY | 2025-05-02 14:19 | XMS_ITS | Encounter Summary ---
Author Organization [employer] Address [address] [facility] 7 [place] [address] Care Team Providers Care Fretted Instruments Inspector Name Role Phone Vern Juarez MD Primary Care Prov ider Reason for Visit * Reason Onset Date Comments Durable Medical Equipment 03/30/2024 Encounter Details Date Type Department Care Team (Late st Contact Info) Description 03/30/2024 Telephone [facility] MEDICINE [address] [place] [address] Vern Juarez MD [address] [place] [address] Durable Medical Equipment Social History Tobacco Use [...] documented as of this encounter Care Teams Fretted Instruments Inspector Relationship Specialty Start Date End Date Vern Juarez MD [address] [place] [id number] PCP - General Internal Medicine 08/09/22 documented as of this encounter
--- OUTSIDE RECORDS SUMMARY | 2025-05-02 14:19 | XMS_ITS | Encounter Summary ---
Author Organization [employer] Address [address] [place] [address] [place] [address] Care Team Providers Care Assistant Professor Of Archaeology Name Role Phone Vern Juarez MD Primary Care Prov ider Reason for Visit * Reason Comments Med Refill Encounter Details Date Type Department Care Team ([facility] st Contact Info) Description 02/28/2023 Refill [facility] MED & PEDS [address] [place] [address] Vern Juarez MD 505 [place] [address] Social History Tobacco Use Types Packs/Day Years [...] documented as of this encounter Care Teams Assistant Professor Of Archaeology Relationship Specialty Start Date End Date Vern Juarez MD [address] [place] [phone] PCP - General Internal Medicine 08/09/22 documented as of this encounter
--- OUTSIDE RECORDS SUMMARY | 2025-05-02 14:19 | XMS_ITS | Encounter Summary ---
Author Organization [employer] Address [address] [place] [address] Care Team Providers Care Music Researcher Name Role Phone Vern Juarez MD Primary Care Prov ider Reason for Visit * Reason Onset Date Comments Appointment Request 11/08/2023 Encounter Details Date Type Department Care Team ([facility] st Contact Info) Description 11/08/2023 Telephone [facility] MEDICINE [address] [place] [address] Vern Juarez MD [address] [facility] [place] [address] Appointment Request Social History Tobacco Use Types [...] documented as of this encounter Care Teams Music Researcher Relationship Specialty Start Date End Date Vern Juarez MD [address] [place] [phone] PCP - General Internal Medicine 08/09/22 documented as of this encounter
--- OUTSIDE RECORDS SUMMARY | 2025-05-02 14:19 | XMS_ITS | Encounter Summary ---
Author Organization [employer] Address [address] [place] [address] Care Team Providers Care Rock Wool Insulator Name Role Phone Vern Juarez MD Primary Care Prov ider Reason for Visit * Reason Onset Date Comments Nurse Triage 05/02/2025 Encounter Details Date Type Department Care Team (Late st Contact Info) Description 05/02/2025 Telephone [facility] MEDICINE 230 [place] [address] Vern Juarez MD [address] [facility] [place] [address] Nurse Triage Social History Tobacco Use Types [...] encounter Miscellaneous Notes * Telephone Encounter - Sarah Randle LPN - 05/02/2025 9:59 AM EDT Triage call returned to patient who reports inability to void on intake. Patient reports that at time of call she has just voided while showering. Patient reports that she voids only in small amountsand then feels urge to void again. Patient reports further that something bit me up inside of my vagina and now there is a ulcer that is painful patient reports stinging in vagina and blood as noted from ulceration. Disposition reviewed and patient in agreement with plan.ASK/Dr Petersen today at 1pm. Fluids and frequent voiding encouraged. Patient verbalized understanding and in agreement. Multiple (2) protocols were used on this call. Disposition for Call: See in Office or Video Visit Today Protocol Used: Urinary Symptoms (Adult) Protocol-Based Disposition: See in Office or Video Visit Today Video visit offer not recorded Positive Triage Question: * Urinating more frequently than usual (i.e., frequency) OR new-onset of the feeling of an urgent need to urinate (i.e., urgency) * All higher-acuity triage questions were negative Care Advice Discussed: * Reasons To Call Back - Fever occurs - Pain or burning with urination - Unable to urinate and bladder feels full - You become worse Protocol Used: Vaginal Symptoms (Adult) Protocol-Based Disposition: See in Office or Video Visit Today Positive Triage Questions: * Mild to Moderate vaginal pain and present > 24 hours (Exception: Chronic pain.) * Rash with painful tiny water blisters or painful sores * All higher-acuity triage questions were negative Care Advice Discussed: * Reasons To Call Back - You become worse * Telephone Encounter - Sweetie Moya - 05/02/2025 9:17 AM EDT Symptoms: Vaginal Bleeding - Not , Urination Pain Outcome: Schedule an urgent appointment (within 1 hour) or talk to a nurse or provider soon Reason: Can't pass urine (can't pee) The caller accepted this outcome. 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
--- OUTSIDE RECORDS SUMMARY | 2025-05-02 14:19 | XMS_ITS | Encounter Summary ---
Author Organization [employer] Address [address] [facility] 7 [place] [address] Care Team Providers Care Beater Out Leveling Machine Name Role Phone Vern Juarez MD Primary Care Prov ider Encounter Details Date Type Department Care Team ([facility] Contact Info) Description 09/24/2022 Telephone [facility]EDS 505 [place], [place] [phone] Vern Juarez MD 505 [place] [address] Social History Tobacco Use Types Packs/Day Years [...] documented as of this encounter Care Teams Beater Out Leveling Machine Relationship Specialty Start Date End Date Vern Juarez MD [address] [place] [phone] PCP - General Internal Medicine 08/09/22 documented as of this encounter
--- OUTSIDE RECORDS SUMMARY | 2025-05-02 14:19 | XMS_ITS | Encounter Summary ---
Author Organization [employer] Address [address] [facility] [address] [place] [address] Care Team Providers Care Rn Intern Name Role Phone Vern Juarez MD Primary Care Prov ider Encounter Details Date Type Department Care Team (Latest Contact Info) Description 05/02/2025 Travel Social History Tobacco Use Types Packs/Day [...] as of this encounter Care Teams Rn Intern Relationship Specialty Start Date End Date Vern Juarez MD [address] [place] [phone] PCP - General Internal Medicine 08/09/22 documented as of this encounter
--- OUTSIDE RECORDS SUMMARY | 2025-05-02 14:19 | XMS_ITS | Encounter Summary ---
Author Organization [employer] Address [address] [facility] 7 [place] [address] Care Team Providers Care School Leader Name Role Phone Vern Juarez MD Primary Care Prov ider Encounter Details Date Type Department Care Team ([facility] Contact Info) Description 10/19/2023 Orders Only [facility] CHC MED & PEDS 505 [place] [address] Vern Juarez MD 505 [place] [address] Social History Tobacco Use Types Packs/Day Years [...] documented as of this encounter Care Teams School Leader Relationship Specialty Start Date End Date Vern Juarez MD [address] [place] [phone] PCP - General Internal Medicine 08/09/22 documented as of this encounter
--- OUTSIDE RECORDS SUMMARY | 2025-05-02 14:19 | XMS_ITS | Encounter Summary ---
Author Organization [employer] Address 75 [facility] 7 [place] [address] Care Team Providers Care Pump Tester Name Role Phone Vern Juarez MD Primary Care Prov ider Encounter Details Date Type Department Care Team ([facility] Contact Info) Description 06/22/2023 Orders Only [facility] CHC MED & PEDS [address] [place], [place] [phone] Vern Juarez MD 505 [place] [address] Social History Tobacco Use Types Packs/Day Years [...] documented as of this encounter Care Teams Pump Tester Relationship Specialty Start Date End Date Vern Juarez MD [address] [place] [phone] PCP - General Internal Medicine 08/09/22 documented as of this encounter
--- OUTSIDE RECORDS SUMMARY | 2025-05-02 14:19 | XMS_ITS | Encounter Summary ---
Author Organization [email or web address] Address [address] [facility] [address] [place] [address] Care Team Providers Care Patternmaker Pressure Cast Name Role Phone Vern Juarez MD Primary Care Prov ider Encounter Details Date Type Department Care Team ([facility] st Contact Info) Description 12/23/2023 Orders Only [facility] MEDICINE 230 [place] [address] ProviderRegis MD Social History Tobacco Use Types [...] documented as of this encounter Care Teams Patternmaker Pressure Cast Relationship Specialty Start Date End Date Vern Juarez MD [address] [place] [phone] PCP - General Internal Medicine 08/09/22 documented as of this encounter
--- OUTSIDE RECORDS SUMMARY | 2025-05-02 14:19 | XMS_ITS | Encounter Summary ---
Author Organization [employer] Address [address] [place] [address] Care Team Providers Care Internal Medicine Hospitalist Name Role Phone Vern Juarez MD Primary Care Prov ider Reason for Visit * Reason Onset Date Comments Med Refill 03/01/2023 Encounter Details Date Type Department Care Team ([facility] Contact Info) Description 03/01/2023 Telephone [facility] CHC MED & PEDS 505 [place] [address] Vern Juarez MD 505 [place] [address] Med Refill Social History Tobacco Use Types [...] - 03/04/2023 11:07 AM EDT T?C to [phone] for below message, pt. Had question for medication delivery. Pt. Advised to call to pharmacy for delivery status. Pt. Verbally agreed and understood. * Telephone Encounter - Vandana Vick - 03/01/2023 3:11 PM EDT Tc from pt requesting to speak with someone regarding her medications . [facility] pharmacy has all hermeds on hold [...] documented as of this encounter Care Teams Internal Medicine Hospitalist Relationship Specialty Start Date End Date Vern Juarez MD [address] [place] [phone] PCP - General Internal Medicine 08/09/22 documented as of this encounter
--- OUTSIDE RECORDS SUMMARY | 2025-05-02 14:19 | XMS_ITS | Encounter Summary ---
Author Organization [employer] Address [address] [place] [address] [place] [address] Care Team Providers Care Land Department Head Name Role Phone Vern Juarez MD Primary Care Prov ider Reason for Visit * Reason Onset Date Comments Nurse Triage 12/22/2023 Encounter Details Date Type Department Care Team ([facility] st Contact Info) Description 12/22/2023 Telephone [facility] CHC MED & PEDS [address] [place] [address] Vern Juarez MD 505 [place] [address] Nurse Triage Social History Tobacco Use Types [...] OTC Tylenol with mild relief. Pt offered [facility] WIC or to submit instED. Pt states will set up instED herself once her daughter arrives to serve as umbrella repairer. Pt advised to call back after instED [...] accepted this outcome Please contact pt at [phone] (Latvian) documented in this encounter Plan of Treatment Not on file documented as of this encounter Visit Diagnoses Not on filedocumented in this encounter Additional Health Concerns Assessment Noted Time PHQ-9 Depression Total Score: 19 024 10:43 AM EST documented as of this encounter Care Teams Land Department Head Relationship Specialty Start Date End Date Vern Juarez MD [address] [place] [phone] PCP - General Internal Medicine 08/09/22 documented as of this encounter
--- OUTSIDE RECORDS SUMMARY | 2025-05-02 14:19 | XMS_ITS | Encounter Summary ---
Author Organization [employer] Address 75 [facility] 7 [place] [address] Care Team Providers Care Assistant Professor Of Drama Name Role Phone Vern Juarez MD Primary Care Prov ider Reason for Visit * Reason Comments Med Refill Encounter Details Date Type Department Care Team ([facility] st Contact Info) Description 07/02/2024 Refill [facility] MEDICINE 230 [place] [address] Grisel Powell MD 230 [place] [address] Seasonal allergies Social History Tobacco Use Types [...] this encounter Care Teams Assistant Professor Of Drama Relationship Specialty Start Date End Date Vern Juarez MD [address] [place] [phone] PCP - General Internal Medicine 08/09/22 documented as of this encounter
--- OUTSIDE RECORDS SUMMARY | 2025-05-02 14:19 | XMS_ITS | Clinical Summary ---
Author Organization [employer] Address [address] [place] [address] Care Team Providers Care Pasting Inspector Name Role Phone Vern Juarez MD Primary Care Prov ider Allergies Active Allergy Reactions Criticality Noted Date Comments Aspirin Unknown 08/26/2023 Oxycodone Itching 11/25/2023 Zolmitriptan Itching,Unknown Low 08/19/2010 Other reaction(s): made headache worse Medications clonazePAM (KlonoPIN) 2 MG tablet Take 1 tablet by mouth at bed time. Active levalbuterol (Xopenex HFA) 45 MCG/ACT inhaler Inhale 2 puffs every 6 (six) hours. 06/23/20 21 Active lamoTRIgine (LaMICtal) 200 MG tablet Take 1 tablet by mouth 1 (one) time each day. Active ipratropium-al buterol (Duo-Neb) 0.5-2.5 mg/3 mL nebulizer solution Take 3 mL by nebulization. Every 4 to 6 hours as needed for wheezing Active escitalopram (Lexapro) 5 MG tablet Take 1 tablet by mouth in the morning. Active pramipexole (Mirapex) 0.125 MG tablet Take 1 tablet by mouth every 8 (eight) hours. Active Fasenra 30 MG/ML injection 03/22/20 Active Advair HFA 230-21 MCG/ACT inhaler INHALE [...] 23 Active Minoxidil (Rogaine Womens) 5 % foamIndication s:Telogen effluvium To use daily 60 g 11 08/09/20 23 Active ketoconazole (Nizoral) 2 % shampooIndicat ions:Seborrhei c dermatitis Apply topically 2 (two) times a week. 120 mL 2 08/11/20 23 Active Diclofenac Sodium 1 % gelIndications :Acute bilateral back pain, unspecified back location Apply thin layer to affected area 3 times daily as needed for pain. 100 g 3 10/17/19 24 Active Simethicone Ultra Strength 180 MG capsuleIndicat ions:Type 2 diabetes mellitus with hyperglycemia, without long-term current use of insulin (CMS/HCC) TAKE ONE CAPSULE THREE TIMES DAILY WITH MEALS NEEDED 90 capsule 11 10/25/19 24 Active hydrocortisone 0.5 % creamIndicatio ns:Seborrheic dermatitis Apply topically 2 times daily. 15 g 12/27/19 24 Active potassium chloride CR (Klor-Con) 8 MEQ ER tablet TAKE ONE TABLET EVERY MORNING 30 tablet 11 06/14/20 24 Active hydroquinone 4 % creamIndicatio ns:Melasma Apply topically 2 times daily. 28 g 3 06/12/20 24 025 Active Sunscreens (Shade Sunblock SPF45) lotionIndicati ons:Rosacea To use daily when going in the sun. 120 mL 06/12/20 24 Active Blood Glucose Monitoring Suppl (FreeStyle Lite) w/Device kitIndications :Type 2 diabetes mellitus with hyperglycemia, without long-term current use of insulin (CMS/HCC) 1 Device 3 times daily. 1 kit 06/29/20 24 Active rosuvastatin (Crestor) 20 MG tabletIndicati ons:Hyperlipid emia due to type 2 diabetes mellitus (CMS/HCC) ([facility]) TAKE ONE TABLET EVERY NIGHT AT BEDTIME 90 tablet 3 08/13/20 24 Active Aspirin Adult Low Strength 81 MG EC tabletIndicati ons:Primary hypertension,T ype 2 diabetes mellitus with hyperglycemia, without long-term current use of insulin ([facility]) TAKE ONE TABLET EVERY MORNING 30 tablet 11 09/18/19 25 Active baclofen (Lioresal) 10 MG tablet TAKE ONE TABLET THREE TIMES DAILY 90 tablet 1 10/16/19 25 Active fluticasone (Flonase) 50 MCG/ACT nasal spray Administer 1-2 sprays into each nostril Once per day. Shake gently. Before first use, prime pump. After use, clean tip and replace cap. 16 g 2 11/21/19 25 026 Active Diclofenac Sodium (Voltaren) 1 % gel Apply 2 g topically 2 times daily. 300 g 3 11/21/19 25 Active gabapentin (NEURONTIN) 400 MG tablet Take 1 tablet (400 mg) by mouth 2 times daily. 180 tablet 3 11/21/19 25 026 Active Nebulizers [facility] [place] nebulizer as instructed 1 each 11/21/19 25 Active Respiratory Therapy Supplies (Nebulizer/Tub ing/Mouthpiece ) kit To be used with Nebulizer 1 kit 11/21/19 25 Active FREESTYLE LITE test stripIndicatio ns:Type 2 diabetes mellitus with hyperglycemia, without long-term current use of insulin ([facility]) USE TO TEST BLOOD SUGAR THREE TIMES DAILY 100 strip 3 12/22/19 25 Active Easy Touch Lancets 33G/Twist miscIndication s:Type 2 diabetes mellitus with hyperglycemia, without long-term current use of insulin ([facility]) USE TO TEST BLOOD SUGAR THREE TIMES DAILY 100 each 3 12/22/19 25 Active Semaglutide,0. 25 or 0.5MG/DOS, (Ozempic, 0.25 or 0.5 MG/DOSE,) 2 MG/3ML solution pen-injectorIn dications:Type 2 diabetes mellitus with hyperglycemia, without long-term current use of insulin ([facility]) Inject 0.5 mg under the skin 1 (one) time per week. 12 mL 3 01/24/20 25 Active Continuous Glucose Government Clerk (FreeStyle Chucho 3 [place]) deviceIndicati ons:Type 2 diabetes mellitus with hyperglycemia, without long-term current use of insulin (CMS/[facility]) 1 each Once per day. Use as directed for CGM 1 each 01/24/20 25 Active hydroCHLOROthi azide (HYDRODiuril) 25 MG tablet TAKE ONE TABLET EVERY MORNING 90 tablet 02/15/20 25 Active levothyroxine (Synthroid, Levoxyl) 75 MCG tablet TAKE ONE TABLET EVERY MORNING 90 tablet 02/15/20 25 Active melatonin 5 MG tabletIndicati ons:Primary insomnia TAKE TWO TABLETS EVERY DAY AT BEDTIME 60 tablet 03/19/20 25 Active dilTIAZem CD (Cardizem CD) 240 MG 24 hr capsule TAKE ONE CAPSULE EVERY MORNING 90 capsule 03/19/20 25 Active loratadine (Claritin) 10 MG tablet TAKE 1 TABLET EVERY MORNING NEEDED FOR ALLERGY 90 tablet 03/19/20 25 Active omeprazole (PriLOSEC) [address] capsule TAKE ONE CAPSULE EVERY MORNING BEFORE BREAKFAST 90 capsule 03/19/20 25 Active sucralfate (Carafate) 1 g tablet TAKE 1 TABLET BY MOUTH THREE TIMES DAILY IN THE MORNING, AT NOON AND IN THE EVENING BEFORE MEALS 90 tablet 03/19/20 25 Active Semaglutide,0. 25 or 0.5MG/DOS, (Ozempic, 0.25 or 0.5 MG/DOSE,) 2 MG/3ML solution pen-injector Inject 0.25 mg under the skin 1 (one) time per week. 3 mL 3 04/15/20 25 026 Active Jardiance 25 MGIndications: Type 2 diabetes mellitus with hyperglycemia, without long-term current use of insulin (CMS/HCC) TAKE ONE TABLET EVERY MORNING 90 tablet 1 04/22/20 25 Active Continuous Glucose Sensor (FreeStyle Chucho 3 Plus Sensor) miscIndication s:Type 2 diabetes mellitus with hyperglycemia, without long-term current use of insulin (CMS/HCC) USE DIRECTED CHANGE EVERY 14 DAYS 2 each 04/24/20 25 Active hydrocortisone (Anusol-HC) 2.5 % rectal cream Insert into the rectum 2 times daily. 60 g 1 05/02/20 25 Active semaglutide (Ozempic) 2 MG/1.5ML solution pen-injector Inject 1 mg under the skin 1 (one) time per week. 2 each 06/29/20 24 025 Discontinued(Th erapy completed) Jardiance 25 MGIndications: Type 2 diabetes mellitus with hyperglycemia, without long-term current use of insulin ([facility]) TAKE 1 TABLET BY MOUTH EVERY MORNING 90 tablet 1 10/16/19 25 025 Discontinued Continuous Glucose Sensor (FreeStyle Chucho 3 Plus Sensor) miscIndication s:Type 2 diabetes mellitus with hyperglycemia, without long-term current use of insulin (CMS/[facility]) 1 each every 15 days. Apply 1 every 15 days as directed for CGM 2 each 01/24/20 025 Discontinued(Re order (will not trigger notification to Pharmacy)) Active Problems Problem Noted Date Diagnosed Date [...] Plan (05/19/2023 5:55 PM EDT): Will send pepe risk vs benefits discussed Vaginal prolapse 05/19/2023 Assessment & Plan (05/19/2023 5:59 PM EDT): Hx of corrected cystocele, patient refer feeling a pressure, will refer to ob- obgyn hospitalist physician for evaluation Non compliance w medication regimen [...] chair to decrease risk of fall, will taksina Assessment & Plan (10/20/2022 2:27 PM EST): [...] due to type 2 diabetes mellitus ( [facility]) 05/05/2018 Hypertension 05/05/2018 Assessment & Plan (02/26/2025 4:45 PM EDT): Patient has hx of anxiety, she refer has visited er after family discussions due to elevated bp, she has remained with stable bp reading, no changes will be made, keep low sodium diet and exercise as tolerated, follow up in 5-6 weeks Assessment & Plan (06/29/2024 12:30 PM EDT): [...] use of insulin 05/05/2018 Assessment & Plan (02/26/2025 4:45 PM EDT): Tolerated decrease dose of ozempic, no hypoglycemia, continue low carb/no sugar diet, follow up in 3 months Assessment & Plan (01/23/2025 4:20 PM EDT): Will decrease ozempic to 0.5mg, encouraged low carb/no sugar diet, will follow up in 1 month Assessment & Plan (11/20/2024 6:26 PM EDT): [...] provided with information for follow up with supply chain director, her a1c today was 9.0% she is taking jardiance, agree to start trulicity Encounters Date Type Department Care Team Description 05/02/2025 1:00 PM EDT Office Visit [facility] [address] [place] [address] Lyly Petersen MD Inability to urinate (Primary Dx); Dysuria; Perineal laceration involving labia, initial encounter 05/02/2025 Travel 05/02/2025 Telephone [facility] [address] [place], [place] [phone] Vern Juarez MD Nurse Triage 04/24/2025 Refill [facility] [address] [place], [place] [phone] Vern Juarez MD Type 2 diabetes mellitus with hyperglycemia, without long-term current use of insulin ([facility]) 04/16/2025 Refill [facility] [address] [place] [address] Vern Juarez MD Type 2 diabetes mellitus with hyperglycemia, without long-term current use of insulin ([facility]) 04/15/2025 Telephone [facility] [address] [place] [address] Vern Juarez MD Prior Authorization 04/15/2025 Telephone [facility] [address] [place] [address] Vern Juarez MD Medication Question 04/15/2025 Telephone [facility] [address] [place] [address] Vern Juarez MD 04/15/2025 Travel 03/19/2025 Refill [facility] [address] [place] [address] Vern Juarez MD Primary insomnia 02/26/2025 11:30 AM EDT Telemedicine [facility] [address] [place] [address] Vern Juarez MD Primary hypertension (Primary Dx); Type 2 diabetes mellitus with hyperglycemia, without long-term current use of insulin ([facility]) 02/26/2025 Travel 02/25/2025 Telephone [facility] [address] [place] [address] Vern Juarez MD chart prep 02/18/2025 Telephone [facility] [address] [place] [address] Vern Juarez MD Prior Authorization 02/13/2025 Refill [facility] [address] [place] [address] Vern Juarez MD from Last 3 Months Immunizations Immunization Administration [...] Mass Index 42 05/02/2025 12:34 PM EDT Plan of Treatment Health Maintenance Due [...] COVID-19 Vaccine ( season) 2024 12/05/2020, 11/07/2020 Lipid Panel 06/21/2024 06/21/2023, 04/2 09/2022, 07/26/2022, Additional history exists Dental Oral Exam 08/09/2024 02/07/2024, 11/29/2017 Diabetes: Urine Protein Screening 08/09/2024 08/09/2023, 11/19/2021, 08/15/2020 Mammogram 04/25/2025 04/25/2023, 12/21/2018 Influenza Vaccine (#1) 2025 7, 06/23/2016, 09/15/2013, Additional history exists Diabetes: Hemoglobin A1C 05/23/2025 025, 06/29/2024, 02/08/2024, Additional history exists Colonoscopy 06/05/2025 06/05/2015 Colorectal Cancer Screening 06/05/2025 Alcohol/Substance Use Screening 06/29/2025 06/29/2024 Depression Screening 06/29/2025 06/29/2024, 06/29/20 Diabetes: Foot Exam 06/29/2025 06/29/2024, 06/29/2024, 06/29/2024, Additional history exists SDOH Screening 11/13/2025 11/13/2024 HPV/Cotest 12/02/2025 12/02/2020, 08/23/2017 Pap Smear 12/02/2025 12/02/2020 Tobacco Screening 05/02/2026 05/02/2025 Eye Exam 09/21/2026 09/21/2024, 09/05, 09/21/2024, Additional [...] 05/02/2025 1:01 PM EDT Inability to urinate POCT GLYCATED HEMOGLOBIN, TOTAL Routine 11/20/2024 9:51 [...] to Health Maintenance Results * (ABNORMAL) POCT Urinalysis (05/02/2025 1:01 [...] Media Lot # [id number] Lot# Expiration Date 3890,080 Urine 05/02/2025 1:01 PM EDT Lyly Petersen MD POINT OF CARE TEST ENTER/EDIT ORDERABLES Final Result * (ABNORMAL) POCT HGB A1C (11/20/2024 9:51 AM EDT) Hemoglobin A1C 6.5(A) 4.0 - 6.0 % QC Media Lot # [id number] Lot# Expiration Date Blood 11/20/2024 9:51 AM EDT Vern Warner MD POINT OF CARE TEST ENTER/EDIT ORDERABLES Final Result * Albumin, Random Urine W/Creatinine (08/09/2023 10:25 AM EST) Pathologist [facility] [place] Creatinine, Urine 45.36 mg/dL [facility] Microalbumin Urine 10.0 mg/L [facility] Microalbum Creatinine Ratio Ur 22.0 <30 ug/mg cr [facility] Comment:Albumin/Creatinine R atio Reference Ranges: Normal: < 30 ug/mg creatinine Microalbuminuria: 30 - 300 ug/mg creatinineClinical Albuminuria: > 300 ug/mg creatinine 08/09/2023 10:2 5 AM EST 08/09/2023 2:29 PM EST Vern Warner MD LAB URINE ORDERABL ES Final Result [facility] [address] [place] [phone] * Hepatitis C Antibody with Reflex to HCV, RNA, Quantitative, Real-Time PCR (06/21/2023 9:36 AM EDT) Hepatitis C Antibody Nonreactive Nonreactive [facility] Comment:Antibodies to HCV no t detected; does not exclude early acuteHCV infection. Blood Venous blood specimen / Unknown 06/21/2023 9:36 AM EDT 06/21/2023 2:25 PM EDT Vern Warner MD LAB BLOOD ORDERABL ES Final Result Performing Organization Address [facility] Co de Phone Number [facility] [address] [place] [phone] * Lipid Panel, Standard (06/21/2023 9:36 AM EDT) Triglycerides 107 <150 mg/dL [facility] Comment:Desirable Triglyceri de: less than 150 mg/dLBorderline High Triglyceride 150-199 mg/dLHigh Triglyceride: 200-499 mg/dLVery High Triglyceride: greater than or equal to 5OO mg/dL Cholesterol 142 <200 mg/dL [facility] Comment:Desirable Cholestero l: less than 200 mg/dLBorderline High Cholesterol: 200-239 mg/dLHigh Cholesterol: greater than 239 mg/dL LDL Cholesterol Calculated 61 <100 mg/dL [facility] Comment:Desirable LDL: less than 100 mg/dLNear Optimal/Above Optimal LDL: 110- 129 mg/dLBorderline High LDL: 130-159 mg/dLHigh LDL: 160-189 mg/dLVery High LDL: greater than or equal to 190 mg/dL HDL Cholesterol 60 >40 mg/dL [facility] Comment:Desirable HDL: great er than 40 mg/dL Note: This HDL assay may give artificially low results in patients with liver disease. Blood Venous blood specimen / Unknown 06/21/2023 9:36 AM EDT 06/21/2023 2:25 PM EDT Vern Warner MD LAB BLOOD ORDERABL ES Final Result Performing Organization Address [facility] Co de Phone Number [facility] [address] [place] [phone] * BI Mammogram Screening Tomosynthesis Bilateral (04/25/2023 9:31 AM EDT) Anatomical Region Laterality Modality Breast Bilateral Mammography 04/25/2023 9:31 AM EDT Narrative 05/13/2023 6:28 AM EDT [address] [place] [address] Mammography Report Signed Patient: Sue Flannery MR#: [id number] : 1960 Acct:[id number] Age/Sex: 62 / F ADM Date: 04/25/23 Loc: HO.MAMMO Attending Dr: Vern Warner MD Ordering Physician: Vern Juarez MD Res ults: 1Negative Date of Service: 04/25/23 Follow Up: 1 Year From Orig inal Mammogram Procedure(s): MM tomosynthesis screening BI Accession Number(s): [id number] cc: Vern Juarez MD EXAMINATION: MM SCREENING [...] MD in OV> 05/13/23623 DD/ 0 TD/TT: Associate Professor Of Literature: Procedure Note Donotuseinterpreter, Image - 05/13/[address] [place] [place] [address] Mammography Report Signed Patient: Sue FlanneryMR#: [id number] : 9Acct:[id number] Age/Sex: 62 / FADM Date: 04/25/23 Loc: HO.MAMMO Attending Dr: Vern Warner MD Ordering Physician: Vern Juarez ults: 1Negative Date of Service: 04/25/23Follow Up: 1 Year From Orig inal Mammogram Procedure(s): MM tomosynthesis screening BI Accession Number(s): [id number] cc: Vern Juarez MD EXAMINATION: MM SCREENING [...] MD in OV> 05/13/23623 DD/ 0 TD/TT: Associate Professor Of Literature: Vern Warner MD IMG BI PROCEDURES Edited Result - Final * THINPREP PAP (12/02/2020 10:54 AM EDT) Clinical Information: None given [facility] COMMENT SEE COMMENT [facility] Comment: EXPLANATORY NOTE: The Pap is a screening test for cervical cancer. It is not a diagnostic test and is subject to false negative and false positive results. It is most reliable when a satisfactory sample, regularly obtained, is submitted with relevant clinical findings and history, and when the Pap result is evaluated along with historic and current clinical information. Rn Integrated : SEE COMMENT [facility] Comment: BIANCHI, CT(ASCP) CT screening location: [place] [address] Interpretation/R esult: Negative for intraepithelial lesion or malignancy. [facility] LMP: NONE GIVEN [facility] Prev. BX: NONE GIVEN [facility] Prev. PAP: NONE GIVEN [facility] SOURCE: None given [facility] Statement Of Adequacy: SEE COMMENT [facility] Comment: Satisfactory for evaluation. Endocervical/transformation zone component absent. 12/02/2020 10:5 4 AM EDT Roz HERNANDEZ LAB PATHOLOGY ORDERABLES Final Result Performing Organization Address [facility] de Phone Number [facility] [address] * HPV mRNA E6/E7 (12/02/2020 10:54 AM EDT) HPV nRNA E6/E7 Not Detected Not Detected [facility] Comment: Methodology: Safety Companion-Mediated Amplification This assay detects E6/E7 viral messenger RNA (mRNA) from 14 high-risk HPV types (16,18,31,33,35,39,45,51,52,56,58,59,66,68). The analytical performance characteristics of this assay have been determined by [employer]. The modifications have not been cleared or approved by the FDA. This assay has been validated pursuant to the CLIA regulations and is used for clinical purposes. For additional information, please refer to http://education.DataArt.Visionnaire/faq/GRX763k6 (This link if provided for information/ educational purposes only.) 12/02/2020 10:5 4 AM EDT Roz HERNANDEZ LAB BLOOD ORDERABLES Sena l Result Performing Organization Address [facility]/State/ZIP Co de Phone Number [facility] [address] [place] [phone] * Hm Colonoscopy (06/05/2015 1:00 PM EDT) us Historical Provider MD HEALTH MAINTENANCE Final Result from Last 3 Months or Most Recently Relevant to Health Maintenance Insurance [facility] [employer]-TERM OPTIONS (HMO D-SNP) Member Subscriber Plan / Payer (Ef fective 2023-Present) Name:PrudencioSue Relation to Subscriber:Self Name:PrudencioSue Payer ID:Not on file [place] [place] Address: [place] [address] [address] [phone] [facility] * Guarantor: Sue lFannery Account Type Relation to Patient Date of Phone Billing Address Personal/[place] [address] * Guarantor: Sue Flannery Account Type Relation to Patient Date of Phone Billing Address Personal/[place] [address] Care Teams Pasting Inspector Relationship Specialty Start Date End Date CruzVern Sandhu MD [address] [place] [address] [place] [address] PCP - General Internal Medicine 08/09/22
[2025-05-02 14:35] LABS: Appearance Urine Clear; Glucose Urine UA >=1000 mg/dL (Negative); PH 7.0 (5.0-9.0); Specific Gravity - Urine >= 1.030 (1.005-1.025); UMIC TRIGGER UACC YES
[2025-05-02 15:02] LABS: UACC Culture Trigger YES
[2025-05-02 16:06] LABS: Bacterial Vaginosis PCR NEGATIVE (Negative); Candida Group PCR NOT DETECTED (Not Detect); Candida glab krusei PCR NOT DETECTED (Not Detect); Trichomonas vaginalis PCR NOT DETECTED (Not Detect)
== END 2025-05-02 13:36 | disposition home or self-care (01) ==
LOC: HO.CHCLNP 13:35
PROVIDERS: Visit Provider Family Medicine
DX: S31.41XA Laceration without foreign body of vagina and vulva, initial encounter (principal); R30.0 Dysuria
CPT/HCPCS: 81001; 81515; 87086

== ENCOUNTER 2025-06-25 09:36 | Outpatient (REF) | payer OTHER, SELFPAY ==
--- OUTSIDE RECORDS SUMMARY | 2025-06-25 08:30 | XMS_ITS | Encounter Summary ---
Author Organization [employer] Address [address] [place] [address] [place] [address] Care Team Providers Care Lead Tank Mechanic Name Role Phone Vern Juarez MD Primary Care Prov ider Reason for Referral * Medications - Closed Specialty Diagnoses / Procedures Referred By Bk cruz Referred To Contact Diagnoses Type 2 diabetes mellitus with hyperglycemia, without long-term current use of insulin (HCC) Vern Juarez MD [address] [place] [address] Phone: tel: fax: Referral ID Status Reason Start Date Expiration Date Visits Re quested Visits Authorized [id number] Closed 1 1 * Imaging (Routine) - Closed Specialty Diagnoses / Procedures Referred By Bk cruz Referred To Contact Radiology Diagnoses Encounter for screening mammogram for malignant neoplasm of breast Procedures BI Mammogram Screening Tomosynthesis Bilateral Vern Juarez MD [address] [place] [address] Phone: tel: fax: [address] Phone: tel: fax: Referral ID Status Reason Start Date Expiration Date Visits Re quested Visits Authorized [id number] Closed 06/25/2025 06/25/2026 1 1 Encounter Details Date Type Department Care Team (Late st Contact Info) Description 06/25/2025 8:30 AM EDT Office Visit [facility] [address] [place] [address] Vern Juarez MD [address] [place] [address] Encounter for screening mammogram for malignant neoplasm of breast (Primary Dx); Screening for colon cancer; Severe persistent asthma without complication (HCC); Dietary counseling; Exercise counseling; Body mass index (BMI) 40.0-44.9, adult (HCC); Hyperlipidemia due to type 2 diabetes mellitus (HCC); Type 2 diabetes mellitus with hyperglycemia, without long-term current use of insulin (HCC); Chronic bilateral low back pain with right-sided sciatica; Bilateral carpal tunnel syndrome Social History Tobacco Use Types Packs/Day Years [...] Sign Reading Time Taken Comments Blood Pressure 128/74 06/25/2025 8:52 AM EDT Pulse 88 06/25/2025 8:52 AM EDT Temperature 37.1 C (98.7 F) 06/25/2025 8:52 AM EDT Respiratory Rate 20 06/25/2025 8:52 AM EDT Oxygen Saturation - - Inhaled Oxygen Concentration - - Weight 92.5 kg (204 lb) 06/25/2025 8:52 AM EDT Height 147.3 cm (4' 10 ) 06/25/2025 8:52 AM EDT Body Mass Index 42.64 06/25/2025 8:52 AM EDT documented in this encounter Progress Notes * Vern Warner MD - 06/25/2025 8:30 AM EDT Subjective Patient ID: Sue Flannery is a 64 y.o. female who presents for No chief complaint on file.. Hypertension This is a chronic problem. The problem is controlled. Pertinent negatives include no chest pain, headaches, palpitations or shortness of breath. Diabetes She presents for her follow-up diabetic visit. She has type 2 diabetes mellitus. Her disease coursehas been stable. Pertinent negatives for hypoglycemia include no headaches. Pertinent negatives fordiabetes include no chest pain, no foot ulcerations, no polydipsia, no polyphagia and no polyuria. Review of Systems Respiratory: Negative for shortness of breath. Cardiovascular: Negative for chest pain and palpitations. Endocrine: Negative for polydipsia, polyphagia and polyuria. Neurological: Negative for headaches. Objective Physical Exam Constitutional: Appearance: Normal appearance. Cardiovascular: Rate and Rhythm: Normal rate and regular rhythm. Heart sounds: No murmur heard. Pulmonary: Effort: Pulmonary effort is normal. No respiratory distress. Breath sounds: No stridor. No wheezing or rhonchi. Abdominal: General: There is no distension. Palpations: There is no mass. Tenderness: There is no abdominal tenderness. Hernia: No hernia is present. Neurological: General: No focal deficit present. Mental Status: She is alert and oriented to person, place, and time. Psychiatric: Mood and Affect: Mood normal. Behavior: Behavior normal. Assessment/Plan Problem List Items Addressed This Visit Hyperlipidemia due to type 2 diabetes mellitus ([facility]) Will order new test for guidance of therapy, continue statin therapy Relevant Medications Semaglutide,0.25 or 0.5MG/DOS, (Ozempic, 0.25 or 0.5 MG/DOSE,) 2 MG/3ML solution pen-injector Other Relevant Orders POCT Glucose (Completed) POCT Hgb A1c (Completed) Type 2 diabetes mellitus with hyperglycemia, without long-term current use of insulin ([facility]) Controlled, A1c 6.1%, no changes will be made, continue ozempic .5mg Relevant Medications Semaglutide,0.25 or 0.5MG/DOS, (Ozempic, 0.25 or 0.5 MG/DOSE,) 2 MG/3ML solution pen-injector Screening for colon cancer Relevant Orders Cologuard?? colon cancer screening Bilateral carpal tunnel syndrome Will order wrist splints Chronic bilateral low back pain with right-sided sciatica Will send DME request as follow: Shower bench round Bath mat non slip Reclinable chair Orthopaedic pillow Tray for walker Life aid kit Severe persistent asthma without complication ([facility]) Other Visit Diagnoses Encounter for screening mammogram for malignant neoplasm of breast - Primary Relevant Orders BI Mammogram Screening Tomosynthesis Bilateral Dietary counseling Relevant Medications Semaglutide,0.25 or 0.5MG/DOS, (Ozempic, 0.25 or 0.5 MG/DOSE,) 2 MG/3ML solution pen-injector Exercise counseling Relevant Medications Semaglutide,0.25 or 0.5MG/DOS, (Ozempic, 0.25 or 0.5 MG/DOSE,) 2 MG/3ML solution pen-injector Body mass index (BMI) 40.0-44.9, adult ([facility]) documented in this encounter Miscellaneous Notes * Assessment & Plan Note - Vern Warner MD - 06/25/2025 9:50 AM EDTAssociated Problem(s): Bilateral carpal tunnel syndrome Will order wrist splints * Assessment & Plan Note - Vern Warner MD - 06/25/2025 9:49 AM EDTAssociated Problem(s): Chronic bilateral low back pain with right-sided sciatica Will send DME request as follow: Shower bench round Bath mat non slip Reclinable chair Orthopaedic pillow Tray for walker Life aid kit * Assessment & Plan Note - Vern Warner MD - 06/25/2025 9:47 AM EDTAssociated Problem(s): Type 2 diabetes mellitus with hyperglycemia, without long-term current use of insulin (HCC) Controlled, A1c 6.1%, no changes will be made, continue ozempic .5mg * Assessment & Plan Note - Vern Warner MD - 06/25/2025 9:46 AM EDTAssociated Problem(s): Hyperlipidemia due to type 2 diabetes mellitus (HCC) Will order new test for guidance of therapy, continue statin therapy documented in this encounter Plan of Treatment Upcoming Encounters Date Type Department Care Team (Late st Contact Info) Description 08/06/2025 3:30 PM EST Office Visit [facility] [address] [place], [place] [phone] Iman Jeffery, OD [address] [place] [address] Scheduled Orders Name Type Priority Associated Diagnoses Orde r Schedule BI Mammogram Screening Tomosynthesis Bilateral Imaging Routine Encounter for screening mammogram for malignant neoplasm of breast Expected: 06/25/2025, Expires: 08/25/2026 Cologuard colon cancer screening Lab Routine Screening for colon cancer Ordered: 06/25/2025 documented as of this encounter Procedures Procedure Name Priority Date/Time Associated Diagnosis Comments POCT GLYCATED HEMOGLOBIN, TOTAL Routine 06/25/2025 8:58 AM EDT Hyperlipidemia due to type 2 diabetes mellitus (HCC) POCT GLUCOSE Routine 06/25/2025 8:57 AM EDT Hyperlipidemia due to type 2 diabetes mellitus (HCC) documented in this encounter Results * (ABNORMAL) POCT Hgb A1c (06/25/2025 8:58 AM EDT) Hemoglobin A1C 6.1(A) 4.0 - 5.7 % QC Media Lot # [id number] Lot# Expiration Date 096,027 Blood 06/25/2025 8:58 AM EDT us Vern Warner MD POINT OF CARE TEST ENTER/EDIT ORDERABLES Final Result * POCT Glucose (06/25/2025 8:57 AM EDT) Glucose Blood, POC 127 60 - 200 mg/dL QC Media Lot # [id number] Lot# Expiration Date 57,026 Blood Capillary blood specimen / Unknown 06/25/2025 8:57 AM EDT us Vern Warner MD POINT OF CARE TEST ENTER/EDIT ORDERABLES Final Result documented in this encounter Visit Diagnoses Diagnosis Encounter for screening mammogram for malignant neoplasm of breast- Primary Screening for colon cancer Special screening for malignant neoplasms, colon Severe persistent asthma without complication (HCC) Dietary counseling Dietary surveillance and counseling Exercise counseling Body mass index (BMI) 40.0-44.9, adult (HCC) Hyperlipidemia due to type 2 diabetes mellitus (HCC) Type 2 diabetes mellitus with hyperglycemia, without long-term current use of insulin (HCC) Chronic bilateral low back pain with right-sided sciatica Bilateral carpal tunnel syndrome Carpal tunnel syndrome documented in this encounter Additional Health Concerns Assessment Noted Time PHQ-9 Depression Total Score: 8 06/29/20 24 10:23 AM EDT documented as of this encounter Care Teams Lead Tank Mechanic Relationship Specialty Start Date End Date Vern Juarez MD [address] [place] [id number] PCP - General Internal Medicine 08/09/22 documented as of this encounter
--- OUTSIDE RECORDS SUMMARY | 2025-06-25 10:52 | XMS_ITS | Encounter Summary ---
Author Organization [employer] Address [address] [place] [address] Care Team Providers Care Dough Raiser Name Role Phone Vern Juarez MD Primary Care Prov ider Reason for Visit * Reason Onset Date Comments Med Refill 03/01/2023 Encounter Details Date Type Department Care Team ([facility] Contact Info) Description 03/01/2023 Telephone [facility] [address] [place] [address] Vern Juarez MD [address] [place] [address] Med Refill Social History Tobacco Use Types [...] - 03/04/2023 11:07 AM EDT T?C to [phone] for below message, pt. Had question for medication delivery. Pt. Advised to call to pharmacy for delivery status. Pt. Verbally agreed and understood. * Telephone Encounter - Vandana Vick - 03/01/2023 3:11 PM EDT Tc from pt requesting to speak with someone regarding her medications . [facility] pharmacy has all hermeds on hold . Informs she needs her diabetes medication . Please call to clarify . documented in this encounter Plan of Treatment Upcoming Encounters Date Type Department Care Team (Late st Contact Info) Description 08/06/2025 3:30 PM EST Office Visit [facility] [address] [place] [address] TarIman jarrett, OD [address] [place] [address] documented as of this encounter Visit Diagnoses Not on filedocumented in this encounter Additional Health Concerns Assessment Noted Time PHQ-9 Depression Total Score: 0 08/19/20 3:22 PM EST documented as of this encounter Care Teams Dough Raiser Relationship Specialty Start Date End Date Vern Juarez MD [address] [place] [id number] PCP - General Internal Medicine 08/09/22 documented as of this encounter
--- OUTSIDE RECORDS SUMMARY | 2025-06-25 10:52 | XMS_ITS | Encounter Summary ---
Author Organization [employer] Address [address] [facility] 7 [place] [address] Care Team Providers Care Chief Medical Director Name Role Phone Vern Juarez MD Primary Care Prov ider Encounter Details Date Type Department Care Team ([facility] Contact Info) Description 10/19/2023 Orders Only [facility] PED[facility] [address] [place] [address] Vern Juarez MD [address] [place] [address] Social History Tobacco Use Types Packs/Day Years [...] Description 08/06/2025 3:30 PM EST Office Visit [facility] [address] [place] [address] Iman Jeffery, OD [address] [place] [address] documented as of this encounter Visit Diagnoses Not on filedocumented in this encounter Additional Health Concerns Assessment Noted Time PHQ-9 Depression Total Score: 19 024 10:43 AM EST documented as of this encounter Care Teams Chief Medical Director Relationship Specialty Start Date End Date Vern Juarez MD [address] [place] [address] PCP - General Internal Medicine 08/09/22 documented as of this encounter
--- OUTSIDE RECORDS SUMMARY | 2025-06-25 10:52 | XMS_ITS | Encounter Summary ---
Author Organization [employer] Address 75 [facility] 7t [place] [address] Care Team Providers Care Quenching Machine Operator Name Role Phone Vern Juarez MD Primary Care Prov ider Encounter Details Date Type Department Care Team ([facility] st Contact Info) Description 12/23/2023 Orders Only [facility] MED[facility] [address] [place] [address] ProviderRegis MD Social History Tobacco Use Types [...] Description 08/06/2025 3:30 PM EST Office Visit [facility] OPTOM[facility] [address] [place] [address] TarkaIman, OD [address] [place] [address] documented as of this encounter Procedures Procedure [...] documented as of this encounter Care Teams Quenching Machine Operator Relationship Specialty Start Date End Date Vern Juarez MD [address] [place] [id number] PCP - General Internal Medicine 08/09/22 documented as of this encounter
--- OUTSIDE RECORDS SUMMARY | 2025-06-25 10:52 | XMS_ITS | Encounter Summary ---
Author Organization [employer] Address [address] [place] [address] Care Team Providers Care Legal Project Manager Name Role Phone Vern Juarez MD Primary Care Prov ider Reason for Visit * Reason Onset Date Comments Appointment Request 11/08/2023 Encounter Details Date Type Department Care Team ([facility] st Contact Info) Description 11/08/2023 Telephone [facility] MED[facility] [address] [place] [address] Vern Juarez MD [address] [facility] [place] [address] Appointment Request Social History Tobacco Use Types [...] Description 08/06/2025 3:30 PM EST Office Visit [facility] OPT[facility] [address] [place] [address] Tarka Iman, OD [address] [place] [address] documented as of this encounter Visit Diagnoses Not on filedocumented in this encounter Additional Health Concerns Assessment Noted Time PHQ-9 Depression Total Score: 19 024 10:43 AM EST documented as of this encounter Care Teams Legal Project Manager Relationship Specialty Start Date End Date Vern Juarez MD [address] [place] [address] PCP - General Internal Medicine 08/09/22 documented as of this encounter
--- OUTSIDE RECORDS SUMMARY | 2025-06-25 10:52 | XMS_ITS | Encounter Summary ---
Author Organization [employer] Address [address] [facility] 7 [place] [address] Care Team Providers Care Wind Site Manager Name Role Phone Vern Juarez MD Primary Care Prov ider Encounter Details Date Type Department Care Team ([facility] Contact Info) Description 06/22/2023 Orders Only [facility] MED & PEDS [address] [place], [place] [id number] Vern Juarez MD [address] [place] [address] Social History Tobacco Use Types Packs/Day Years [...] Description 08/06/2025 3:30 PM EST Office Visit [facility] OPTOM[facility] [address] [place] [address] TarkaIman, OD [address] [place] [address] documented as of this encounter Visit Diagnoses Not on filedocumented in this encounter Additional Health Concerns Assessment Noted Time PHQ-9 Depression Total Score: 0 08/19/20 22 3:22 PM EST documented as of this encounter Care Teams Wind Site Manager Relationship Specialty Start Date End Date Vern Juarez MD [address] [place] [id number] PCP - General Internal Medicine 08/09/22 documented as of this encounter
--- OUTSIDE RECORDS SUMMARY | 2025-06-25 10:52 | XMS_ITS | Encounter Summary ---
Author Organization [employer] Address [address] [place] [address] [place] [address] Care Team Providers Care Cook Camp Name Role Phone Vern Juarez MD Primary Care Prov ider Reason for Visit * Reason Onset Date Comments Nurse Triage 12/22/2023 Encounter Details Date Type Department Care Team ([facility] st Contact Info) Description 12/22/2023 Telephone [facility] MED [facility] PEDS [address] [place] [address] Vern Juarez MD [address] [place] [address] Nurse Triage Social History Tobacco Use Types [...] OTC Tylenol with mild relief. Pt offered [facility] or to submit instED. Pt states will set up instED herself once her daughter arrives to serve as business support associate. Pt advised to call back after instED [...] accepted this outcome Please contact pt at [phone] (Yemeni) documented in this encounter Plan of Treatment Upcoming Encounters Date Type Department Care Team (Late st Contact Info) Description 08/06/2025 3:30 PM EST Office Visit [facility] OPT[facility] [address] [place], [place] [phone] Iman Jeffery, OD [address] [place] [address] documented as of this encounter Visit Diagnoses Not on filedocumented in this encounter Additional Health Concerns Assessment Noted Time PHQ-9 Depression Total Score: 19 024 10:43 AM EST documented as of this encounter Care Teams Cook Camp Relationship Specialty Start Date End Date Vern Juarez MD [address] [place] [id number] PCP - General Internal Medicine 08/09/22 documented as of this encounter
--- OUTSIDE RECORDS SUMMARY | 2025-06-25 10:53 | XMS_ITS | Encounter Summary ---
Author Organization [employer] Address [address] [facility] [address] 7[address] [place] [address] Care Team Providers Care Firmware Software Verification Engineer Name Role Phone Vern Juarez MD Primary Care Prov ider Encounter Details Date Type Department Care Team (Latest Contact Info) Description 06/25/2025 Travel Social History Tobacco Use Types Packs/Day [...] Description 08/06/2025 3:30 PM EST Office Visit [facility] OPT[facility] [address] [place] [address] TarkaIman, OD [address] [place] [address] documented as of this encounter Visit Diagnoses Not on filedocumented in this encounter Additional Health Concerns Assessment Noted Time PHQ-9 Depression Total Score: 8 06/29/20 24 10:23 AM EDT documented as of this encounter Care Teams Firmware Software Verification Engineer Relationship Specialty Start Date End Date Vern Juarez MD [address] [place] [address] PCP - General Internal Medicine 08/09/22 documented as of this encounter
--- OUTSIDE RECORDS SUMMARY | 2025-06-25 10:53 | XMS_ITS | Clinical Summary ---
Author Organization [employer] Address [address] [facility] [address] [place] [address] Care Team Providers Care Plant Operator/Shift Supervisor Name Role Phone Vern Juarez MD [...] without long-term current use of insulin (HCC) TAKE ONE CAPSULE THREE TIMES DAILY WITH MEALS NEEDED 90 capsule 11 10/25/19 24 Active hydrocortisone 0.5 % creamIndicatio ns:Seborrheic dermatitis Apply topically 2 times daily. 15 g 12/27/19 24 Active Sunscreens (Shade Sunblock SPF45) lotionIndicati ons:Rosacea To use daily when going in the sun. 120 mL 06/12/20 24 Active Blood Glucose Monitoring Suppl (FreeStyle Lite) w/Device kitIndications :Type 2 diabetes mellitus with hyperglycemia, without long-term current use of insulin ([facility]) 1 Device 3 times daily. 1 kit 06/29/20 24 Active rosuvastatin (Crestor) 20 MG tabletIndicati ons:Hyperlipid emia due to type 2 diabetes mellitus (HCC) TAKE ONE TABLET EVERY NIGHT AT BEDTIME 90 tablet 3 08/13/20 24 Active Aspirin Adult Low Strength 81 MG EC tabletIndicati ons:Primary hypertension,T ype 2 diabetes mellitus with hyperglycemia, without long-term current use of insulin (HCC) TAKE ONE TABLET EVERY MORNING 30 tablet 09/18/19 Active baclofen (Lioresal) 10 MG tablet TAKE ONE TABLET THREE TIMES DAILY 90 tablet 10/16/19 25 Active fluticasone (Flonase) 50 MCG/ACT nasal spray Administer 1-2 sprays into each nostril Once per day. Shake gently. Before first use, prime pump. After use, clean tip and replace cap. 16 g 2 11/21/19 25 026 Active Diclofenac Sodium (Voltaren) 1 % gel Apply 2 g topically 2 times daily. 300 g 11/21/19 Active gabapentin (NEURONTIN) 400 MG tablet Take 1 tablet (400 mg) by mouth 2 times daily. 180 tablet 11/21/19 Active Nebulizers [facility] Use nebulizer as instructed 1 each 11/21/19 Active Respiratory Therapy Supplies (Nebulizer/Tub ing/Mouthpiece ) kit To be used with Nebulizer 1 kit 11/21/19 Active Continuous Glucose Fret Saw Operator (FreeStyle Chucho 3 [place]) deviceIndicati ons:Type 2 diabetes mellitus with hyperglycemia, without long-term current use of insulin ([facility]) 1 each Once per day. Use as directed for CGM 1 each 01/24/20 25 Active melatonin 5 MG tabletIndicati ons:Primary [...] BEFORE BREAKFAST 90 capsule 03/19/20 25 Active Jardiance 25 MGIndications: Type 2 diabetes mellitus with hyperglycemia, without long-term current use of insulin ([facility]) TAKE ONE TABLET EVERY MORNING 90 tablet 04/22/20 25 Active Continuous Glucose Sensor (FreeStyle Chucho 3 Plus Sensor) miscIndication s:Type 2 diabetes mellitus with hyperglycemia, without long-term current use of insulin ([facility]) USE DIRECTED CHANGE EVERY 14 DAYS 2 each 04/24/20 25 Active hydrocortisone (Anusol-HC) 2.5 % rectal cream Insert into the rectum 2 times daily. 60 g 1 05/02/20 25 Active FREESTYLE LITE test stripIndicatio ns:Type 2 diabetes mellitus with hyperglycemia, without long-term current use of insulin (HCC) USE TO TEST BLOOD SUGAR THREE TIMES DAILY 100 strip 05/04/20 25 Active Easy Touch Lancets 33G/Twist miscIndication s:Type 2 diabetes mellitus with hyperglycemia, without long-term current use of insulin ([facility]) USE TO TEST BLOOD SUGAR THREE TIMES DAILY 100 each 05/04/20 25 Active sucralfate (Carafate) 1 g tablet TAKE ONE TABLET THREE TIME DAILY IN THE MORNING, AT NOON, AND IN THE EVENING BEFORE MEALS 90 tablet 1 05/14/20 25 Active hydroCHLOROthi azide (HYDRODiuril) 25 MG tablet TAKE ONE TABLET EVERY MORNING 90 tablet 05/21/20 25 Active levothyroxine (Synthroid, Levoxyl) 75 MCG tablet TAKE ONE TABLET EVERY MORNING 90 tablet 05/21/20 25 Active potassium chloride CR (Klor-Con) 8 MEQ ER tablet TAKE ONE TABLET EVERY MORNING 30 tablet 11 06/17/20 25 Active Semaglutide,0. 25 or 0.5MG/DOS, (Ozempic, 0.25 or 0.5 MG/DOSE,) 2 MG/3ML solution pen-injectorIn dications:Type 2 diabetes mellitus with hyperglycemia, without long-term current use of insulin ([facility]) Inject 0.5 mg under the skin 1 (one) time per week. 12 mL 3 06/25/20 25 Active potassium chloride CR (Klor-Con) 8 MEQ ER tablet TAKE ONE TABLET EVERY MORNING 30 tablet 11 06/14/20 24 025 Discontinued hydroquinone 4 % creamIndicatio ns:Melasma Apply topically 2 times daily. 28 g 3 06/12/20 24 025 Semaglutide,0. 25 or 0.5MG/DOS, (Ozempic, 0.25 or 0.5 MG/DOSE,) 2 MG/3ML solution pen-injectorIn dications:Type 2 diabetes mellitus with hyperglycemia, without long-term current use of insulin ([facility]) Inject 0.5 mg under the skin 1 (one) time per week. 12 mL 3 05/ 025 Discontinued(Re order (will not trigger notification to Pharmacy)) Semaglutide,0. 25 or 0.5MG/DOS, (Ozempic, 0.25 or 0.5 MG/DOSE,) 2 MG/3ML solution pen-injector Inject 0.25 mg under the skin 1 (one) time per week. 3 mL 3 04/15/20 025 Discontinued(Th erapy completed) Active Problems Problem Noted Date Diagnosed Date Severe persistent asthma without complication Chronic bilateral low back pain with right-sided sciatica 05/09/2025 Assessment & Plan (06/25/2025 9:49 AM EDT): Will send DME request as follow: Shower bench round Bath mat non slip Reclinable chair Orthopaedic pillow Tray for walker Life aid kit Assessment & Plan (05/09/2025 12:17 PM EDT): Due to poor gait, back pain, will send DME -bathtub -walker with seat -bathroom raised toilet seat Mixed stress and urge urinary incontinence 11/20 [...] carpal tunnel syndrome 10/18/2023 Assessment & Plan (06/25/2025 9:50 AM EDT): Will order wrist splints Assessment & Plan (10/18/2023 12:34 PM EST): [...] feeling a pressure, will refer to ob- laboratory cureman for evaluation Non compliance w medication regimen [...] tylenol, may apply ice/heat pads Morbid obesity ([facility]) 08/11/2022 Assessment & Plan (08/11/2022 5:00 PM [...] EST): Supportive care: fluids, Rest, Tylenol OTC Gastroesophageal reflux disease without esophagi tis 05/05/2018 Hyperlipidemia due to type 2 diabetes mellitus 0 05/05/2018 Assessment & Plan (06/25/2025 9:46 AM EDT): Will order new test for guidance of therapy, continue statin therapy Hypertension 05/05/2018 Assessment & Plan (02/26/2025 4:45 [...] use of insulin 05/05/2018 Assessment & Plan (06/25/2025 9:47 AM EDT): Controlled, A1c 6.1%, no changes will be made, continue ozempic .5mg Assessment & Plan (05/09/2025 12:20 PM EDT): Controlled, no episode of hypoglycemia, keep low carb/no sugar diet, exercise as tolerated, follow up in 3 months Assessment & Plan (02/26/2025 4:45 PM EDT): [...] provided with information for follow up with director of perioperative services, her a1c today was 9.0% she is taking jardiance, agree to start trulicity Resolved Problems Problem Noted Date Diagnosed Date Resolved Date Benzodiazepine dependence, c ontinuous ([facility]) 05/05/2018 06/25/2025 Encounters Date Type Department Care Team Description 06/25/2025 8:30 AM EDT Office Visit [facility] [address] [place] [address] Vern Juarez MD Encounter for screening mammogram for malignant neoplasm of breast (Primary Dx); Screening for colon cancer; Severe persistent asthma without complication ([facility]); Dietary counseling; Exercise counseling; Body mass index (BMI) 40.0-44.9, adult ([facility]); Hyperlipidemia due to type 2 diabetes mellitus ([facility]); Type 2 diabetes mellitus with hyperglycemia, without long-term current use of insulin ([facility]); Chronic bilateral low back pain with right-sided sciatica; Bilateral carpal tunnel syndrome 06/25/2025 Telephone [facility] [address] [place] [address] Vern Juarez MD Durable Medical Equipment 06/25/2025 Travel 06/24/2025 Telephone [facility] [address] [place] [address] Vern Juarez MD Chart Prep 06/17/2025 Patient Outreach [facility] [address] [place] [address] Vern Juarez MD Pre-visit Planning (SDOH screening completed on 11/13/24) 06/14/2025 Refill [facility] [address] [place] [address] Vern Juarez MD 06/11/2025 9:15 AM EDT Office Visit [facility] [address] [place], [place] [phone] Iman Jeffery, OD Posterior vitreous detachment of left eye (Primary Dx); Vitreomacular adhesion of right eye 06/11/2025 Travel 05/20/2025 Refill [facility] [address] [place] [address] Vern Juarez MD 05/13/[address] [address] Vern Juarez MD Durable Medical Equipment 05/13/2025 Refill [facility] [address] [place] [address] Vern Juarez MD 05/03/2025 Refill [facility] [address] [place] [address] Aura Jaquez MD Type 2 diabetes mellitus with hyperglycemia, without long-term current use of insulin ([facility]) 05/02/2025 1:00 PM EDT Office Visit [facility] [address] [place] [address] Lyly Petersen MD Inability to urinate (Primary Dx); Dysuria; Perineal laceration involving labia, initial encounter 05/02/2025 Orders Only [facility] [address] [place] [address] Lyly Petersen MD 05/02/2025 Travel 05/02/[address] [address] Vern Juarez MD Nurse Triage 04/24/2025 Refill [facility] [address] [place] [address] Vern Juarez MD Type 2 diabetes mellitus with hyperglycemia, without long-term current use of insulin ([facility]) 04/16/2025 Refill [facility] [address] [place] [address] Vern Juarez MD Type 2 diabetes mellitus with hyperglycemia, without long-term current use of insulin ([facility]) 04/15/2025 2:30 PM EDT Telemedicine [facility] [address] [place] [address] Vern Juarez MD Chronic bilateral low back pain with right-sided sciatica (Primary Dx); Type 2 diabetes mellitus with hyperglycemia, without long-term current use of insulin ([facility]) 04/15/2025 Telephone [facility] [address] [place] [address] Vern Juarez MD Prior Authorization 04/15/2025 Telephone [facility] [address] [place] [address] Vern Juarez MD Medication Question 04/15/2025 Telephone [facility] [address] [place] [address] Vern Juarez MD 04/15/2025 Travel from Last 3 Months Immunizations Immunization Administration [...] 20 06/25/2025 8:52 AM EDT Oxygen Saturation 99% 05/02/2025 12:34 PM EDT Inhaled Oxygen Concentration - - Weight 92.5 kg (204 lb) 06/25/2025 8:52 AM EDT Height 147.3 cm (4' 10 ) 06/25/2025 8:52 AM EDT Body Mass Index 42.64 06/25/2025 8:52 AM EDT Plan of Treatment Upcoming Encounters Date Type Department Care Team (Late st Contact Info) Description 08/06/2025 3:30 PM EST Office Visit [facility] [address] [place] [phone] Iman Jeffery, OD [address] [place] [address] Health Maintenance Due Date Last Done Comments [...] 2018 Dental X-Ray: Full Mouth 11/30/2020 11/29/2017 Lipid Panel 06/21/2024 06/21/2023, 04/2 09/2022, 07/26/2022, Additional history exists Dental Oral Exam 08/09/2024 02/07/2024, 11/29/2017 Diabetes: Urine Protein Screening 08/09/2024 08/09/2023, 11/19/2021, 08/15/2020 Mammogram 04/25/2025 04/25/2023, 12/21/2018 COVID-19 Vaccine ( season) 2025 12/05/2020, 11/07/2020 Influenza Vaccine (#1) 2025 7, 06/23/2016, 09/15/2013, Additional history exists Colonoscopy 06/05/2025 06/05/2015 Colorectal Cancer Screening 06/05/2025 Alcohol/Substance Use Screening 06/29/2025 06/29/2024 Depression Screening 06/29/2025 06/29/2024, 06/29/20 24 Diabetes: Foot Exam 06/29/2025 06/29/2024, 06/29/2024, 06/29/2024, Additional history exists SDOH Screening 11/13/2025 11/13/2024 HPV/Cotest 12/02/2025 12/02/2020, 08/23/2017 Pap Smear 12/02/2025 12/02/2020 Diabetes: Hemoglobin A1C 12/24/2025 025, 11/20/2024, 06/29/2024, Additional history exists Tobacco Screening 05/02/2026 05/02/2025 Eye Exam 06/11/2027 06/11/2025, 03/2025, 06/11/2025, Additional history exists DTaP/Tdap/Td Vaccines (4 - [...] due to type 2 diabetes mellitus (HCC) OCT, RETINA - OU - BOTH EYES Routine 06/11/2025 10:41 AM EDT Posterior vitreous detachment of left eye Vitreomacular adhesion of right eye BACTERIAL VAGINOSIS PANEL Routine 05/02/2025 1:36 PM EDT Dysuria Perineal laceration involving labia, initial encounter URINALYSIS, COMPLETE, WITH REFLEX TO CULTURE Routine 05/02/2025 1:13 PM EDT POCT URINALYSIS DIPSTICK Routine 05/02/2025 1:01 PM EDT Inability to urinate CULTURE, URINE, ROUTINE Routine 05/02/2025 12:00 AM EDT PERIODIC ORAL EVALUATION - ESTABLISHED PATIENT Routine [...] to Health Maintenance Results * (ABNORMAL) POCT Hgb A1c (06/25/2025 8:58 AM EDT) Hemoglobin A1C 6.1(A) 4.0 - 5.7 % QC Media Lot # [id number] Lot# Expiration Date [id number] Blood 06/25/2025 8:58 AM EDT Vern Warner MD POINT OF CARE TEST ENTER/EDIT ORDERABLES Final Result * POCT Glucose (06/25/2025 8:57 AM EDT) Glucose Blood, POC 127 60 - 200 mg/dL QC Media Lot # [id number] Lot# Expiration Date 755 Blood Capillary blood specimen / Unknown 06/25/2025 8:57 AM EDT Vern Warner MD POINT OF CARE TEST ENTER/EDIT ORDERABLES Final Result * OCT, Retina - OU - Both Eyes (06/11/2025 10:41 AM EDT) Narrative Iman Jeffery, OD - 06/11/2025 10:41 AM EDT OCT RETINA INTERPRETATION Optical Coherence Tomography Interpretation Report Reliability: OD: SS 49 - adequate quality image OS: SS 39 - borderline quality image Measurements: Central subfoveal thickness OD: 227 microns OS: 200 microns Test findings: OD: Posterior hyaloid partially attached at macula and optic nerve head, no traction & normal foveal contour. All layers intact, (-) IRF/SRF. Stable to last scans from 09/21/24. OS: Posterior hyaloid not visible - was present with partial adhesion on last scans in Sep 2024 - suggesting posterior vitreous detachment. Some glial tissue extending anteriorly from nasal rim, also new since last scans. Normal foveal contour, all layers intact, (-) IRF/SRF. Impression and Plan: VMA OD. PVD OS. Monitor in 1 month Iman Jeffery OD OPHTH TOMOGRAPHY Final Result * Bacterial Vaginosis (05/02/2025 1:36 PM EDT) TRICHOMONAS VAGINALIS DETECTION BY PCR NOT DETECTED Not Detect [facility] BACTERIAL VAGINOSIS DETECTION BY PCR NEGATIVE Negative [facility] Comment:The BV organism targ ets of the Xpert Xpress MVP test can becommensal in women; Xpert Xpress MVP positive results forbacterial vaginosis should be considered in conjunction withother clinical and patient information to determine thedisease status. Organisms that are not detected by the XpertXpress MVP test have also been reported to be associatedwith BV and aerobic vaginitis.The Xpert Xpress MVP test performance has not been evaluatedin patients under the age of 14. ALTA GROUP DETECTION BY PCR NOT DETECTED Not Detect [facility] Alta glab krusei PCR NOT DETECTED Not Detect [facility] Swab Vaginal structure / Unknown 05/02/2025 1:36 PM EDT 05/02/2025 2:27 PM EDT us Lyly Petersen MD LAB MICROBIOLOGY - GENERAL OR DERABLES Final Result [facility] [address] [place] [phone] * (ABNORMAL) Urinalysis, Complete, with Reflex to Culture (05/02/2025 1:13 PM EDT) Color Urine Yellow [facility] Appearance Urine Clear [facility] PH 7.0 5.0 - 9.0 [facility] Glucose Urine UA >=1000(A) Negative mg/dL [facility] Urine Blood Small (1+)(A) Negative [facility] Specific [place] - Urine >=1.030(H) 1.005 - 1.025 [facility] Urine Protein Negative Neg-Trace mg/dL [facility] Urine Ketones Negative Negative mg/dL [facility] Nitrite Urine Negative Negative [facility] Leukocyte Esterase Urine Negative Negative [facility] RBC Urine 6-10(A) 0 - 2 /HPF [facility] Urine WBC 6-10 0 - 5 /HPF [facility] Urine Squamous Epithelial Cell 3-5 0 - 2 /HPF [facility] Urine Bacteria Trace None Seen [facility] Hyaline Casts, Urine 0-2 0 - 2 /LPF [facility] 05/02/2025 1:13 PM EDT 05/02/2025 2:27 PM EDT Narrative [facility] - 05/02/2025 3:02 PM EDT [id number], Clean Catch Lyly Petersen MD LAB URINE ORDERABLES Final Re sult Performing Organization Address [facility]/ZIP Co de Phone Number [facility] [address] [place] [phone] * (ABNORMAL) POCT Urinalysis (05/02/2025 1:01 PM [...] Media Lot # [id number] Lot# Expiration Date Urine 05/02/2025 1:01 PM EDT Lyly Petersen MD POINT OF CARE TEST ENTER/EDIT ORDERABLES Final Result * Culture, Urine, Routine (05/02/2025 12:00 AM EDT) Urine Urine specimen obtained by clean catch procedure / Unknown 05/02/2025 05/02/2025 Comment:UACC Narrative [facility] - 05/03/2025 9:09 AM EDT Urine Culture No growth. Specimen Source: Urine clean catch Lyly Petersen MD LAB MICROBIOLOGY - GENERAL OR DERABLES Final Result Performing Organization Address City/[facility]/ZIP Co de Phone Number [facility] [address] [place] [phone] * Albumin, Random Urine W/Creatinine (08/09/2023 10:25 AM EST) Creatinine, Urine 45.36 mg/dL [facility] Microalbumin Urine 10.0 mg/L [facility] Microalbum Creatinine Ratio Ur 22.0 <30 ug/mg cr [facility] Comment:Albumin/Creatinine R atio Reference Ranges: Normal: < 30 ug/mg creatinine Microalbuminuria: 30 - 300 ug/mg creatinineClinical Albuminuria: > 300 ug/mg creatinine 08/09/2023 10:2 5 AM EST 08/09/2023 2:29 PM EST us Vern Warner MD LAB URINE ORDERABL ES Final Result Performing Organization Address City/[facility]/ZIP Co de Phone Number [facility] [address] [place] [phone] * Hepatitis C Antibody with Reflex to HCV, RNA, Quantitative, Real-Time PCR (06/21/2023 9:36 AM EDT) Hepatitis C Antibody Nonreactive Nonreactive [facility] Comment:Antibodies to HCV no t detected; does not exclude early acuteHCV infection. Blood Venous blood specimen / Unknown 06/21/2023 9:36 AM EDT 06/21/2023 2:25 PM EDT us Vern Warner MD LAB BLOOD ORDERABL ES Final Result Performing Organization Address [facility] Co de Phone Number [facility] [address] [place] [phone] * Lipid Panel, Standard (06/21/2023 9:36 AM EDT) Triglycerides 107 <150 mg/dL [facility] Comment:Desirable Triglyceri de: less than 150 mg/dLBorderline High Triglyceride 150-199 mg/dLHigh Triglyceride: 200-499 mg/dLVery High Triglyceride: greater than or equal to 5OO mg/dL Cholesterol 142 <200 mg/dL [facility] Comment:Desirable Cholestero l: less than 200 mg/dLBorderline High Cholesterol: 200-239 mg/dLHigh Cholesterol: greater than 239 mg/dL LDL Cholesterol Calculated 61 <100 mg/dL [facility] Comment:Desirable LDL: less than 100 mg/dLNear Optimal/Above Optimal LDL: 110- 129 mg/dLBorderline High LDL: 130-159 mg/dLHigh LDL: 160-189 mg/dLVery High LDL: greater than or equal to 190 mg/dL HDL Cholesterol 60 >40 mg/dL [facility] Comment:Desirable HDL: great er than 40 mg/dL Note: This HDL assay may give artificially low results in patients with liver disease. Blood Venous blood specimen / Unknown 06/21/2023 9:36 AM EDT 06/21/2023 2:25 PM EDT us Vern Warner MD LAB BLOOD ORDERABL ES Final Result [facility] [address] [place] [phone] * BI Mammogram Screening Tomosynthesis Bilateral (04/25/2023 9:31 AM EDT) Anatomical Region Laterality Modality Breast Bilateral Mammography 04/25/2023 9:31 AM EDT Narrative 05/13/2023 6:28 AM EDT [address] [place] [address] Mammography Report Signed Patient: Sue Flannery MR#: [id number] : 1960 Acct:[id number] Age/Sex: 62 / F ADM Date: 04/25/23 Loc: HO.MAMMO Attending Dr: Vern Warner MD Ordering Physician: Vern Juarze MD Res ults: 1Negative Date of Service: 04/25/23 Follow Up: 1 Year From Orig inal Mammogram Procedure(s): MM tomosynthesis screening BI Accession Number(s): [id number] cc: Vern Juarez MD EXAMINATION: MM SCREENING [...] MD in OV> 05/13/23623 DD/ 0 TD/TT: Full Time Babysitter: Procedure Note Donotuseinterpreter, Image - 05/13/2023 [facility] [address] [place] [address] Mammography Report Signed Patient: Sophie Flannery#: [id number] : 9Acct:[id number] Age/Sex: 62 / FADM Date: 04/25/23 Loc: [facility] Attending Dr: Vern Warner MD Ordering Physician: Vern Juarez ults: 1Negative Date of Service: 04/25/23Follow Up: 1 Year From Orig inal Mammogram Procedure(s): MM tomosynthesis screening BI Accession Number(s): [id number] cc: Vern Juarez MD EXAMINATION: MM SCREENING [...] MD in OV> 05/13/23623 DD/ 0 TD/TT: Full Time Babysitter: us Venr Warner MD IMG BI PROCEDURES Edited Result [...] along with historic and current clinical information. Sales And Marketing Manager : SEE COMMENT [facility] Comment: BIANCHI, CT(ASCP) CT screening location: [place] [address] Interpretation/R esult: Negative for intraepithelial lesion or malignancy. [facility] LMP: NONE GIVEN [facility] Prev. BX: NONE GIVEN [facility] Prev. PAP: NONE GIVEN [facility] SOURCE: None given [facility] Statement Of Adequacy: SEE COMMENT [facility] Comment: Satisfactory for evaluation. Endocervical/transformation zone component absent. 12/02/2020 10:5 4 AM EDT us Roz HERNANDEZ LAB PATHOLOGY ORDERABLES Final Result [facility] [address] * HPV mRNA E6/E7 (12/02/2020 10:54 AM EDT) HPV nRNA E6/E7 Not Detected Not Detected [facility] Comment: Methodology: Mate Chief-Mediated Amplification This assay detects E6/E7 viral messenger RNA (mRNA) from 14 high-risk HPV types (16,18,31,33,35,39,45,51,52,56,58,59,66,68). The analytical performance characteristics of this assay have been determined by [employer]. The modifications have not been cleared or approved by the FDA. This assay has been validated pursuant to the CLIA regulations and is used for clinical purposes. For additional information, please refer to http://education.[employer]/faq/PCV041c0 (This link if provided for information/ educational purposes only.) 12/02/2020 10:5 4 AM EDT Roz HERNANDEZ LAB BLOOD ORDERABLES [place] Result Performing Organization Address City/State/[facility] Co de Phone Number [facility] [address] * Hm Colonoscopy (06/05/2015 1:00 PM EDT) Historical Provider HEALTH MAINTENANCE Final Result from Last 3 Months or Most Recently Relevant to Health Maintenance Insurance [facility] [employer] OPT[employer] (HMO D-SNP) JOANN ELLIS [id number] [facility] - [facility] Care Teams Plant Operator/Shift Supervisor Relationship Specialty Start Date End Date Vern Juarez MD [address] [place] [address] [place] [address] PCP - General Internal Medicine 08/09/22
--- OUTSIDE RECORDS SUMMARY | 2025-06-25 10:53 | XMS_ITS | Encounter Summary ---
Author Organization [employer] Address [address] [place] [id number] Care Team Providers Care Hydraulic Dredge Operator Name Role Phone Vern Juarez MD Primary Care Prov ider Reason for Visit * Reason Comments Med Refill Encounter Details Date Type Department Care Team ([facility] Contact Info) Description 02/28/2023 Refill [facility] CHC MED & PEDS [address] [place] [address] Vern Juarez MD [address] [place] [address] Social History Tobacco Use Types Packs/Day Years [...] Upcoming Encounters Date Type Department Care Team ([facility] Contact Info) Description 08/06/2025 3:30 PM EST Office Visit [facility] OPTOMETRY [address] [place] [address] Iman Jeffery, OD [address] [place] [address] documented as of this encounter Visit Diagnoses Not on filedocumented in this encounter Additional Health Concerns Assessment Noted Time PHQ-9 Depression Total Score: 0 08/19/20 22 3:22 PM EST documented as of this encounter Care Teams Hydraulic Dredge Operator Relationship Specialty Start Date End Date Vern Juarez MD [address] [place] [id number] PCP - General Internal Medicine 08/09/22 documented as of this encounter
--- OUTSIDE RECORDS SUMMARY | 2025-06-25 10:53 | XMS_ITS | Encounter Summary ---
Author Organization [employer] Address [address] [place] [address] [place] [address] Care Team Providers Care Assistant Teaching Professor Name Role Phone Vern Juarez MD Primary Care Prov ider Reason for Visit * Reason Onset Date Comments Durable Medical Equipment 09/24/2022 Encounter Details Date Type Department Care Team ([facility] st Contact Info) Description 09/24/[address] [facility] CHC MED & PEDS [address] [place] [address] Vern Juarez MD [address] [place] [address] Durable Medical Equipment Social History Tobacco Use [...] Description 08/06/2025 3:30 PM EST Office Visit [facility] OPTOMETRY [address] [place] [address] TarIman jarrett, OD [address] [place] [address] documented as of this encounter Visit Diagnoses Not on filedocumented in this encounter Additional Health Concerns Assessment Noted Time PHQ-9 Depression Total Score: 0 08/19/20 3:22 PM EST documented as of this encounter Care Teams Assistant Teaching Professor Relationship Specialty Start Date End Date Vern Juarez MD [address] [place] [id number] PCP - General Internal Medicine 08/09/22 documented as of this encounter
--- OUTSIDE RECORDS SUMMARY | 2025-06-25 10:53 | XMS_ITS | Encounter Summary ---
Author Organization [employer] Address [address] [facility] 7 [place] [address] Care Team Providers Care Sewing Machine Operator Name Role Phone Vern Juarez MD Primary Care Prov ider Encounter Details Date Type Department Care Team ([facility] Contact Info) Description 09/24/2022 Telephone C CHC MED & PEDS [address] [place], [place] [phone] Vern Juarez MD 505 [place] [address] Social History Tobacco Use Types Packs/Day Years [...] Description 08/06/2025 3:30 PM EST Office Visit [facility] OPTOMETRY [address] [place], [place] [phone] Iman Jeffery, OD [address] [place] [address] documented as of this encounter Visit Diagnoses Not on filedocumented in this encounter Additional Health Concerns Assessment Noted Time PHQ-9 Depression Total Score: 0 08/19/20 3:22 PM EST documented as of this encounter Care Teams Sewing Machine Operator Relationship Specialty Start Date End Date Vern Juarez MD [address] [place] [address] PCP - General Internal Medicine 08/09/22 documented as of this encounter
--- OUTSIDE RECORDS SUMMARY | 2025-06-25 10:53 | XMS_ITS | Encounter Summary ---
Author Organization [employer] Address [address] [place] [address] Care Team Providers Care Information Technology Data Analyst Name Role Phone Vern Juarez MD Primary Care Prov ider Reason for Visit * Reason Onset Date Comments Durable Medical Equipment 03/30/2024 Encounter Details Date Type Department Care Team (Late st Contact Info) Description 03/30/2024 Telephone [facility] MEDICINE [address] [place] [address] Vern Juarez MD [address] [address] Durable Medical Equipment Social History Tobacco Use [...] 3:30 PM EST Office Visit [facility] OPTOMETRY [address] [place] [address] Iman Jeffery, OD [address] [place] [address] documented as of this encounter Visit Diagnoses Not on filedocumented in this encounter Additional Health Concerns Assessment Noted Time PHQ-9 Depression Total Score: 19 024 10:43 AM EST documented as of this encounter Care Teams Information Technology Data Analyst Relationship Specialty Start Date End Date Vern Juarez MD [address] [place] [id number] PCP - General Internal Medicine 08/09/22 documented as of this encounter
--- OUTSIDE RECORDS SUMMARY | 2025-06-25 10:53 | XMS_ITS | Encounter Summary ---
Author Organization [employer] Address [address] [place] [address] Care Team Providers Care Pipeline Executive Name Role Phone Vern Juarez MD Primary Care Prov ider Reason for Visit * Reason Onset Date Comments Appointment Request 03/12/2024 Encounter Details Date Type Department Care Team ([facility] st Contact Info) Description 03/12/2024 Telephone [facility] MEDICINE [address] [place] [address] Vern Juarez MD [address] [facility] [place] [address] Appointment Request Social History Tobacco Use Types [...] Description 08/06/2025 3:30 PM EST Office Visit [facility] OPTOMETRY [address] [place] [address] Tarka Iman, OD [address] [place] [address] documented as of this encounter Visit Diagnoses Not on filedocumented in this encounter Additional Health Concerns Assessment Noted Time PHQ-9 Depression Total Score: 19 024 10:43 AM EST documented as of this encounter Care Teams Pipeline Executive Relationship Specialty Start Date End Date Vern Juarez MD 505 [place] [address] PCP - General Internal Medicine 08/09/22 documented as of this encounter
--- OUTSIDE RECORDS SUMMARY | 2025-06-25 10:53 | XMS_ITS | Encounter Summary ---
Author Organization [employer] Address [address] [place] [address] [place] [address] Care Team Providers Care Hydrodynamicist Name Role Phone Vern Juarez MD Primary Care Prov ider Reason for Visit * Reason Onset Date Comments Chart Prep 06/24/2025 Encounter Details Date Type Department Care Team ([facility] Contact Info) Description 06/24/2025 Telephone [facility] CHC MED & PEDS [address] [place] [address] Vern Juarez MD 505 [place] [address] Chart Prep Social History Tobacco Use Types Packs/Day Years [...] encounter Miscellaneous Notes * Telephone Encounter - Aleksandra Vigil MA - 06/24/2025 9:30 AM EDT Chart Prep Labs: done Images: done Referrals: complete Vaccines due: Covid, Flu, Hep B, Hep A, and RSV Screenings: colonoscopy and mammogram Overdue care gaps: A1c and Glucose documented in this encounter Plan of Treatment Upcoming Encounters Date Type Department Care Team (Late st Contact Info) Description 08/06/2025 3:30 PM EST Office Visit [facility] OPTOMETRY [address] [place] [address] Iman Jeffery, OD [address] [place] [address] documented as of this encounter Visit Diagnoses Not on filedocumented in this encounter Additional Health Concerns Assessment Noted Time PHQ-9 Depression Total Score: 8 06/29/20 24 10:23 AM EDT documented as of this encounter Care Teams Hydrodynamicist Relationship Specialty Start Date End Date Vern Juarez MD [address] [place], [place] [id number] PCP - General Internal Medicine 08/09/22 documented as of this encounter
--- OUTSIDE RECORDS SUMMARY | 2025-06-25 10:53 | XMS_ITS | Encounter Summary ---
Author Organization [employer] Address [address] [place] [address] [place] [address] Care Team Providers Care Medical Technologist Clinical Name Role Phone Vern Juarez MD Primary Care Prov ider Reason for Visit * Reason Onset Date Comments Durable Medical Equipment 06/25/2025 Encounter Details Date Type Department Care Team ([facility] st Contact Info) Description 06/25/2025 Telephone [facility] CHC MED & PEDS [address] [place] [address] Vern Juarez MD [address] [place] [address] Durable Medical Equipment Social History Tobacco Use [...] Telephone Encounter - Jacqui Cagle LPN - 06/25/2025 10:35 AM EDT Rx generated and faxed to [email or web address] with pcp notes , ---- Message from Vern Warner MD sent at 06/25/2025 9:50 AM EDT ----- Please send DME for Shower bench round Bath mat non slip Reclinable chair Orthopaedic pillow Tray for walker Life aid kit Wrist splint * Telephone Encounter - Jacqui Cgale LPN - 06/25/2025 10:35 AM EDT ----- Message from Vern Warner MD sent at 06/25/2025 9:50 AM EDT ----- Please send DME for Shower bench round Bath mat non slip Reclinable chair Orthopaedic pillow Tray for walker Life aid kit Wrist splint documented in this encounter Plan of Treatment Upcoming Encounters Date Type Department Care Team (Late st Contact Info) Description 08/06/2025 3:30 PM EST Office Visit [facility] OPTOMETRY [address] [place] [address] Iman Jeffery, OD [address] [place] [address] documented as of this encounter Visit Diagnoses Not on filedocumented in this encounter Additional Health Concerns Assessment Noted Time PHQ-9 Depression Total Score: 8 06/29/20 24 10:23 AM EDT documented as of this encounter Care Teams Medical Technologist Clinical Relationship Specialty Start Date End Date Vern Juarez MD [address] [place] [id number] PCP - General Internal Medicine 08/09/22 documented as of this encounter
--- OUTSIDE RECORDS SUMMARY | 2025-06-25 10:53 | XMS_ITS | Encounter Summary ---
Author Organization [employer] Address [address] [facility] 7 [place] [address] Care Team Providers Care Fountain Manager Name Role Phone Vern Juarez MD Primary Care Prov ider Reason for Visit * Reason Comments Med Refill Encounter Details Date Type Department Care Team ([facility] st Contact Info) Description 07/02/2024 Refill [facility] MEDICINE [address] [place] [address] Grisel Powell MD [address] [place] [address] Seasonal allergies Social History Tobacco Use Types [...] Description 08/06/2025 3:30 PM EST Office Visit [facility] OPTOMETRY [address] [place] [address] Iman Jeffery, OD [address] [place] [address] documented as of this encounter Visit Diagnoses Diagnosis Seasonal allergies Allergic rhinitis, cause unspecified documented in this encounter Additional Health Concerns Assessment Noted Time PHQ-9 Depression Total Score: 8 06/29/20 24 10:23 AM EDT documented as of this encounter Care Teams Fountain Manager Relationship Specialty Start Date End Date Vern Juarez MD [address] [place] [id number] PCP - General Internal Medicine 08/09/22 documented as of this encounter
[2025-06-25 14:48] LABS: MANUAL DIFF FLAG NO
[2025-06-25 14:52] LABS: Hematocrit 48.4 % (37.0-47.0); Hemoglobin 16.1 g/dl (12.0-16.0); Imm Gran Abs Auto 0.02 X10*3/uL (0.00-0.03); Imm Gran Pct Auto 0.3 % (0.0-0.4); Lymphocytes Absolute Auto 2.0 X10*3/uL (1.2-4.9); Mean Corpuscular HGB Conc 33.3 g/dl (31.0-35.0); Mean Corpuscular Hemoglobin 31.6 pg (27.0-33.0); Mean Corpuscular Volume 95.1 fL (80.0-98.0); NRBC Abs Auto 0.000 X10*3/uL (0.0-0.012); NRBC Pct Auto 0.0 /100WBC (0.0-0.2); Platelet Count 233 X10*3/uL (160-400); Red Blood Count 5.09 X10*6/uL (4.20-5.50); White Blood Count 7.2 X10*3/uL (4.8-10.8)
[2025-06-25 17:47] LABS: Anion Gap 13 (12-20)
[2025-06-25 17:52] LABS: Alanine Aminotransferase 31 U/L (0-31); Albumin Level 4.4 g/dL (3.5-5.0); Alkaline Phosphatase 107 U/L (39-117); Aspartate Amino Transferase 41 U/L (5-31); Blood Urea Nitrogen 16 mg/dL (9-16); Calcium 9.9 mg/dL (8.4-10.2); Carbon Dioxide 30 mmol/L (22-29); Chloride 103 mmol/L (96-108); Cholesterol 144 mg/dL (<200); Estimated Glomerular Filt Rate > 60; HDL Cholesterol 65 mg/dL (>40); Potassium 3.7 mmol/L (3.3-5.1); Sodium 142 mmol/L (135-145); Total Protein 7.6 g/dL (6.5-8.0); Triglycerides 129 mg/dL (<150)
== END 2025-06-25 09:37 | disposition home or self-care (01) ==
LOC: HO.CHCLDS 09:36
PROVIDERS: Visit Provider Internal Medicine
DX: E11.65 Type 2 diabetes mellitus with hyperglycemia (principal)
CPT/HCPCS: 36415; 80053; 80061; 84443; 85025

== ENCOUNTER 2025-07-25 10:38 | Outpatient (REF) | payer OTHER, SELFPAY ==
[2025-07-25 14:47] LABS: Microalbum/Creatinine Ratio Ur 12.9 ug/mg cr (<30)
--- OUTSIDE RECORDS SUMMARY | 2025-07-25 15:46 | XMS_ITS | Data Portability ---
Author Organization [employer], [facility] Address [address] [place] [address] Care Team Providers Care Medical Imaging Director Name Role Phone APOLLO LAURA Primary Care Provider HIM CCA OTHER Assessment Encounter Date Assessment Date Assessment LastModified by Organization Details LastModified Time 08/19/2023 08/19/2023 I provided real -time medical direction via phone for this encounter, and was available for additional phone based assistance as needed. I have reviewed and agree with the Assessment and Plan as documented by the Security Services Specialist. Patient given the opportunity to ask questions. Advised dru Not available 08/19/2023 11:59:50 04/30/2024 04/30/2024 I provided real -time medical direction via phone for this encounter and was available for additional phone-based assistance as needed. I have reviewed and agree with the Assessment and Plan as documented by the Security Services Specialist. Patient given the opportunity to ask questions. Our service contacted for an assessment of: chronic constipation As per above, patient seen recently with constipation. Started on Miralax and now c/o some burning when she moves her bowels. Denies any blood in stool currently. Per industrial truck operator on the scene, VSS, NAD Impression: Likely internal hemorroides Plan: OTC Tucks, [...] assessment and plan as documented by the industrial truck operator. I provided real-time medical direction for this [...] both arms. Exam otherwise unremarkable per the industrial truck operator. Impression: HTN in the context of chest [...] in the field was performed by my industrial truck operator colleague, as noted above, I provided real-time [...] out of 10 pain. Evaluation by the industrial truck operator shows She's quite tender in the epigastric area. She has Right flank tenderness. An EKG was done which does not show any ischemic changes. Given the fact that the patient has significant abdominal pain, she will need CT scanning and further evaluation of her pain. Arrangements were made to send the patient via EMS to [facility]. I called a quick report. Impression: acute epigastric abdominal pain Plan: 1) EKG shows nsr HR 67 first degree av block, normal qrs, nonspecific st-twave changes no stemi 2) Urinalysis shows potential infection 3) Given 04/14 abdominal pain pt sent via ems to [place] ED report given by me Primary care, consider f/u Er visit Disposition: To Er [facility] We discussed the situation and I recommended referral to the emergency department. This was based on abd pain [id number] Not available 01/20/2025 18:34:47 Plan of Treatment Reminders Order Date Submit Date Provider Last Modified By Organization Details Last Modified Time Details Appointments None recorded . Lab urinalys is, dipstick [address], [id number] 5 19:36:52 rapid SARS CoV 2 Ag, QL IA, respirat ory specimen [address], [id number] 4 19:58:10 rapid flu (A+B) 2023 024 [facility], [facility], [address] [place] [address], [phone] 4 19:58:35 Referral None recorded . Procedures None recorded . Surgeries None recorded . Imaging electroc ardiogra m [address], [id number] 5 18:25:48 Medication Orders predniso ne 20 mg tablet 2023 024 [id number] [address] [place], [address], 4 13:27:09 predniso ne 20 mg tablet [address] [id number] [address] [place], [address], 4 13:27:12 azithrom ycin 250 mg tablet [address] [facility] #[id number], [address] [place] [address], [address], 4 13:27:10 azithrom ycin 250 mg tablet 2023 024 [facility] #[id number], [address] [place] [address], [address], 4 13:27:12 Patient TargetsNo targets recorded. Patient InstructionsNo instructions recorded. Reason for Referral None Reported. Results Created Date Observation Date Name Description Value Unit Range Abnormal Flag Note LastModifiedBy Organization Detail LastModifiedTime 01/21/2001/20/2025 elect rocar diogr am No observ ation record ed. [facility] [address] [place] [address], [id number] 01/20/2025 19:37:12 Result Notes None recorded. Medical Equipment None Reported. Allergies Allergen ID Allergen Name Allergen Category Reaction Reaction Severity Criticality Documentation Date Start Date Code Code System Note Provider Name and Address Organization Details Recorded Time 82096 oxycodone medicatio n Not available Not available [...] Not available Not available Not available 08/19/2023 34096 4 RxNorm Georgina Canela MD [address] [place] [address],[address], [place], [address], [facility] 3 13:49:27 Medications Name Sig Start Date [...] Vitals Date Recorded Body temperature Oxygen saturation Heart rate Respiratory rate Systolic And Diastolic Provider Name and Address Organization Details Last Updated DateTime 5 97.9 [degF] 99 % 84 /min 16 /min 170/90 mm[Hg] Not Available [employer] 5 19:50:59 Date Recorded Oxygen saturation Heart rate Respiratory rate Body temperature Systolic And Diastolic Provider Name and Address Organization Details Last Updated DateTime 5 99 % 73 /min 20 /min 97.7 [degF] 151/74 mm[Hg] Not Available [employer] 5 18:10:05 Date Recorded Body temperature Oxygen saturation Body weight Body height Respiratory rate Heart rate Systolic And Diastolic Provider Name and Address Organization Details Last Updated DateTime 4 98 [degF] 97 % 62240.2 4 g 152.4 cm 16 /min 64 /min 170/90 mm[Hg] Not Available [employer] 4 14:10:39 Date Recorded Respiratory rate Body temperature Oxygen saturation Heart rate Systolic And Diastolic Provider Name and Address Organization Details Last Updated DateTime 4 20 /min 97.3 [degF] 98 % 76 /min 116/60 mm[Hg] Not Available [facility] 4 13:21:50 Date Recorded Respiratory rate Oxygen saturation Heart rate Body weight Body temperature Systolic And Diastolic Provider Name and Address Organization Details Last Updated DateTime 3 18 /min 98 % 70 /min 72086.4 g 98.2 [degF] 142/80 mm[Hg] Not Available [facility] 3 11:58:53 Social History None recorded. Functional Status None recorded. Mental Status None recorded. Family History Nothing Reported. Medical History No medical history recorded. Gynecological HistoryNo gynecological history recorded. Obstetrics History GPAL:G 0 P 0 0 0 0 Past Encounters Encounter ID Performer Location Encounter Start Date Encounter Closed Date Diagnosis/Indication Diagnosis SNOMED-CT Code Diagnosis ICD10 Code Diagnosis IMO Codes Diagnosis Note [id number] Ken Boswell MD Main - [address] [phone] 08/20/2022 13:05:35 08/24/2022 10:42:11 Near syncope [id number] R55 Reports three weeks of seconds-lo ng lightheade dness on standing and walking, self resolves. No symptoms at rest or at present. Referring clinician asks for POC blood work but patient declines to provide blood sample at this time. Symptoms seem most consistent with postural presyncope , advised continued oral hydration and PCP follow-up. [id number] Georgina Canela MD Main [address] [address] 08/19/2023 11:58:50 08/20/2023 14:36:41 Acute low back pain [id number] M54.50 pat c/o severe 06/14pain- I doubt Tylenol will do anything for her discomfort . I am not comfortabl e giving ketorolac to somebody who has a severe aspirin allergy and has some kind of reaction to oral NSAIDs/pos sibly allergic. I explained this to the patient and her daughter who is an employee at [employer] [employer]. This may be muscular but I feel [...] report called by me to ED nursing [id number] Galilea Schultz MD Main - [facility] [address] [place] [phone] 04/30/2024 14:10:35 04/30/2024 15:19:36 Chronic constipation 249815019 K59.09 [id number] Sharita Guerrero MD Main - [facility] [address] [place] [address] 06/04/2024 13:21:47 06/05/2024 13:09:17 Exacerbation of intermittent asthma 144834463 J45.21 I provided real -time medical direction via phone for this encounter, and was available for additional phone based assistance as needed. I have reviewed and agree with the Assessment and Plan as documented by the Security Services Specialist. Patient given the opportunit y to ask [...] dose now)- zpack (first dose, 500mg now) [id number] Emma Mcgovern MD Main - [facility] [address] [place] [phone] 10/15/2024 19:50:56 10/15/2024 22:26:22 Chest pain 38539789 R07.9 [id number] NEDA HDZ MD Main - [facility] [address] [place] [phone] 01/20/2025 18:09:56 01/21/2025 18:00:43 Epigastric pain 63404050 R10.13 34176 Health Concerns Section Related Observation LastModified by Organization Detai ls LastModified Time None Recorded Concern Status LastModified by Organization Details LastModified Time None Recorded Advance Directives Directive None Recorded Payers Insurance Date Sequence Insurance Name Policy Number Policy Mitchell Covered Member ID Mitchell Member ID Guarantor Name 08/19/2023 1 [facility] - DOS PRIOR TO 2022 - DUAL ELIGIBLE (MEDICARE REPLACEMENT/ADV ANTAGE - HMO) Sue Flannery [id number] Sue Flannery 01/20/2025 1 [facility] - DOS ON OR AFTER 2022 - DUAL ELIGIBLE - NURSING HOME OPTIONS AND ONE CARE (MEDICARE REPLACEMENT/ADV ANTAGE - HMO) Sue Flannery [id number] Sue Flannery Notes Date Note Type Note Provider Name and Address Organization Details Recorded Time 08/19/2023 text/html ROS as noted in the HPI HPI: Call to Sue Flannery, reports having mid upper back pain x 1 day. Per pt pain radiates to right leg and having numbness. Pt denies any abdominal pain or Urinary sx. Pt using Tylenol with mild relief. Pt denies any fall or twisting injury. Pt advised of disposition, agrees to instED referral as not able to come into [facility]. ................... ................... ................... ................... ................... ................... ................... ........ CRC Nursing Assessment: Comments: CRC RN did not require any additional information to process this visit. ................... ................... ................... ................... ................... ................... ................... ........ Security Services Specialist Note From Ronnie Diaz: Pt co right sided mid to lower back pain 06/14. Pt denies falls or injury. Laying on her left side relieve pain somewhat. Area tender and painful to touch. PT sts ibuprofen makes her anxious. Baseline vitals stable. [facility] contacted and recommended going to ER. Pt daughter is taking her to [facility]. Security Services Specialist Allergies: Morphine ................... ................... ................... ................... ................... ................... ................... ........ Disposition: FulfilledSEGMD: As above- Except: patient said motrin and other similar drugs make jumpy and shaky in [place]/ she is very allergic to asa- details not provided. pain is exacerbated by movement. She has had similar pain in the past and was told it was muscular and was relieved by gabapentin. She denies fever, chills, sweats, chest pain, cough, shortness of breath, abdominal pain, nausea vomiting diarrhea or incontinence of bladder or bowel. She denies UTI symptoms. Georgina Canela MD [address] [facility],[address], [place], [phone], [facility] 08/19/2023 13:58:36 04/30/2024 text/html HPI: Mbr's Behavioral health clinician, Simba from [facility], reporting lower abdominal pain and irritation in the same area>recently diagnosed this past tuesday night into tuesday morning for constipation>no relief since then ................... ................... ................... ................... ................... ................... ................... ........ CRC Nurse Triage Notes (Иван Penaloza): Chief Complaints: Constipation, Abdominal Pain PMH: COPD/Asthma, Diabetes, Hypertension Allergies: Morphine Comments: [employer] verified the member's name//address and phone number. r's behavioral health clinician, Simba, calling in reporting [...] ................... ................... ................... ................... ................... ................... ........ Security Services Specialist Note From Max Delaney: [employer] visit for female pt. Pt is [place] speaking so connie scratcher services were utilized. Pt complaining of some [...] of the same. Pt afebrile. Consulted with [facility] Dr. Schultz who advised pt try OTC witch tunde wipes for burning and sitz bath. Reviewed red flags for ED. Pt education provided. ................... ................... ................... ................... ................... ................... ................... ........ Disposition: Fulfilled Galilea Schultz MD [address] [facility],[address], [place], [address], [facility] 04/30/2024 14:28:59 06/04/2024 text/html HPI: Call returned to Sue Flannery to triage below. Reports having cough and intermittent wheezing x 3 days. Per pt cough is dry. Pt also endorses ST, MCNULTY. No nasal congestion. NO home kit for COVID-19. Denies any fever. Pt having chest pain with wheezing. Pt denies any SOB. Pt advised of disposition, agrees to [facility] as unable to come into our walk in center. Confirmed address and phone number. ................... ................... ................... ................... ................... ................... ................... ........ CRC Nurse Triage Notes (Иван Penaloza): Chief Complaints: Asthma PMH: Hypertension, COPD/Asthma, Diabetes, Hypertension Allergies: Aspirin, Morphine Other Allergies: oxycodone, zolmitriptan Comments: HPI reviewed by this RN, no further information needed to process visit -Margaret Penaloza RN Security Services Specialist Organization Information for [employer] Legal Name: [employer] Address: [address] [place] [address], Director Of Technology: Charles Choudhury MD LOGAN No.: [id number] Security Services Specialist POC Test Results from [employer] HOMERO Rapid COVID antigen (13:07:35) COVID: - Rapid influenza antigen (13:07:37) Flu: - ................... ................... ................... ................... ................... ................... ................... ........ Security Services Specialist Note From Wili Phamin: Dispatched to the call address for the [...] and rhonchi in the upper left. John. C consulted. Pt given 500mg Azithromycin and 40mg Prednisone. Scripts called into preferred pharmacy. Red flags discussed. ALL times are approx. ................... ................... ................... ................... ................... ................... ................... ........ Disposition: Fulfilled Sharita Guerrero MD [address] [place] [address],[address], [place], [address], [facility] 06/04/2024 21:39:42 10/15/2024 text/html CRC Nurse Triage Notes (Samantha Moraes - RN): Reason For Request: Patient has low blood pressure with 1 arm but different with the other arm, and feels dizzy. Chief Complaints: Hypertension PMH: COPD/Asthma, Hypertension PMH Reviewed at 10/15/2024 - 18:20 Allergies Reviewed at 10/15/2024 - 18:20 Comments: Referral taken via Director Law Enforcement. Patient calling in to request a visit. Patient who has felt shortness of breath, dizzy with pain in her mid chest area since about 4p. She denies any left jaw, neck, shoulder or arm pain, she denies any weakness, numbness or tingling any where, no diaphoresis, but feels hot, no nausea or vomiting, no headache. Someone who knows patient, speaks wolof and familiar with the cuff took patients blood pressure in her left arm and was 166/88, HR 76. RED flags discussed with patient via connie scratcher, and the woman who was present with the patient will also encourage 911/ED if symptoms worsen. Per patient around 4p her right arm BP was 94/45, HR 67, and left arm was 148/75, HR 73. Patient declining ED at this time. Security Services Specialist Organization Information for [employer] Name: [employer]. Address: [address] [place] [address] [place] [address], Director Of Technology: Charles JALLOH No.: [id number] Security Services Specialist POC Test Results from [employer] EKG (20:25:15) EKG test performed. Attachments uploaded as part of this test result can be found under Documents section. ................... ................... ................... ................... ................... ................... ................... ........ Security Services Specialist Note From [employer]: Dispatch to the [...] lung sounds CTA, pupils PERRL, + CMSx4. [facility] consulted, 12 lead EKG. Patient advised she should be evaluated in the ED patient initially hesitant but eventually agreed to go. 911 called on behalf of the patient. This industrial truck operator waited with the patient until EMS arrived. Patient transfer of care report given to paramedics. Patient transported to a [facility]. All times are approximate. ................... ................... ................... ................... ................... ................... ................... ........ [facility] Consulted: Emma Mcgovern ................... ................... ................... ................... ................... ................... ................... ........ Disposition: Blanco Mcgovern MD [address] [place] [address],[address], [place], [address], [facility] 10/15/2024 21:47:50 01/20/2025 text/html ROS as noted in the [facility] CRC Nurse Triage Notes (Samantha Moraes): Reason [...] Dizziness, Nausea / Vomiting Referral taken via Director Law Enforcement.Patient reports abdominal pain since yesterday, and dizziness [...] signs of when to seek emergency care. Security Services Specialist Organization Information for Chase Kiran [employer] Legal Name: [employer]. A ddress: [address] [place] [address], USMedical Director: Charles Choudhury [facility] No.: [id number] Security Services Specialist POC Test Results from Chase Kiran HOMERO [...] ................... ................... ................... ................... ................... ................... ........ Security Services Specialist Note From Chase Kiran: [facility] makes pt contact. She answers the door wearing a painful grimace on her face. Her face is flushed and she walks very slowly to sit on the sofa. Her gait is normal, no facial droop or one-sided weakness are observed, she is not in respiratory distress, and she is not bleeding anywhere. Pt is [place]-speaking only and connie scratcher services are utilized for hx and translation. [...] 15 min prior to her call for [facility] visit today. She called today because, [...] ago, which pt passed on her own. [facility] obtains vital signs and pt is [...] for UA. UA results suggest possible infection. [facility] contacts [facility] and discusses the above. Due to pt c/o 8/ abd pain and hx of kidney stone, [facility] recommends transport to the ED for CT scan of her abdomen. Pt is initially reluctant to go, however, [facility] is able to convince her and she agrees. IL[facility]ra contacts 911 and pt is transported to [facility] by [facility]. [facility] is clear. Report completed by BETTINA Kiran [id number]. [facility] Lab Orders: urinalysis, dipstick: Performed ................... ................... ................... ................... ................... ................... ................... ........ [facility] Consulted: Neda Hdz ................... ................... ................... ................... ................... ................... ................... ........ Disposition: Fulfilled NEDA HDZ MD [address] [facility],[address], [place], [address], [facility] 01/20/2025 19:12:12 OBGyn Episode No OBEpisode recorded.
--- OUTSIDE RECORDS SUMMARY | 2025-07-25 15:46 | XMS_ITS | Clinical Summary ---
Author Organization [facility] Address [address] [place] [address] Care Team Providers Care Vp Legal Affairs Name Role Phone Sangeetha Cruz MD Primary Care Provider [phone] Surgical History Surgery Date Site/Laterality Comments TUBAL [...] Last Done Comments Breast Cancer Screening 1960 Colorectal Cancer Screening: Colonoscopy 1960 Pneumococcal Vaccine: 50+ Ye ars (1 of 2 - PCV) 1977 RSV Immunization Adult Patie nts (1 - Risk 50-74 years 1-dose series) 2008 Zoster Vaccines (1 of 2) 2008 Cholesterol Screening (Lipid Panel) 08/08/2022 Hepatitis C Screening 08/08/2022 Osteoporosis Screening (Bone Density Screening) 08/08/2022 Social Influencers of Health Screening 08/08/2022 Hypertension/CHF/CAD Annual BMP Blood Test 08/19/2022 DTaP,Tdap,and Td Vaccines (2 - Td or Tdap) 06/12/2023 06/12/2013 Falls Risk Assessment 11/29/2023 Depression Screening 09/05/2024 COVID-19 Vaccine (1 - 2024-2 6 season) 2025 Influenza Vaccine (#1) 2025 HIB Vaccines Aged [...] Documents on File Type Date Recorded Patient Budget Record Clerk Expl anation Health Care Decision (hx) 02/05/2022 AD BLOCK DIRECTIVE Health Care Decision (hx) 02/05/2022 AD BLOCK DIRECTIVE Health Care Decision (hx) 02/05/2022 AD BLOCK DIRECTIVE Health Care Decision (hx) 02/05/2022 AD BLOCK DIRECTIVE Care Teams Vp Legal Affairs Relationship Specialty Start Date End Date Sangeetha Cruz MD [facility] [address] PCP - General Internal Medicine 12/23/14
== END 2025-07-25 10:39 | disposition home or self-care (01) ==
LOC: HO.CHCLNP 10:38
PROVIDERS: Visit Provider Internal Medicine
DX: E11.65 Type 2 diabetes mellitus with hyperglycemia (principal)
CPT/HCPCS: 82043; 82570